=== PATIENT | male | born 1950 | race African-American/Black ===

== ENCOUNTER → 2016-10-01 | Outpatient (CLI) | payer MEDICARE, OTHER ==
[~2016-10-01] VITALS: Ht 188 cm; Wt 96.6 kg
[~2016-10-01] MED LIST: ACET-654; ALFU10TA2; AMLO10TA2; FLUT22IN; GLIP5TAB8; LIPI80TA; LISI40TAB; LR 1,000 ML IV SCH; NIAC500T42 PO; NIZO2SHA; PROPOFOL 200 MG/20 ML VIAL As Ordered ONE; SING10TA32; SITA50TAB; VIAG100T; VITA100041 PO
--- NOTE | 2016-10-01 09:17 | ROOR ---
Patient Name: Jose G Nj Procedure Date: 10/01/2016 8:13 AM Date of : 1950 Age: 66 Room: [facility] Gender: Male Note Status: Finalized Procedure: Colonoscopy Indications: Screening in patient at increased risk: Colorectal cancer in brother before age 60, Last colonoscopy: 2007 Providers: Theodore Rockwell MD Referring MD: Bailee DUNHAM MD Requesting Provider: Medicines: Monitored Anesthesia Care Complications: No immediate complications. Procedure: Pre-Anesthesia Assessment: - Prior to the procedure, a History and Physical was performed, and patient medications and allergies were reviewed. The patient is competent. The risks and benefits of the procedure and the sedation options and risks were discussed with the patient. All questions were answered and informed consent was obtained. Patient identification and proposed procedure were verified by the physician, the nurse and the anesthesiologist in the procedure room. Mental Status Examination: alert and oriented. Airway Examination: normal oropharyngeal airway and neck mobility. CV Examination: regular rate and rhythm. Prophylactic Antibiotics: The patient does not require prophylactic antibiotics. Prior Anticoagulants: The patient has taken no previous anticoagulant or antiplatelet agents. ASA Grade Assessment: II - A patient with mild systemic disease. After reviewing the risks and benefits, the patient was deemed in satisfactory condition to undergo the procedure. The anesthesia plan was to use monitored anesthesia care (MAC). Immediately prior to administration of medications, the patient was re-assessed for adequacy to receive sedatives. The heart rate, respiratory rate, oxygen saturations, blood pressure, adequacy of pulmonary ventilation, and response to care were monitored throughout the procedure. The physical status of the patient was re-assessed after the procedure. The was introduced through the anus and advanced to the cecum, identified by appendiceal orifice and ileocecal valve. The colonoscopy was performed without difficulty. The patient tolerated the procedure well. The quality of the bowel preparation was excellent. Findings: The perianal and digital rectal examinations were normal. The colon (entire examined portion) appeared normal. Impression: - The entire examined colon is normal. - No specimens collected. Recommendation: - Discharge patient to home. - Resume previous diet. - Continue present medications. - Repeat colonoscopy in 5-10 years for screening purposes. Theodore Rockwell MD 10/01/2016 9:17:01 AM Number of Addenda: 0 Note Initiated On: 10/01/2016 8:13 AM Estimated Blood Loss: Estimated blood loss: none.
[2016-10-01 09:41] VITALS: BP 124/94
== END | disposition home or self-care (01) ==
LOC: M OPP 07:39
PROVIDERS: ATTEND Surgery
DX: Z12.11 Encounter for screening for malignant neoplasm of colon (principal); Z80.0 Family history of malignant neoplasm of digestive organs; I12.9 Hypertensive chronic kidney disease with stage 1 through stage 4 chronic kidney disease, or unspecified chronic kidney disease; E78.5 Hyperlipidemia, unspecified; E11.9 Type 2 diabetes mellitus without complications; M54.9 Dorsalgia, unspecified; R21 Rash and other nonspecific skin eruption; G47.8 Other sleep disorders; M19.90 Unspecified osteoarthritis, unspecified site; J45.909 Unspecified asthma, uncomplicated; N18.4 Chronic kidney disease, stage 4 (severe); Z85.46 Personal history of malignant neoplasm of prostate; Z92.3 Personal history of irradiation; Z87.442 Personal history of urinary calculi; J32.9 Chronic sinusitis, unspecified; Q61.3 Polycystic kidney, unspecified; Z83.71 Family history of colonic polyps; Z88.5 Allergy status to narcotic agent; Z79.84 Long term (current) use of oral hypoglycemic drugs; Z79.899 Other long term (current) drug therapy

== ENCOUNTER → 2016-10-17 | Outpatient (REF) | payer MEDICARE, OTHER ==
[~2016-10-17] MED LIST changes: -ACET-654; +ACET1TAB17; +ACET1TAB17 PO; -ALFU10TA2; +ALFU10TA2 PO; -AMLO10TA2; +AMLO10TA2 PO; +ASPI1TAB PO; +ATOR1TAB19 PO; +ATOR40TA75 PO; +D32000CA PO; +FLON1SPR; -FLUT22IN; +FLUT22IN INH; +GLIP5TAB8 PO; +JANU25TA PO; +KETO0.02 OU; -LISI40TAB; +LISI40TAB PO; -LR 1,000 ML IV SCH; +NIAC500T5 PO; +OXYC1TAB23 PO; +PROAAER10 INH; -PROPOFOL 200 MG/20 ML VIAL As Ordered ONE; +PROTPAK PO; -SING10TA32; +SING10TA32 PO; +SUCR1TA PO; +VITA-182 PO; -VITA100041 PO; +VITA2000 PO; +VITMTA PO
[2016-10-18 12:05] LABS: MEAN CORPUSCULAR HEMOGLOBIN 29.6 pg (27.0-33.0); MEAN CORPUSCULAR HGB CONC 33.1 g/dl (32.0-36.5); MEAN CORPUSCULAR VOLUME 89.4 fl (80.0-96.0); RED CELL DISTRIBUTION WIDTH 13.1 % (11.5-14.5); WHITE BLOOD COUNT 4.6 K/mm3 (4.0-10.0)
[2016-10-18 12:15] LABS: CALCIUM LEVEL 9.7 MG/DL (8.8-10.2); CREATININE FOR GFR 4.73 MG/DL (0.70-1.30); GLOMERULAR FILTRATION RATE 16.1 (>49)
[2016-10-18 12:18] LABS: POTASSIUM SERUM 5.3 MEQ/L (3.5-5.1)
== END ==
LOC: M SFHCLERA 15:49
PROVIDERS: ATTEND Family Medicine
DX: K29.70 Gastritis, unspecified, without bleeding (principal)

== ENCOUNTER 2016-10-19 00:40 | Inpatient (IN) | payer MEDICARE, OTHER ==
[~2016-10-19] VITALS: Ht 188 cm; Wt 97.7 kg
[~2016-10-19 00:40] MED LIST changes: -ACET1TAB17 PO; -ASPI1TAB PO; -ATOR1TAB19 PO; -ATOR40TA75 PO; -D32000CA PO; -FLON1SPR; -GLIP5TAB8 PO; -JANU25TA PO; -KETO0.02 OU; -NIAC500T5 PO; -OXYC1TAB23 PO; -PROAAER10 INH; -PROTPAK PO; -SUCR1TA PO; -VITA2000 PO; -VITMTA PO
[2016-10-19] MEDS ORDERED: ATOR40TA75 PO (01:10)
[2016-10-19] MEDS ORDERED: JANU25TA PO (01:10)
[2016-10-19] MEDS ORDERED: D32000CA PO (01:10)
[2016-10-19 01:59] LABS: BASO % 0.4 % (0.0-1.0); EOS # 0.1 K/mm3 (0.0-0.50); EOS % 0.6 % (0.0-3.0); LARGE UNSTAINED CELL # 0.3 K/mm3 (0.0-0.4); LARGE UNSTAINED CELL % 2.6 % (0.0-4.0); LYMPH # 1.5 K/mm3 (1.5-4.5); LYMPH % 13.9 % (24.0-44.0); MEAN CORPUSCULAR HEMOGLOBIN 28.8 pg (27.0-33.0); MEAN CORPUSCULAR HGB CONC 31.8 g/dl (32.0-36.5); MEAN CORPUSCULAR VOLUME 90.5 fl (80.0-96.0); MONO # 0.7 K/mm3 (0.0-0.8); MONO % 6.5 % (0.0-5.0); NEUTROPHILS # 8.1 K/mm3 (1.8-7.7); PLATELET COUNT, AUTOMATED 105 k/mm3 (150-450); WHITE BLOOD COUNT 10.6 K/mm3 (4.0-10.0)
[2016-10-19] MEDS ORDERED: NS 1,000 ML IV ONE (02:00)
[2016-10-19] MEDS ORDERED: METOCLOPRAMIDE INJ 10MG/2ML VIAL (J2765) IV ONE (02:15)
[2016-10-19 02:23] LABS: ALBUMIN 4.2 GM/DL (3.2-5.2); ALBUMIN/GLOBULIN RATIO 1.14 (1.00-1.93); BILIRUBIN,DIRECT 0.2 MG/DL (0.0-0.2); BILIRUBIN,TOTAL 0.6 MG/DL (0.2-1.0); CALCIUM LEVEL 9.4 MG/DL (8.8-10.2); CREATININE FOR GFR 5.45 MG/DL (0.70-1.30); GLOMERULAR FILTRATION RATE 13.7 (>49); POTASSIUM SERUM 4.9 MEQ/L (3.5-5.1); TOTAL PROTEIN 7.9 GM/DL (6.4-8.2)
[2016-10-19] MEDS ORDERED: MORPHINE 4 MG/ML 1ML SYRINGE IV ONE ×2 (03:45→05:15)
--- NOTE | 2016-10-19 04:20 | REPUSA ---
CLINICAL HISTORY: Abdominal pain. TECHNIQUE: Multiple axial, sagittal and coronal CT images were obtained through the abdomen and pelvi s without administration of oral or IV contrast material. COMMENTS: The liver is of uniform attenuation without mass or defect. There is no intra or extrahepatic biliary ductal dilatation. The spleen is normal. The gallbladder is within normal limits. The pancreas is of normal contour and attenuation characteristics. There is no evidence of adrenal mass. Enlarged kidneys. Bilateral renal cysts are noted. 3 mm left renal nonobstructing stone is seen. There is no hydroureter or hydronephrosis. There is no evidence for appendicitis. There is no bowel wall thickening. No evidence for small or la rge bowel obstruction. There is no evidence of abdominal ascites or lymphadenopathy. There is no evidence of intrinsic or extrinsic bladder mass. Diffuse thickening of the bladder. There is no pelvic ascites or lymphadenopathy. Peripancreatic fat stranding. Findings are suggestive of acute pancreatitis. Images of the lung bases show no evidence of pleural or parenchymal mass. There are small bilateral p leural effusions. Bilateral basilar atelectatic airspace disease of the lower lobes. The bony structures are free of lytic or blastic lesions. Multilevel degenerative changes are seen in volving the thoracolumbar spine. Scattered calcifications are seen involving the aorta and major branches compatible with atherosclero sis. Radiotherapy seeds in the prostate are noted. IMPRESSION: Small bilateral pleural effusions. Polycystic kidney disease. Nonobstructing left renal stone. Radiotherapy seeds of the prostate are noted. Diffuse thickening of the wall of the bladder. Mild peripancreatic fat stranding. Findings are suggestive of mild acute pancreatitis. Findings were not present on prior exam on 10/22/2015. Thank you for your kind referral of this patient.
--- NOTE | 2016-10-19 05:12 | HPEPDOC ---
General Date of Admission Primary Care Physician: CORINNE DUNHAM MD Chief Complaint The patient is a 66-year-old male admitted with a reason for visit of Abdominal Pain. Source: Patient, Family Exam Limitations: No limitations Timing/Duration: Week(s) (1) Severity: Moderate Associated Symptoms: Vomiting History of Present Illness Mr Nj is a 66 y/o male with pmhx of CKD IV, HTN, DM2 who presents to the ED with CC of sharp abdominal pain that began one week ago, pt states pain would be intermittent and admitted to experiencing an increase in severity of the pain shortly after dinner last night, it was then he decided to come to the hospital. He states that around midnight he also began to have loose stool, he has had 2 episodes of non-bloody, but very watery stool movements associated with 4-5 episodes of non-bloody, non-bilious watery vomiting. He denies CP, palpations, SOB, fever or cough, denies pain w urination or blood in urine. States that until last night, the abdominal pain really hadn't been affected by food. He states he has never had this before and denies alcohol consumption or hx of gallstones. Home Medications Scheduled Alfuzosin Hydrochloride (Alfuzosin HCl ER) 10 Mg Tab, 10 MG PO DAILY, (Reported) Amlodipine Besylate (Amlodipine Besylate) 10 Mg Tab, 5 MG PO DAILY, (Reported) Atorvastatin Calcium (Atorvastatin Calcium) 40 Mg Tab, 40 MG PO QHS, (Reported) Cholecalciferol (Vitamin D3) 2,000 Unit Cap, 2,000 UNIT PO DAILY, (Reported) Lisinopril (Lisinopril) 40 Mg Tab, 20 MG PO DAILY, (Reported) Montelukast Sodium (Singulair) 10 Mg Tab, 10 MG PO DAILY, (Reported) Sitagliptin Phosphate (Januvia) 25 Mg Tab, 25 MG PO DAILY, (Reported) Scheduled PRN Fluticasone Propionate (Flovent Hfa 220 MCG) 120 Puff/12 Gm Aero, 2 PUFFS INH DAILY PRN for SOB/WHEEZING, (Reported) Allergies Coded Allergies: Codeine (Verified Adverse Reaction, Intermediate, nausea, 09/24/16) Past Medical History Medical History DM2 HTN CKD IV Prostate CA Family History Significant Family History: No pertinent family hx Social History * Smoker: Denies Alcohol: Denies Drugs: denies Review of Symptoms Constitutional: Reports: Malaise, Denies: Chills, Fever, Night Sweats, Weakness Eyes: Denies: Pain, Vision change, Conjunctivae inflammation Skin: Denies: Rash, Lesions, Jaundice Pulmonary: Denies: Dyspnea, Cough, Pleuritic Chest Pain Cardiovascular: Denies: Chest Pain, Palpitations Gastrointestinal: Reports: Nausea, Vomiting, Abdominal Pain, Diarrhea, Denies: Constipation, Melena, Hematochezia Genitourinary: Denies: Dysuria Hematologic: Denies: Bruising Musculoskeletal: Denies: Neck Pain Neurological: Denies: Weakness Psych: Reports: Mood Normal Physical Examination General Exam: Positive: Alert, Cooperative, Mild Distress Eye Exam: Positive: Conjunctiva & lids normal, EOMI, Negative: Sclera icteric ENT Exam: Positive: Atraumatic Neck Exam: Positive: Supple Chest Exam: Positive: Clear to auscultation, Normal air movement, Negative: Rales, Rhonchi, Wheezing, Diminished Heart Exam: Positive: Rate Normal, Normal S1, Normal S2, Negative: Gallops, Murmurs, Rubs Abdomen Exam: Positive: Normal bowel sounds, Soft, Tenderness (epigastric to upper umbilical area sharp pain) Extremity Exam: Negative: Clubbing, Cyanosis, Edema Psych Exam: Positive: Mental status NL Vital Signs Vital Signs Date Time Temp Pulse Resp B/P (MAP) Pulse Ox O2 Delivery O2 Flow Rate FiO2 10/19/16 04:06 130/72 (91) 10/19/16 04:01 74 97 10/19/16 04:00 18 10/19/16 03:50 Room Air 10/19/16 03:16 99.2 Laboratory Data Labs 24H Laboratory Tests 2 10/19/16 01:49: White Blood Count 10.6H, Red Blood Count 3.86L, Hemoglobin 11.1L, Hematocrit 34.9L, Mean Corpuscular Volume 90.5, Mean Corpuscular Hemoglobin 28.8, Mean Corpuscular Hemoglobin Concent 31.8L, Red Cell Distribution Width 13.0, Platelet Count 105L, Neutrophils (%) (Auto) 76.0H, Lymphocytes (%) (Auto) 13.9L , Monocytes (%) (Auto) 6.5H, Eosinophils (%) (Auto) 0.6, Basophils (%) (Auto) 0.4, Neutrophils # (Auto) 8.1H, Lymphocytes # (Auto) 1.5, Monocytes # (Auto) 0.7 , Eosinophils # (Auto) 0.1, Basophils # (Auto) 0.0, Large Unclassified Cells % 2.6, Large Unclassified Cells # 0.3, Anion Gap 10, Glomerular Filtration Rate 13.7L, Calcium Level 9.4, Aspartate Amino Transf (AST/SGOT) 37, Alanine Aminotransferase (ALT/SGPT) 36, Alkaline Phosphatase 35L, Total Bilirubin 0.6, Direct Bilirubin 0.2, Total Protein 7.9, Albumin 4.2, Albumin/Globulin Ratio 1.14, Amylase Level 2930H, Lipase 536176H CBC/BMP Laboratory Tests 10/19/16 01:49 Red Blood Count 3.86 L, Mean Corpuscular Volume 90.5, Mean Corpuscular Hemoglobin 28.8, Mean Corpuscular Hemoglobin Concent 31.8 L, Red Cell Distribution Width 13.0, Neutrophils (%) (Auto) 76.0 H, Lymphocytes (%) (Auto) 13.9 L, Monocytes (%) (Auto) 6.5 H, Eosinophils (%) (Auto) 0.6, Basophils (%) ( Auto) 0.4, Neutrophils # (Auto) 8.1 H, Lymphocytes # (Auto) 1.5, Monocytes # ( Auto) 0.7, Eosinophils # (Auto) 0.1, Basophils # (Auto) 0.0 Problems (1) Pancreatitis, acute Status: Acute Problem Text: Lipase elevated to an impressive 115,960 CT ab/pelvis showed: Small bilateral pleural effusions. Polycystic kidney disease. Nonobstructing left renal stone. Radiotherapy seeds of the prostate are noted. Diffuse thickening of the wall of the bladder. Mild peripancreatic fat stranding. Findings are suggestive of mild acute pancreatitis BISAP score 2 Pt made NPO, pain control with morphine, begin fluids Will order U/S gallbladder Lipid panel pending (2) DM2 (diabetes mellitus, type 2) Status: Chronic Response to Treatment: Stable Problem Text: Sliding scale (3) Chronic renal disease Status: Chronic Response to Treatment: Stable Problem Text: Baseline creatine 4.6, in ED creatine 5.4 Begin fluids (4) HTN (hypertension) Status: Chronic Response to Treatment: Stable Problem Text: continue home meds (5) DVT prophylaxis Status: Acute Response to Treatment: Stable Problem Text: scd teds Plan / VTE VTE Prophylaxis Ordered?: Yes GME ATTESTATION GME ATTESTATION My preceptor for this patient encounter was physically present in the building during the encounter and was fully available. As needed, all aspects of the patient interview, examination, medical decision making process, and medical care plan development were reviewed and approved by the preceptor. Preceptor is aware and concurs with the plan as stated in the body of this note and will attest to such by his/her cosignature. ATTENDING NOTE Pt seen and examined by me. Findings and plan reviewed with resident. Resident note reviewed and agree with documented findings and plan. 1. Acute pancreatitis-BISAP [address] No evid obstruction on CT but US better modality to assess for cbd dilatation- will check sono Will also check for hypertriglyceridemia NPO IVF Pain control 2. DM2 NPO Will start FS with coverage Will order long acting based on wt and 24hr coverage insulin needs 3. HTN Continue anti-hypertensives ASTER HATCH DO Oct 19, 2016 05:12 Kamran Briceno MD Oct 21, 2016 20:36
[2016-10-19] MEDS ORDERED: MORPHINE 2 MG/ML 1ML SYRINGE IV PRN ×2 (05:15)
[2016-10-19] MEDS ORDERED: ONDANSETRON 4 MG TAB (S0181) PO PRN (05:15)
[2016-10-19] MEDS ORDERED: VITA2000 PO (05:17)
[2016-10-19] MEDS: NS 1,000 ML IV SCH ×2 (05:34→13:12)
[2016-10-19] MEDS: HumaLOG INSULIN (NovoLOG) PER UNIT SC SCH ×4 (06:00→23:52)
[2016-10-19 06:15] VITALS: BP 135/72
[2016-10-19] MEDS ORDERED: ONDANSETRON 4MG/2ML VIAL (J2405) IV PRN (06:15)
[2016-10-19] MEDS ORDERED: GLUCOSE 4 GM CHEW TABLET PO PRN (06:15)
[2016-10-19] MEDS ORDERED: DEXTROSE 50% 50 ML SYRINGE IV PRN (06:15)
[2016-10-19] MEDS ORDERED: FLUTICASONE HFA 220 MCG 12 GM INHALER (FLOVENT) INH PRN (06:15)
[2016-10-19] MEDS ORDERED: GLUCAGON FOR INJ 1 MG VIAL (J1610) SC PRN (06:15)
[2016-10-19] MEDS ORDERED: ALBUTEROL SULFATE 2.5 MG/0.5 ML INH NEB SOLN NEB PRN (06:30)
[2016-10-19] MEDS ORDERED: HumaLOG INSULIN (NovoLOG) PER UNIT SC SCH ×2 (07:30→21:00)
--- NOTE | 2016-10-19 09:35 | REP ---
Clinical: Acute pancreatitis. Technique: Dewey scale ultrasound using curved array transducer. Findings: The liver and pancreas are normal in contour, size, and echogenicity without focal hepatic or pancreatic lesions identified. The gallbladder is normal without gallstones, wall thickening or pericholecystic fluid. No biliary ductal dilatation is appreciated, and the common bile duct measures 3.1 mm diameter. The right kidney demonstrates innumerable cysts consistent with a history of polycystic kidney disease and measures 15.1 x 6.2 x 6.7 cm. No ascites. Visualized portions of the abdominal aorta normal. Impression: Known polycystic kidney disease. Otherwise normal right upper quadrant and gallbladder ultrasound. Signed by Demario Bernal MD 10/19/2016 09:25 A
[2016-10-19] MEDS: MONTELUKAST 10 MG TAB PO SCH (09:45)
[2016-10-19] MEDS: amLODIPine 10 MG TAB PO SCH (09:45)
[2016-10-19] MEDS: LISINOPRIL 40 MG TAB PO SCH (09:45)
[2016-10-19] MEDS: MORPHINE 2 MG/ML 1ML SYRINGE IV PRN (09:45)
[2016-10-19] MEDS: FLUTICASONE HFA 220 MCG 12 GM INHALER (FLOVENT) INH SCH ×2 (13:35→19:13)
[2016-10-19 14:00] VITALS: BP 144/84
[2016-10-19] MEDS: D5W/0.9% SODIUM CHLORIDE 1,000 ML IV SCH (17:36)
[2016-10-19] MEDS ORDERED: ATORVASTATIN 20 MG TAB PO SCH (21:00)
[2016-10-19 22:00] VITALS: BP 162/86
[2016-10-20] MEDS: D5W/0.9% SODIUM CHLORIDE 1,000 ML IV SCH (03:11)
[2016-10-20 06:00] VITALS: BP 116/57
[2016-10-20] MEDS: HumaLOG INSULIN (NovoLOG) PER UNIT SC SCH ×3 (06:00→18:00)
[2016-10-20 06:41] LABS: BASO % 0.4 % (0.0-1.0); EOS % 0.8 % (0.0-3.0); LARGE UNSTAINED CELL # 0.2 K/mm3 (0.0-0.4); LARGE UNSTAINED CELL % 3.5 % (0.0-4.0); MEAN CORPUSCULAR HEMOGLOBIN 28.9 pg (27.0-33.0); MEAN CORPUSCULAR HGB CONC 32.5 g/dl (32.0-36.5); MEAN CORPUSCULAR VOLUME 88.9 fl (80.0-96.0); MONO # 0.5 K/mm3 (0.0-0.8); MONO % 9.6 % (0.0-5.0); NEUTROPHILS # 3.5 K/mm3 (1.8-7.7); NEUTROPHILS % 68.8 % (36.0-66.0); WHITE BLOOD COUNT 5.1 K/mm3 (4.0-10.0)
[2016-10-20 06:58] LABS: CALCIUM LEVEL 8.7 MG/DL (8.8-10.2); CREATININE FOR GFR 4.31 MG/DL (0.70-1.30); GLOMERULAR FILTRATION RATE 17.9 (>49); POTASSIUM SERUM 4.9 MEQ/L (3.5-5.1)
[2016-10-20 06:59] LABS: PLATELET COUNT, AUTOMATED 84 k/mm3 (150-450)
--- NOTE | 2016-10-20 07:14 | IPNPDOC ---
Subjective Date Seen The patient was seen on 10/20/16. Subjective Chief Complaint/HPI The patient is a 66-year-old male admitted with a reason for visit of Acute Pancreatitis. Events since last encounter no new events overnight , abdominal pain better, no nausea or vomiting , no diarrhea, no fever or chills, no chest pain or sob , pateint did not require any morphine for the last 24 hours. Objective Physical Examination General Exam: Positive: Alert, Cooperative, Mild Distress Eye Exam: Positive: Conjunctiva & lids normal, EOMI, Negative: Sclera icteric ENT Exam: Positive: Atraumatic Neck Exam: Positive: Supple Chest Exam: Positive: Clear to auscultation, Normal air movement, Negative: Rales, Rhonchi, Wheezing, Diminished Heart Exam: Positive: Rate Normal, Normal S1, Normal S2, Negative: Gallops, Murmurs, Rubs Abdomen Exam: Positive: Normal bowel sounds, Soft, Tenderness (epigastric to upper umbilical area sharp pain) Extremity Exam: Negative: Clubbing, Cyanosis, Edema Skin Exam: Positive: Nl turgor and temperature, Negative: Rash, Breakdown Psych Exam: Positive: Mental status NL Assessment /Plan Problems (1) Pancreatitis, acute Status: Acute Problem Text: Etiology undetermined. No history of alcohol use , no GB disease. no abnormality in liver function tests. Could be medication related vs viral or transient sphincter of oddi spasm. Lipase elevated to an impressive 115,960 CT ab/pelvis showed: Small bilateral pleural effusions. Polycystic kidney disease. Nonobstructing left renal stone. Radiotherapy seeds of the prostate are noted. Diffuse thickening of the wall of the bladder. Mild peripancreatic fat stranding. Findings are suggestive of mild acute pancreatitis BISAP score 2 GB ultrasound negative. (2) DM2 (diabetes mellitus, type 2) Status: Chronic Response to Treatment: Stable Problem Text: Sliding scale (3) Chronic renal disease Status: Chronic Response to Treatment: Stable Problem Text: Stage 4 Due to polycystic kidney disease. Baseline creatine 4.6, in ED creatine 5.4 (4) HTN (hypertension) Status: Chronic Response to Treatment: Stable Problem Text: continue home meds (5) DVT prophylaxis Status: Acute Response to Treatment: Stable Problem Text: scd teds (6) Asthma Status: Chronic (7) History of prostate cancer Status: Chronic (8) Polycystic kidney disease Status: Chronic (9) Seasonal allergies Status: Chronic (10) Renal calculus or stone Status: Chronic (11) Hyperlipidemia Status: Chronic Problem Text: will hold statin due to acute pancreatitis Plan/VTE VTE Prophylaxis Ordered?: Yes VS, I&O, 24H, Fishbone Vital Signs/I&O Vital Signs Date Time Temp Pulse Resp B/P (MAP) Pulse Ox O2 Delivery O2 Flow Rate FiO2 10/20/16 06:00 98.1 52 20 116/57 (76) 96 Room Air I&O- Last 24 Hours up to 6 AM 10/20/16 06:00 Intake Total 260 ml Output Total 2525 ml Balance -2265 ml Laboratory Data 24H LABS Laboratory Tests 2 10/19/16 06:55: Bedside Glucose (Misc Panel) 140H 10/19/16 12:27: Bedside Glucose (Misc Panel) 114 10/19/16 16:50: Bedside Glucose (Misc Panel) 87 10/19/16 23:31: Bedside Glucose (Misc Panel) 113 10/20/16 06:21: ZUHAIR GIRON MD Oct 20, 2016 07:14
[2016-10-20] MEDS: FLUTICASONE HFA 220 MCG 12 GM INHALER (FLOVENT) INH SCH ×2 (07:32→20:38)
[2016-10-20] MEDS: MONTELUKAST 10 MG TAB PO SCH (08:43)
[2016-10-20] MEDS: amLODIPine 10 MG TAB PO SCH (08:44)
[2016-10-20] MEDS: LISINOPRIL 40 MG TAB PO SCH (08:44)
[2016-10-20 14:00] VITALS: BP 126/72
[2016-10-20 22:00] VITALS: BP 140/86
[2016-10-21] MEDS: MORPHINE 2 MG/ML 1ML SYRINGE IV PRN ×3 (02:25→05:53)
[2016-10-21 06:00] VITALS: BP 131/77
[2016-10-21 06:31] LABS: BASO % 0.4 % (0.0-1.0); EOS % 0.9 % (0.0-3.0); LARGE UNSTAINED CELL # 0.2 K/mm3 (0.0-0.4); LARGE UNSTAINED CELL % 3.1 % (0.0-4.0); LYMPH # 1.1 K/mm3 (1.5-4.5); LYMPH % 15.9 % (24.0-44.0); MEAN CORPUSCULAR HEMOGLOBIN 29.3 pg (27.0-33.0); MEAN CORPUSCULAR VOLUME 88.8 fl (80.0-96.0); MONO # 0.5 K/mm3 (0.0-0.8); MONO % 8.5 % (0.0-5.0); NEUTROPHILS # 4.1 K/mm3 (1.8-7.7); NEUTROPHILS % 71.2 % (36.0-66.0); WHITE BLOOD COUNT 5.8 K/mm3 (4.0-10.0)
[2016-10-21 06:33] LABS: PLATELET COUNT, AUTOMATED 90 k/mm3 (150-450)
[2016-10-21 06:38] LABS: CALCIUM LEVEL 8.9 MG/DL (8.8-10.2); CREATININE FOR GFR 4.01 MG/DL (0.70-1.30); GLOMERULAR FILTRATION RATE 19.5 (>49); POTASSIUM SERUM 4.7 MEQ/L (3.5-5.1)
[2016-10-21] MEDS: FLUTICASONE HFA 220 MCG 12 GM INHALER (FLOVENT) INH SCH ×2 (07:09→20:10)
[2016-10-21] MEDS: LISINOPRIL 40 MG TAB PO SCH (09:00)
[2016-10-21] MEDS: D5W/0.9% SODIUM CHLORIDE 1,000 ML IV SCH (09:06)
[2016-10-21] MEDS: amLODIPine 10 MG TAB PO SCH (09:07)
[2016-10-21] MEDS: MONTELUKAST 10 MG TAB PO SCH (09:07)
--- NOTE | 2016-10-21 09:55 | IPNPDOC ---
Subjective Date Seen The patient was seen on 10/21/16. Subjective Chief Complaint/HPI The patient is a 66-year-old male admitted with a reason for visit of Acute Pancreatitis. Events since last encounter patient had increased abdominal pain last night requiring 8 mg of morphine overnight , no fever or chills, no nausea or vomiting or diarrhea, Objective Physical Examination General Exam: Positive: Alert, Cooperative, Mild Distress Eye Exam: Positive: Conjunctiva & lids normal, EOMI, Negative: Sclera icteric ENT Exam: Positive: Atraumatic Neck Exam: Positive: Supple Chest Exam: Positive: Clear to auscultation, Normal air movement, Negative: Rales, Rhonchi, Wheezing, Diminished Heart Exam: Positive: Rate Normal, Normal S1, Normal S2, Negative: Gallops, Murmurs, Rubs Abdomen Exam: Positive: Normal bowel sounds, Soft, Tenderness (epigastric to upper umbilical area sharp pain) Extremity Exam: Negative: Clubbing, Cyanosis, Edema Skin Exam: Positive: Nl turgor and temperature, Negative: Rash, Breakdown Psych Exam: Positive: Mental status NL Assessment /Plan Problems (1) Pancreatitis, acute Status: Acute Problem Text: Etiology undetermined. No history of alcohol use , no GB disease. no abnormality in liver function tests. Could be medication related vs viral or transient sphincter of oddi spasm. diet changed to clear liquids. will restart IVF. Lipase elevated to an impressive 115,960 CT ab/pelvis showed: Small bilateral pleural effusions. Polycystic kidney disease. Nonobstructing left renal stone. Radiotherapy seeds of the prostate are noted. Diffuse thickening of the wall of the bladder. Mild peripancreatic fat stranding. Findings are suggestive of mild acute pancreatitis BISAP score 2 GB ultrasound negative. (2) DM2 (diabetes mellitus, type 2) Status: Chronic Response to Treatment: Stable Problem Text: Sliding scale (3) Chronic renal disease Status: Chronic Response to Treatment: Stable Problem Text: Stage 4 Due to polycystic kidney disease. Baseline creatine 4.6, in ED creatine 5.4 (4) HTN (hypertension) Status: Chronic Response to Treatment: Stable Problem Text: continue home meds (5) DVT prophylaxis Status: Acute Response to Treatment: Stable Problem Text: scd teds (6) Asthma Status: Chronic (7) History of prostate cancer Status: Chronic (8) Polycystic kidney disease Status: Chronic (9) Seasonal allergies Status: Chronic (10) Renal calculus or stone Status: Chronic (11) Hyperlipidemia Status: Chronic Problem Text: will hold statin due to acute pancreatitis Plan/VTE VTE Prophylaxis Ordered?: Yes VS, I&O, 24H, Fishbone Vital Signs/I&O Vital Signs Date Time Temp Pulse Resp B/P (MAP) Pulse Ox O2 Delivery O2 Flow Rate FiO2 10/21/16 09:07 50 150/79 10/21/16 06:05 16 10/21/16 06:00 98.5 97 Room Air I&O- Last 24 Hours up to 6 AM 10/21/16 06:00 Intake Total 960 ml Output Total 800 ml Balance 160 ml Laboratory Data 24H LABS Laboratory Tests 2 10/20/16 12:27: Bedside Glucose (Misc Panel) 126H 10/20/16 17:45: Bedside Glucose (Misc Panel) 90 10/20/16 21:12: Bedside Glucose (Misc Panel) 127H 10/21/16 05:58: White Blood Count 5.8, Red Blood Count 3.49L, Hemoglobin 10.2L, Hematocrit 31.0L , Mean Corpuscular Volume 88.8, Mean Corpuscular Hemoglobin 29.3, Mean Corpuscular Hemoglobin Concent 33.0, Red Cell Distribution Width 13.0, Platelet Count 90L, Neutrophils (%) (Auto) 71.2H, Lymphocytes (%) (Auto) 15.9L, Monocytes (%) (Auto) 8.5H, Eosinophils (%) (Auto) 0.9, Basophils (%) (Auto) 0.4 , Neutrophils # (Auto) 4.1, Lymphocytes # (Auto) 1.1L, Monocytes # (Auto) 0.5, Eosinophils # (Auto) 0.0, Basophils # (Auto) 0.0, Large Unclassified Cells % 3.1 , Large Unclassified Cells # 0.2, Anion Gap 6L, Glomerular Filtration Rate 19.5L , Blood Urea Nitrogen 42H, Creatinine 4.01H, Sodium Level 143, Potassium Level 4.7, Chloride Level 116H, Carbon Dioxide Level 21, Calcium Level 8.9, Amylase Level 693H, Lipase 56494G CBC/BMP Laboratory Tests 10/21/16 05:58 Red Blood Count 3.49 L, Mean Corpuscular Volume 88.8, Mean Corpuscular Hemoglobin 29.3, Mean Corpuscular Hemoglobin Concent 33.0, Red Cell Distribution Width 13.0, Neutrophils (%) (Auto) 71.2 H, Lymphocytes (%) (Auto) 15.9 L, Monocytes (%) (Auto) 8.5 H, Eosinophils (%) (Auto) 0.9, Basophils (%) ( Auto) 0.4, Neutrophils # (Auto) 4.1, Lymphocytes # (Auto) 1.1 L, Monocytes # ( Auto) 0.5, Eosinophils # (Auto) 0.0, Basophils # (Auto) 0.0, Calcium Level 8.9 ZUHAIR GIRON MD Oct 21, 2016 09:55
[2016-10-21 14:00] VITALS: BP 126/75
[2016-10-21 22:00] VITALS: BP 148/75
[2016-10-22] MEDS: D5W/0.9% SODIUM CHLORIDE 1,000 ML IV SCH (00:45)
[2016-10-22 06:00] VITALS: BP 139/88
[2016-10-22 07:14] LABS: BASO % 0.8 % (0.0-1.0); EOS % 0.4 % (0.0-3.0); LARGE UNSTAINED CELL # 0.2 K/mm3 (0.0-0.4); LARGE UNSTAINED CELL % 3.1 % (0.0-4.0); LYMPH # 0.9 K/mm3 (1.5-4.5); LYMPH % 14.6 % (24.0-44.0); MEAN CORPUSCULAR HEMOGLOBIN 30.1 pg (27.0-33.0); MEAN CORPUSCULAR HGB CONC 33.8 g/dl (32.0-36.5); MONO # 0.5 K/mm3 (0.0-0.8); MONO % 9.1 % (0.0-5.0); NEUTROPHILS # 3.8 K/mm3 (1.8-7.7); RED CELL DISTRIBUTION WIDTH 12.9 % (11.5-14.5); WHITE BLOOD COUNT 5.3 K/mm3 (4.0-10.0)
[2016-10-22 07:29] LABS: PLATELET COUNT, AUTOMATED 95 k/mm3 (150-450)
[2016-10-22 07:32] LABS: CALCIUM LEVEL 9.2 MG/DL (8.8-10.2); CREATININE FOR GFR 3.85 MG/DL (0.70-1.30); GLOMERULAR FILTRATION RATE 20.4 (>49); POTASSIUM SERUM 4.6 MEQ/L (3.5-5.1)
[2016-10-22] MEDS: FLUTICASONE HFA 220 MCG 12 GM INHALER (FLOVENT) INH SCH ×2 (07:49→19:56)
[2016-10-22] MEDS: MONTELUKAST 10 MG TAB PO SCH (08:21)
[2016-10-22] MEDS: amLODIPine 10 MG TAB PO SCH (08:21)
[2016-10-22] MEDS: LISINOPRIL 40 MG TAB PO SCH (08:21)
--- NOTE | 2016-10-22 12:11 | IPNPDOC ---
Subjective Date Seen The patient was seen on 10/22/16. Subjective Chief Complaint/HPI The patient is a 66-year-old male admitted with a reason for visit of Acute Pancreatitis. Events since last encounter no pain last night though abdomen still sore, no fever or chills, no chest pain or sob , no nausea or vomiting or diarrhea. Objective Physical Examination General Exam: Positive: Alert, Cooperative, Mild Distress Eye Exam: Positive: Conjunctiva & lids normal, EOMI, Negative: Sclera icteric ENT Exam: Positive: Atraumatic Neck Exam: Positive: Supple Chest Exam: Positive: Clear to auscultation, Normal air movement, Negative: Rales, Rhonchi, Wheezing, Diminished Heart Exam: Positive: Rate Normal, Normal S1, Normal S2, Negative: Gallops, Murmurs, Rubs Abdomen Exam: Positive: Normal bowel sounds, Soft, Tenderness (epigastric to upper umbilical area sharp pain) Extremity Exam: Negative: Clubbing, Cyanosis, Edema Skin Exam: Positive: Nl turgor and temperature, Negative: Rash, Breakdown Psych Exam: Positive: Mental status NL Assessment /Plan Problems (1) Pancreatitis, acute Status: Acute Problem Text: Etiology undetermined. No history of alcohol use , no GB disease. no abnormality in liver function tests. Could be medication related vs viral or transient sphincter of oddi spasm. diet advanced to full liquids will get MRCP of abdomen. Lipase elevated to an impressive 115,960 CT ab/pelvis showed: Small bilateral pleural effusions. Polycystic kidney disease. Nonobstructing left renal stone. Radiotherapy seeds of the prostate are noted. Diffuse thickening of the wall of the bladder. Mild peripancreatic fat stranding. Findings are suggestive of mild acute pancreatitis BISAP score 2 GB ultrasound negative. (2) DM2 (diabetes mellitus, type 2) Status: Chronic Response to Treatment: Stable Problem Text: Sliding scale (3) Chronic renal disease Status: Chronic Response to Treatment: Stable Problem Text: Stage 4 Due to polycystic kidney disease. Baseline creatine 4.6, in ED creatine 5.4 (4) HTN (hypertension) Status: Chronic Response to Treatment: Stable Problem Text: continue home meds (5) DVT prophylaxis Status: Acute Response to Treatment: Stable Problem Text: scd teds (6) Asthma Status: Chronic (7) History of prostate cancer Status: Chronic (8) Polycystic kidney disease Status: Chronic (9) Seasonal allergies Status: Chronic (10) Renal calculus or stone Status: Chronic (11) Hyperlipidemia Status: Chronic Problem Text: will hold statin due to acute pancreatitis Plan/VTE VTE Prophylaxis Ordered?: Yes VS, I&O, 24H, Fishbone Vital Signs/I&O Vital Signs Date Time Temp Pulse Resp B/P (MAP) Pulse Ox O2 Delivery O2 Flow Rate FiO2 10/22/16 08:21 64 139/88 10/22/16 06:00 97.1 15 97 Room Air I&O- Last 24 Hours up to 6 AM 10/22/16 06:00 Intake Total 1480 ml Output Total 1200 ml Balance 280 ml Laboratory Data 24H LABS Laboratory Tests 2 10/21/16 16:42: Bedside Glucose (Misc Panel) 112 10/21/16 20:47: Bedside Glucose (Misc Panel) 125H 10/22/16 06:49: White Blood Count 5.3, Red Blood Count 3.56L, Hemoglobin 10.7L, Hematocrit 31.7L , Mean Corpuscular Volume 89.0, Mean Corpuscular Hemoglobin 30.1, Mean Corpuscular Hemoglobin Concent 33.8, Red Cell Distribution Width 12.9, Platelet Count 95L, Neutrophils (%) (Auto) 72.0H, Lymphocytes (%) (Auto) 14.6L, Monocytes (%) (Auto) 9.1H, Eosinophils (%) (Auto) 0.4, Basophils (%) (Auto) 0.8 , Neutrophils # (Auto) 3.8, Lymphocytes # (Auto) 0.9L, Monocytes # (Auto) 0.5, Eosinophils # (Auto) 0.0, Basophils # (Auto) 0.0, Large Unclassified Cells % 3.1 , Large Unclassified Cells # 0.2, Anion Gap 6L, Glomerular Filtration Rate 20.4L , Blood Urea Nitrogen 38H, Creatinine 3.85H, Sodium Level 142, Potassium Level 4.6, Chloride Level 115H, Carbon Dioxide Level 21, Calcium Level 9.2, Amylase Level 287H, Lipase 2724H CBC/BMP Laboratory Tests 10/22/16 06:49 Red Blood Count 3.56 L, Mean Corpuscular Volume 89.0, Mean Corpuscular Hemoglobin 30.1, Mean Corpuscular Hemoglobin Concent 33.8, Red Cell Distribution Width 12.9, Neutrophils (%) (Auto) 72.0 H, Lymphocytes (%) (Auto) 14.6 L, Monocytes (%) (Auto) 9.1 H, Eosinophils (%) (Auto) 0.4, Basophils (%) ( Auto) 0.8, Neutrophils # (Auto) 3.8, Lymphocytes # (Auto) 0.9 L, Monocytes # ( Auto) 0.5, Eosinophils # (Auto) 0.0, Basophils # (Auto) 0.0, Calcium Level 9.2 ZUHAIR GIRON MD Oct 22, 2016 12:11
--- NOTE | 2016-10-22 12:22 | REP ---
MRCP EXAMINATION WITHOUT CONTRAST: HISTORY: Acute pancreatitis. TECHNIQUE: Axial and sagittal T2 HASTE and turbo spin echo and TRUE FISP imaging are acquired. Maximal intensity projection MRCP images are generated and viewed rotational. Comparison CT study October 19, 2016. MRCP FINDINGS: Multiple T2 hyperintense cysts are seen enlarging both kidneys consistent with known polycystic kidney disease. No hepatic or splenic cysts are seen. No pancreatic cyst or mass is observed. The main pancreatic duct is mildly dilated measuring up to 3.8 mm in diameter. Common bile duct is normal in caliber. No intrahepatic ductal dilation is observed. No other abnormality is seen. IMPRESSION: Mildly dilated main pancreatic duct. Normal biliary tract ducts. Known polycystic kidney disease. Signed by Jaime Moore MD 10/22/2016 03:44 P
[2016-10-22 14:00] VITALS: BP 143/84
[2016-10-22 22:00] VITALS: BP 152/83
[2016-10-23 06:00] VITALS: BP 124/70
[2016-10-23 06:49] LABS: BASO % 0.2 % (0.0-1.0); EOS # 0.1 K/mm3 (0.0-0.50); EOS % 1.5 % (0.0-3.0); LARGE UNSTAINED CELL # 0.2 K/mm3 (0.0-0.4); LARGE UNSTAINED CELL % 3.8 % (0.0-4.0); LYMPH # 1.1 K/mm3 (1.5-4.5); MEAN CORPUSCULAR HEMOGLOBIN 28.6 pg (27.0-33.0); MEAN CORPUSCULAR HGB CONC 32.3 g/dl (32.0-36.5); MEAN CORPUSCULAR VOLUME 88.4 fl (80.0-96.0); MONO # 0.4 K/mm3 (0.0-0.8); MONO % 8.2 % (0.0-5.0); NEUTROPHILS # 3.2 K/mm3 (1.8-7.7); NEUTROPHILS % 67.2 % (36.0-66.0); PLATELET COUNT, AUTOMATED 100 k/mm3 (150-450); RED CELL DISTRIBUTION WIDTH 12.8 % (11.5-14.5); WHITE BLOOD COUNT 4.7 K/mm3 (4.0-10.0)
[2016-10-23 07:08] LABS: CALCIUM LEVEL 9.2 MG/DL (8.8-10.2); CREATININE FOR GFR 3.78 MG/DL (0.70-1.30); GLOMERULAR FILTRATION RATE 20.9 (>49); POTASSIUM SERUM 4.9 MEQ/L (3.5-5.1)
[2016-10-23] MEDS: FLUTICASONE HFA 220 MCG 12 GM INHALER (FLOVENT) INH SCH (07:12)
[2016-10-23] MEDS ORDERED: OXYC1TAB23 PO (08:17)
[2016-10-23] MEDS: MONTELUKAST 10 MG TAB PO SCH (09:10)
[2016-10-23 09:11] VITALS: BP 124/70
[2016-10-23] MEDS: amLODIPine 10 MG TAB PO SCH (09:11)
[2016-10-23] MEDS: LISINOPRIL 40 MG TAB PO SCH (09:11)
--- NOTE | 2016-10-26 02:09 | DSES ---
DATE OF ADMISSION: 10/19/2016 DATE OF DISCHARGE: 10/23/2016 PRIMARY CARE PROVIDER: Bailee Fox MD. DISCHARGE DIAGNOSES: 1. Acute pancreatitis, etiology undetermined. 2. Diabetes. 3. Chronic kidney disease (CKD) stage IV. 4. Hypertension. 5. Asthma. 6. History of prostatic cancer with stents in place. 7. Polycystic kidney disease. 8. Renal calculus. 9. Hyperlipidemia. 10. Seasonal allergies. 11. Chronic thrombocytopenia. DISCHARGE MEDICATIONS: - oxycodone/acetaminophen 5/325 one tablet every 6 hours as needed for pain - prazosin 10 mg by mouth daily - amlodipine 5 mg by mouth daily - cholecalciferol 2000 units by mouth daily - fluticasone propionate two puffs inhalation daily - lisinopril 40 mg by mouth daily - montelukast 10 mg by mouth daily HOSPITAL COURSE: This is a 66-year-old male, presented to the hospital with abdominal pain with vomiting, actually started about a week ago, was intermittent in nature, then on the day of admission it became very severe and without any relief and so came to the emergency room. He also had three episodes of loose bowel movements and 4-5 episodes of watery vomiting. In the emergency department (ED), patient was found to have extremely high lipase levels with a value of 115,960 and elevated amylase with 2930. Patient had CT scan of the abdomen done which showed mild peripancreatic fat stranding suggestive of acute pancreatitis. Patient was admitted. Managed with bowel rest, intravenous (IV) fluids, pain control with morphine. Patient responded well to treatment with gradual decrease in his amylase and lipase. Patient's renal functions remained stable during the hospitalization. Patient also had an MRA of the abdomen done to look for any etiology that can explain his pancreatitis; however, except for a mildly dilated pancreatic duct, all the other findings of the magnetic resonance cholangiopancreatography (MRCP) were negative. There were normal biliary tract ducts. Patient also had gallbladder ultrasound done, which was normal. During hospitalization, patient's oral intake was less than normal, so his sugars were in the normal or low range, so his Januvia was discontinued. Patient's atorvastatin was also discontinued. On the day of discharge, patient did not have any complaints, was able to tolerate soft diet without any worsening of symptoms. His vital signs were stable and he was functionally at baseline. PHYSICAL EXAMINATION: VITAL SIGNS: Temperature 98.7, pulse 58, respiratory rate 18, blood pressure 124/70, pulse oximetry 95% in room air. GENERAL: Patient awake, alert, oriented times three, lying down in bed in no acute distress. HEENT: Normocephalic, atraumatic. Moist mucous membranes. Anicteric eyes. CHEST: Clear to auscultation. CARDIOVASCULAR: S1, S2 regular. No rub, murmur or gallop. ABDOMEN: Soft, nontender, bowel sounds present. EXTREMITIES: No edema. LABORATORY DATA: WBC 4.7, hemoglobin 10.8, platelets 100. Sodium 141, potassium 4.9, chloride 114, bicarbonate 22, BUN 36, creatinine 3.78, glucose 124, amylase 221, lipase 2414, calcium 9.2. Liver function tests were normal. DISPOSITION: Patient is discharged home in a stable condition. DISCHARGE INSTRUCTIONS: Patient to followup with primary care provider in 1 week. Diet as tolerated. Advised low fat diet. Activity as tolerated.
== END 2016-10-23 13:00 | disposition home or self-care (01) | DRG 439 ==
LOC: M ED 00:40 → M ED INP 05:29 → M MS5PR 06:15
PROVIDERS: ATTEND Internal Medicine Nephrology
DX: K85.90 Acute pancreatitis without necrosis or infection, unspecified (principal); N18.4 Chronic kidney disease, stage 4 (severe); Q61.3 Polycystic kidney, unspecified; K29.70 Gastritis, unspecified, without bleeding; E11.9 Type 2 diabetes mellitus without complications; I12.9 Hypertensive chronic kidney disease with stage 1 through stage 4 chronic kidney disease, or unspecified chronic kidney disease; J45.909 Unspecified asthma, uncomplicated; E78.5 Hyperlipidemia, unspecified; Z85.46 Personal history of malignant neoplasm of prostate; Z79.899 Other long term (current) drug therapy; Z88.5 Allergy status to narcotic agent

== ENCOUNTER → 2016-10-31 | Outpatient (REF) | payer MEDICARE, OTHER ==
[~2016-10-31] MED LIST changes: +ACET1TAB17 PO; +ASPI1TAB PO; +ATOR1TAB19 PO; +ATOR40TA75 PO; +D32000CA PO; +FLON1SPR; +GLIP5TAB8 PO; +JANU25TA PO; +KETO0.02 OU; +NIAC500T5 PO; +OXYC1TAB23 PO; +PROAAER10 INH; +PROTPAK PO; +SUCR1TA PO; +VITA2000 PO; +VITMTA PO
[2016-10-31 13:54] LABS: AMYLASE 179 U/L (25-115)
== END ==
LOC: M SFHCLERA 09:37
PROVIDERS: ATTEND Family Medicine
DX: K85.00 Idiopathic acute pancreatitis without necrosis or infection (principal); E11.8 Type 2 diabetes mellitus with unspecified complications
CPT/HCPCS: 82150; 83036; 83690; G0463

== ENCOUNTER 2017-02-15 08:35 | Inpatient (IN) | payer MEDICARE, OTHER ==
[~2017-02-15] VITALS: Ht 188 cm; Wt 92.5 kg
[~2017-02-15 08:35] MED LIST changes: -ACET1TAB17 PO; -ASPI1TAB PO; -ATOR1TAB19 PO; -FLON1SPR; -GLIP5TAB8 PO; -KETO0.02 OU; -NIAC500T5 PO; -PROAAER10 INH; -PROTPAK PO; -SUCR1TA PO; -VITMTA PO
[2017-02-15] MEDS ORDERED: GLIP5TAB8 PO ×2 (08:48→11:12)
[2017-02-15] MEDS ORDERED: ASPI1TAB PO (08:48)
[2017-02-15] MEDS ORDERED: NS 1,000 ML IV ONE (09:15)
[2017-02-15] MEDS ORDERED: ONDANSETRON 4MG/2ML VIAL (J2405) IV ONE (09:15)
[2017-02-15] MEDS: MORPHINE 4 MG/ML 1ML SYRINGE IV PRN ×2 (09:37→12:15)
[2017-02-15 09:42] LABS: BASO # 0.1 10^3/uL (0.0-0.2); BASO % 0.7 % (0.0-1.0); EOS # 0.1 10^3/uL (0.0-0.50); EOS % 1.5 % (0.0-3.0); IMMATURE GRANULOCYTE % 0.2 % (0-0); LYMPH # 1.3 10^3/uL (1.5-4.5); LYMPH % 15.8 % (24.0-44.0); MEAN CORPUSCULAR HEMOGLOBIN 27.5 pg (27.0-33.0); MEAN CORPUSCULAR HGB CONC 31.5 g/dl (32.0-36.5); MEAN CORPUSCULAR VOLUME 87.4 fl (80.0-96.0); MONO # 0.6 10^3/uL (0.0-0.8); MONO % 7.2 % (0.0-5.0); NEUTROPHILS % 74.6 % (36.0-66.0); PLATELET COUNT, AUTOMATED 263 10^3/uL (150-450); RED CELL DISTRIBUTION WIDTH 13.2 % (11.5-14.5); WHITE BLOOD COUNT 8.1 10^3/uL (4.0-10.0)
[2017-02-15 10:09] LABS: INR 1.15
[2017-02-15 10:14] LABS: ALBUMIN 3.7 GM/DL (3.2-5.2); ALBUMIN/GLOBULIN RATIO 0.95 (1.00-1.93); BILIRUBIN,DIRECT 0.1 MG/DL (0.0-0.2); BILIRUBIN,TOTAL 0.5 MG/DL (0.2-1.0); CALCIUM LEVEL 9.3 MG/DL (8.8-10.2); CREATININE FOR GFR 5.79 MG/DL (0.70-1.30); GLOMERULAR FILTRATION RATE 12.7 (>49); TOTAL PROTEIN 7.6 GM/DL (6.4-8.2)
[2017-02-15 10:21] LABS: POTASSIUM SERUM 5.6 MEQ/L (3.5-5.1)
--- NOTE | 2017-02-15 10:22 | REP ---
CT ABDOMEN AND PELVIS WITHOUT CONTRAST: 02/15/2017. Comparison: CT 10/19/2016, gallbladder ultrasound 10/19/2016, MRCP 10/22/2016. Clinical history: Abdominal pain, history of pancreatitis, polycystic kidney disease, prostate carcinoma. Findings: CT abdomen: Noncontrast CT performed. Coronal and sagittal reconstructions. The lung bases remain clear. Heart is not enlarged. No pericardial thickening or effusion and no hiatal hernia noted. There is no hepatosplenomegaly, focal hepatic or splenic mass or biliary dilatation. Gallbladder without calcified stone. Adrenal glands are normal. Pancreas shows AP diameter pancreatic head 3.6 cm, unchanged from 10/19/2016. On today's study, there is no peripancreatic fat stranding or fluid collection to suggest pancreatitis. I see no calcifications overlying the expected course of the common duct in the pancreatic head. No pancreatic mass or cyst nor pseudocyst. Adrenal glands are normal. Innumerable cysts enlarge and deform contours of the bilateral kidneys from known autosomal dominant polycystic kidney disease. Posteriorly in the interpolar region on the right is one small hyperdense cyst about 9 mm. This is unchanged. The aorta is without aneurysm and has a few calcifications. No periaortic or retroperitoneal pathologic sized lymphadenopathy. Small bowel loops are grossly intact. There is no stranding or infiltration of the mesentery to suggest edema or gastroenteritis. Abdominal portion of the colon shows stool and gas scattered but no colitis or diverticulitis. Lung window review of all CT slices show no perforation or free air. There was no ascites in the abdomen. Bone windows show degenerative changes at L5-S1, less at L4-5. No compression deformity or destructive lesion and no spondylolysis. Some facet arthropathy lower lumbar spine. CT pelvis: SI joints, sacrum, iliac bones, ischia, acetabuli and the hips are without fracture or destructive lesion. No bony sclerotic focus. I see no hydronephrosis, hydroureter or ureteral stone. No bladder stone, mass or wall thickening. Prostate seeds are noted with slight indentation of the bladder base by the prostate. Seminal vesicles symmetric. There is no distal left colonic abnormality. The sigmoid shows some muscular hypertrophy and diverticulosis without diverticulitis. Rectum intact. No ventral or inguinal hernia nor inguinal adenopathy. Appendix is seen and normal. Impression: 1. Autosomal dominant polycystic kidney disease with innumerable cysts but no hydronephrosis, renal stone, ureteral stone or bladder calculus. 2. No hepatosplenomegaly or focal hepatic lesion. Gallbladder without calcified stone or mass. No biliary dilatation. 3. Slight fullness of the pancreatic head as on previous CT, AP diameter 3.6 cm. No mass on MRI 10/22/2016. Appearance stable. There is no evidence for pancreatitis, pseudocyst, adenopathy, abscess or other mass. 4. No colitis, diverticulitis, gastroenteritis or other acute findings. No ascites or free air. Signed by Rosendo Eldridge MD 02/15/2017 07:20 P
[2017-02-15] MEDS ORDERED: PROAAER10 INH (11:12)
[2017-02-15] MEDS ORDERED: ACET1TAB17 PO (11:12)
[2017-02-15] MEDS ORDERED: ATOR1TAB19 PO (11:12)
[2017-02-15] MEDS ORDERED: ALFU10TA2 PO (11:12)
[2017-02-15] MEDS ORDERED: FLON1SPR (11:12)
[2017-02-15] MEDS ORDERED: KETO0.02 OU (11:12)
[2017-02-15] MEDS ORDERED: NIAC500T5 PO (11:12)
[2017-02-15] MEDS ORDERED: VITMTA PO (11:12)
--- NOTE | 2017-02-15 11:23 | REP ---
CHEST X-RAY, PA AND LATERAL: 02/15/2017. Comparison: 12/02/2008. Clinical history: Abdominal pain. Findings: Two views were performed. Lungs are adequately inflated without pleural effusion, lateral pleural thickening, apical scarring, pneumothorax. No cardiomegaly or edema. The aorta is tortuous. Airway intact. Pulmonary artery symmetric. No mediastinal or hilar mass. Bony thorax shows no focal lesion or compression deformity. No free air under the diaphragm. Impression: 1. No acute cardiopulmonary change. Stable exam from 12/02/2008. Signed by Rosendo Eldridge MD 02/15/2017 07:22 P
[2017-02-15] MEDS ORDERED: PERCOCET 5MG/325MG TAB PO PRN (13:00)
[2017-02-15] MEDS ORDERED: ALBUTEROL 90 MCG/ACT 8GM HFA INHALER INH PRN (13:00)
[2017-02-15] MEDS ORDERED: GLUCAGON FOR INJ 1 MG VIAL (J1610) SC PRN (13:00)
[2017-02-15] MEDS ORDERED: ONDANSETRON 4MG/2ML VIAL (J2405) IV PRN (13:00)
[2017-02-15] MEDS ORDERED: ACETAMINOPHEN TAB 650MG DOSE (2X325MG) PO PRN (13:00)
[2017-02-15] MEDS ORDERED: DEXTROSE 50% 50 ML SYRINGE IV PRN (13:00)
[2017-02-15] MEDS ORDERED: GLUCOSE 4 GM CHEW TABLET PO PRN (13:00)
[2017-02-15] MEDS: FLUTICASONE HFA 220 MCG 12 GM INHALER (FLOVENT) INH SCH ×2 (13:17→19:50)
[2017-02-15] MEDS: NS 1,000 ML IV SCH ×2 (14:48→22:22)
[2017-02-15 15:00] VITALS: BP 141/80
[2017-02-15] MEDS: HEPARIN SOD (PORCINE) 5000 UNITS/ML VIAL SC SCH ×2 (15:50→21:20)
[2017-02-15] MEDS: VITAMIN D 1,000 INTERNATIONAL UNITS TABLET PO SCH (15:50)
[2017-02-15] MEDS: amLODIPine 5 MG TAB PO SCH (15:50)
[2017-02-15] MEDS: MORPHINE 2 MG/ML 1ML SYRINGE IV PRN ×2 (16:25→22:29)
[2017-02-15] MEDS ORDERED: HumuLIN R (REGULAR) INSULIN (NovoLIN R) **100U/ML** PER UNIT IV STA (17:07)
[2017-02-15] MEDS ORDERED: DEXTROSE 50% 50 ML SYRINGE IV STA (17:07)
--- NOTE | 2017-02-15 17:16 | HPEPDOC ---
General Date of Admission Feb 15, 2017 at 12:50 Chief Complaint The patient is a 67-year-old male admitted with a reason for visit of Abd Pain. Source: Patient, Family Exam Limitations: No limitations History of Present Illness 67-year-old male with past medical history of diabetes, chronic kidney disease stage IV, polycystic kidney disease, hypertension, asthma, chronic thrombocytopenia, and dyslipidemia presents to the ER with a chief complaint of increased weakness, decreased appetite, and supraumbilical abdominal pain over the last 3 weeks. Of note, the patient states that he had left knee replacement surgery on 01/30/17 in [place]. Subsequently, the patient's notes that he has had a decreased appetite with increased malaise and generalized weakness. This culminated over the last 48 hours when the patient states that he started to feel supraumbilical abdominal pain, which she rates 7 out of 10 in intensity, sharp in quality, and intermittent in nature. He denies any associated fevers, chills, chest pain, palpitations, recent travel, sick contacts, ingestion of foreign foods, or any nausea/vomiting. Of note, the patient did have a similar presentation during admission here at [facility] back in October 2016, at which time he was diagnosed with pancreatitis. He presented to the ER for further evaluation. In the ER, a CT scan of the abdomen revealed no colitis, diverticulitis, gastroenteritis, or other acute findings. The patient was noted to have a slight fullness of the pancreatic head which was noted on previous CT from October 2016 with a stable appearance. Home Medications Scheduled (Flonase Allergy Relief) 50 Mcg/Act Spr, 1 SPRAY NA BID, (Reported) (Ketotifen Fumarate) 0.025 % Willi, 1 DROP OU BID, (Reported) Alfuzosin Hydrochloride (Alfuzosin HCl ER) 10 Mg Tab, 10 MG PO DAILY, (Reported) Amlodipine Besylate (Amlodipine Besylate) 10 Mg Tab, 5 MG PO DAILY, (Reported) Aspirin (Aspirin 81) 81 Mg Tab, 81 MG PO QHS, (Reported) Atorvastatin Calcium (Atorvastatin Calcium) 10 Mg Tab, 10 MG PO QHS, (Reported) Cholecalciferol (Vitamin D3) 2,000 Unit Cap, 2,000 UNIT PO DAILY, (Reported) Fluticasone Propionate (Flovent Hfa 220 MCG) 120 Puff/12 Gm Aero, 1 PUFF INH BID , (Reported) Glipizide (Glipizide) 5 Mg Tab, 5 MG PO QAM, (Reported) Glipizide (Glipizide) 5 Mg Tab, 2.5 MG PO QPM, (Reported) Lisinopril (Lisinopril) 40 Mg Tab, 20 MG PO DAILY, (Reported) Montelukast Sodium (Singulair) 10 Mg Tab, 10 MG PO DAILY, (Reported) Multivitamins *[facility] STOCKED* (Thera M Plus *[facility] STOCKED*) 1 Tab Tab, 1 TAB PO QHS , (Reported) Niacin (Niacin) 500 Mg Tab, 500 MG PO DAILY, (Reported) Scheduled PRN Acetaminophen (Acetaminophen) 325 Mg Tab, 650 MG PO Q6H PRN for PAIN, (Reported) Albuterol Sulfate (Proair Hfa) 108 Mcg/Act Aer, 2 PUFF INH QID PRN for SHORTNESS OF BREATH, (Reported) Allergies Coded Allergies: Codeine (Verified Adverse Reaction, Intermediate, nausea, 09/24/16) Past Medical History Medical History As noted above. Surgical History Left knee surgery Family History Significant Family History: No pertinent family hx Social History * Smoker: Denies Alcohol: Denies Drugs: denies Retired Review of Symptoms Other systems 10 point review of systems negative unless otherwise specified in HPI. Physical Examination General Exam: Positive: Alert, Cooperative, No Acute Distress ENT Exam: Positive: Atraumatic, Negative: Mucous membr. moist/pink (dry mucous membranes) Neck Exam: Negative: JVD Chest Exam: Positive: Clear to auscultation, Normal air movement Heart Exam: Positive: Rate Normal, Regular Rhythm, Normal S1, Normal S2 Telemetry: Positive: Sinus Abdomen Exam: Positive: Soft, Tenderness (mild tenderness to deep palpation in the supraumbilical area. No rebound tenderness, guarding, or rigidity noted.) Extremity Exam: Positive: Other (Surgical scar noted on the left knee), Negative: Tenderness, Swelling Psych Exam: Positive: Oriented x 3 Vital Signs Vital Signs Date Time Temp Pulse Resp B/P (MAP) Pulse Ox O2 Delivery O2 Flow Rate FiO2 02/15/17 16:25 18 Room Air 02/15/17 15:50 70 139/67 02/15/17 15:00 97.1 98 Laboratory Data Labs 24H Laboratory Tests 2 02/15/17 09:21: Urine Appearance CLEAR, Urine Color YELLOW, Urine pH 5.0, Urine Specific [place] 1.010, Urine Protein NEGATIVE, Urine Glucose (UA) NEGATIVE, Urine Ketones NEGATIVE, Urine Urobilinogen 0.2, Urine Bilirubin NEGATIVE, Urine Leukocyte Esterase NEGATIVE, Urine Blood NEGATIVE, Urine Nitrite NEGATIVE, Urine WBC (Auto) 0, Urine RBC (Auto) 1, Urine Hyaline Casts (Auto) 0, Urine Bacteria (Auto) NEGATIVE, Urine Squamous Epithelial Cells 0, Urine Mucus (Auto) SMALL, Urine Sperm (Auto) 02/15/17 09:28: Immature Granulocyte % (Auto) 0.2H, White Blood Count 8.1, Red Blood Count 3.34L , Hemoglobin 9.2L, Hematocrit 29.2L, Mean Corpuscular Volume 87.4, Mean Corpuscular Hemoglobin 27.5, Mean Corpuscular Hemoglobin Concent 31.5L, Red Cell Distribution Width 13.2, Platelet Count 263, Neutrophils (%) (Auto) 74.6H, Lymphocytes (%) (Auto) 15.8L, Monocytes (%) (Auto) 7.2H, Eosinophils (%) (Auto) 1.5, Basophils (%) (Auto) 0.7, Neutrophils # (Auto) 6.0, Lymphocytes # (Auto) 1.3L, Monocytes # (Auto) 0.6, Eosinophils # (Auto) 0.1, Basophils # (Auto) 0.1, Immature Granulocyte # (Auto) 0.0, Nucleated Red Blood Cells % (auto) 0.0, Prothrombin Time 14.9H, Prothromb Time International Ratio 1.15, Activated Partial Thromboplast Time 24.1L, Anion Gap 9, Glomerular Filtration Rate 12.7L, Lactic Acid Level 1.0, Calcium Level 9.3, Aspartate Amino Transf (AST/SGOT) 13, Alanine Aminotransferase (ALT/SGPT) 15, Alkaline Phosphatase 44L, Total Bilirubin 0.5, Direct Bilirubin 0.1, Total Protein 7.6, Albumin 3.7, Albumin/ Globulin Ratio 0.95L, Amylase Level 136H, Lipase 497H CBC/BMP Laboratory Tests 02/15/17 09:28 Red Blood Count 3.34 L, Mean Corpuscular Volume 87.4, Mean Corpuscular Hemoglobin 27.5, Mean Corpuscular Hemoglobin Concent 31.5 L, Red Cell Distribution Width 13.2, Neutrophils (%) (Auto) 74.6 H, Lymphocytes (%) (Auto) 15.8 L, Monocytes (%) (Auto) 7.2 H, Eosinophils (%) (Auto) 1.5, Basophils (%) ( Auto) 0.7, Neutrophils # (Auto) 6.0, Lymphocytes # (Auto) 1.3 L, Monocytes # ( Auto) 0.6, Eosinophils # (Auto) 0.1, Basophils # (Auto) 0.1 Microbiology Microbiology 02/15/17 Blood Culture, Received Pending 02/15/17 Blood Culture, Received Pending 02/15/17 Urine Culture, Received Pending Plan / VTE VTE Prophylaxis Ordered?: Yes Plan Plan Abdominal Pain possibly 2/[address] Scan of the abdomen revealed no colitis, diverticulitis, gastroenteritis, or other acute findings. The patient was noted to have a slight fullness of the pancreatic head which was noted on previous CT from October 2016 with a stable appearance. MRI of Abd from 10/2016 also reviewed Lipase only minimally elevated at 497 IVF Hydration, Protonix, Carafate ordered Clear Liquis diet ordered for now We will cont to monitor the patient's clinical condition Chronic Kidney Disease Stage IV, history of polycystic kidney disease Patient's Serum Cr is elevated (5.79) compared to his Baseline Serum Cr (~4.9) Likely 2/2 Dehydration, Volume depletion as the patient states that he has had a decreased by mouth intake since his most recent surgery. However, the patient states that he has been making a good amount of urine output daily We will provide the patient IV fluid hydration Hold nephrotoxic therapy The patient follows with the [facility] in [place], [place] and notes that he has been placed on the list for a Renal transplant We will recheck a serum BMP in the a.m. Hyperkalemia EKG with no acute findings IVF Hydration ordered Insulin, Nebs ordered We will recheck a serum K level s/p Recent Left Knee Replacement We will order PT for functional optimization Diabetes Mellitus Insulin Sliding Scale Hypertension, stable Continue Norvasc Dyslipidemia Continue statin Asthma, stable Continue albuterol when necessary Chronic thrombocytopenia Stable platelet count DVT prophylaxis Heparin subcutaneous HAYLIE TRIPLETT MD Feb 15, 2017 17:16
[2017-02-15] MEDS ORDERED: ALBUTEROL SULFATE 2.5 MG/0.5 ML INH NEB SOLN NEB ONE (17:30)
[2017-02-15] MEDS: HumaLOG INSULIN (NovoLOG) PER UNIT SC SCH ×2 (17:30→21:00)
[2017-02-15] MEDS ORDERED: HumaLOG INSULIN (NovoLOG) PER UNIT SC STA (17:44)
[2017-02-15] MEDS: PANTOPRAZOLE 40MG INJ (PROTONIX) (C9113) IV SCH (18:24)
[2017-02-15] MEDS: SUCRALFATE 1 GM TAB PO SCH ×2 (18:24→20:24)
--- NOTE | 2017-02-15 19:17 | ECGEPIP ---
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
[2017-02-15] MEDS: MULTIVITAMINS/MINERALS THERAP 1 TAB PO SCH (20:24)
[2017-02-15] MEDS: ASPIRIN 81 MG ENTERIC TAB PO SCH (20:24)
[2017-02-15] MEDS: ATORVASTATIN 10 MG TAB PO SCH (20:24)
[2017-02-15 22:00] VITALS: BP 128/71
[2017-02-16] MEDS: MORPHINE 2 MG/ML 1ML SYRINGE IV PRN ×4 (01:48→18:26)
[2017-02-16] MEDS: PANTOPRAZOLE 40MG INJ (PROTONIX) (C9113) IV SCH ×2 (05:48→18:02)
[2017-02-16] MEDS: HEPARIN SOD (PORCINE) 5000 UNITS/ML VIAL SC SCH ×3 (05:49→21:38)
[2017-02-16 06:00] VITALS: BP 131/63
[2017-02-16 06:22] LABS: MEAN CORPUSCULAR HEMOGLOBIN 27.5 pg (27.0-33.0); MEAN CORPUSCULAR HGB CONC 30.9 g/dl (32.0-36.5); PLATELET COUNT, AUTOMATED 219 10^3/uL (150-450); RED CELL DISTRIBUTION WIDTH 13.2 % (11.5-14.5)
[2017-02-16 06:45] LABS: ALBUMIN 3.1 GM/DL (3.2-5.2); ALBUMIN/GLOBULIN RATIO 0.79 (1.00-1.93); BILIRUBIN,TOTAL 0.3 MG/DL (0.2-1.0); CALCIUM LEVEL 9.2 MG/DL (8.8-10.2); CREATININE FOR GFR 5.02 MG/DL (0.70-1.30); MAGNESIUM LEVEL 1.9 MG/DL (1.8-2.4)
[2017-02-16 06:49] LABS: POTASSIUM SERUM 5.3 MEQ/L (3.5-5.1)
[2017-02-16] MEDS: HumaLOG INSULIN (NovoLOG) PER UNIT SC SCH ×5 (07:30→20:38)
[2017-02-16] MEDS: NS 1,000 ML IV SCH ×2 (08:02→18:26)
[2017-02-16] MEDS: SUCRALFATE 1 GM TAB PO SCH ×4 (08:16→20:37)
[2017-02-16] MEDS: VITAMIN D 1,000 INTERNATIONAL UNITS TABLET PO SCH (08:16)
[2017-02-16] MEDS: amLODIPine 5 MG TAB PO SCH (08:19)
[2017-02-16] MEDS: FLUTICASONE HFA 220 MCG 12 GM INHALER (FLOVENT) INH SCH ×2 (11:32→20:26)
--- NOTE | 2017-02-16 11:51 | IPNPDOC ---
Subjective Date Seen The patient was seen on 02/16/17. Subjective Chief Complaint/HPI Patient seen and examined at the bedside. States that he is feeling much better this morning, and notes that he was able to walk down the gracia with his walker this morning without any acute complaints. In addition, the patient states that he is able to tolerate a by mouth diet better this morning and is without the nausea that he had before. Objective Physical Examination General Exam: Positive: Alert, Cooperative, No Acute Distress ENT Exam: Positive: Atraumatic, Mucous membr. moist/pink Neck Exam: Negative: JVD Chest Exam: Positive: Clear to auscultation, Normal air movement Heart Exam: Positive: Rate Normal, Regular Rhythm, Normal S1, Normal S2 Telemetry: Positive: Sinus Abdomen Exam: Positive: Soft, Negative: Tenderness Extremity Exam: Positive: Other (Surgical scar noted on the left knee), Negative: Tenderness, Swelling Psych Exam: Positive: Oriented x 3 Assessment /Plan Plan/VTE VTE Prophylaxis Ordered?: Yes Plan Abdominal Pain possibly 2/[address] Scan of the abdomen revealed no colitis, diverticulitis, gastroenteritis, or other acute findings. The patient was noted to have a slight fullness of the pancreatic head which was noted on previous CT from October 2016 with a stable appearance. MRI of Abd from 10/2016 also reviewed Lipase only minimally elevated at 497 in ER--downtrending IVF Hydration, Protonix, Carafate ordered Patient tolerating a diet better this AM--will cont to advance as tolerated We will cont to monitor the patient's clinical condition Chronic Kidney Disease Stage IV, history of polycystic kidney disease Patient's Serum Cr down-trending (5.02), Baseline Serum Cr (~4.9) Likely 2/2 Dehydration, Volume depletion as the patient states that he has had a decreased by mouth intake since his most recent surgery. Hold nephrotoxic therapy The patient follows with the [facility] in [place], [place] and notes that he has been placed on the list for a Renal transplant Cont IVF hydration, PO Intake encouraged We will cont to monitor BMP Hyperkalemia EKG with no acute findings Serum K downtrending Cont current treatment with Nebs, Insulin s/p Recent Left Knee Replacement PT on board for functional optimization Diabetes Mellitus Insulin Sliding Scale Hypertension, stable Continue Norvasc Dyslipidemia Continue statin Asthma, stable Continue albuterol when necessary Chronic thrombocytopenia Stable platelet count DVT prophylaxis Heparin subcutaneous Dispo--Anticipate D/C in 24-48hrs pending continued clinical improvement. VS, I&O, 24H, Fishbone Vital Signs/I&O Vital Signs Date Time Temp Pulse Resp B/P (MAP) Pulse Ox O2 Delivery O2 Flow Rate FiO2 02/16/17 11:25 20 02/16/17 10:22 Nasal Cannula 02/16/17 08:19 62 115/60 02/16/17 06:00 97.2 99 I&O- Last 24 Hours up to 6 AM 02/17/17 06:00 Intake Total 900 ml Output Total 650 ml Balance 250 ml Laboratory Data 24H LABS Laboratory Tests 2 02/15/17 20:35: Bedside Glucose (Misc Panel) 172H 02/16/17 05:56: Nucleated Red Blood Cells % (auto) 0.0, Anion Gap 8, Glomerular Filtration Rate 15.0L, Blood Urea Nitrogen 72H, Creatinine 5.02H, Sodium Level 143, Potassium Level 5.3H, Chloride Level 115H, Carbon Dioxide Level 20L, Calcium Level 9.2, Aspartate Amino Transf (AST/SGOT) 9, Alanine Aminotransferase (ALT/SGPT) 12, Alkaline Phosphatase 37L, Total Bilirubin 0.3, Total Protein 7.0, Albumin 3.1L, Magnesium Level 1.9, Albumin/Globulin Ratio 0.79L, Lipase 416H CBC/BMP Laboratory Tests 02/15/17 18:54 02/16/17 05:56 Red Blood Count 3.09 L, Mean Corpuscular Volume 89.0, Mean Corpuscular Hemoglobin 27.5, Mean Corpuscular Hemoglobin Concent 30.9 L, Red Cell Distribution Width 13.2, Calcium Level 9.2, Aspartate Amino Transf (AST/SGOT) 9 , Alanine Aminotransferase (ALT/SGPT) 12, Alkaline Phosphatase 37 L, Total Bilirubin 0.3, Total Protein 7.0, Albumin 3.1 L Microbiology Microbiology 02/15/17 Blood Culture - Preliminary, Resulted No growth after 24 hours . All specim... 02/15/17 Blood Culture - Preliminary, Resulted No growth after 24 hours . All specim... 02/15/17 Urine Culture - Final, Complete HAYLIE TRIPLETT MD Feb 16, 2017 11:50
[2017-02-16 14:00] VITALS: BP 129/67
[2017-02-16] MEDS: MULTIVITAMINS/MINERALS THERAP 1 TAB PO SCH (20:37)
[2017-02-16] MEDS: ASPIRIN 81 MG ENTERIC TAB PO SCH (20:37)
[2017-02-16] MEDS: ATORVASTATIN 10 MG TAB PO SCH (20:38)
[2017-02-16 22:00] VITALS: BP 163/85
[2017-02-16] MEDS ORDERED: SOD POLYSTYRENE SULFONATE SUSP 15 GM/60 ML UD PO ONE (23:45)
[2017-02-17] MEDS: MORPHINE 2 MG/ML 1ML SYRINGE IV PRN (00:14)
[2017-02-17] MEDS ORDERED: CALCIUM GLUCONATE 1,000 MG in D5W MINI-BAG PLUS 100 ML IV ONE (01:30)
[2017-02-17] MEDS: PANTOPRAZOLE 40MG INJ (PROTONIX) (C9113) IV SCH (05:35)
[2017-02-17] MEDS: HEPARIN SOD (PORCINE) 5000 UNITS/ML VIAL SC SCH ×2 (05:36→13:57)
[2017-02-17 06:00] VITALS: BP 152/74
[2017-02-17 06:13] LABS: MEAN CORPUSCULAR HEMOGLOBIN 28.1 pg (27.0-33.0); MEAN CORPUSCULAR VOLUME 87.9 fl (80.0-96.0); PLATELET COUNT, AUTOMATED 222 10^3/uL (150-450); WHITE BLOOD COUNT 5.4 10^3/uL (4.0-10.0)
[2017-02-17 06:38] LABS: ALBUMIN/GLOBULIN RATIO 0.75 (1.00-1.93); BILIRUBIN,TOTAL 0.3 MG/DL (0.2-1.0); CALCIUM LEVEL 9.4 MG/DL (8.8-10.2); CREATININE FOR GFR 4.68 MG/DL (0.70-1.30); GLOMERULAR FILTRATION RATE 16.3 (>49); MAGNESIUM LEVEL 1.7 MG/DL (1.8-2.4)
[2017-02-17 06:44] LABS: POTASSIUM SERUM 5.5 MEQ/L (3.5-5.1)
[2017-02-17] MEDS ORDERED: SOD POLYSTYRENE SULFONATE SUSP 15 GM/60 ML UD PO ONE ×2 (07:15→09:15)
[2017-02-17] MEDS: HumaLOG INSULIN (NovoLOG) PER UNIT SC SCH ×3 (07:30→17:30)
[2017-02-17] MEDS: FLUTICASONE HFA 220 MCG 12 GM INHALER (FLOVENT) INH SCH (08:06)
[2017-02-17] MEDS: SUCRALFATE 1 GM TAB PO SCH ×2 (08:26→11:41)
[2017-02-17] MEDS: MAG SULF 1GM/100ML (MAG RUN) 1 GM in APPROPRIATE DILUENT 1 EA IV SCH ×2 (08:26→11:41)
[2017-02-17] MEDS: VITAMIN D 1,000 INTERNATIONAL UNITS TABLET PO SCH (08:26)
[2017-02-17 08:30] VITALS: BP 133/69
[2017-02-17] MEDS: amLODIPine 5 MG TAB PO SCH (08:30)
[2017-02-17] MEDS ORDERED: MAGNESIUM CITRATE 300 ML BTL PO PRN (13:00)
[2017-02-17 14:00] VITALS: BP 143/83
[2017-02-17] MEDS ORDERED: ALBUTEROL SULFATE 2.5 MG/0.5 ML INH NEB SOLN NEB ONE (14:00)
[2017-02-17] MEDS ORDERED: HumaLOG INSULIN (NovoLOG) PER UNIT SC ONE (14:00)
[2017-02-17] MEDS ORDERED: DEXTROSE 50% 50 ML SYRINGE IV ONE (14:00)
[2017-02-17] MEDS ORDERED: SUCR1TA PO (16:15)
[2017-02-17] MEDS ORDERED: PROTPAK PO (16:15)
--- NOTE | 2017-02-17 16:25 | DS.PDOC ---
Discharge Summary General Date of Admission Feb 15, 2017 at 12:50 Date of Discharge 02/17/17 Primary Care Physician: CORINNE DUNHAM MD Discharge Summary PROCEDURES PERFORMED DURING STAY: None. ADMITTING/DISCHARGE DIAGNOSES: Abdominal Pain possibly 2/2 Peptic Ulcer Disease Hyperkalemia Chronic Kidney Disease Stage IV, history of polycystic kidney disease COMPLICATIONS/CHIEF COMPLAINT: Abd Pain. HISTORY OF PRESENT ILLNESS: . 67-year-old male with past medical history of diabetes, chronic kidney disease stage IV, polycystic kidney disease, hypertension, asthma, chronic thrombocytopenia, and dyslipidemia presented to the ER with a chief complaint of increased weakness, decreased appetite, and supraumbilical abdominal pain over the last 3 weeks. Of note, the patient states that he had left knee replacement surgery on 01/30/17 in [place]. Subsequently, the patient's notes that he has had a decreased appetite with increased malaise and generalized weakness. This culminated over the last 48 hours when the patient states that he started to feel supraumbilical abdominal pain, which he rates 7 out of 10 in intensity, sharp in quality, and intermittent in nature. He denies any associated fevers, chills, chest pain, palpitations, recent travel, sick contacts, ingestion of foreign foods, or any nausea/vomiting. Of note, the patient did have a similar presentation during admission here at [facility] back in October 2016, at which time he was diagnosed with pancreatitis. He presented to the ER for further evaluation. In the ER, a CT scan of the abdomen revealed no colitis, diverticulitis, gastroenteritis, or other acute findings. The patient was noted to have a slight fullness of the pancreatic head which was noted on previous CT from October 2016 with a stable appearance. During hospitalization, the patient was treated with IV fluid hydration, antiemetic therapy, PPI, and analgesic therapy. The patient's abdominal pain significantly improved with the aforementioned supportive therapy. The patient will be discharged home on Protonix daily, and Carafate before meals and at bedtime. In addition, the patient's renal function returned back to its baseline. In addition, the patient's serum potassium was noted to be elevated, and this was treated with by mouth Kayexalate, calcium gluconate, insulin/ dextrose, and nebulizer treatments. The patient did not have any EKG or telemetry manifestations. I have discussed a potassium restricted diet with the patient, and gave him a pamphlet on foods that he should be aware of. At this time, the patient is feeling much better and he is eager to return home. The patient has been seen and cleared by physical therapy to return home.. I have asked the patient to follow-up with his primary care physician within one week for follow-up blood work. In addition, the patient should also follow-up with his traffic controller cable within 1-2 weeks for further monitoring of his underlying chronic kidney disease. Lastly, the patient has been instructed to return to the ER for any acute emergencies. DISCHARGE MEDICATIONS: Please see below. ALLERGIES: Please see below. PHYSICAL EXAMINATION ON DISCHARGE: VITAL SIGNS: Please see below. General Exam: Positive: Alert, Cooperative, No Acute Distress ENT Exam: Positive: Atraumatic, Negative: Mucous membr. moist/pink (dry mucous membranes) Neck Exam: Negative: JVD Chest Exam: Positive: Clear to auscultation, Normal air movement Heart Exam: Positive: Rate Normal, Regular Rhythm, Normal S1, Normal S2 Telemetry: Positive: Sinus Abdomen Exam: Positive: Soft, Negative for Tenderness Extremity Exam: Positive: Other (Surgical scar noted on the left knee), Negative: Tenderness, Swelling Psych Exam: Positive: Oriented x 3 LABORATORY DATA: Please see below. IMAGING: CT ABDOMEN AND PELVIS WITHOUT CONTRAST: 02/15/2017. Comparison: CT 10/19/2016, gallbladder ultrasound 10/19/2016, MRCP 10/22/2016. Clinical history: Abdominal pain, history of pancreatitis, polycystic kidney disease, prostate carcinoma. Findings: CT abdomen: Noncontrast CT performed. Coronal and sagittal reconstructions. The lung bases remain clear. Heart is not enlarged. No pericardial thickening or effusion and no hiatal hernia noted. There is no hepatosplenomegaly, focal hepatic or splenic mass or biliary dilatation. Gallbladder without calcified stone. Adrenal glands are normal. Pancreas shows AP diameter pancreatic head 3.6 cm, unchanged from 10/19/2016. On today's study , there is no peripancreatic fat stranding or fluid collection to suggest pancreatitis. I see no calcifications overlying the expected course of the common duct in the pancreatic head. No pancreatic mass or cyst nor pseudocyst. Adrenal glands are normal. Innumerable cysts enlarge and deform contours of the bilateral kidneys from known autosomal dominant polycystic kidney disease. Posteriorly in the interpolar region on the right is one small hyperdense cyst about 9 mm. This is unchanged. The aorta is without aneurysm and has a few calcifications. No periaortic or retroperitoneal pathologic sized lymphadenopathy. Small bowel loops are grossly intact. There is no stranding or infiltration of the mesentery to suggest edema or gastroenteritis. Abdominal portion of the colon shows stool and gas scattered but no colitis or diverticulitis. Lung window review of all CT slices show no perforation or free air. There was no ascites in the abdomen. Bone windows show degenerative changes at L5-S1, less at L4-5. No compression deformity or destructive lesion and no spondylolysis. Some facet arthropathy lower lumbar spine. CT pelvis: SI joints, sacrum, iliac bones, ischia, acetabuli and the hips are without fracture or destructive lesion. No bony sclerotic focus. I see no hydronephrosis, hydroureter or ureteral stone. No bladder stone, mass or wall thickening. Prostate seeds are noted with slight indentation of the bladder base by the prostate. Seminal vesicles symmetric. There is no distal left colonic abnormality. The sigmoid shows some muscular hypertrophy and diverticulosis without diverticulitis. Rectum intact. No ventral or inguinal hernia nor inguinal adenopathy. Appendix is seen and normal. Impression: 1. Autosomal dominant polycystic kidney disease with innumerable cysts but no hydronephrosis, renal stone, ureteral stone or bladder calculus. 2. No hepatosplenomegaly or focal hepatic lesion. Gallbladder without calcified stone or mass. No biliary dilatation. 3. Slight fullness of the pancreatic head as on previous CT, AP diameter 3.6 cm. No mass on MRI 10/22/2016. Appearance stable. There is no evidence for pancreatitis, pseudocyst, adenopathy, abscess or other mass. 4. No colitis, diverticulitis, gastroenteritis or other acute findings. No ascites or free air. CHEST X-RAY, PA AND LATERAL: 02/15/2017. Comparison: 12/02/2008. Clinical history: Abdominal pain. Findings: Two views were performed. Lungs are adequately inflated without pleural effusion, lateral pleural thickening, apical scarring, pneumothorax. No cardiomegaly or edema. The aorta is tortuous. Airway intact. Pulmonary artery symmetric. No mediastinal or hilar mass. Bony thorax shows no focal lesion or compression deformity. No free air under the diaphragm. Impression: 1. No acute cardiopulmonary change. Stable exam from 12/02/2008. PROGNOSIS: Fair ACTIVITY: As tolerated. DIET: . 2 g low sodium renal diet, potassium restricted diet DISCHARGE PLAN: DISPOSITION: . Home DISCHARGE INSTRUCTIONS: I have asked the patient to follow-up with his primary care physician within one week for follow-up blood work. In addition, the patient should also follow- up with his traffic controller cable within 1-2 weeks for further monitoring of his underlying chronic kidney disease. Lastly, the patient has been instructed to return to the ER for any acute emergencies. DISCHARGE CONDITION: Stable. TIME SPENT ON DISCHARGE: Greater than 30 minutes. Vital Signs/I&Os Vital Signs Date Time Temp Pulse Resp B/P (MAP) Pulse Ox O2 Delivery O2 Flow Rate FiO2 02/17/17 14:00 97.4 65 18 143/83 (103) 99 Room Air I&O- Last 24 Hours up to 6 AM 02/18/17 06:00 Output Total 200 ml Balance -200 ml Laboratory Data Labs 24H Laboratory Tests 2 02/16/17 17:29: Bedside Glucose (Misc Panel) 104 02/16/17 21:35: Bedside Glucose (Misc Panel) 162H 02/17/17 05:54: Nucleated Red Blood Cells % (auto) 0.0, Anion Gap 7L, Glomerular Filtration Rate 16.3L, Blood Urea Nitrogen 58H, Creatinine 4.68H, Sodium Level 141, Potassium Level 5.5H, Chloride Level 116H, Carbon Dioxide Level 18L, Calcium Level 9.4, Aspartate Amino Transf (AST/SGOT) 12, Alanine Aminotransferase (ALT/ SGPT) 12, Alkaline Phosphatase 39L, Total Bilirubin 0.3, Total Protein 7.0, Albumin 3.0L, Magnesium Level 1.7L, Albumin/Globulin Ratio 0.75L 02/17/17 13:02: Bedside Glucose (Misc Panel) 134H CBC/BMP Laboratory Tests 02/16/17 23:51 02/17/17 05:54 Red Blood Count 3.06 L, Mean Corpuscular Volume 87.9, Mean Corpuscular Hemoglobin 28.1, Mean Corpuscular Hemoglobin Concent 32.0, Red Cell Distribution Width 13.0, Calcium Level 9.4, Aspartate Amino Transf (AST/SGOT) 12 , Alanine Aminotransferase (ALT/SGPT) 12, Alkaline Phosphatase 39 L, Total Bilirubin 0.3, Total Protein 7.0, Albumin 3.0 L 02/17/17 15:50 FSBS Laboratory Tests Test 02/16/17 17:29 02/16/17 21:35 02/17/17 13:02 Range/Units Bedside Glucose ([facility]) 104 162 134 80-115 MG/DL Microbiology Microbiology 02/15/17 Blood Culture - Preliminary, Resulted No Growth after 48 hours. All Specime... 02/15/17 Blood Culture - Preliminary, Resulted No Growth after 48 hours. All Specime... 02/15/17 Urine Culture - Final, Complete Discharge Medications Scheduled (Flonase Allergy Relief) 50 Mcg/Act Spr, 1 SPRAY NA BID, (Reported) (Ketotifen Fumarate) 0.025 % Willi, 1 DROP OU BID, (Reported) (Protonix) 40 Mg Jeffry, 40 MG PO DAILY Alfuzosin Hydrochloride (Alfuzosin HCl ER) 10 Mg Tab, 10 MG PO DAILY, (Reported) Amlodipine Besylate (Amlodipine Besylate) 10 Mg Tab, 5 MG PO DAILY, (Reported) Aspirin (Aspirin 81) 81 Mg Tab, 81 MG PO QHS, (Reported) Atorvastatin Calcium (Atorvastatin Calcium) 10 Mg Tab, 10 MG PO QHS, (Reported) Cholecalciferol (Vitamin D3) 2,000 Unit Cap, 2,000 UNIT PO DAILY, (Reported) Fluticasone Propionate (Flovent Hfa 220 MCG) 120 Puff/12 Gm Aero, 1 PUFF INH BID , (Reported) Glipizide (Glipizide) 5 Mg Tab, 5 MG PO QAM, (Reported) Glipizide (Glipizide) 5 Mg Tab, 2.5 MG PO QPM, (Reported) Lisinopril (Lisinopril) 40 Mg Tab, 20 MG PO DAILY, (Reported) Montelukast Sodium (Singulair) 10 Mg Tab, 10 MG PO DAILY, (Reported) Multivitamins *[facility] STOCKED* (Thera M Plus *[facility] STOCKED*) 1 Tab Tab, 1 TAB PO QHS , (Reported) Niacin (Niacin) 500 Mg Tab, 500 MG PO DAILY, (Reported) Sucralfate (Carafate) 1 Gm Tab, 1 GM PO ACHS Scheduled PRN Acetaminophen (Acetaminophen) 325 Mg Tab, 650 MG PO Q6H PRN for PAIN, (Reported) Albuterol Sulfate (Proair Hfa) 108 Mcg/Act Aer, 2 PUFF INH QID PRN for SHORTNESS OF BREATH, (Reported) Allergies Coded Allergies: Codeine (Verified Adverse Reaction, Intermediate, nausea, 09/24/16) HAYLIE TRIPLETT MD Feb 17, 2017 16:25
--- NOTE | 2017-02-17 21:18 | ECGEPIP ---
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
== END 2017-02-17 18:18 | disposition home or self-care (01) | DRG 384 ==
LOC: M ED 08:35 → M ED INP 12:50 → M MSPAV 14:59
PROVIDERS: ADMIT Internal Medicine; ATTEND Internal Medicine
DX: K27.7 Chronic peptic ulcer, site unspecified, without hemorrhage or perforation (principal); N18.4 Chronic kidney disease, stage 4 (severe); I12.9 Hypertensive chronic kidney disease with stage 1 through stage 4 chronic kidney disease, or unspecified chronic kidney disease; E78.5 Hyperlipidemia, unspecified; E87.5 Hyperkalemia; E11.9 Type 2 diabetes mellitus without complications; Z79.82 Long term (current) use of aspirin; Z79.84 Long term (current) use of oral hypoglycemic drugs; Z79.899 Other long term (current) drug therapy; Z88.5 Allergy status to narcotic agent; Z96.652 Presence of left artificial knee joint

== ENCOUNTER → 2017-02-20 | Outpatient (REF) | payer MEDICARE, OTHER ==
[~2017-02-20] MED LIST changes: +ACET1TAB17 PO; +ASPI1TAB PO; +ATOR1TAB19 PO; +FLON1SPR; +GABA-279 PO; +GLIP5TAB8 PO; +KETO0.02 OU; +LISI-538 PO; +NIAC500T5 PO; +PANT40TA2 PO; +PROAAER10 INH; +PROTPAK PO; +SUCR1TA PO; +VITMTA PO
[2017-02-20 17:17] LABS: ALBUMIN 3.6 GM/DL (3.2-5.2); ALBUMIN/GLOBULIN RATIO 0.86 (1.00-1.93); BILIRUBIN,TOTAL 0.3 MG/DL (0.2-1.0); CALCIUM LEVEL 9.3 MG/DL (8.8-10.2); CREATININE FOR GFR 5.1 MG/DL (0.70-1.30); GLOMERULAR FILTRATION RATE 14.7 (>49); POTASSIUM SERUM 4.6 MEQ/L (3.5-5.1); TOTAL PROTEIN 7.8 GM/DL (6.4-8.2)
[2017-02-20 17:19] LABS: MEAN CORPUSCULAR HEMOGLOBIN 28.1 pg (27.0-33.0); MEAN CORPUSCULAR HGB CONC 31.5 g/dl (32.0-36.5); PLATELET COUNT, AUTOMATED 180 10^3/uL (150-450); RED CELL DISTRIBUTION WIDTH 13.4 % (11.5-14.5); WHITE BLOOD COUNT 6.7 10^3/uL (4.0-10.0)
== END ==
LOC: M SFHCLERA 13:29
PROVIDERS: ATTEND Family Medicine
DX: N18.4 Chronic kidney disease, stage 4 (severe) (principal)
CPT/HCPCS: 80053; 82150; 83690; 85027; G0463

== ENCOUNTER → 2017-02-24 | Outpatient (REF) | payer MEDICARE, OTHER ==
[~2017-02-24] MED LIST changes: +AMLO25TA PO; +SODI200S PO
[2017-02-24 19:18] LABS: ALBUMIN 3.9 GM/DL (3.2-5.2); ALBUMIN/GLOBULIN RATIO 1.08 (1.00-1.93); BILIRUBIN,TOTAL 0.3 MG/DL (0.2-1.0); CALCIUM LEVEL 9.3 MG/DL (8.8-10.2); CREATININE FOR GFR 4.83 MG/DL (0.70-1.30); GLOMERULAR FILTRATION RATE 15.7 (>49); POTASSIUM SERUM 4.4 MEQ/L (3.5-5.1); TOTAL PROTEIN 7.5 GM/DL (6.4-8.2)
[2017-02-24 19:23] LABS: BASO # 0.1 10^3/uL (0.0-0.2); BASO % 0.8 % (0.0-1.0); EOS # 0.1 10^3/uL (0.0-0.50); IMMATURE GRANULOCYTE % 0.2 % (0-0); LYMPH # 1.9 10^3/uL (1.5-4.5); LYMPH % 32.3 % (24.0-44.0); MEAN CORPUSCULAR HEMOGLOBIN 27.6 pg (27.0-33.0); MEAN CORPUSCULAR HGB CONC 30.8 g/dl (32.0-36.5); MEAN CORPUSCULAR VOLUME 89.6 fl (80.0-96.0); MONO # 0.7 10^3/uL (0.0-0.8); MONO % 11.6 % (0.0-5.0); NEUTROPHILS # 3.2 10^3/uL (1.8-7.7); NEUTROPHILS % 53.1 % (36.0-66.0); PLATELET COUNT, AUTOMATED 144 10^3/uL (150-450); RED CELL DISTRIBUTION WIDTH 13.5 % (11.5-14.5)
== END ==
LOC: M SFHCLERA 16:08
PROVIDERS: ATTEND Family Medicine
DX: K85.90 Acute pancreatitis without necrosis or infection, unspecified (principal)
CPT/HCPCS: 80053; 82150; 83690; 85025; G0463

== ENCOUNTER → 2017-02-24 | Outpatient (REF) | payer MEDICARE, OTHER ==
[~2017-02-24] MED LIST changes: -AMLO25TA PO; -GABA-279 PO; -LISI-538 PO; -PANT40TA2 PO; -SODI200S PO
== END ==
LOC: M SFHCLERA 14:37
PROVIDERS: ATTEND Family Medicine
DX: K85.90 Acute pancreatitis without necrosis or infection, unspecified (principal); Z53.8 Procedure and treatment not carried out for other reasons

== ENCOUNTER → 2017-03-13 | Outpatient (CLI) | payer MEDICARE, OTHER ==
[~2017-03-13] MED LIST changes: +AMLO25TA PO; +GABA-279 PO; +LISI-538 PO; +PANT40TA2 PO; +SODI200S PO
[2017-03-13 12:38] LABS: BASO % 0.8 % (0.0-1.0); EOS # 0.2 10^3/uL (0.0-0.50); EOS % 3.8 % (0.0-3.0); IMMATURE GRANULOCYTE % 0.4 % (0-0); LYMPH # 1.2 10^3/uL (1.5-4.5); LYMPH % 23.6 % (24.0-44.0); MEAN CORPUSCULAR HEMOGLOBIN 27.5 pg (27.0-33.0); MEAN CORPUSCULAR HGB CONC 31.4 g/dl (32.0-36.5); MEAN CORPUSCULAR VOLUME 87.8 fl (80.0-96.0); MONO # 0.5 10^3/uL (0.0-0.8); MONO % 9.6 % (0.0-5.0); NEUTROPHILS # 3.1 10^3/uL (1.8-7.7); NEUTROPHILS % 61.8 % (36.0-66.0); PLATELET COUNT, AUTOMATED 142 10^3/uL (150-450); RED CELL DISTRIBUTION WIDTH 13.7 % (11.5-14.5)
[2017-03-13 12:58] LABS: INR 1.19
[2017-03-13 13:37] LABS: ALBUMIN 3.6 GM/DL (3.2-5.2); ALBUMIN/GLOBULIN RATIO 0.92 (1.00-1.93); BILIRUBIN,TOTAL 0.3 MG/DL (0.2-1.0); CALCIUM LEVEL 9.2 MG/DL (8.8-10.2); CREATININE FOR GFR 5.75 MG/DL (0.70-1.30); GLOMERULAR FILTRATION RATE 12.8 (>49); PERCENT SATURATION 14.9 % (19.7-50.0); TOTAL PROTEIN 7.5 GM/DL (6.4-8.2)
[2017-03-13 13:40] LABS: POTASSIUM SERUM 5.2 MEQ/L (3.5-5.1)
== END ==
LOC: M LAB 11:43
PROVIDERS: ATTEND Internal Medicine Gastroenterology
DX: R10.13 Epigastric pain (principal)

== ENCOUNTER 2017-03-14 17:56 | Inpatient (IN) | payer MEDICARE, OTHER ==
[~2017-03-14] VITALS: Ht 182.9 cm; Wt 90.9 kg
[~2017-03-14 17:56] MED LIST changes: -AMLO25TA PO; -GABA-279 PO; -LISI-538 PO; -PANT40TA2 PO; -SODI200S PO
[2017-03-14] MEDS ORDERED: GABA-279 PO (18:43)
[2017-03-14 19:56] LABS: BASO % 0.8 % (0.0-1.0); EOS # 0.3 10^3/uL (0.0-0.50); EOS % 5.2 % (0.0-3.0); IMMATURE GRANULOCYTE % 0.2 % (0-0); LYMPH # 1.3 10^3/uL (1.5-4.5); MEAN CORPUSCULAR HEMOGLOBIN 28.6 pg (27.0-33.0); MEAN CORPUSCULAR VOLUME 89.3 fl (80.0-96.0); MONO # 0.5 10^3/uL (0.0-0.8); MONO % 10.4 % (0.0-5.0); NEUTROPHILS % 58.4 % (36.0-66.0); PLATELET COUNT, AUTOMATED 136 10^3/uL (150-450); RED CELL DISTRIBUTION WIDTH 13.9 % (11.5-14.5); WHITE BLOOD COUNT 5.2 10^3/uL (4.0-10.0)
--- NOTE | 2017-03-14 19:58 | REP ---
Chest one-view HISTORY: Acute renal failure Comparison: 02/15/2017 The lungs are clear. The heart is normal in size. The pulmonary vasculature is normal in appearance. Impression: No acute disease. Signed by Enrike Gaona MD 03/14/2017 07:50 P
[2017-03-14] MEDS ORDERED: SOD POLYSTYRENE SULFONATE SUSP 15 GM/60 ML UD PO ONE (20:00)
[2017-03-14 20:31] LABS: ALBUMIN 3.7 GM/DL (3.2-5.2); ALBUMIN/GLOBULIN RATIO 0.93 (1.00-1.93); BILIRUBIN,TOTAL 0.2 MG/DL (0.2-1.0); CALCIUM LEVEL 8.6 MG/DL (8.8-10.2); CREATININE FOR GFR 5.79 MG/DL (0.70-1.30); GLOMERULAR FILTRATION RATE 12.7 (>49); POTASSIUM SERUM 5.1 MEQ/L (3.5-5.1); TOTAL PROTEIN 7.7 GM/DL (6.4-8.2)
--- NOTE | 2017-03-14 20:50 | REPUSA ---
Clinical history: Renal failure. Findings: The urinary bladder appears unremarkable, measuring 8.4 x 6.9 x 7.4 cm. No urinary bladder masses are seen. The right kidney measures 13.3 x 7.3 x 8.4 cm. The left kidney measures 15.0 7.1 x 9 .1 cm. The kidneys demonstrate increased echotexture and echogenicity. Multiple large simple cysts ar e seen in the kidneys bilaterally measuring up to 4.7 cm. There is no evidence of hydronephrosis or n ephrolithiasis. No renal masses are seen. No free fluid is appreciated. Impression: 1. Multiple large simple bilateral renal cysts. 2. Increase echogenicity of the renal cortex bilaterally suggest mild chronic medical renal disease. 3. No evidence of hydronephrosis or nephrolithiasis.
[2017-03-14] MEDS ORDERED: ATORVASTATIN 10 MG TAB PO SCH (21:00)
[2017-03-14] MEDS ORDERED: ASPIRIN 81 MG ENTERIC TAB PO SCH (21:00)
[2017-03-14] MEDS ORDERED: SUCR1TA PO (21:50)
[2017-03-14] MEDS ORDERED: PANT40TA2 PO (21:50)
[2017-03-14] MEDS ORDERED: LISI-538 PO (21:50)
[2017-03-14] MEDS ORDERED: ACETAMINOPHEN TAB 650MG DOSE (2X325MG) PO PRN (23:15)
--- NOTE | 2017-03-15 00:17 | HPEPDOC ---
[facility] Medical History & Physical Date of Admission Mar 14, 2017 History and Physical PRIMARY CARE PROVIDER: Bailee Fox ATTENDING: Dr. Gauri Whittaker CHIEF COMPLAINT: Abnormal labs HISTORY OF PRESENT ILLNESS: This is a 67-year-old male with a past history of polycystic kidney disease, chronic kidney disease stage IV baseline creatinine 4.9, diabetes, hypertension , chronic thrombocytopenia, hyperlipidemia, peptic ulcer disease who presents with abnormal labs. Patient had his labs checked by his primary care physician and was called to come to the emergency department that's his potassium and creatinine levels were elevated. Dr. Foster had spoken to the core driller helper told be seeing him in the a.m. Patient denies chest pain/possible/palpitations. No nausea/vomiting/abdominal pain. Denies any complaints. States he follows up with nephrology in [place] in [place] however would like to find a core driller helper in [place]. PAST MEDICAL HISTORY: As per HPI PAST SURGICAL HISTORY: Knee surgery SOCIAL HISTORY: Denies tobacco, alcohol, illicit drug use. Retired FAMILY HISTORY: Noncontributory ALLERGIES: Please see below. REVIEW OF SYSTEMS: HEENT: Denies sore throat/headache CARDIOVASCULAR: Denies chest pain/palpitations RESPIRATORY: Denies shortness of breath/cough GASTROINTESTINAL: denies nausea/vomiting GENITOURINARY: Denies dysuria/urinary urgency. MUSCULOSKELETAL: Denies myalgias/arthralgias NEUROLOGICAL: Denies any focal weakness HOME MEDICATIONS: Please see below. PHYSICAL EXAMINATION: Vitals: (see below) General: No acute distress, laying comfortably in bed. HEENT: Moist mucous membranes. Neck: No JVD or lymphadenopathy Cardiac: RRR, No murmurs Pulm: Clear to auscultation b/l. No wheezing, rhonchi Abd: NT/ND + BS Ext: No edema or cyanosis LABORATORY DATA: See below. IMAGING: Chest x-ray 03/14/17 The lungs are clear. The heart is normal in size. The pulmonary vasculature is normal in appearance. Impression: No acute disease. Renal ultrasound 03/14/17 Impression: 1. Multiple large simple bilateral renal cysts. 2. Increase echogenicity of the renal cortex bilaterally suggest mild chronic medical renal disease. 3. No evidence of hydronephrosis or nephrolithiasis. MICROBIOLOGY: Please see below. ASSESSMENT/PLAN: 1. Worsening chronic kidney disease with elevated potassium- patient denies any complaints at this time. His baseline creatinine is elevated. He understands that his renal function may progress towards the necessity of hemodialysis. At this time he is making urine. He denies dysuria. Hold ACEi. 2. Polycystic kidney disease 3. Diabetes mellitus -sliding scale insulin 4. History of chronic him cytopenia 5. History of peptic ulcer disease - stable. States he is scheduled for EGD with Dr. Traylor on Friday 6. Hypertension- controlled continue home meds DVT prophylaxis- heparin subcutaneous Patient followed by Dr. Gauri Whittaker starting 03/15/17 at 7 AM. Vital Signs Vital Signs Date Time Temp Pulse Resp B/P (MAP) Pulse Ox O2 Delivery O2 Flow Rate FiO2 03/14/17 23:11 70 98 03/14/17 22:59 129/67 (87) 03/14/17 17:57 96.0 16 Room Air Laboratory Data Labs 24H Laboratory Tests 2 03/14/17 19:35: Immature Granulocyte % (Auto) 0.2H, White Blood Count 5.2, Red Blood Count 3.08L , Hemoglobin 8.8L, Hematocrit 27.5L, Mean Corpuscular Volume 89.3, Mean Corpuscular Hemoglobin 28.6, Mean Corpuscular Hemoglobin Concent 32.0, Red Cell Distribution Width 13.9, Platelet Count 136L, Neutrophils (%) (Auto) 58.4, Lymphocytes (%) (Auto) 25.0, Monocytes (%) (Auto) 10.4H, Eosinophils (%) (Auto) 5.2H, Basophils (%) (Auto) 0.8, Neutrophils # (Auto) 3.0, Lymphocytes # (Auto) 1.3L, Monocytes # (Auto) 0.5, Eosinophils # (Auto) 0.3, Basophils # (Auto) 0.0, Immature Granulocyte # (Auto) 0.0, Nucleated Red Blood Cells % (auto) 0.0, Anion Gap 9, Glomerular Filtration Rate 12.7L, Blood Urea Nitrogen 54H, Creatinine 5.79H, Sodium Level 139, Potassium Level 5.1, Chloride Level 109H, Carbon Dioxide Level 21, Calcium Level 8.6L, Phosphorus Level 4.0, Aspartate Amino Transf (AST/SGOT) 9, Alanine Aminotransferase (ALT/SGPT) 13, Alkaline Phosphatase 42L, Total Bilirubin 0.2, Total Protein 7.7, Albumin 3.7, Magnesium Level 2.0, Albumin/Globulin Ratio 0.93L, Lipase 328 CBC/BMP Laboratory Tests 03/14/17 19:35 Red Blood Count 3.08 L, Mean Corpuscular Volume 89.3, Mean Corpuscular Hemoglobin 28.6, Mean Corpuscular Hemoglobin Concent 32.0, Red Cell Distribution Width 13.9, Neutrophils (%) (Auto) 58.4, Lymphocytes (%) (Auto) 25.0, Monocytes (%) (Auto) 10.4 H, Eosinophils (%) (Auto) 5.2 H, Basophils (%) ( Auto) 0.8, Neutrophils # (Auto) 3.0, Lymphocytes # (Auto) 1.3 L, Monocytes # ( Auto) 0.5, Eosinophils # (Auto) 0.3, Basophils # (Auto) 0.0, Calcium Level 8.6 L , Phosphorus Level 4.0, Aspartate Amino Transf (AST/SGOT) 9, Alanine Aminotransferase (ALT/SGPT) 13, Alkaline Phosphatase 42 L, Total Bilirubin 0.2, Total Protein 7.7, Albumin 3.7 Home Medications Scheduled (Flonase Allergy Relief) 50 Mcg/Act Spr, 1 SPRAY NA BID Amlodipine Besylate (Amlodipine Besylate) 10 Mg Tab, 10 MG PO DAILY Aspirin (Aspirin 81) 81 Mg Tab, 81 MG PO QHS Atorvastatin Calcium (Atorvastatin Calcium) 10 Mg Tab, 10 MG PO QHS Cholecalciferol (Vitamin D3) 2,000 Unit Cap, 2,000 UNIT PO DAILY Fluticasone Propionate (Flovent Hfa 220 MCG) 120 Puff/12 Gm Aero, 1 PUFF INH BID Gabapentin (Gabapentin) 100 Mg Cap, 200 MG PO TID Glipizide (Glipizide) 5 Mg Tab, 5 MG PO QAM Glipizide (Glipizide) 5 Mg Tab, 2.5 MG PO QPM Lisinopril (Lisinopril) 20 Mg Tab, 20 MG PO DAILY Montelukast Sodium (Singulair) 10 Mg Tab, 10 MG PO DAILY Multivitamins *[facility] STOCKED* (Thera M Plus *[facility] STOCKED*) 1 Tab Tab, 1 TAB PO DAILY Niacin (Niacin) 500 Mg Tab, 500 MG PO DAILY Pantoprazole Sodium (Pantoprazole Sodium) 40 Mg Tab, 40 MG PO DAILY Sucralfate (Carafate) 1 Gm Tab, 1 GM PO ACHS Scheduled PRN (Ketotifen Fumarate) 0.025 % Willi, 1 DROP OU BID PRN for ALLERGIES Acetaminophen (Acetaminophen) 325 Mg Tab, 650 MG PO Q6H PRN for PAIN Albuterol Sulfate (Proair Hfa) 108 Mcg/Act Aer, 2 PUFF INH QID PRN for SHORTNESS OF BREATH Allergies Coded Allergies: Codeine (Verified Adverse Reaction, Intermediate, nausea, 09/24/16) KATHARINE MONROE MD Mar 15, 2017 00:17
[2017-03-15] MEDS ORDERED: ALBUTEROL 90 MCG/ACT 8GM HFA INHALER INH PRN (00:30)
[2017-03-15 01:30] VITALS: BP 122/70
[2017-03-15] MEDS: GABAPENTIN 100 MG CAP PO SCH ×2 (01:36→09:05)
[2017-03-15 01:42] VITALS: BP 122/70
[2017-03-15] MEDS: HEPARIN SOD (PORCINE) 5000 UNITS/ML VIAL SQ SCH ×2 (05:03→12:56)
[2017-03-15 06:00] VITALS: BP 119/68
[2017-03-15 06:11] LABS: MEAN CORPUSCULAR HEMOGLOBIN 27.6 pg (27.0-33.0); MEAN CORPUSCULAR HGB CONC 31.6 g/dl (32.0-36.5); MEAN CORPUSCULAR VOLUME 87.3 fl (80.0-96.0); PLATELET COUNT, AUTOMATED 136 10^3/uL (150-450); WHITE BLOOD COUNT 5.2 10^3/uL (4.0-10.0)
[2017-03-15 06:25] LABS: CALCIUM LEVEL 9.3 MG/DL (8.8-10.2); CREATININE FOR GFR 5.64 MG/DL (0.70-1.30); GLOMERULAR FILTRATION RATE 13.1 (>49)
[2017-03-15 06:31] LABS: POTASSIUM SERUM 5.3 MEQ/L (3.5-5.1)
--- NOTE | 2017-03-15 07:40 | ECGEPIP ---
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
[2017-03-15] MEDS ORDERED: VITAMIN D 1,000 INTERNATIONAL UNITS TABLET PO SCH (09:00)
[2017-03-15] MEDS ORDERED: FLUTICASONE HFA 220 MCG 12 GM INHALER (FLOVENT) INH SCH (09:00)
[2017-03-15] MEDS ORDERED: MONTELUKAST 10 MG TAB PO SCH (09:00)
[2017-03-15] MEDS ORDERED: amLODIPine 10 MG TAB PO SCH (09:00)
[2017-03-15] MEDS ORDERED: MULTIVITAMINS/MINERALS THERAP 1 TAB PO SCH (09:00)
[2017-03-15] MEDS ORDERED: PANTOPRAZOLE 40MG TAB (PROTONIX) PO SCH (09:00)
[2017-03-15] MEDS: SUCRALFATE 1 GM TAB PO SCH ×2 (09:05→12:56)
[2017-03-15 10:00] VITALS: BP 127/72
[2017-03-15] MEDS ORDERED: SOD POLYSTYRENE SULFONATE SUSP 15 GM/60 ML UD PO ONE (10:00)
[2017-03-15] MEDS ORDERED: SODI200S PO (13:59)
[2017-03-15 14:00] VITALS: BP 131/76
--- NOTE | 2017-03-15 15:36 | DSES ---
DATE OF ADMISSION: 03/14/2017 DATE OF DISCHARGE: PRIMARY CARE PROVIDER: Bailee Fox PROCEDURES: None. CONSULTANTS: Frothing Machine Operator. DISCHARGE DIAGNOSES: 1. Acute on chronic kidney disease, now in end-stage renal disease. 2. Polycystic kidney disease. 3. Diabetes. 4. History of peptic ulcer disease. 5. Hypertension. 6. Hyperkalemia. HOSPITALIZATION COURSE: The patient is a 67-year-old male who was instructed to come to [facility] on 03/14/2017 by primary care provider for abnormal lab values. The patient had laboratory tests performed by the primary care provider and the patient was found to have acute on chronic renal failure and hyperkalemia; therefore, the primary care provider instructed the patient to come to [facility] for further evaluation. The patient was admitted to medical-surgical floor. The patient has been receiving medication for his hyperkalemia. The patient is being evaluated by the highway maintenance technician in the morning and options for hemodialysis were explained to the patient and an outpatient appointment will be given to the patient, and the patient was discharged home on 03/15/2017. Vital signs on the day of discharge showed temperature of 97.9, pulse of 72, respirations 17, blood pressure is 131/76, pulse oximetry is 98% in room air. Laboratory tests on the day of discharge showed WBC 5.2, hemoglobin 8.5, hematocrit 26.9, platelet count is 136. Sodium is 152, potassium 5.3, chloride is 111, carbon dioxide 24, BUN 47, creatinine is 5.64, GFR is 13.1, fasting glucose is 93, calcium is 9.3, serum magnesium 2. IMAGING STUDIES: Ultrasound on 03/14/2017 showed multiple large simple bilateral renal cysts, increased echogenicity of the renal cortex bilaterally suggests mild chronic medical renal disease. No evidence of hydronephrosis or nephrolithiasis. Chest x-ray on 03/14/2017 showed no acute disease. DISCHARGE INSTRUCTIONS: Discontinue lines. Discharge home. Activity as tolerated. Low salt. Consistent carbohydrate diet as tolerated. The patient should followup with his primary care provider, Dr. Bailee Fox, in 1-2 weeks. The patient should followup with the highway maintenance technician in the outpatient setting in 1 week. Discharge Medications: - Kayexalate 15 grams by mouth one dose on 03/16/2017 and another dose should be taken 2-3 days prior to the highway maintenance technician's visit. -Tylenol 650 mg by mouth every 6 hours as needed. - Albuterol two puff inhalation four times a day as needed. - Amlodipine 10 mg by mouth daily. - Aspirin 81 mg by mouth nightly. - Atorvastatin 10 mg by mouth nightly. - Vitamin D3 2000 units by mouth daily. - Flovent one puff inhalation twice a day. - Gabapentin 200 mg by mouth three times a day. - Glipizide 5 mg by mouth every morning. - Glipizide 2.5 mg by mouth every evening. - Singulair 10 mg by mouth daily. - Multivitamin one tablet by mouth daily. - Niacin 500 mg by mouth daily. - Pantoprazole 40 mg by mouth daily. - Sucralfate 1 gram by mouth before food and nightly. DISCHARGE CONDITION: Stable. DISCHARGE TIME: Greater than 30 minutes.
--- NOTE | 2017-03-15 21:00 | CR ---
DATE OF CONSULTATION: 03/15/2017 REQUESTING PHYSICIAN: Dr. Jordin Foster. REASON FOR CONSULTATION: End-stage renal disease with hyperkalemia not yet on dialysis. HISTORY OF PRESENT ILLNESS: Mr. Jose G Nj is a 67-year-old male with a past medical history of reported polycystic kidney disease with advanced chronic kidney disease (CKD), well controlled diabetes and hypertension, dyslipidemia, peptic ulcer disease and history of prostate cancer. He follows up with fire manager, (please clarify) Kassandra [facility] [place]. Review of labs over the past six months show his glomerular filtration rate (GFR) has ranged from 12 mL/min, to 2- mL/min since October of this year. He was sent by his primary care physician to the emergency room after lab work showed some mild hyperkalemia. The patient feels well at present. He denies any chest pain, palpitations, edema, or dysgeusia. He denies any uremic signs or symptoms. He lives locally in [place] and is interested in discussing dialysis options. I had a long discussion with him at the bedside in regards to options going forward. For his hyperkalemia, he received two doses of Kayexalate. He notes he is already on a potassium-restricted diet. PAST MEDICAL HISTORY: Chronic kidney disease (CKD), stage V, not yet on dialysis, type 2 diabetes, hypertension, prostate cancer diagnosed about two years ago, chronic thrombocytopenia, anemia, peptic ulcer disease, and as per history of present illness (HPI). PAST SURGICAL HISTORY: Left knee surgery. SOCIAL HISTORY: The patient is retired from the . He denies any tobacco, alcohol or drugs. FAMILY HISTORY: He denies any other family member having polycystic kidneys. ALLERGIES: CODEINE. REVIEW OF SYSTEMS: GENERAL: The patient denies fevers, chills, weight gain or weight loss. HEENT: He denies visual changes, blurring, dysphagia, headache or earache. CARDIOVASCULAR: He denies chest pain, palpitations, or edema. RESPIRATORY: Denies shortness of breath, cough. GASTROINTESTINAL (GI): Denies nausea, vomiting. Has a history of peptic ulcer disease and is apparently scheduled for an esophagogastroduodenoscopy (EGD) next week. GENITOURINARY: He denies dysuria. He has a history of prostate cancer. MUSCULOSKELETAL: He reports left knee surgery. Denies any myalgias. NEUROLOGIC: Denies any focal weakness or episodes of confusion. PSYCHIATRIC: Denies anxiety or depression. SKIN: Denies any rashes. HEMATOLOGY: Reports anemia and thrombocytopenia. Remainder of review of systems is negative. HOME MEDICATIONS: - amlodipine 2.5 mg by mouth daily - aspirin 81 mg by mouth daily - atorvastatin 10 mg by mouth daily - vitamin D3 2000 units by mouth daily - Flovent one puff inhaled twice a day - gabapentin 200 mg by mouth three times a day - glipizide 5 mg in the morning and 2.5 mg in the evening - Singulair 10 mg by mouth daily - niacin 500 mg by mouth daily - Protonix 40 mg by mouth daily - lisinopril 20 mg by mouth daily PHYSICAL EXAMINATION: VITAL SIGNS: Temperature 97.9, pulse 66, respiratory rate 15, blood pressure 127/72, saturating 99% on room air. INTAKE AND OUTPUT: Not fully recorded. Weight in the bed scale today 90.9 kg, unchanged from prior. GENERAL: The patient is seen in bed, well-built male appears stated age, in no acute distress. HEAD/NECK: Extraocular muscles are intact. The ears, nose and throat are unremarkable. The oral mucosa is moist. The neck has no jugular venous distention or thyromegaly. CARDIAC: Regular rate and rhythm. S1, S2. 2+ radial pulse. No murmur appreciable. LUNGS: Clear to auscultation bilaterally. He is comfortable on room air. There is no friction rub. ABDOMEN: Soft, nontender with positive bowel sounds. EXTREMITIES: Have no edema. MUSCULOSKELETAL: Full range of motion in all four extremities. There is a healed vertical scar on the left knee. NEUROLOGIC: There is no focal deficit. He is oriented times four. PSYCHIATRIC: Appropriate mood and affect. LABORATORY DATA: White count 5.2, hemoglobin 8.5, platelets 136. Sodium 142, potassium 5.3 without hemolysis, bicarbonate 24, BUN 47, creatinine 5.6, GFR 13 mL/min, calcium 9.3, phosphorus 4.0, magnesium 2.0. IMAGING: Renal ultrasound 03/14: The bladder appears unremarkable. The right kidney is 13 cm, and the left kidney is 15 cm. Both have increased echogenicity and multiple large simple cysts bilaterally without hydronephrosis or stone. No mass. INPATIENT MEDICATIONS: - albuterol inhaler as needed - amlodipine 10 mg by mouth daily - aspirin 81 mg by mouth at bedtime - atorvastatin 10 mg by mouth at bedtime - Advair one puff inhaled twice a day - gabapentin 200 mg by mouth three times a day - heparin subcutaneous 5000 units every eight - Singulair 10 mg by mouth daily - Protonix 40 mg by mouth daily - Kayexalate 30 grams by mouth times two doses - vitamin D 2000 units by mouth daily - Carafate 1 gram by mouth with meals ASSESSMENT AND PLAN: The patient is a 67-year-old male with past medical history of diabetes, hypertension, dyslipidemia, anemia, thrombocytopenia, and advanced chronic kidney disease (CKD), now with end-stage renal disease with glomerular filtration rate (GFR) of about 15 mL/min or less, who was sent in for hyperkalemia. 1. End-stage renal disease: I had a discussion with the patient at the bedside regarding renal replacement therapy options going forward, including hemodialysis, peritoneal dialysis, and transplant options. At this time, due to advanced CKD and hyperkalemia, we will discontinue his lisinopril. He is already following a potassium-restricted diet. He received two doses of Kayexalate as an inpatient. We will start him on Veltassa in the office for further control of his potassium without side effect of diarrhea. He has no uremic signs or symptoms at present, and there is no indication for urgent hemodialysis. He is stable for discharge from a renal point of view with close followup in the office. He will need timely [facility]. 2. Anemia: The patient reports a history of peptic ulcer disease and is apparently scheduled for an esophagogastroduodenoscopy (EGD) in the coming week. I also suggest in view of his renal failure, checking iron panel. If his iron stores are adequate, he would likely benefit from erythropoietin stimulating agents. This can be done as an outpatient. 3. Hypertension: Discontinue lisinopril. Given his advanced kidney disease and hyperkalemia, I would continue him on Norvasc at the present time. 4. Diabetes: The patient continues on glipizide. 5. Discharge planning: The patient is cleared for discharge from a renal point of view with followup in the office within the next one week with repeat blood work, which I will arrange. He is counseled to continue with dietary potassium restriction and to hold his lisinopril going forward. Plan of care is discussed with Dr. Gauri Whittaker.
[2017-03-17] MEDS ORDERED: AMLO25TA PO (17:08)
[2017-03-17] MEDS ORDERED: LISI-538 PO (17:08)
== END 2017-03-15 15:10 | disposition home or self-care (01) | DRG 682 ==
LOC: M ED 17:56 → M ED INP 23:07 → M MSPAV 03-15 01:10
PROVIDERS: ADMIT Internal Medicine; ATTEND Internal Medicine
DX: I12.0 Hypertensive chronic kidney disease with stage 5 chronic kidney disease or end stage renal disease (principal); N18.6 End stage renal disease; N17.9 Acute kidney failure, unspecified; Q61.3 Polycystic kidney, unspecified; E87.5 Hyperkalemia; D63.1 Anemia in chronic kidney disease; E11.9 Type 2 diabetes mellitus without complications; E78.5 Hyperlipidemia, unspecified; D69.6 Thrombocytopenia, unspecified; Z79.82 Long term (current) use of aspirin; Z79.84 Long term (current) use of oral hypoglycemic drugs; Z79.899 Other long term (current) drug therapy

== ENCOUNTER → 2017-03-14 | Outpatient (CLI) | payer MEDICARE, OTHER ==
[2017-03-14 16:07] LABS: ALBUMIN 3.7 GM/DL (3.2-5.2); CALCIUM LEVEL 8.8 MG/DL (8.8-10.2); CREATININE FOR GFR 5.88 MG/DL (0.70-1.30); GLOMERULAR FILTRATION RATE 12.5 (>49); PHOSPHORUS LEVEL 4.9 MG/DL (2.5-4.9)
[2017-03-14 16:09] LABS: POTASSIUM SERUM 5.2 MEQ/L (3.5-5.1)
== END ==
LOC: M LAB 14:52
PROVIDERS: ATTEND Family Medicine
DX: N18.6 End stage renal disease (principal)

== ENCOUNTER 2017-03-18 06:45 | Day surgery (SDC) | payer MEDICARE, OTHER ==
[~2017-03-18] VITALS: Ht 188 cm; Wt 93.9 kg
[~2017-03-18 06:45] MED LIST changes: +AMLO25TA PO; +GABA-279 PO; +LISI-538 PO; +PANT40TA2 PO; +SODI200S PO
[2017-03-18] MEDS ORDERED: NS 1,000 ML IV ONE (07:15)
[2017-03-18] MEDS ORDERED: PROPOFOL 200 MG/20 ML VIAL As Ordered ONE (07:46)
[2017-03-18] MEDS ORDERED: LIDOCAINE 2% INJ 100 MG/5 ML SDV (FOR ANES.) As Ordered ONE (07:46)
[2017-03-18] MEDS ORDERED: fentaNYL 100 MCG/2 ML INJECTION (J3010) As Ordered ONE (07:46)
--- NOTE | 2017-03-18 07:53 | ROOR ---
Patient Name: Jose G Nj Procedure Date: 03/18/2017 7:37 AM Date of : 1950 Age: 67 Room: [facility] Gender: Male Note Status: Finalized Procedure: Upper GI endoscopy Indications: Gastrointestinal bleeding of unknown origin, Gastrointestinal bleeding source not found during previous colonoscopy, Abdominal pain in the left upper quadrant Providers: Barrington Traylor MD Referring MD: Bailee DUNHAM MD Requesting Provider: Medicines: Monitored Anesthesia Care Complications: No immediate complications. Procedure: Pre-Anesthesia Assessment: - Prior to the procedure, a History and Physical was performed, and patient medications and allergies were reviewed. The patient is competent. The risks and benefits of the procedure and the sedation options and risks were discussed with the patient. All questions were answered and informed consent was obtained. Patient identification and proposed procedure were verified by the physician, the nurse and the hat lining blocker in the procedure room. Mental Status Examination: alert and oriented. Airway Examination: normal oropharyngeal airway and neck mobility. Respiratory Examination: clear to auscultation. CV Examination: normal. Prophylactic Antibiotics: The patient does not require prophylactic antibiotics. Prior Anticoagulants: The patient has taken no previous anticoagulant or antiplatelet agents. ASA Grade Assessment: III - A patient with severe systemic disease. After reviewing the risks and benefits, the patient was deemed in satisfactory condition to undergo the procedure. The anesthesia plan was to use monitored anesthesia care (MAC). Immediately prior to administration of medications, the patient was re-assessed for adequacy to receive sedatives. The heart rate, respiratory rate, oxygen saturations, blood pressure, adequacy of pulmonary ventilation, and response to care were monitored throughout the procedure. The physical status of the patient was re-assessed after the procedure. The Endoscope was introduced through the mouth, and advanced to the second part of duodenum. The upper GI endoscopy was accomplished without difficulty. The patient tolerated the procedure well. Findings: The examined esophagus was normal. A large amount of food (residue) was found in the gastric fundus, in the gastric body and in the gastric antrum. No gross lesions were noted in the entire examined stomach. An examination of the duodenum was not performed. Impression: - Normal esophagus. - A large amount of food (residue) in the stomach. - No gross lesions in the stomach. - No specimens collected. Recommendation: - Patient has a contact number available for emergencies. The signs and symptoms of potential delayed complications were discussed with the patient. Return to normal activities tomorrow. Written discharge instructions were provided to the patient. - Resume previous diet. - Continue present medications. - Repeat upper endoscopy in 2 months because the preparation was poor. - Return to GI clinic in 2 weeks. Please call GI clinic at [phone] for appointment date and time. - Return to primary care physician. Barrington Traylor MD Barrington Traylor MD 03/18/2017 7:52:57 AM This report has been signed electronically. Number of Addenda: 0 Note Initiated On: 03/18/2017 7:37 AM Estimated Blood Loss: Estimated blood loss: none.
[2017-03-18 08:43] VITALS: BP 140/89
== END 2017-03-18 08:49 | disposition home or self-care (01) ==
LOC: M OPP 06:45
PROVIDERS: ATTEND Internal Medicine Gastroenterology
DX: R10.12 Left upper quadrant pain (principal); K92.2 Gastrointestinal hemorrhage, unspecified; R63.4 Abnormal weight loss; E11.9 Type 2 diabetes mellitus without complications; I12.9 Hypertensive chronic kidney disease with stage 1 through stage 4 chronic kidney disease, or unspecified chronic kidney disease; E78.00 Pure hypercholesterolemia, unspecified; K21.9 Gastro-esophageal reflux disease without esophagitis; D64.9 Anemia, unspecified; M19.90 Unspecified osteoarthritis, unspecified site; N18.4 Chronic kidney disease, stage 4 (severe); K44.9 Diaphragmatic hernia without obstruction or gangrene; I51.9 Heart disease, unspecified; J32.9 Chronic sinusitis, unspecified; J45.909 Unspecified asthma, uncomplicated; Z85.46 Personal history of malignant neoplasm of prostate; Z79.82 Long term (current) use of aspirin; Z79.84 Long term (current) use of oral hypoglycemic drugs; Z88.5 Allergy status to narcotic agent; Z88.8 Allergy status to other drugs, medicaments and biological substances
CPT/HCPCS: 43235; J3010

== ENCOUNTER 2017-04-29 06:59 | Day surgery (SDC) | payer MEDICARE, OTHER ==
[2017-04-29] MEDS ORDERED: PROPOFOL 200 MG/20 ML VIAL As Ordered (07:10)
[2017-04-29] MEDS ORDERED: LIDOCAINE 2% INJ 100 MG/5 ML SDV (FOR ANES.) As Ordered (07:12)
[2017-04-29] MEDS: NS 1,000 ML IV (07:15)
== END 2017-04-29 08:35 | disposition home or self-care (01) ==
LOC: M OPP 06:59
DX: R10.13 Epigastric pain (principal); R63.4 Abnormal weight loss; R10.12 Left upper quadrant pain; K22.8 Other specified diseases of esophagus; K31.89 Other diseases of stomach and duodenum; K29.70 Gastritis, unspecified, without bleeding; K44.9 Diaphragmatic hernia without obstruction or gangrene; I12.9 Hypertensive chronic kidney disease with stage 1 through stage 4 chronic kidney disease, or unspecified chronic kidney disease; E78.5 Hyperlipidemia, unspecified; E11.9 Type 2 diabetes mellitus without complications; K21.9 Gastro-esophageal reflux disease without esophagitis; D50.9 Iron deficiency anemia, unspecified; R06.02 Shortness of breath; M19.90 Unspecified osteoarthritis, unspecified site; M54.9 Dorsalgia, unspecified; J44.9 Chronic obstructive pulmonary disease, unspecified; G47.8 Other sleep disorders; I25.2 Old myocardial infarction; N18.9 Chronic kidney disease, unspecified; Z87.442 Personal history of urinary calculi; Z85.46 Personal history of malignant neoplasm of prostate; Z92.3 Personal history of irradiation; N40.1 Benign prostatic hyperplasia with lower urinary tract symptoms; J32.9 Chronic sinusitis, unspecified; Z96.652 Presence of left artificial knee joint; Z88.5 Allergy status to narcotic agent; Z79.82 Long term (current) use of aspirin; Z79.899 Other long term (current) drug therapy
CPT/HCPCS: 43239

== ENCOUNTER → 2017-07-23 | Outpatient (REF) | payer MEDICARE, OTHER ==
[2017-07-26 08:07] LABS: CYSTATIN C 2.59 mg/L (0.53-0.95)
== END ==
LOC: M LAB REF 17:31
DX: E87.5 Hyperkalemia (principal)
CPT/HCPCS: 81229

== ENCOUNTER → 2017-10-27 | Outpatient (CLI) | payer OTHER | LOC: M RAD 08:54 | DX: R29.818 Other symptoms and signs involving the nervous system (principal); S13.4XXA Sprain of ligaments of cervical spine, initial encounter; M75.102 Unspecified rotator cuff tear or rupture of left shoulder, not specified as traumatic; M94.212 Chondromalacia, left shoulder; M25.412 Effusion, left shoulder; X58.XXXA Exposure to other specified factors, initial encounter; Y92.9 Unspecified place or not applicable | CPT/HCPCS: 72141 ==

== ENCOUNTER 2018-05-06 13:22 | Emergency (ER) | payer MEDICARE, OTHER ==
[~2018-05-06] VITALS: Ht 188 cm; Wt 97.7 kg
[~2018-05-06 13:22] MED LIST changes: -ACET1TAB17; -ACET1TAB17 PO; +ACET1TAB55; +ACET1TAB55 PO; -AMLO10TA2 PO; +AMLO10TA5 PO; +GABA-1171 PO; -GABA-279 PO; +LISI40TA PO; -LISI40TAB PO; -PANT40TA2 PO; +PANT40TA3 PO
[2018-05-06] MEDS ORDERED: [UNRECOGNIZED DRUG - CODE] (13:51)
[2018-05-06] MEDS ORDERED: AURY1TAB (13:51)
[2018-05-06] MEDS ORDERED: LABE20TAB (13:51)
[2018-05-06] MEDS ORDERED: PRED5TA (13:51)
[2018-05-06] MEDS ORDERED: CHLO125TA (13:51)
[2018-05-06] MEDS ORDERED: AMLO10TA5 (13:51)
[2018-05-06] MEDS ORDERED: MYCO250C (13:51)
[2018-05-06] MEDS ORDERED: ONDANSETRON 4MG/2ML VIAL (J2405) IV ONE ×2 (14:45→16:00)
[2018-05-06] MEDS ORDERED: ONDANSETRON 4 MG ORAL DISINTEGRATING TAB (Q0162 PER 1MG) PO ONE (15:30)
[2018-05-06 15:32] LABS: ALBUMIN 4.1 GM/DL (3.2-5.2); BILIRUBIN,DIRECT 0.2 MG/DL (0.0-0.2); BILIRUBIN,TOTAL 0.9 MG/DL (0.2-1.0); CALCIUM LEVEL 9.7 MG/DL (8.8-10.2); CREATININE FOR GFR 2.33 MG/DL (0.70-1.30); GLOMERULAR FILTRATION RATE 36.2 (>49); POTASSIUM SERUM 4.7 MEQ/L (3.5-5.1)
[2018-05-06 15:56] LABS: BASO % 0.2 % (0.0-1.0); EOS % 0.2 % (0.0-3.0); HEMATOCRIT 46.2 % (42.0-52.0); HEMOGLOBIN 14.5 g/dl (13.5-17.5); LYMPH % 1.8 % (24.0-44.0); MEAN CORPUSCULAR HEMOGLOBIN 27.4 pg (27.0-33.0); MEAN CORPUSCULAR HGB CONC 31.4 g/dl (32.0-36.5); MEAN CORPUSCULAR VOLUME 87.3 fl (80.0-96.0); MONO # 0.7 10^3/uL (0.0-0.8); MONO % 6.8 % (0.0-5.0); NEUTROPHILS # 8.8 10^3/uL (1.8-7.7); NEUTROPHILS % 90.6 % (36.0-66.0); PLATELET COUNT, AUTOMATED 106 10^3/uL (150-450); RED BLOOD COUNT 5.29 10^6/uL (4.30-6.10); WHITE BLOOD COUNT 9.7 10^3/uL (4.0-10.0)
[2018-05-06 15:57] LABS: LYMPH # 0.2 10^3/uL (1.5-4.5)
[2018-05-06] MEDS ORDERED: NS 500 ML IV ONE ×2 (16:00→17:15)
[2018-05-06 19:08] VITALS: BP 166/93
== END 2018-05-06 20:41 | disposition home or self-care (01) ==
LOC: EDBD 13:22 → M ED 13:22
DX: R19.7 Diarrhea, unspecified (principal); R11.10 Vomiting, unspecified; E11.9 Type 2 diabetes mellitus without complications; I10 Essential (primary) hypertension
CPT/HCPCS: 80048; 80076; 81001; 83690; 85025; 96361; 96374; 96376; 99284; J2405

== ENCOUNTER → 2018-06-02 | Outpatient (REF) | payer MEDICARE, OTHER ==
[~2018-06-02] MED LIST changes: +AMLO10TA5; +AURY1TAB; +CHLO125TA; +LABE20TAB; +MYCO250C; +PRED5TA; +[UNRECOGNIZED DRUG - CODE]
[2018-06-02 15:05] LABS: ALT/SGPT 16 U/L (12-78)
== END ==
LOC: M LAB REF 13:06
PROVIDERS: ATTEND Internal Medicine Nephrology
DX: Z94.0 Kidney transplant status (principal); D84.9 Immunodeficiency, unspecified; N18.3 Chronic kidney disease, stage 3 (moderate)

== ENCOUNTER → 2018-06-18 | Outpatient (CLI) | payer OTHER ==
--- NOTE | 2018-06-24 00:28 | SLEEPCENT ---
DATE OF PROCEDURE: 06/18/2018 ORDERED BY: Dr. Willett at the [facility] Nocturnal polysomnography was performed was performed for evaluation of sleep physiology. 6 hours and 39 minutes of data were reviewed. There were 244 minutes of sleep identified. Sleep latency was prolonged at 45 minutes. Rapid eye movement (REM) latency was normal at 71 minutes. Sleep architecture was fair, but there was fragmentation in periods of wake resulting in reduced sleep efficiency of 63.5%. There were two REM cycles but REM time was significantly reduced to about one-third predictated. The patient's electrocardiogram showed a sinus rhythm with an average heart rate of 58 beats per minute. Rate range 54-76. EEG showed reasonably normal waveforms for awake and sleep. There were 54 respiratory events identified of 10 seconds in duration or greater for an apnea-hypopnea index of 13.3. The events were primarily obstructive. The events were not exclusive to sleep stage. They were more frequent in the supine posture. Arousals from respiratory events occurred 22.8 times per hour when arousals from snoring were included. There was some limb activity. Limb movement arousal index was low at 3.4 and no significant oxygen desaturations were seen. IMPRESSION: Obstructive sleep apnea syndrome (G47.33). Apnea-hypopnea index 13.3. RECOMMENDATIONS: The patient should be encouraged to return to the sleep disorder center for pressure therapy. In the interim, alcohol and sedative avoidance should be practiced and caution exercised during the operation of motor vehicles.
== END ==
LOC: M SLEEP 20:03
PROVIDERS: ATTEND Internal Medicine
DX: G47.33 Obstructive sleep apnea (adult) (pediatric) (principal)

== ENCOUNTER → 2018-08-25 | Outpatient (CLI) | payer MEDICARE, OTHER ==
[~2018-08-25] MED LIST changes: -ASPI1TAB PO; +ASPI81TA26 PO
[2018-08-25 07:54] LABS: HEMATOCRIT 38.5 % (42.0-52.0); HEMOGLOBIN 11.4 g/dl (13.5-17.5); MEAN CORPUSCULAR HEMOGLOBIN 26.3 pg (27.0-33.0); MEAN CORPUSCULAR HGB CONC 29.6 g/dl (32.0-36.5); MEAN CORPUSCULAR VOLUME 88.7 fl (80.0-96.0); PLATELET COUNT, AUTOMATED 109 10^3/uL (150-450); RED BLOOD COUNT 4.34 10^6/uL (4.30-6.10); WHITE BLOOD COUNT 4.1 10^3/uL (4.0-10.0)
[2018-08-25 07:55] LABS: APPEARANCE, URINE CLEAR (CLEAR); BACTERIA, URINE AUTO NEGATIVE (NEGATIVE); BILIRUBIN, URINE AUTO NEGATIVE (NEGATIVE); BLOOD, URINE BLOOD NEGATIVE (NEGATIVE); COLOR, URINE YELLOW (YELLOW); GLUCOSE, URINE (UA) AUTO NEGATIVE (NEGATIVE); KETONE, URINE AUTO NEGATIVE (NEGATIVE); LEUKOCYTE ESTERASE, URINE AUTO NEGATIVE (NEGATIVE); NITRITE, URINE AUTO NEGATIVE (NEGATIVE); PROTEIN, URINE AUTO NEGATIVE (NEGATIVE); RBC, URINE AUTO 3 /HPF (0-3); SPECIFIC GRAVITY URINE AUTO 1.015 (1.002-1.035); SQUAMOUS EPITHELIAL CELL UR AU 0 /HPF (0-6); UROBILINOGEN, URINE AUTO 0.2 mg/dL (0.0-2.0); WBC, URINE AUTO 0 /HPF (0-3)
[2018-08-25 08:12] LABS: ALBUMIN 3.9 GM/DL (3.2-5.2); CALCIUM LEVEL 9.2 MG/DL (8.8-10.2); CREATININE FOR GFR 2.28 MG/DL (0.70-1.30); GLOMERULAR FILTRATION RATE 37.2 (>49); MAGNESIUM LEVEL 1.9 MG/DL (1.8-2.4); PHOSPHORUS LEVEL 3.9 MG/DL (2.5-4.9); TOTAL PROTEIN,RANDOM URINE 22.9 MG/DL (0.0-12.0)
[2018-08-25 08:26] LABS: BASOPHILS 1 % (0-4); EOSINOPHILS 3 % (0-5); LYMPHOCYTES 13 % (16-52); MONOCYTES 15 % (0-8); NEUTROPHILS 67 % (35-75)
[2018-08-25 08:27] LABS: PLATELET ESTIMATE DECREASED (NORMAL)
== END ==
LOC: M LAB 07:01
PROVIDERS: ATTEND Internal Medicine Nephrology
DX: Z94.0 Kidney transplant status (principal); N18.5 Chronic kidney disease, stage 5; D84.9 Immunodeficiency, unspecified; Z79.899 Other long term (current) drug therapy

== ENCOUNTER → 2018-09-01 | Outpatient (CLI) | payer MEDICARE, OTHER ==
[2018-09-01 07:18] LABS: BASO % 0.5 % (0.0-1.0); EOS # 0.1 10^3/uL (0.0-0.50); EOS % 1.3 % (0.0-3.0); HEMATOCRIT 37.1 % (42.0-52.0); HEMOGLOBIN 11.4 g/dl (13.5-17.5); LYMPH # 0.4 10^3/uL (1.5-4.5); LYMPH % 9.8 % (24.0-44.0); MEAN CORPUSCULAR HEMOGLOBIN 27.1 pg (27.0-33.0); MEAN CORPUSCULAR HGB CONC 30.7 g/dl (32.0-36.5); MEAN CORPUSCULAR VOLUME 88.1 fl (80.0-96.0); MONO # 0.7 10^3/uL (0.0-0.8); NEUTROPHILS # 2.6 10^3/uL (1.8-7.7); NEUTROPHILS % 68.1 % (36.0-66.0); PLATELET COUNT, AUTOMATED 150 10^3/uL (150-450); RED BLOOD COUNT 4.21 10^6/uL (4.30-6.10); WHITE BLOOD COUNT 3.8 10^3/uL (4.0-10.0)
[2018-09-01 07:27] LABS: APPEARANCE, URINE CLEAR (CLEAR); BACTERIA, URINE AUTO NEGATIVE (NEGATIVE); BILIRUBIN, URINE AUTO NEGATIVE (NEGATIVE); BLOOD, URINE BLOOD NEGATIVE (NEGATIVE); COLOR, URINE YELLOW (YELLOW); GLUCOSE, URINE (UA) AUTO NEGATIVE (NEGATIVE); KETONE, URINE AUTO NEGATIVE (NEGATIVE); LEUKOCYTE ESTERASE, URINE AUTO NEGATIVE (NEGATIVE); NITRITE, URINE AUTO NEGATIVE (NEGATIVE); PROTEIN, URINE AUTO NEGATIVE (NEGATIVE); RBC, URINE AUTO 3 /HPF (0-3); SPECIFIC GRAVITY URINE AUTO 1.014 (1.002-1.035); SQUAMOUS EPITHELIAL CELL UR AU 0 /HPF (0-6); UROBILINOGEN, URINE AUTO 0.2 mg/dL (0.0-2.0); WBC, URINE AUTO 0 /HPF (0-3)
[2018-09-01 07:55] LABS: ALBUMIN 3.8 GM/DL (3.2-5.2); BILIRUBIN,DIRECT 0.1 MG/DL (0.0-0.2); BILIRUBIN,TOTAL 0.4 MG/DL (0.2-1.0); CALCIUM LEVEL 9.7 MG/DL (8.8-10.2); CREATININE FOR GFR 2.11 MG/DL (0.70-1.30); GLOMERULAR FILTRATION RATE 40.6 (>49); MAGNESIUM LEVEL 1.8 MG/DL (1.8-2.4); PHOSPHORUS LEVEL 4.3 MG/DL (2.5-4.9); POTASSIUM SERUM 3.9 MEQ/L (3.5-5.1)
== END ==
LOC: M LAB 06:38
PROVIDERS: ATTEND Internal Medicine Nephrology
DX: N18.5 Chronic kidney disease, stage 5 (principal); D84.9 Immunodeficiency, unspecified; Z94.0 Kidney transplant status; Z79.899 Other long term (current) drug therapy

== ENCOUNTER → 2018-09-08 | Outpatient (CLI) | payer MEDICARE, OTHER ==
[2018-09-08 07:50] LABS: HEMATOCRIT 38.4 % (42.0-52.0); HEMOGLOBIN 11.7 g/dl (13.5-17.5); LYMPH # 0.4 10^3/uL (1.5-4.5); LYMPH % 10.1 % (24.0-44.0); MEAN CORPUSCULAR HEMOGLOBIN 26.4 pg (27.0-33.0); MEAN CORPUSCULAR HGB CONC 30.5 g/dl (32.0-36.5); MEAN CORPUSCULAR VOLUME 86.5 fl (80.0-96.0); MONO # 0.7 10^3/uL (0.0-0.8); MONO % 17.9 % (0.0-5.0); NEUTROPHILS # 2.8 10^3/uL (1.8-7.7); NEUTROPHILS % 69.8 % (36.0-66.0); PLATELET COUNT, AUTOMATED 149 10^3/uL (150-450); RED BLOOD COUNT 4.44 10^6/uL (4.30-6.10); WHITE BLOOD COUNT 4.1 10^3/uL (4.0-10.0)
[2018-09-08 07:52] LABS: APPEARANCE, URINE CLEAR (CLEAR); BACTERIA, URINE AUTO NEGATIVE (NEGATIVE); BILIRUBIN, URINE AUTO NEGATIVE (NEGATIVE); BLOOD, URINE BLOOD NEGATIVE (NEGATIVE); COLOR, URINE STRAW (YELLOW); GLUCOSE, URINE (UA) AUTO NEGATIVE (NEGATIVE); KETONE, URINE AUTO NEGATIVE (NEGATIVE); LEUKOCYTE ESTERASE, URINE AUTO NEGATIVE (NEGATIVE); NITRITE, URINE AUTO NEGATIVE (NEGATIVE); PROTEIN, URINE AUTO NEGATIVE (NEGATIVE); RBC, URINE AUTO 2 /HPF (0-3); SPECIFIC GRAVITY URINE AUTO 1.011 (1.002-1.035); SQUAMOUS EPITHELIAL CELL UR AU 0 /HPF (0-6); UROBILINOGEN, URINE AUTO 0.2 mg/dL (0.0-2.0); WBC, URINE AUTO 0 /HPF (0-3)
[2018-09-08 08:05] LABS: ALBUMIN 3.8 GM/DL (3.2-5.2); CALCIUM LEVEL 9.2 MG/DL (8.8-10.2); CREATININE FOR GFR 2.13 MG/DL (0.70-1.30); GLOMERULAR FILTRATION RATE 40.2 (>49); MAGNESIUM LEVEL 1.7 MG/DL (1.8-2.4); PHOSPHORUS LEVEL 4.1 MG/DL (2.5-4.9); POTASSIUM SERUM 4.1 MEQ/L (3.5-5.1)
[2018-09-08 08:06] LABS: CREATININE,RANDOM URINE 70.2 MG/DL; TOTAL PROTEIN,RANDOM URINE 15.8 MG/DL (0.0-12.0)
== END ==
LOC: M LAB 07:04
PROVIDERS: ATTEND Internal Medicine Nephrology
DX: Z94.0 Kidney transplant status (principal); N18.5 Chronic kidney disease, stage 5; D84.9 Immunodeficiency, unspecified; Z79.899 Other long term (current) drug therapy

== ENCOUNTER → 2018-09-11 | Outpatient (CLI) | payer MEDICARE, OTHER ==
[2018-09-11 07:45] LABS: APPEARANCE, URINE CLEAR (CLEAR); BACTERIA, URINE AUTO NEGATIVE (NEGATIVE); BILIRUBIN, URINE AUTO NEGATIVE (NEGATIVE); BLOOD, URINE BLOOD NEGATIVE (NEGATIVE); COLOR, URINE STRAW (YELLOW); GLUCOSE, URINE (UA) AUTO NEGATIVE (NEGATIVE); KETONE, URINE AUTO NEGATIVE (NEGATIVE); LEUKOCYTE ESTERASE, URINE AUTO NEGATIVE (NEGATIVE); NITRITE, URINE AUTO NEGATIVE (NEGATIVE); PROTEIN, URINE AUTO NEGATIVE (NEGATIVE); RBC, URINE AUTO 0 /HPF (0-3); SPECIFIC GRAVITY URINE AUTO 1.011 (1.002-1.035); SQUAMOUS EPITHELIAL CELL UR AU 0 /HPF (0-6); UROBILINOGEN, URINE AUTO 0.2 mg/dL (0.0-2.0); WBC, URINE AUTO 0 /HPF (0-3)
[2018-09-11 07:49] LABS: BASO % 0.7 % (0.0-1.0); EOS % 0.7 % (0.0-3.0); HEMATOCRIT 36.9 % (42.0-52.0); HEMOGLOBIN 11.4 g/dl (13.5-17.5); LYMPH # 0.5 10^3/uL (1.5-4.5); LYMPH % 11.9 % (24.0-44.0); MEAN CORPUSCULAR HEMOGLOBIN 27.1 pg (27.0-33.0); MEAN CORPUSCULAR HGB CONC 30.9 g/dl (32.0-36.5); MEAN CORPUSCULAR VOLUME 87.6 fl (80.0-96.0); MONO # 0.6 10^3/uL (0.0-0.8); MONO % 14.1 % (0.0-5.0); NEUTROPHILS # 3.2 10^3/uL (1.8-7.7); NEUTROPHILS % 72.2 % (36.0-66.0); PLATELET COUNT, AUTOMATED 149 10^3/uL (150-450); RED BLOOD COUNT 4.21 10^6/uL (4.30-6.10); WHITE BLOOD COUNT 4.5 10^3/uL (4.0-10.0)
[2018-09-11 07:59] LABS: CREATININE,RANDOM URINE 65.6 MG/DL; TOTAL PROTEIN,RANDOM URINE 12.9 MG/DL (0.0-12.0)
[2018-09-11 08:02] LABS: ALBUMIN 3.8 GM/DL (3.2-5.2); CALCIUM LEVEL 9.5 MG/DL (8.8-10.2); CREATININE FOR GFR 2.07 MG/DL (0.70-1.30); GLOMERULAR FILTRATION RATE 41.5 (>49); MAGNESIUM LEVEL 1.8 MG/DL (1.8-2.4); POTASSIUM SERUM 4.1 MEQ/L (3.5-5.1)
== END ==
LOC: M LAB 07:02
PROVIDERS: ATTEND Internal Medicine Nephrology
DX: N18.5 Chronic kidney disease, stage 5 (principal); D84.9 Immunodeficiency, unspecified; Z94.0 Kidney transplant status; Z79.899 Other long term (current) drug therapy

== ENCOUNTER → 2018-09-25 | Outpatient (CLI) | payer MEDICARE, OTHER ==
[2018-09-25 07:48] LABS: APPEARANCE, URINE CLEAR (CLEAR); BACTERIA, URINE AUTO NEGATIVE (NEGATIVE); BILIRUBIN, URINE AUTO NEGATIVE (NEGATIVE); BLOOD, URINE BLOOD NEGATIVE (NEGATIVE); COLOR, URINE YELLOW (YELLOW); GLUCOSE, URINE (UA) AUTO NEGATIVE (NEGATIVE); KETONE, URINE AUTO NEGATIVE (NEGATIVE); LEUKOCYTE ESTERASE, URINE AUTO NEGATIVE (NEGATIVE); NITRITE, URINE AUTO NEGATIVE (NEGATIVE); PROTEIN, URINE AUTO NEGATIVE (NEGATIVE); RBC, URINE AUTO 1 /HPF (0-3); SPECIFIC GRAVITY URINE AUTO 1.012 (1.002-1.035); SQUAMOUS EPITHELIAL CELL UR AU 0 /HPF (0-6); UROBILINOGEN, URINE AUTO 0.2 mg/dL (0.0-2.0); WBC, URINE AUTO 1 /HPF (0-3)
[2018-09-25 07:52] LABS: BASO % 0.5 % (0.0-1.0); EOS % 0.7 % (0.0-3.0); HEMATOCRIT 39.2 % (42.0-52.0); HEMOGLOBIN 11.9 g/dl (13.5-17.5); LYMPH # 0.6 10^3/uL (1.5-4.5); LYMPH % 10.4 % (24.0-44.0); MEAN CORPUSCULAR HEMOGLOBIN 26.7 pg (27.0-33.0); MEAN CORPUSCULAR HGB CONC 30.4 g/dl (32.0-36.5); MEAN CORPUSCULAR VOLUME 87.9 fl (80.0-96.0); MONO # 0.6 10^3/uL (0.0-0.8); MONO % 10.2 % (0.0-5.0); NEUTROPHILS # 4.4 10^3/uL (1.8-7.7); NEUTROPHILS % 77.5 % (36.0-66.0); PLATELET COUNT, AUTOMATED 114 10^3/uL (150-450); RED BLOOD COUNT 4.46 10^6/uL (4.30-6.10); WHITE BLOOD COUNT 5.7 10^3/uL (4.0-10.0)
[2018-09-25 08:07] LABS: CREATININE,RANDOM URINE 76.7 MG/DL; TOTAL PROTEIN,RANDOM URINE 17.6 MG/DL (0.0-12.0)
[2018-09-25 08:09] LABS: ALBUMIN 3.5 GM/DL (3.2-5.2); CALCIUM LEVEL 8.8 MG/DL (8.8-10.2); CREATININE FOR GFR 2.22 MG/DL (0.70-1.30); GLOMERULAR FILTRATION RATE 38.3 (>49); PHOSPHORUS LEVEL 3.7 MG/DL (2.5-4.9); POTASSIUM SERUM 4.4 MEQ/L (3.5-5.1)
== END ==
LOC: M LAB 06:55
PROVIDERS: ATTEND Internal Medicine Nephrology
DX: N18.5 Chronic kidney disease, stage 5 (principal); D84.9 Immunodeficiency, unspecified; Z94.0 Kidney transplant status; Z79.899 Other long term (current) drug therapy

== ENCOUNTER → 2018-10-02 | Outpatient (CLI) | payer MEDICARE, OTHER ==
[2018-10-02 08:03] LABS: APPEARANCE, URINE CLEAR (CLEAR); BACTERIA, URINE AUTO NEGATIVE (NEGATIVE); BASO % 0.8 % (0.0-1.0); BILIRUBIN, URINE AUTO NEGATIVE (NEGATIVE); BLOOD, URINE BLOOD 2+ (NEGATIVE); COLOR, URINE YELLOW (YELLOW); EOS % 0.8 % (0.0-3.0); GLUCOSE, URINE (UA) AUTO NEGATIVE (NEGATIVE); HEMOGLOBIN 11.8 g/dl (13.5-17.5); KETONE, URINE AUTO NEGATIVE (NEGATIVE); LEUKOCYTE ESTERASE, URINE AUTO NEGATIVE (NEGATIVE); LYMPH # 0.4 10^3/uL (1.5-4.5); LYMPH % 8.6 % (24.0-44.0); MEAN CORPUSCULAR HEMOGLOBIN 26.3 pg (27.0-33.0); MEAN CORPUSCULAR HGB CONC 31.1 g/dl (32.0-36.5); MEAN CORPUSCULAR VOLUME 84.6 fl (80.0-96.0); MONO # 0.5 10^3/uL (0.0-0.8); MONO % 11.3 % (0.0-5.0); NEUTROPHILS # 3.6 10^3/uL (1.8-7.7); NEUTROPHILS % 74.3 % (36.0-66.0); NITRITE, URINE AUTO NEGATIVE (NEGATIVE); PLATELET COUNT, AUTOMATED 124 10^3/uL (150-450); PROTEIN, URINE AUTO NEGATIVE (NEGATIVE); RBC, URINE AUTO 1 /HPF (0-3); RED BLOOD COUNT 4.49 10^6/uL (4.30-6.10); SPECIFIC GRAVITY URINE AUTO 1.012 (1.002-1.035); SQUAMOUS EPITHELIAL CELL UR AU 0 /HPF (0-6); UROBILINOGEN, URINE AUTO 0.2 mg/dL (0.0-2.0); WBC, URINE AUTO 1 /HPF (0-3); WHITE BLOOD COUNT 4.8 10^3/uL (4.0-10.0)
[2018-10-02 08:30] LABS: ALBUMIN 3.7 GM/DL (3.2-5.2); CALCIUM LEVEL 9.6 MG/DL (8.8-10.2); CREATININE FOR GFR 2.32 MG/DL (0.70-1.30); GLOMERULAR FILTRATION RATE 36.4 (>49); PHOSPHORUS LEVEL 4.6 MG/DL (2.5-4.9); POTASSIUM SERUM 4.4 MEQ/L (3.5-5.1)
[2018-10-02 08:42] LABS: TOTAL PROTEIN,RANDOM URINE 9.7 MG/DL (0.0-12.0)
== END ==
LOC: M LAB 07:28
PROVIDERS: ATTEND Internal Medicine Nephrology
DX: Z94.0 Kidney transplant status (principal); N18.5 Chronic kidney disease, stage 5; D84.9 Immunodeficiency, unspecified; Z79.899 Other long term (current) drug therapy

== ENCOUNTER → 2018-10-09 | Outpatient (CLI) | payer MEDICARE, OTHER ==
[2018-10-09 08:40] LABS: BASO % 0.5 % (0.0-1.0); EOS % 0.5 % (0.0-3.0); HEMATOCRIT 38.9 % (42.0-52.0); LYMPH # 0.5 10^3/uL (1.5-4.5); LYMPH % 8.7 % (24.0-44.0); MEAN CORPUSCULAR HEMOGLOBIN 26.8 pg (27.0-33.0); MEAN CORPUSCULAR HGB CONC 30.8 g/dl (32.0-36.5); MONO # 0.5 10^3/uL (0.0-0.8); MONO % 7.4 % (0.0-5.0); NEUTROPHILS % 81.1 % (36.0-66.0); PLATELET COUNT, AUTOMATED 112 10^3/uL (150-450); RED BLOOD COUNT 4.47 10^6/uL (4.30-6.10); WHITE BLOOD COUNT 6.2 10^3/uL (4.0-10.0)
[2018-10-09 08:46] LABS: APPEARANCE, URINE CLEAR (CLEAR); BACTERIA, URINE AUTO NEGATIVE (NEGATIVE); BILIRUBIN, URINE AUTO NEGATIVE (NEGATIVE); BLOOD, URINE BLOOD NEGATIVE (NEGATIVE); COLOR, URINE YELLOW (YELLOW); GLUCOSE, URINE (UA) AUTO NEGATIVE (NEGATIVE); KETONE, URINE AUTO NEGATIVE (NEGATIVE); LEUKOCYTE ESTERASE, URINE AUTO NEGATIVE (NEGATIVE); NITRITE, URINE AUTO NEGATIVE (NEGATIVE); PROTEIN, URINE AUTO NEGATIVE (NEGATIVE); RBC, URINE AUTO 1 /HPF (0-3); SPECIFIC GRAVITY URINE AUTO 1.013 (1.002-1.035); SQUAMOUS EPITHELIAL CELL UR AU 0 /HPF (0-6); UROBILINOGEN, URINE AUTO 0.2 mg/dL (0.0-2.0); WBC, URINE AUTO 1 /HPF (0-3)
[2018-10-09 09:08] LABS: ALBUMIN 3.9 GM/DL (3.2-5.2); CALCIUM LEVEL 9.6 MG/DL (8.8-10.2); CREATININE FOR GFR 2.31 MG/DL (0.70-1.30); GLOMERULAR FILTRATION RATE 36.6 (>49); PHOSPHORUS LEVEL 4.1 MG/DL (2.5-4.9); POTASSIUM SERUM 3.8 MEQ/L (3.5-5.1)
[2018-10-09 09:23] LABS: CREATININE,RANDOM URINE 94.6 MG/DL; TOTAL PROTEIN,RANDOM URINE 15.5 MG/DL (0.0-12.0)
== END ==
LOC: M LAB 07:34
PROVIDERS: ATTEND Internal Medicine Nephrology
DX: Z94.0 Kidney transplant status (principal); N18.5 Chronic kidney disease, stage 5; D84.9 Immunodeficiency, unspecified; Z79.899 Other long term (current) drug therapy

== ENCOUNTER → 2018-10-16 | Outpatient (CLI) | payer MEDICARE, OTHER ==
[2018-10-16 08:11] LABS: APPEARANCE, URINE CLEAR (CLEAR); BACTERIA, URINE AUTO NEGATIVE (NEGATIVE); BILIRUBIN, URINE AUTO NEGATIVE (NEGATIVE); BLOOD, URINE BLOOD 1+ (NEGATIVE); COLOR, URINE YELLOW (YELLOW); GLUCOSE, URINE (UA) AUTO NEGATIVE (NEGATIVE); KETONE, URINE AUTO NEGATIVE (NEGATIVE); LEUKOCYTE ESTERASE, URINE AUTO NEGATIVE (NEGATIVE); NITRITE, URINE AUTO NEGATIVE (NEGATIVE); PROTEIN, URINE AUTO NEGATIVE (NEGATIVE); RBC, URINE AUTO 18 /HPF (0-3); SPECIFIC GRAVITY URINE AUTO 1.012 (1.002-1.035); SQUAMOUS EPITHELIAL CELL UR AU 0 /HPF (0-6); UROBILINOGEN, URINE AUTO 0.2 mg/dL (0.0-2.0); WBC, URINE AUTO 0 /HPF (0-3)
[2018-10-16 08:13] LABS: BASO % 0.6 % (0.0-1.0); EOS % 0.6 % (0.0-3.0); HEMATOCRIT 37.9 % (42.0-52.0); HEMOGLOBIN 11.6 g/dl (13.5-17.5); LYMPH # 0.5 10^3/uL (1.5-4.5); LYMPH % 10.1 % (24.0-44.0); MEAN CORPUSCULAR HEMOGLOBIN 26.9 pg (27.0-33.0); MEAN CORPUSCULAR HGB CONC 30.6 g/dl (32.0-36.5); MEAN CORPUSCULAR VOLUME 87.7 fl (80.0-96.0); MONO # 0.6 10^3/uL (0.0-0.8); MONO % 11.1 % (0.0-5.0); NEUTROPHILS # 3.9 10^3/uL (1.8-7.7); NEUTROPHILS % 76.2 % (36.0-66.0); PLATELET COUNT, AUTOMATED 112 10^3/uL (150-450); RED BLOOD COUNT 4.32 10^6/uL (4.30-6.10); WHITE BLOOD COUNT 5.1 10^3/uL (4.0-10.0)
[2018-10-16 08:35] LABS: CREATININE,RANDOM URINE 98.5 MG/DL; TOTAL PROTEIN,RANDOM URINE 20.9 MG/DL (0.0-12.0)
[2018-10-16 08:36] LABS: ALBUMIN 3.8 GM/DL (3.2-5.2); CALCIUM LEVEL 9.4 MG/DL (8.8-10.2); CREATININE FOR GFR 2.37 MG/DL (0.70-1.30); GLOMERULAR FILTRATION RATE 35.5 (>49); PHOSPHORUS LEVEL 4.2 MG/DL (2.5-4.9)
== END ==
LOC: M LAB 07:20
PROVIDERS: ATTEND Internal Medicine Nephrology
DX: Z94.0 Kidney transplant status (principal); N18.5 Chronic kidney disease, stage 5; D84.9 Immunodeficiency, unspecified; Z79.899 Other long term (current) drug therapy

== ENCOUNTER → 2018-10-23 | Outpatient (CLI) | payer MEDICARE, OTHER ==
[2018-10-23 08:13] LABS: APPEARANCE, URINE CLEAR (CLEAR); BACTERIA, URINE AUTO NEGATIVE (NEGATIVE); BILIRUBIN, URINE AUTO NEGATIVE (NEGATIVE); BLOOD, URINE BLOOD NEGATIVE (NEGATIVE); COLOR, URINE YELLOW (YELLOW); GLUCOSE, URINE (UA) AUTO NEGATIVE (NEGATIVE); KETONE, URINE AUTO NEGATIVE (NEGATIVE); LEUKOCYTE ESTERASE, URINE AUTO NEGATIVE (NEGATIVE); NITRITE, URINE AUTO NEGATIVE (NEGATIVE); PROTEIN, URINE AUTO 1+ mg/dL (NEGATIVE); RBC, URINE AUTO 0 /HPF (0-3); SPECIFIC GRAVITY URINE AUTO 1.008 (1.002-1.035); SQUAMOUS EPITHELIAL CELL UR AU 0 /HPF (0-6); UROBILINOGEN, URINE AUTO 0.2 mg/dL (0.0-2.0); WBC, URINE AUTO 1 /HPF (0-3)
[2018-10-23 08:18] LABS: BASO % 0.8 % (0.0-1.0); EOS # 0.1 10^3/uL (0.0-0.50); HEMATOCRIT 37.6 % (42.0-52.0); HEMOGLOBIN 11.7 g/dl (13.5-17.5); LYMPH # 0.5 10^3/uL (1.5-4.5); MEAN CORPUSCULAR HEMOGLOBIN 26.1 pg (27.0-33.0); MEAN CORPUSCULAR HGB CONC 31.1 g/dl (32.0-36.5); MEAN CORPUSCULAR VOLUME 83.7 fl (80.0-96.0); MONO # 0.6 10^3/uL (0.0-0.8); MONO % 11.9 % (0.0-5.0); NEUTROPHILS # 3.9 10^3/uL (1.8-7.7); NEUTROPHILS % 75.5 % (36.0-66.0); PLATELET COUNT, AUTOMATED 143 10^3/uL (150-450); RED BLOOD COUNT 4.49 10^6/uL (4.30-6.10); WHITE BLOOD COUNT 5.1 10^3/uL (4.0-10.0)
[2018-10-23 08:42] LABS: CREATININE,RANDOM URINE 83.4 MG/DL; TOTAL PROTEIN,RANDOM URINE 25.9 MG/DL (0.0-12.0)
[2018-10-23 08:43] LABS: CALCIUM LEVEL 9.6 MG/DL (8.8-10.2); CREATININE FOR GFR 2.5 MG/DL (0.70-1.30); GLOMERULAR FILTRATION RATE 33.4 (>49); MAGNESIUM LEVEL 2.1 MG/DL (1.8-2.4); PHOSPHORUS LEVEL 4.2 MG/DL (2.5-4.9); POTASSIUM SERUM 3.8 MEQ/L (3.5-5.1)
== END ==
LOC: M LAB 07:27
PROVIDERS: ATTEND Internal Medicine Nephrology
DX: Z94.0 Kidney transplant status (principal)

== ENCOUNTER → 2018-11-06 | Outpatient (CLI) | payer MEDICARE, OTHER ==
[2018-11-06 08:25] LABS: BASO % 0.5 % (0.0-1.0); EOS % 0.7 % (0.0-3.0); HEMATOCRIT 37.8 % (42.0-52.0); HEMOGLOBIN 11.8 g/dl (13.5-17.5); LYMPH # 0.4 10^3/uL (1.5-4.5); LYMPH % 10.6 % (24.0-44.0); MEAN CORPUSCULAR HEMOGLOBIN 27.1 pg (27.0-33.0); MEAN CORPUSCULAR HGB CONC 31.2 g/dl (32.0-36.5); MEAN CORPUSCULAR VOLUME 86.7 fl (80.0-96.0); MONO # 0.7 10^3/uL (0.0-0.8); MONO % 16.5 % (0.0-5.0); NEUTROPHILS # 2.9 10^3/uL (1.8-7.7); NEUTROPHILS % 70.5 % (36.0-66.0); PLATELET COUNT, AUTOMATED 117 10^3/uL (150-450); RED BLOOD COUNT 4.36 10^6/uL (4.30-6.10); WHITE BLOOD COUNT 4.1 10^3/uL (4.0-10.0)
[2018-11-06 08:34] LABS: APPEARANCE, URINE CLEAR (CLEAR); BACTERIA, URINE AUTO NEGATIVE (NEGATIVE); BILIRUBIN, URINE AUTO NEGATIVE (NEGATIVE); BLOOD, URINE BLOOD NEGATIVE (NEGATIVE); COLOR, URINE STRAW (YELLOW); GLUCOSE, URINE (UA) AUTO NEGATIVE (NEGATIVE); KETONE, URINE AUTO NEGATIVE (NEGATIVE); LEUKOCYTE ESTERASE, URINE AUTO NEGATIVE (NEGATIVE); MUCUS, URINE SMALL (NEGATIVE); NITRITE, URINE AUTO NEGATIVE (NEGATIVE); PROTEIN, URINE AUTO NEGATIVE (NEGATIVE); RBC, URINE AUTO 0 /HPF (0-3); SPECIFIC GRAVITY URINE AUTO 1.006 (1.002-1.035); SQUAMOUS EPITHELIAL CELL UR AU 0 /HPF (0-6); UROBILINOGEN, URINE AUTO 0.2 mg/dL (0.0-2.0); WBC, URINE AUTO 0 /HPF (0-3)
[2018-11-06 08:42] LABS: ALBUMIN 3.9 GM/DL (3.2-5.2); CALCIUM LEVEL 9.5 MG/DL (8.8-10.2); CREATININE FOR GFR 2.33 MG/DL (0.70-1.30); GLOMERULAR FILTRATION RATE 36.2 (>49); MAGNESIUM LEVEL 1.9 MG/DL (1.8-2.4); PHOSPHORUS LEVEL 4.1 MG/DL (2.5-4.9); POTASSIUM SERUM 4.8 MEQ/L (3.5-5.1)
[2018-11-06 08:55] LABS: CREATININE,RANDOM URINE 57.2 MG/DL; TOTAL PROTEIN,RANDOM URINE 13.8 MG/DL (0.0-12.0)
== END ==
LOC: M LAB 07:40
PROVIDERS: ATTEND Internal Medicine Nephrology
DX: Z94.0 Kidney transplant status (principal); N18.5 Chronic kidney disease, stage 5; D84.9 Immunodeficiency, unspecified; Z79.899 Other long term (current) drug therapy

== ENCOUNTER → 2018-11-20 | Outpatient (CLI) | payer MEDICARE, OTHER ==
[~2018-11-20] MED LIST changes: -ALFU10TA2 PO; +ALFU10TA3 PO
[2018-11-20 08:51] LABS: BASO % 0.6 % (0.0-1.0); EOS # 0.1 10^3/uL (0.0-0.50); EOS % 1.1 % (0.0-3.0); HEMATOCRIT 35.8 % (42.0-52.0); HEMOGLOBIN 11.2 g/dl (13.5-17.5); LYMPH # 0.6 10^3/uL (1.5-4.5); LYMPH % 10.6 % (24.0-44.0); MEAN CORPUSCULAR HEMOGLOBIN 27.2 pg (27.0-33.0); MEAN CORPUSCULAR HGB CONC 31.3 g/dl (32.0-36.5); MEAN CORPUSCULAR VOLUME 86.9 fl (80.0-96.0); MONO # 0.6 10^3/uL (0.0-0.8); MONO % 12.1 % (0.0-5.0); NEUTROPHILS % 75.2 % (36.0-66.0); PLATELET COUNT, AUTOMATED 138 10^3/uL (150-450); RED BLOOD COUNT 4.12 10^6/uL (4.30-6.10); WHITE BLOOD COUNT 5.3 10^3/uL (4.0-10.0)
[2018-11-20 08:53] LABS: APPEARANCE, URINE CLEAR (CLEAR); BACTERIA, URINE AUTO NEGATIVE (NEGATIVE); BILIRUBIN, URINE AUTO NEGATIVE (NEGATIVE); BLOOD, URINE BLOOD NEGATIVE (NEGATIVE); COLOR, URINE STRAW (YELLOW); GLUCOSE, URINE (UA) AUTO NEGATIVE (NEGATIVE); KETONE, URINE AUTO NEGATIVE (NEGATIVE); LEUKOCYTE ESTERASE, URINE AUTO NEGATIVE (NEGATIVE); NITRITE, URINE AUTO NEGATIVE (NEGATIVE); PROTEIN, URINE AUTO NEGATIVE (NEGATIVE); RBC, URINE AUTO 1 /HPF (0-3); SPECIFIC GRAVITY URINE AUTO 1.011 (1.002-1.035); SQUAMOUS EPITHELIAL CELL UR AU 0 /HPF (0-6); UROBILINOGEN, URINE AUTO 0.2 mg/dL (0.0-2.0); WBC, URINE AUTO 1 /HPF (0-3)
[2018-11-20 09:22] LABS: TOTAL PROTEIN,RANDOM URINE 14.2 MG/DL (0.0-12.0)
[2018-11-20 09:23] LABS: ALBUMIN 3.8 GM/DL (3.2-5.2); CALCIUM LEVEL 9.1 MG/DL (8.8-10.2); CREATININE FOR GFR 2.05 MG/DL (0.70-1.30); MAGNESIUM LEVEL 2.2 MG/DL (1.8-2.4); PHOSPHORUS LEVEL 3.9 MG/DL (2.5-4.9); POTASSIUM SERUM 4.1 MEQ/L (3.5-5.1)
== END ==
LOC: M LAB 07:40
PROVIDERS: ATTEND Internal Medicine Nephrology
DX: Z94.0 Kidney transplant status (principal); N18.5 Chronic kidney disease, stage 5; D84.9 Immunodeficiency, unspecified; Z79.899 Other long term (current) drug therapy

== ENCOUNTER → 2018-12-04 | Outpatient (CLI) | payer MEDICARE, OTHER ==
[2018-12-04 07:54] LABS: BASO % 0.8 % (0.0-1.0); EOS % 0.6 % (0.0-3.0); HEMATOCRIT 37.6 % (42.0-52.0); HEMOGLOBIN 11.9 g/dl (13.5-17.5); LYMPH # 0.5 10^3/uL (1.5-4.5); LYMPH % 10.2 % (24.0-44.0); MEAN CORPUSCULAR HEMOGLOBIN 27.6 pg (27.0-33.0); MEAN CORPUSCULAR HGB CONC 31.6 g/dl (32.0-36.5); MEAN CORPUSCULAR VOLUME 87.2 fl (80.0-96.0); MONO # 0.7 10^3/uL (0.0-0.8); MONO % 13.7 % (0.0-5.0); NEUTROPHILS # 3.7 10^3/uL (1.8-7.7); NEUTROPHILS % 74.3 % (36.0-66.0); PLATELET COUNT, AUTOMATED 109 10^3/uL (150-450); RED BLOOD COUNT 4.31 10^6/uL (4.30-6.10)
[2018-12-04 08:07] LABS: APPEARANCE, URINE CLEAR (CLEAR); BACTERIA, URINE AUTO NEGATIVE (NEGATIVE); BILIRUBIN, URINE AUTO NEGATIVE (NEGATIVE); BLOOD, URINE BLOOD NEGATIVE (NEGATIVE); COLOR, URINE YELLOW (YELLOW); GLUCOSE, URINE (UA) AUTO NEGATIVE (NEGATIVE); KETONE, URINE AUTO NEGATIVE (NEGATIVE); LEUKOCYTE ESTERASE, URINE AUTO NEGATIVE (NEGATIVE); MUCUS, URINE SMALL (NEGATIVE); NITRITE, URINE AUTO NEGATIVE (NEGATIVE); PROTEIN, URINE AUTO NEGATIVE (NEGATIVE); RBC, URINE AUTO 0 /HPF (0-3); SQUAMOUS EPITHELIAL CELL UR AU 0 /HPF (0-6); UROBILINOGEN, URINE AUTO 0.2 mg/dL (0.0-2.0); WBC, URINE AUTO 0 /HPF (0-3)
[2018-12-04 08:13] LABS: CREATININE,RANDOM URINE 61.4 MG/DL; TOTAL PROTEIN,RANDOM URINE 14.2 MG/DL (0.0-12.0)
[2018-12-04 08:15] LABS: ALBUMIN 3.8 GM/DL (3.2-5.2); CALCIUM LEVEL 8.8 MG/DL (8.8-10.2); CREATININE FOR GFR 2.03 MG/DL (0.70-1.30); GLOMERULAR FILTRATION RATE 42.5 (>49); MAGNESIUM LEVEL 2.2 MG/DL (1.8-2.4); POTASSIUM SERUM 4.1 MEQ/L (3.5-5.1)
== END ==
LOC: M LAB 07:22
PROVIDERS: ATTEND Internal Medicine Nephrology
DX: Z94.0 Kidney transplant status (principal); N18.5 Chronic kidney disease, stage 5; D84.9 Immunodeficiency, unspecified; Z79.899 Other long term (current) drug therapy

== ENCOUNTER → 2018-12-18 | Outpatient (CLI) | payer MEDICARE, OTHER ==
[~2018-12-18] MED LIST changes: +ALFU10TA2 PO; -ALFU10TA3 PO
[2018-12-18 08:02] LABS: APPEARANCE, URINE CLEAR (CLEAR); BACTERIA, URINE AUTO NEGATIVE (NEGATIVE); BILIRUBIN, URINE AUTO NEGATIVE (NEGATIVE); BLOOD, URINE BLOOD NEGATIVE (NEGATIVE); COLOR, URINE YELLOW (YELLOW); GLUCOSE, URINE (UA) AUTO NEGATIVE (NEGATIVE); KETONE, URINE AUTO NEGATIVE (NEGATIVE); LEUKOCYTE ESTERASE, URINE AUTO NEGATIVE (NEGATIVE); NITRITE, URINE AUTO NEGATIVE (NEGATIVE); PROTEIN, URINE AUTO NEGATIVE (NEGATIVE); RBC, URINE AUTO 0 /HPF (0-3); SPECIFIC GRAVITY URINE AUTO 1.012 (1.002-1.035); SQUAMOUS EPITHELIAL CELL UR AU 0 /HPF (0-6); UROBILINOGEN, URINE AUTO 0.2 mg/dL (0.0-2.0); WBC, URINE AUTO 1 /HPF (0-3)
[2018-12-18 08:06] LABS: BASO % 0.4 % (0.0-1.0); EOS % 0.8 % (0.0-3.0); HEMATOCRIT 36.8 % (42.0-52.0); HEMOGLOBIN 11.6 g/dl (13.5-17.5); LYMPH # 0.4 10^3/uL (1.5-5.0); LYMPH % 8.3 % (24.0-44.0); MEAN CORPUSCULAR HEMOGLOBIN 27.4 pg (27.0-33.0); MEAN CORPUSCULAR HGB CONC 31.5 g/dl (32.0-36.5); MEAN CORPUSCULAR VOLUME 86.8 fl (80.0-96.0); MONO # 0.7 10^3/uL (0.0-0.8); MONO % 13.1 % (0.0-5.0); NEUTROPHILS # 3.9 10^3/uL (1.5-8.5); NEUTROPHILS % 77.2 % (36.0-66.0); PLATELET COUNT, AUTOMATED 143 10^3/uL (150-450); RED BLOOD COUNT 4.24 10^6/uL (4.30-6.10); WHITE BLOOD COUNT 5.1 10^3/uL (4.0-10.0)
[2018-12-18 08:34] LABS: ALBUMIN 3.9 GM/DL (3.2-5.2); CALCIUM LEVEL 9.3 MG/DL (8.8-10.2); CREATININE FOR GFR 2.06 MG/DL (0.70-1.30); CREATININE,RANDOM URINE 85.1 MG/DL; GLOMERULAR FILTRATION RATE 41.8 (>49); POTASSIUM SERUM 3.9 MEQ/L (3.5-5.1); TOTAL PROTEIN,RANDOM URINE 24.7 MG/DL (0.0-12.0)
== END ==
LOC: M LAB 06:55
PROVIDERS: ATTEND Internal Medicine Nephrology
DX: Z51.81 Encounter for therapeutic drug level monitoring (principal); Z79.899 Other long term (current) drug therapy; Z94.0 Kidney transplant status; D84.9 Immunodeficiency, unspecified; N18.5 Chronic kidney disease, stage 5

== ENCOUNTER → 2019-01-01 | Outpatient (CLI) | payer MEDICARE, OTHER ==
[2019-01-01 06:59] LABS: BASO % 0.9 % (0.0-1.0); EOS % 0.9 % (0.0-3.0); HEMOGLOBIN 11.7 g/dl (13.5-17.5); LYMPH # 0.5 10^3/uL (1.5-5.0); LYMPH % 10.7 % (24.0-44.0); MEAN CORPUSCULAR HEMOGLOBIN 28.1 pg (27.0-33.0); MEAN CORPUSCULAR HGB CONC 31.6 g/dl (32.0-36.5); MEAN CORPUSCULAR VOLUME 88.9 fl (80.0-96.0); MONO # 0.7 10^3/uL (0.0-0.8); MONO % 14.3 % (0.0-5.0); NEUTROPHILS # 3.3 10^3/uL (1.5-8.5); PLATELET COUNT, AUTOMATED 114 10^3/uL (150-450); RED BLOOD COUNT 4.16 10^6/uL (4.30-6.10); WHITE BLOOD COUNT 4.6 10^3/uL (4.0-10.0)
[2019-01-01 07:06] LABS: APPEARANCE, URINE CLEAR (CLEAR); BACTERIA, URINE AUTO NEGATIVE (NEGATIVE); BILIRUBIN, URINE AUTO NEGATIVE (NEGATIVE); BLOOD, URINE BLOOD NEGATIVE (NEGATIVE); COLOR, URINE STRAW (YELLOW); GLUCOSE, URINE (UA) AUTO NEGATIVE (NEGATIVE); KETONE, URINE AUTO NEGATIVE (NEGATIVE); LEUKOCYTE ESTERASE, URINE AUTO NEGATIVE (NEGATIVE); MUCUS, URINE SMALL (NEGATIVE); NITRITE, URINE AUTO NEGATIVE (NEGATIVE); PROTEIN, URINE AUTO NEGATIVE (NEGATIVE); RBC, URINE AUTO 0 /HPF (0-3); SQUAMOUS EPITHELIAL CELL UR AU 0 /HPF (0-6); UROBILINOGEN, URINE AUTO 0.2 mg/dL (0.0-2.0); WBC, URINE AUTO 1 /HPF (0-3)
[2019-01-01 07:21] LABS: ALBUMIN 3.9 GM/DL (3.2-5.2); CALCIUM LEVEL 9.3 MG/DL (8.8-10.2); CREATININE FOR GFR 2.25 MG/DL (0.70-1.30); GLOMERULAR FILTRATION RATE 37.7 (>49); MAGNESIUM LEVEL 2.1 MG/DL (1.8-2.4); PHOSPHORUS LEVEL 4.1 MG/DL (2.5-4.9); POTASSIUM SERUM 3.6 MEQ/L (3.5-5.1)
[2019-01-01 07:34] LABS: CREATININE,RANDOM URINE 65.6 MG/DL; TOTAL PROTEIN,RANDOM URINE 14.7 MG/DL (0.0-12.0)
== END ==
LOC: M LAB 06:22
PROVIDERS: ATTEND Internal Medicine Nephrology
DX: Z94.0 Kidney transplant status (principal); Z79.899 Other long term (current) drug therapy

== ENCOUNTER → 2019-01-27 | Outpatient (CLI) | payer MEDICARE, OTHER ==
[2019-01-27 07:29] LABS: BASO % 0.7 % (0.0-1.0); EOS # 0.1 10^3/uL (0.0-0.5); EOS % 1.1 % (0.0-3.0); HEMATOCRIT 38.5 % (42.0-52.0); HEMOGLOBIN 11.9 g/dl (13.5-17.5); LYMPH # 0.5 10^3/uL (1.5-5.0); LYMPH % 11.4 % (24.0-44.0); MEAN CORPUSCULAR HGB CONC 30.9 g/dl (32.0-36.5); MEAN CORPUSCULAR VOLUME 90.6 fl (80.0-96.0); MONO # 0.6 10^3/uL (0.0-0.8); MONO % 13.9 % (0.0-5.0); NEUTROPHILS # 3.2 10^3/uL (1.5-8.5); NEUTROPHILS % 72.7 % (36.0-66.0); PLATELET COUNT, AUTOMATED 110 10^3/uL (150-450); RED BLOOD COUNT 4.25 10^6/uL (4.30-6.10); WHITE BLOOD COUNT 4.5 10^3/uL (4.0-10.0)
[2019-01-27 07:57] LABS: ALBUMIN 3.9 GM/DL (3.2-5.2); CALCIUM LEVEL 9.4 MG/DL (8.8-10.2); CREATININE FOR GFR 2.22 MG/DL (0.70-1.30); GLOMERULAR FILTRATION RATE 38.2 (>49); MAGNESIUM LEVEL 2.2 MG/DL (1.8-2.4); PHOSPHORUS LEVEL 4.1 MG/DL (2.5-4.9)
== END ==
LOC: M LAB 06:56
PROVIDERS: ATTEND Internal Medicine Nephrology
DX: Z94.0 Kidney transplant status (principal); D84.9 Immunodeficiency, unspecified; Z79.899 Other long term (current) drug therapy

== ENCOUNTER → 2019-01-28 | Outpatient (REF) | payer MEDICARE, OTHER ==
[2019-01-28 11:10] LABS: APPEARANCE, URINE CLEAR (CLEAR); BACTERIA, URINE AUTO NEGATIVE (NEGATIVE); BILIRUBIN, URINE AUTO NEGATIVE (NEGATIVE); BLOOD, URINE BLOOD NEGATIVE (NEGATIVE); COLOR, URINE YELLOW (YELLOW); GLUCOSE, URINE (UA) AUTO NEGATIVE (NEGATIVE); KETONE, URINE AUTO NEGATIVE (NEGATIVE); LEUKOCYTE ESTERASE, URINE AUTO NEGATIVE (NEGATIVE); NITRITE, URINE AUTO NEGATIVE (NEGATIVE); PROTEIN, URINE AUTO 1+ mg/dL (NEGATIVE); RBC, URINE AUTO 1 /HPF (0-3); SPECIFIC GRAVITY URINE AUTO 1.011 (1.002-1.035); SQUAMOUS EPITHELIAL CELL UR AU 0 /HPF (0-6); UROBILINOGEN, URINE AUTO 0.2 mg/dL (0.0-2.0); WBC, URINE AUTO 1 /HPF (0-3)
[2019-01-28 11:38] LABS: CREATININE,RANDOM URINE 72.8 MG/DL; TOTAL PROTEIN,RANDOM URINE 35.9 MG/DL (0.0-12.0)
== END ==
LOC: M LAB REF 10:06
PROVIDERS: ATTEND Internal Medicine Nephrology
DX: Z94.0 Kidney transplant status (principal); D84.9 Immunodeficiency, unspecified; Z79.899 Other long term (current) drug therapy

== ENCOUNTER → 2019-03-30 | Outpatient (CLI) | payer MEDICARE, OTHER ==
[~2019-03-30] MED LIST changes: -ALFU10TA2 PO; +ALFU10TA3 PO
[2019-03-30 06:45] LABS: BASO % 0.7 % (0.0-1.0); EOS # 0.1 10^3/uL (0.0-0.5); EOS % 0.8 % (0.0-3.0); HEMATOCRIT 41.2 % (42.0-52.0); HEMOGLOBIN 12.5 g/dl (13.5-17.5); LYMPH # 0.7 10^3/uL (1.5-5.0); LYMPH % 10.8 % (24.0-44.0); MEAN CORPUSCULAR HEMOGLOBIN 26.8 pg (27.0-33.0); MEAN CORPUSCULAR HGB CONC 30.3 g/dl (32.0-36.5); MEAN CORPUSCULAR VOLUME 88.4 fl (80.0-96.0); MONO # 0.7 10^3/uL (0.0-0.8); MONO % 11.5 % (0.0-5.0); NEUTROPHILS # 4.6 10^3/uL (1.5-8.5); NEUTROPHILS % 76.2 % (36.0-66.0); PLATELET COUNT, AUTOMATED 110 10^3/uL (150-450); RED BLOOD COUNT 4.66 10^6/uL (4.30-6.10); WHITE BLOOD COUNT 6.1 10^3/uL (4.0-10.0)
[2019-03-30 06:45] LABS: APPEARANCE, URINE CLEAR (CLEAR); BACTERIA, URINE AUTO NEGATIVE (NEGATIVE); BILIRUBIN, URINE AUTO NEGATIVE (NEGATIVE); BLOOD, URINE BLOOD NEGATIVE (NEGATIVE); COLOR, URINE YELLOW (YELLOW); GLUCOSE, URINE (UA) AUTO NEGATIVE (NEGATIVE); KETONE, URINE AUTO NEGATIVE (NEGATIVE); LEUKOCYTE ESTERASE, URINE AUTO NEGATIVE (NEGATIVE); NITRITE, URINE AUTO NEGATIVE (NEGATIVE); PROTEIN, URINE AUTO NEGATIVE (NEGATIVE); RBC, URINE AUTO 0 /HPF (0-3); SPECIFIC GRAVITY URINE AUTO 1.012 (1.002-1.035); SQUAMOUS EPITHELIAL CELL UR AU 0 /HPF (0-6); UROBILINOGEN, URINE AUTO 0.2 mg/dL (0.0-2.0); WBC, URINE AUTO 1 /HPF (0-3)
[2019-03-30 07:09] LABS: ALBUMIN 4.1 GM/DL (3.2-5.2); CALCIUM LEVEL 9.1 MG/DL (8.8-10.2); CREATININE FOR GFR 2.12 MG/DL (0.70-1.30); GLOMERULAR FILTRATION RATE 40.3 (>49); MAGNESIUM LEVEL 2.2 MG/DL (1.8-2.4); PHOSPHORUS LEVEL 4.3 MG/DL (2.5-4.9); POTASSIUM SERUM 4.2 MEQ/L (3.5-5.1)
[2019-03-30 07:10] LABS: CREATININE,RANDOM URINE 98.6 MG/DL; TOTAL PROTEIN,RANDOM URINE 11.9 MG/DL (0.0-12.0)
== END ==
LOC: M LAB 06:21
PROVIDERS: ATTEND Internal Medicine Nephrology
DX: Z51.81 Encounter for therapeutic drug level monitoring (principal); Z79.899 Other long term (current) drug therapy; Z94.0 Kidney transplant status; N18.5 Chronic kidney disease, stage 5; D84.9 Immunodeficiency, unspecified

== ENCOUNTER 2019-04-01 12:52 | Emergency (ER) | payer MEDICARE, OTHER ==
[~2019-04-01] VITALS: Ht 180.3 cm; Wt 106.8 kg
[2019-04-01] MEDS ORDERED: LIDOCAINE 5% (LIDODERM) PATCH TD ONE (14:15)
[2019-04-01 14:41] LABS: BASO % 0.5 % (0.0-1.0); EOS % 0.4 % (0.0-3.0); HEMATOCRIT 41.1 % (42.0-52.0); HEMOGLOBIN 12.5 g/dl (13.5-17.5); LYMPH # 0.3 10^3/uL (1.5-5.0); LYMPH % 5.7 % (24.0-44.0); MEAN CORPUSCULAR HEMOGLOBIN 27.1 pg (27.0-33.0); MEAN CORPUSCULAR HGB CONC 30.4 g/dl (32.0-36.5); MEAN CORPUSCULAR VOLUME 89.2 fl (80.0-96.0); MONO # 0.5 10^3/uL (0.0-0.8); MONO % 8.8 % (0.0-5.0); NEUTROPHILS # 4.8 10^3/uL (1.5-8.5); NEUTROPHILS % 84.4 % (36.0-66.0); PLATELET COUNT, AUTOMATED 114 10^3/uL (150-450); RED BLOOD COUNT 4.61 10^6/uL (4.30-6.10); WHITE BLOOD COUNT 5.7 10^3/uL (4.0-10.0)
[2019-04-01] MEDS ORDERED: MORPHINE 10 MG/ML 1ML VIAL (J2270) IM ONE (14:45)
--- NOTE | 2019-04-01 15:04 | REP ---
LEFT FOOT, FOUR VIEWS: Four views of the left foot performed. There is a small inferior calcaneal spur. There is no acute fracture, dislocation, or intrinsic bone disease. IMPRESSION: No acute fracture or dislocation. Mild inferior calcaneal spurring. No significant degenerative changes metatarsal phalangeal joints. Electronically Signed by Antwan Dewey MD 04/01/2019 05:14 P
[2019-04-01 15:06] LABS: ERYTHROCYTE SEDIMENTATION RATE 7 mm/hr (0-20)
[2019-04-01 15:08] LABS: BLOOD UREA NITROGEN 34 MG/DL (7-18); C REACTIVE PROTEIN QUANTITATIV < 0.30 MG/DL (0.00-0.30); CALCIUM LEVEL 9.4 MG/DL (8.8-10.2); CARBON DIOXIDE LEVEL 28 MEQ/L (21-32); CHLORIDE LEVEL 104 MEQ/L (98-107); CREATININE FOR GFR 2.24 MG/DL (0.70-1.30); GLOMERULAR FILTRATION RATE 37.8 (>49); GLUCOSE, FASTING 202 MG/DL (70-100); POTASSIUM SERUM 4.5 MEQ/L (3.5-5.1); SODIUM LEVEL 137 MEQ/L (136-145)
[2019-04-01 15:40] VITALS: BP 146/75
[2019-04-02] MEDS ORDERED: **NOTE PATIENT COMMENT** MISC XX SCH (02:00)
== END 2019-04-01 15:43 | disposition home or self-care (01) ==
LOC: M ED 12:52
DX: E11.49 Type 2 diabetes mellitus with other diabetic neurological complication (principal); J44.9 Chronic obstructive pulmonary disease, unspecified; N18.9 Chronic kidney disease, unspecified; I73.9 Peripheral vascular disease, unspecified; Z85.46 Personal history of malignant neoplasm of prostate; Z79.82 Long term (current) use of aspirin; Z79.84 Long term (current) use of oral hypoglycemic drugs; Z79.899 Other long term (current) drug therapy; Z88.5 Allergy status to narcotic agent
CPT/HCPCS: 73630; 80048; 85025; 85652; 86140; 96372; 99283; J2270

== ENCOUNTER → 2019-04-02 | Outpatient (REF) | payer MEDICARE, OTHER ==
[2019-04-02 16:38] LABS: TOTAL PROTEIN 7.8 GM/DL (6.4-8.2)
[2019-04-02 16:59] LABS: FOLATE > 24.0 NG/ML; VITAMIN B12 LEVEL 1624 PG/ML
[2019-04-06 00:09] LABS: Lyme Disease IgG/IgM Antibodie <0.91 ISR (0.00-0.90); Lyme Disease IgM Ab Quantitati <0.80 index (0.00-0.79)
[2019-04-06 11:47] LABS: ALBUMIN % 62.1 % (55.8-66.1); ALPHA-1-GLOBULIN % 4.2 % (2.9-4.9); ALPHA-2-GLOBULINS % 9.3 % (7.1-11.8); BETA-1-GLOBULINS % 5.4 % (4.7-7.2); BETA-2-GLOBULINS % 4.3 % (3.2-6.5); GAMMA GLOBULIN % 14.7 % (11.1-18.8)
[2019-04-06 11:48] LABS: ALBUMIN 4.84 GM/DL (3.29-5.55); ALPHA-1-GLOBULINS 0.33 GM/DL (0.17-0.41); ALPHA-2-GLOBULINS 0.73 GM/DL (0.42-0.99); BETA-1-GLOBULINS 0.42 GM/DL (0.28-0.60); BETA-2-GLOBULINS 0.34 GM/DL (0.19-0.55); GAMMA GLOBULINS 1.15 GM/DL (0.65-1.58)
[2019-04-09 10:07] LABS: Methylmalonic Acid 227 nmol/L (0-378)
== END ==
LOC: M SFHCLERA 10:12
PROVIDERS: ATTEND Family Medicine
DX: G62.9 Polyneuropathy, unspecified (principal); Z79.899 Other long term (current) drug therapy
CPT/HCPCS: 82607; 82746; 83921; 84165; 84439; 84443; 86617; G0463

== ENCOUNTER → 2019-04-09 | Outpatient (CLI) | payer MEDICARE, OTHER ==
--- NOTE | 2019-04-09 10:11 | REP ---
MRI LEFT FOOT: TECHNIQUE: Multiple sequences obtained in the axial, coronal, and sagittal planes. Mild to moderate marrow edema with subchondral cystic change is seen in the navicular bone mainly laterally and dorsally, most consistent with changes secondary to arthritic change at the joint with the adjacent cuneiform bones. No other abnormal bone marrow signal is seen. There is no occult fracture. Ill-defined high signal is seen on T2-weighted images anterior to the Achilles tendon, compatible with a moderate degree of peritendinitis. Mild fluid is seen around the flexor hallucis longus tendon in the hindfoot and midfoot, compatible with mild tenosynovitis. Otherwise, the tendons and ligaments of the hindfoot are intact. Plantar tendon is intact. There does not appear to be a significant plantar fasciitis. There are no other findings of tenosynovitis of the flexor and extensor tendons of the foot. Osseous structures of the foot are well aligned. No ganglion cyst is seen. There are no other significant abnormalities. No joint effusion is seen. IMPRESSION: There appear to be mild arthritic changes at the joint between the navicular and adjacent cuneiforms with mild to moderate subchondral marrow edema and cystic change in the navicular. No other osseous abnormality is seen. Findings compatible with a moderate degree of Achilles peritendinitis. Mild tenosynovitis of the flexor hallucis longus tendon in the midfoot and hindfoot. No other significant finding. Electronically Signed by Antwan Dewey MD 04/09/2019 05:10 P
== END ==
LOC: M PLARAD 07:36
PROVIDERS: ATTEND Family Medicine
DX: M79.672 Pain in left foot (principal)

== ENCOUNTER → 2019-09-09 | Outpatient (REF) | payer MEDICARE, OTHER | LOC: M LAB REF 16:40 | PROVIDERS: ATTEND Internal Medicine Nephrology | DX: Z48.22 Encounter for aftercare following kidney transplant (principal) ==

== ENCOUNTER 2019-10-05 13:05 | Outpatient (RCR) | payer MEDICARE, OTHER | END 2019-10-12 | LOC: M PT 13:05 | PROVIDERS: ATTEND Physician Assistant | DX: I89.0 Lymphedema, not elsewhere classified (principal) ==

== ENCOUNTER 2019-11-11 12:00 | Outpatient (RCR) | payer MEDICARE, OTHER ==
[~2019-11-11 12:00] MED LIST changes: -AMLO10TA5; -AMLO10TA5 PO; +AMLO1TAB25; +AMLO1TAB25 PO; +PANT40TA29 PO; -PANT40TA3 PO
== END 2019-11-12 ==
LOC: M PT 12:00
PROVIDERS: ATTEND Physician Assistant
DX: I89.0 Lymphedema, not elsewhere classified (principal)

== ENCOUNTER 2019-11-25 12:45 | Outpatient (RCR) | payer MEDICARE, OTHER | END 2019-12-13 | LOC: M PT 12:45 | PROVIDERS: ATTEND Physician Assistant | DX: I89.0 Lymphedema, not elsewhere classified (principal) ==

== ENCOUNTER → 2020-02-14 | Outpatient (REF) | payer MEDICARE, OTHER ==
[2020-02-14 13:53] LABS: BASO % 0.3 % (0.0-1.0); EOS # 0.1 10^3/uL (0.0-0.5); EOS % 0.8 % (0.0-3.0); HEMATOCRIT 27.8 % (42.0-52.0); HEMOGLOBIN 8.6 g/dl (13.5-17.5); LYMPH # 0.5 10^3/uL (1.5-5.0); LYMPH % 5.9 % (24.0-44.0); MEAN CORPUSCULAR HEMOGLOBIN 27.9 pg (27.0-33.0); MEAN CORPUSCULAR HGB CONC 30.9 g/dl (32.0-36.5); MEAN CORPUSCULAR VOLUME 90.3 fl (80.0-96.0); MONO # 0.7 10^3/uL (0.0-0.8); MONO % 8.5 % (0.0-5.0); NEUTROPHILS # 7.3 10^3/uL (1.5-8.5); NEUTROPHILS % 83.2 % (36.0-66.0); PLATELET COUNT, AUTOMATED 241 10^3/uL (150-450); RED BLOOD COUNT 3.08 10^6/uL (4.30-6.10); WHITE BLOOD COUNT 8.8 10^3/uL (4.0-10.0)
[2020-02-14 18:38] LABS: CALCIUM LEVEL 8.8 MG/DL (8.8-10.2); CREATININE FOR GFR 1.99 MG/DL (0.70-1.30); GLOMERULAR FILTRATION RATE 43.2 (>49); POTASSIUM SERUM 4.8 MEQ/L (3.5-5.1)
== END ==
LOC: M LAB REF 13:08
PROVIDERS: ATTEND Nurse Practitioner
DX: T84.53XS Infection and inflammatory reaction due to internal right knee prosthesis, sequela (principal); Z79.2 Long term (current) use of antibiotics

== ENCOUNTER → 2020-02-14 | Outpatient (REF) | payer MEDICARE, OTHER ==
[2020-02-14 13:32] LABS: APPEARANCE, URINE CLEAR (CLEAR); BACTERIA, URINE AUTO NEGATIVE (NEGATIVE); BILIRUBIN, URINE AUTO NEGATIVE (NEGATIVE); BLOOD, URINE BLOOD NEGATIVE (NEGATIVE); COLOR, URINE YELLOW (YELLOW); GLUCOSE, URINE (UA) AUTO 3+ mg/dL (NEGATIVE); KETONE, URINE AUTO NEGATIVE (NEGATIVE); LEUKOCYTE ESTERASE, URINE AUTO NEGATIVE (NEGATIVE); NITRITE, URINE AUTO NEGATIVE (NEGATIVE); PROTEIN, URINE AUTO NEGATIVE (NEGATIVE); RBC, URINE AUTO 0 /HPF (0-3); SPECIFIC GRAVITY URINE AUTO 1.013 (1.002-1.035); SQUAMOUS EPITHELIAL CELL UR AU 0 /HPF (0-6); UROBILINOGEN, URINE AUTO 0.2 mg/dL (0.0-2.0); WBC, URINE AUTO 0 /HPF (0-3)
[2020-02-14 13:59] LABS: BASO # 0.1 10^3/uL (0.0-0.2); BASO % 0.6 % (0.0-1.0); EOS # 0.1 10^3/uL (0.0-0.5); EOS % 0.7 % (0.0-3.0); HEMATOCRIT 28.5 % (42.0-52.0); HEMOGLOBIN 8.6 g/dl (13.5-17.5); LYMPH # 0.4 10^3/uL (1.5-5.0); LYMPH % 4.4 % (24.0-44.0); MEAN CORPUSCULAR HEMOGLOBIN 27.3 pg (27.0-33.0); MEAN CORPUSCULAR HGB CONC 30.2 g/dl (32.0-36.5); MEAN CORPUSCULAR VOLUME 90.5 fl (80.0-96.0); MONO # 0.8 10^3/uL (0.0-0.8); NEUTROPHILS # 7.4 10^3/uL (1.5-8.5); NEUTROPHILS % 84.4 % (36.0-66.0); PLATELET COUNT, AUTOMATED 245 10^3/uL (150-450); RED BLOOD COUNT 3.15 10^6/uL (4.30-6.10); WHITE BLOOD COUNT 8.8 10^3/uL (4.0-10.0)
[2020-02-14 18:17] LABS: TOTAL PROTEIN,RANDOM URINE 29.4 MG/DL (0.0-12.0)
[2020-02-14 18:39] LABS: ALBUMIN 2.9 GM/DL (3.2-5.2); CALCIUM LEVEL 8.9 MG/DL (8.8-10.2); MAGNESIUM LEVEL 1.9 MG/DL (1.8-2.4); PHOSPHORUS LEVEL 3.4 MG/DL (2.5-4.9); POTASSIUM SERUM 4.8 MEQ/L (3.5-5.1)
== END ==
LOC: M LAB REF 13:04
PROVIDERS: ATTEND Internal Medicine Nephrology
DX: N18.5 Chronic kidney disease, stage 5 (principal); Z94.0 Kidney transplant status; D84.9 Immunodeficiency, unspecified; T84.53XS Infection and inflammatory reaction due to internal right knee prosthesis, sequela; Z79.2 Long term (current) use of antibiotics; Z79.899 Other long term (current) drug therapy

== ENCOUNTER → 2020-02-28 | Outpatient (REF) | payer MEDICARE, OTHER ==
[2020-02-28 14:52] LABS: APPEARANCE, URINE CLEAR (CLEAR); BACTERIA, URINE AUTO NEGATIVE (NEGATIVE); BILIRUBIN, URINE AUTO NEGATIVE (NEGATIVE); BLOOD, URINE BLOOD 1+ (NEGATIVE); COLOR, URINE YELLOW (YELLOW); GLUCOSE, URINE (UA) AUTO 1+ mg/dL (NEGATIVE); KETONE, URINE AUTO NEGATIVE (NEGATIVE); LEUKOCYTE ESTERASE, URINE AUTO NEGATIVE (NEGATIVE); NITRITE, URINE AUTO NEGATIVE (NEGATIVE); PROTEIN, URINE AUTO 1+ mg/dL (NEGATIVE); RBC, URINE AUTO 2 /HPF (0-3); SPECIFIC GRAVITY URINE AUTO 1.015 (1.002-1.035); SQUAMOUS EPITHELIAL CELL UR AU 0 /HPF (0-6); UROBILINOGEN, URINE AUTO 0.2 mg/dL (0.0-2.0); WBC, URINE AUTO 2 /HPF (0-3)
[2020-02-28 15:01] LABS: BASO % 0.4 % (0.0-1.0); EOS % 0.5 % (0.0-3.0); HEMATOCRIT 32.5 % (42.0-52.0); HEMOGLOBIN 9.6 g/dl (13.5-17.5); LYMPH # 0.5 10^3/uL (1.5-5.0); LYMPH % 6.3 % (24.0-44.0); MEAN CORPUSCULAR HEMOGLOBIN 26.7 pg (27.0-33.0); MEAN CORPUSCULAR HGB CONC 29.5 g/dl (32.0-36.5); MEAN CORPUSCULAR VOLUME 90.3 fl (80.0-96.0); MONO # 0.7 10^3/uL (0.0-0.8); MONO % 8.6 % (0.0-5.0); NEUTROPHILS # 6.3 10^3/uL (1.5-8.5); NEUTROPHILS % 83.5 % (36.0-66.0); PLATELET COUNT, AUTOMATED 215 10^3/uL (150-450); WHITE BLOOD COUNT 7.6 10^3/uL (4.0-10.0)
[2020-02-28 15:18] LABS: TOTAL PROTEIN,RANDOM URINE 67.7 MG/DL (0.0-12.0)
[2020-03-01 15:09] LABS: CREATININE FOR GFR 1.7 MG/DL (0.70-1.30); GLOMERULAR FILTRATION RATE 51.8 (>49); POTASSIUM SERUM 4.3 MEQ/L (3.5-5.1)
[2020-03-01 15:24] LABS: MAGNESIUM LEVEL 1.6 MG/DL (1.8-2.4); PHOSPHORUS LEVEL 3.4 MG/DL (2.5-4.9)
== END ==
LOC: M LAB REF 14:09
PROVIDERS: ATTEND Internal Medicine Nephrology
DX: N18.6 End stage renal disease (principal); Z94.0 Kidney transplant status; D84.9 Immunodeficiency, unspecified; Z79.899 Other long term (current) drug therapy; T84.53XS Infection and inflammatory reaction due to internal right knee prosthesis, sequela; Z79.2 Long term (current) use of antibiotics

== ENCOUNTER → 2020-02-28 | Outpatient (REF) | payer MEDICARE, OTHER ==
[2020-02-28 14:58] LABS: BASO # 0.1 10^3/uL (0.0-0.2); BASO % 0.8 % (0.0-1.0); EOS % 0.3 % (0.0-3.0); HEMATOCRIT 32.3 % (42.0-52.0); HEMOGLOBIN 9.6 g/dl (13.5-17.5); LYMPH # 0.5 10^3/uL (1.5-5.0); LYMPH % 6.6 % (24.0-44.0); MEAN CORPUSCULAR HEMOGLOBIN 26.9 pg (27.0-33.0); MEAN CORPUSCULAR HGB CONC 29.7 g/dl (32.0-36.5); MEAN CORPUSCULAR VOLUME 90.5 fl (80.0-96.0); MONO # 0.6 10^3/uL (0.0-0.8); MONO % 7.8 % (0.0-5.0); NEUTROPHILS % 83.8 % (36.0-66.0); PLATELET COUNT, AUTOMATED 208 10^3/uL (150-450); RED BLOOD COUNT 3.57 10^6/uL (4.30-6.10); WHITE BLOOD COUNT 7.2 10^3/uL (4.0-10.0)
[2020-02-28 15:24] LABS: CREATININE FOR GFR 1.7 MG/DL (0.70-1.30); GLOMERULAR FILTRATION RATE 51.8 (>49); POTASSIUM SERUM 4.3 MEQ/L (3.5-5.1)
== END ==
LOC: M LAB REF 14:12
PROVIDERS: ATTEND Nurse Practitioner
DX: T84.53XS Infection and inflammatory reaction due to internal right knee prosthesis, sequela (principal); Z79.2 Long term (current) use of antibiotics

== ENCOUNTER → 2020-03-06 | Outpatient (REF) | payer MEDICARE, OTHER ==
[2020-03-06 19:45] LABS: BASO # 0.1 10^3/uL (0.0-0.2); BASO % 0.7 % (0.0-1.0); EOS % 0.4 % (0.0-3.0); HEMOGLOBIN 9.7 g/dl (13.5-17.5); LYMPH # 0.5 10^3/uL (1.5-5.0); LYMPH % 7.6 % (24.0-44.0); MEAN CORPUSCULAR HEMOGLOBIN 26.2 pg (27.0-33.0); MEAN CORPUSCULAR HGB CONC 29.4 g/dl (32.0-36.5); MEAN CORPUSCULAR VOLUME 89.2 fl (80.0-96.0); MONO # 0.8 10^3/uL (0.0-0.8); MONO % 11.5 % (0.0-5.0); NEUTROPHILS # 5.3 10^3/uL (1.5-8.5); NEUTROPHILS % 79.2 % (36.0-66.0); PLATELET COUNT, AUTOMATED 197 10^3/uL (150-450); WHITE BLOOD COUNT 6.7 10^3/uL (4.0-10.0)
[2020-03-06 19:48] LABS: APPEARANCE, URINE CLEAR (CLEAR); BACTERIA, URINE AUTO NEGATIVE (NEGATIVE); BILIRUBIN, URINE AUTO NEGATIVE (NEGATIVE); BLOOD, URINE BLOOD 1+ (NEGATIVE); COLOR, URINE YELLOW (YELLOW); GLUCOSE, URINE (UA) AUTO 1+ mg/dL (NEGATIVE); KETONE, URINE AUTO NEGATIVE (NEGATIVE); LEUKOCYTE ESTERASE, URINE AUTO NEGATIVE (NEGATIVE); NITRITE, URINE AUTO NEGATIVE (NEGATIVE); PROTEIN, URINE AUTO 1+ mg/dL (NEGATIVE); RBC, URINE AUTO 1 /HPF (0-3); SPECIFIC GRAVITY URINE AUTO 1.014 (1.002-1.035); SQUAMOUS EPITHELIAL CELL UR AU 0 /HPF (0-6); UROBILINOGEN, URINE AUTO 0.2 mg/dL (0.0-2.0); WBC, URINE AUTO 1 /HPF (0-3)
[2020-03-06 20:08] LABS: ALBUMIN 3.1 GM/DL (3.2-5.2); CREATININE FOR GFR 1.58 MG/DL (0.70-1.30); GLOMERULAR FILTRATION RATE 56.4 (>49); MAGNESIUM LEVEL 1.7 MG/DL (1.8-2.4); PHOSPHORUS LEVEL 3.4 MG/DL (2.5-4.9); POTASSIUM SERUM 4.5 MEQ/L (3.5-5.1)
[2020-03-06 20:15] LABS: CREATININE,RANDOM URINE 98.3 MG/DL
== END ==
LOC: M LAB REF 19:19
PROVIDERS: ATTEND Internal Medicine Nephrology
DX: Z94.0 Kidney transplant status (principal); D84.9 Immunodeficiency, unspecified; N18.5 Chronic kidney disease, stage 5; Z79.899 Other long term (current) drug therapy

== ENCOUNTER → 2020-03-06 | Outpatient (REF) | payer MEDICARE, OTHER ==
[2020-03-07 09:51] LABS: CREATININE FOR GFR 1.58 MG/DL (0.70-1.30); GLOMERULAR FILTRATION RATE 56.4 (>49); POTASSIUM SERUM 4.5 MEQ/L (3.5-5.1)
== END ==
LOC: M LAB REF 09:42
PROVIDERS: ATTEND Nurse Practitioner
DX: T84.53XS Infection and inflammatory reaction due to internal right knee prosthesis, sequela (principal); Z79.2 Long term (current) use of antibiotics

== ENCOUNTER → 2020-03-13 | Outpatient (REF) | payer MEDICARE, OTHER ==
[2020-03-13 18:22] LABS: BASO # 0.1 10^3/uL (0.0-0.2); BASO % 0.7 % (0.0-1.0); EOS # 0.1 10^3/uL (0.0-0.5); HEMATOCRIT 35.7 % (42.0-52.0); HEMOGLOBIN 10.6 g/dl (13.5-17.5); LYMPH # 0.7 10^3/uL (1.5-5.0); LYMPH % 9.6 % (24.0-44.0); MEAN CORPUSCULAR HEMOGLOBIN 26.2 pg (27.0-33.0); MEAN CORPUSCULAR HGB CONC 29.7 g/dl (32.0-36.5); MEAN CORPUSCULAR VOLUME 88.4 fl (80.0-96.0); MONO # 0.8 10^3/uL (0.0-0.8); MONO % 11.2 % (0.0-5.0); NEUTROPHILS # 5.3 10^3/uL (1.5-8.5); NEUTROPHILS % 77.1 % (36.0-66.0); PLATELET COUNT, AUTOMATED 191 10^3/uL (150-450); RED BLOOD COUNT 4.04 10^6/uL (4.30-6.10); WHITE BLOOD COUNT 6.9 10^3/uL (4.0-10.0)
[2020-03-13 18:47] LABS: CALCIUM LEVEL 9.2 MG/DL (8.8-10.2); CREATININE FOR GFR 1.63 MG/DL (0.70-1.30); GLOMERULAR FILTRATION RATE 54.4 (>49); POTASSIUM SERUM 4.2 MEQ/L (3.5-5.1)
== END ==
LOC: M LAB REF 16:45
PROVIDERS: ATTEND Nurse Practitioner
DX: T84.53XS Infection and inflammatory reaction due to internal right knee prosthesis, sequela (principal); Z79.2 Long term (current) use of antibiotics

== ENCOUNTER → 2020-03-13 | Outpatient (REF) | payer MEDICARE, OTHER ==
[2020-03-13 18:14] LABS: APPEARANCE, URINE HAZY (CLEAR); BACTERIA, URINE AUTO NEGATIVE (NEGATIVE); BILIRUBIN, URINE AUTO NEGATIVE (NEGATIVE); BLOOD, URINE BLOOD 2+ (NEGATIVE); COLOR, URINE YELLOW (YELLOW); GLUCOSE, URINE (UA) AUTO 1+ mg/dL (NEGATIVE); KETONE, URINE AUTO NEGATIVE (NEGATIVE); LEUKOCYTE ESTERASE, URINE AUTO TRACE (NEGATIVE); NITRITE, URINE AUTO NEGATIVE (NEGATIVE); PROTEIN, URINE AUTO 2+ mg/dL (NEGATIVE); RBC, URINE AUTO 9 /HPF (0-3); SPECIFIC GRAVITY URINE AUTO 1.016 (1.002-1.035); SQUAMOUS EPITHELIAL CELL UR AU 0 /HPF (0-6); UROBILINOGEN, URINE AUTO 0.2 mg/dL (0.0-2.0); WBC, URINE AUTO 3 /HPF (0-3)
[2020-03-13 18:21] LABS: BASO # 0.1 10^3/uL (0.0-0.2); BASO % 0.7 % (0.0-1.0); EOS # 0.1 10^3/uL (0.0-0.5); EOS % 0.7 % (0.0-3.0); HEMATOCRIT 37.6 % (42.0-52.0); HEMOGLOBIN 11.2 g/dl (13.5-17.5); LYMPH # 0.6 10^3/uL (1.5-5.0); LYMPH % 8.4 % (24.0-44.0); MEAN CORPUSCULAR HEMOGLOBIN 26.4 pg (27.0-33.0); MEAN CORPUSCULAR HGB CONC 29.8 g/dl (32.0-36.5); MEAN CORPUSCULAR VOLUME 88.5 fl (80.0-96.0); MONO # 0.7 10^3/uL (0.0-0.8); MONO % 10.5 % (0.0-5.0); NEUTROPHILS # 5.3 10^3/uL (1.5-8.5); NEUTROPHILS % 79.3 % (36.0-66.0); PLATELET COUNT, AUTOMATED 191 10^3/uL (150-450); RED BLOOD COUNT 4.25 10^6/uL (4.30-6.10); WHITE BLOOD COUNT 6.7 10^3/uL (4.0-10.0)
[2020-03-13 18:40] LABS: HEMOGLOBIN A1c 7.2 %
[2020-03-13 18:56] LABS: ALBUMIN 3.3 GM/DL (3.2-5.2); BILIRUBIN,TOTAL 0.5 MG/DL (0.2-1.0); CALCIUM LEVEL 9.1 MG/DL (8.8-10.2); CHOLESTEROL RISK RATIO 3.945 (<5); CREATININE FOR GFR 1.63 MG/DL (0.70-1.30); GLOMERULAR FILTRATION RATE 54.4 (>49); POTASSIUM SERUM 4.2 MEQ/L (3.5-5.1); TOTAL PROTEIN 6.8 GM/DL (6.4-8.2)
[2020-03-13 19:23] LABS: MAU/CREAT RATIO 439.6 MCG/MG (0.0-30.0)
== END ==
LOC: M LAB REF 16:50
PROVIDERS: ATTEND Internal Medicine
DX: R69 Illness, unspecified (principal); Z94.0 Kidney transplant status; N18.5 Chronic kidney disease, stage 5; E11.8 Type 2 diabetes mellitus with unspecified complications; T84.53XS Infection and inflammatory reaction due to internal right knee prosthesis, sequela; D84.9 Immunodeficiency, unspecified; Z79.2 Long term (current) use of antibiotics; Z79.899 Other long term (current) drug therapy

== ENCOUNTER → 2020-03-13 | Outpatient (REF) | payer MEDICARE, OTHER ==
[2020-03-13 18:15] LABS: APPEARANCE, URINE HAZY (CLEAR); BACTERIA, URINE AUTO NEGATIVE (NEGATIVE); BILIRUBIN, URINE AUTO NEGATIVE (NEGATIVE); BLOOD, URINE BLOOD 2+ (NEGATIVE); COLOR, URINE YELLOW (YELLOW); GLUCOSE, URINE (UA) AUTO 1+ mg/dL (NEGATIVE); KETONE, URINE AUTO NEGATIVE (NEGATIVE); LEUKOCYTE ESTERASE, URINE AUTO 2+ (NEGATIVE); MUCUS, URINE SMALL (NEGATIVE); NITRITE, URINE AUTO NEGATIVE (NEGATIVE); PROTEIN, URINE AUTO 2+ mg/dL (NEGATIVE); RBC, URINE AUTO 6 /HPF (0-3); SPECIFIC GRAVITY URINE AUTO 1.016 (1.002-1.035); SQUAMOUS EPITHELIAL CELL UR AU 0 /HPF (0-6); UROBILINOGEN, URINE AUTO 0.2 mg/dL (0.0-2.0); WBC, URINE AUTO 7 /HPF (0-3)
[2020-03-13 18:21] LABS: BASO # 0.1 10^3/uL (0.0-0.2); BASO % 0.8 % (0.0-1.0); EOS # 0.1 10^3/uL (0.0-0.5); EOS % 0.8 % (0.0-3.0); HEMATOCRIT 36.9 % (42.0-52.0); HEMOGLOBIN 10.8 g/dl (13.5-17.5); LYMPH # 0.6 10^3/uL (1.5-5.0); LYMPH % 9.4 % (24.0-44.0); MEAN CORPUSCULAR HEMOGLOBIN 25.7 pg (27.0-33.0); MEAN CORPUSCULAR HGB CONC 29.3 g/dl (32.0-36.5); MEAN CORPUSCULAR VOLUME 87.6 fl (80.0-96.0); MONO # 0.7 10^3/uL (0.0-0.8); NEUTROPHILS # 5.1 10^3/uL (1.5-8.5); NEUTROPHILS % 78.5 % (36.0-66.0); PLATELET COUNT, AUTOMATED 192 10^3/uL (150-450); RED BLOOD COUNT 4.21 10^6/uL (4.30-6.10); WHITE BLOOD COUNT 6.5 10^3/uL (4.0-10.0)
[2020-03-13 18:52] LABS: TOTAL PROTEIN,RANDOM URINE 114.2 MG/DL (0.0-12.0)
[2020-03-13 18:53] LABS: ALBUMIN 3.4 GM/DL (3.2-5.2); CALCIUM LEVEL 9.3 MG/DL (8.8-10.2); CREATININE FOR GFR 1.64 MG/DL (0.70-1.30); MAGNESIUM LEVEL 1.7 MG/DL (1.8-2.4); PHOSPHORUS LEVEL 3.9 MG/DL (2.5-4.9); POTASSIUM SERUM 4.2 MEQ/L (3.5-5.1)
== END ==
LOC: M LAB REF 16:52
PROVIDERS: ATTEND Internal Medicine Nephrology
DX: N18.5 Chronic kidney disease, stage 5 (principal); D84.9 Immunodeficiency, unspecified; Z79.899 Other long term (current) drug therapy; Z94.0 Kidney transplant status

== ENCOUNTER 2020-04-03 16:47 | Inpatient (IN) | payer MEDICARE, OTHER ==
[~2020-04-03] VITALS: Ht 182.9 cm; Wt 95.5 kg
[~2020-04-03 16:47] MED LIST changes: -AMLO1TAB25; -AURY1TAB; +AURY1TAB PO; -CHLO125TA; +CHLO125TA PO; -FLON1SPR; +FLON1SPR NARES; -LABE20TAB; +LABE20TAB PO; -MYCO250C; +MYCO250C PO; -PRED5TA; +PRED5TA PO
--- NOTE | 2020-04-03 17:54 | REP ---
INDICATION: DYSPNEA/COUGH COMPARISON: 02/15/2017 TECHNIQUE: Portable AP view of the chest FINDINGS: The mediastinum and cardiac silhouette are stable and within normal limits for portable technique. There is an ill-defined area of opacity in the right mid lung zone as well as suspected perihilar and left basilar atelectasis. No effusion. No pneumothorax. Skeletal structures are intact. IMPRESSION: Somewhat ill-defined opacities as described above. Atelectasis versus pneumonia. Consider chest CT for further investigation. <Electronically signed by Demario Bernal > 04/03/20 [id number]
[2020-04-03 18:00] LABS: BASO % 0.2 % (0.0-1.0); HEMATOCRIT 40.3 % (42.0-52.0); HEMOGLOBIN 12.4 g/dl (13.5-17.5); LYMPH # 0.5 10^3/uL (1.5-5.0); LYMPH % 8.9 % (24.0-44.0); MEAN CORPUSCULAR HEMOGLOBIN 25.4 pg (27.0-33.0); MEAN CORPUSCULAR HGB CONC 30.8 g/dl (32.0-36.5); MEAN CORPUSCULAR VOLUME 82.6 fl (80.0-96.0); MONO # 0.4 10^3/uL (0.0-0.8); MONO % 7.4 % (0.0-5.0); NEUTROPHILS # 4.4 10^3/uL (1.5-8.5); NEUTROPHILS % 83.3 % (36.0-66.0); PLATELET COUNT, AUTOMATED 112 10^3/uL (150-450); RED BLOOD COUNT 4.88 10^6/uL (4.30-6.10); WHITE BLOOD COUNT 5.3 10^3/uL (4.0-10.0)
[2020-04-03] MEDS ORDERED: FINA5TAB2 PO (18:01)
[2020-04-03] MEDS ORDERED: MAGN400T2 PO (18:01)
[2020-04-03] MEDS ORDERED: CYCL25CA6 PO ×2 (18:01→19:10)
[2020-04-03] MEDS ORDERED: FLOM0.4C39 PO (18:01)
[2020-04-03 18:13] LABS: INR 0.91; PROTHROMBIN TIME 12.4 SECONDS (12.5-14.3)
[2020-04-03 18:40] LABS: D-DIMER QUANT > 4000.0 ng/ml (<500)
[2020-04-03 18:47] LABS: ALBUMIN 3.3 GM/DL (3.2-5.2); ALT/SGPT 21 U/L (12-78); BILIRUBIN,DIRECT 0.2 MG/DL (0.0-0.2); BLOOD UREA NITROGEN 37 MG/DL (7-18); C REACTIVE PROTEIN QUANTITATIV 2.05 MG/DL (0.00-0.30); CALCIUM LEVEL 9.2 MG/DL (8.8-10.2); CARBON DIOXIDE LEVEL 23 MEQ/L (21-32); CHLORIDE LEVEL 99 MEQ/L (98-107); CK-MB VALUE MASS < 1.0 NG/ML (<3.6); CPK CREATINE PHOSPHOKINASE 145 U/L (39-308); CREATININE FOR GFR 2.35 MG/DL (0.70-1.30); FERRITIN 636 NG/ML (26-388); GLOMERULAR FILTRATION RATE 35.7 (>49); GLUCOSE, FASTING 293 MG/DL (70-100); LDH LACTATE DEHYDROGENASE 623 U/L (87-241); MB/CK RELATIVE INDEX 0.69 (< OR =4); NT-PRO BNP 205 PG/ML (<125); SODIUM LEVEL 130 MEQ/L (136-145); THYROXINE (T4) 8.6 UG/DL (4.5-12.0); TOTAL PROTEIN 7.4 GM/DL (6.4-8.2); TROPONIN I < 0.02 NG/ML (< 0.10)
[2020-04-03] MEDS ORDERED: GLIP5TAB8 PO (19:10)
[2020-04-03] MEDS ORDERED: CYCL1CAP5 PO (19:10)
[2020-04-03] MEDS ORDERED: cefTRIAXone SOD 2 GM in D5W MINI-BAG PLUS 50 ML IV ONE (19:15)
[2020-04-03] MEDS ORDERED: ALBUTEROL SULFATE 2.5 MG/0.5 ML INH NEB SOLN NEB SCH (19:45)
[2020-04-03] MEDS ORDERED: DEXTROSE 50% 50 ML SYRINGE IV ONE (19:45)
[2020-04-03] MEDS ORDERED: CALCIUM GLUCONATE 1,000 MG in D5W MINI-BAG PLUS 100 ML IV ONE (19:45)
[2020-04-03] MEDS ORDERED: METOPROLOL 5 MG/5 ML VIAL IV PRN (19:45)
[2020-04-03] MEDS ORDERED: ACETAMINOPHEN TAB 650MG DOSE (2X325MG) PO PRN (19:45)
[2020-04-03] MEDS ORDERED: SOD POLYSTYRENE SULFONATE SUSP 15 GM/60 ML UD PO SCH (19:45)
[2020-04-03] MEDS ORDERED: GLUCOSE 4GM CHEW TABLET PO PRN (19:45)
[2020-04-03] MEDS ORDERED: MOM 30ML SUSPENSION UDC PO PRN (19:45)
[2020-04-03] MEDS ORDERED: MAALOX 30 ML SUSP *UDC PO PRN (19:45)
[2020-04-03] MEDS ORDERED: GLUCAGON INJ 1MG VIAL SC PRN (19:45)
[2020-04-03] MEDS ORDERED: HumuLIN R (REGULAR) INSULIN (NovoLIN R) **100U/ML** PER UNIT IV ONE (19:45)
[2020-04-03] MEDS ORDERED: SODIUM BICARBONATE 8.4% INJ 50 ML SYRINGE IV ONE (20:00)
--- NOTE | 2020-04-03 20:06 | HPEPDOC ---
[facility] Medical History & Physical Date of Admission Apr 03, 2020 Date of Service: Apr 03, 2020 Other Provider Chele Willett MD Attending Physician: JACKY VIDAL MD History and Physical TIME OF SERVICE: 10:10 PM CHIEF COMPLAINT: Cough HISTORY OF PRESENT ILLNESS: This 70 year old gentleman who has a known diagnosis of COVID19 presented with complaints of cough, shortness of breath that is worse with speaking and exertion, along with weakness. He denied having chest pain, fever, chills, change in his sense of taste or smell, nausea, vomiting or diarrhea. He was found to have KATHERIN; because of his history of renal transplant Dr. Ahumada discussed the case with Dr. Schaffer who recommended holding his mycophenolate. The patient mentioned that he has reduced mobility in the left knee, which he feels is primarily because he hasn't been able to attend physical therapy after having left knee surgery in January. Unfortunately he developed a infection after the procedure was on IV medications for several weeks and is currently on doxycycline. REVIEW OF SYSTEMS: 12 point review of systems negative except as listed in HPI PAST MEDICAL/ SURGICAL HISTORY: Renal transplant / Autosomal dominant polycystic kidney disease that progressed to ESRD Asthma Chronic anemia with history of peptic ulcer disease Chronic thrombocytopenia Dyslipidemia History of prostate cancer KALANI Chronic Hypertension IDDM Left knee surgery SOCIAL HISTORY: He is originally from [place], has lived in [place], and retired from the . Lives with his in [facility] He doesn't smoke, drink or use recreational drugs FAMILY HISTORY: Mother was diabetic ALLERGIES: Please see below. HOME MEDICATIONS: Please see below. PHYSICAL EXAMINATION: VITAL SIGNS: Please see below. GEN: well-nourished / well developed/ NAD INTEGUMENT: Left knee has a vertical postsurgical scar. The skin surrounding the left knee is warm HEENT: lips acyanotic /mucus membranes moist and pink CVS: RRR/NMRG/ radial pulses intact LUNGS: able to speak full sentences without stopping to take a breath / lungs are clear to auscultation bilaterally on room air ABDOMEN: Contour (obese) MSK/EXTREMITIES: NCAT / the left knee is swollen when compared to the right NEURO: CN 2-12 are grossly intact / speech is not dysarthric PSYCH: alert and oriented to person place and time/ able to understand and follow all commands LABORATORY DATA: See below. IMAGING: Chest x-ray "IMPRESSION: Somewhat ill-defined opacities as described above. Atelectasis versus pneumonia. Consider chest CT for further investigation." MICROBIOLOGY: Please see below. EKG showed heart rate of 71 with QTC of 400 ASSESSMENT: Mr. Nj is a 70-year-old with a history of autosomal dominant polycystic kidney disease, renal transplant, asthma, anemia in the setting of peptic ulcer disease, NIDDM, chronic thrombocytopenia, dyslipidemia, prostate cancer, KALANI, hypertension & NIDDM who presented with complaints of cough, dyspnea, and malise and will be admitted for management of asthma exacerbation secondary to COVID 19 associated pneumonia, KATHERIN on CKD and HTN Urgency PLAN: 1. COVID-19 PNA The elevated d-dimer, ferritin, AST, LDH, CRP, and BMP are likely due to Covid Plan: admit to medical floor/airborne & contact precautions / continuous pulse ox with oxygen as needed/trend plts (if low indicates bad prognosis), CRP (if high indicates bad prognosis), troponins, INR, BMP, fibrinogen, INR, PT, PTT (if patient has DIC indicates bad prognosis), ferritin, LDH, procalcitonin (if low will help rule out bacterial PNA), troponins (if elevated will order Echo to rule out cardiomyopathy) / VBG to assess for hypoxia / will start ceftriaxone and azithromycin for pneumonia, pending sputum culture, strep pneumo, legionella and mycoplasma pneumonia results / is not a candidate for remdisivir because he doesn't have hypoxia/will give IV solumedrol because he has coexisting asthma / start treatment dose Lovenox because of a d-dimer greater than 4000 2. Asthma 2/2 COVID 19 PNA Plan continuous pulse ox / albuterol/ipratropium Q6H, albuterol Q1H PRN, IV solumedrol w PPIto prevent steroid induced ulcer / montelukast / he is on abx / Tessalon Pearls / will need to be discharged with inhaled corticosteroid i.e. Fluticasone as a part of maintenance regimen per VISH 2019 guidelines 3. Acute Renal Failure on CKD / Renal Transplant COVID related renal complication vs prerenal KATHERIN vs due to accelerated HTN or may be a His creatinine has increased to 2.35 from his baseline of around 1.64 Plan: monitor UOP / IVF / f/u renal panel, CK, Ulytes for FENa or FEUrea, PTH, Phosphorus, Vitamin D, / renal US / hold mycophenolate, chlorthalidone, and aspirin / Nephrology consult 5. Hyperkalemia Possibly 2/2 KATHERIN vs Hemolysis EKG didn't show peaked T waves He received sodium bicarbonate, insulin and dextrose Plan: Telemetry / repeat K 6. Hypertensive Urgency Resolving His blood pressure was as high as 213/105 Plan: will aim to lower BP by 25% w/in the first 2-4 hours with target BP of <160/100 / avoid excessive environmental stimuli / resume amlodipine and labetalol/will hold chlorthalidone / will add IV metoprolol PRN for BP > 160/100 / low salt diet 7. Left Knee Effusion The patient said he was on doxycycline but this is not in the list of reconciled meds Plan: f/u xray the day time team may consider ID and or Ortho consult if there is a large effuxion / will call Pharmacy to review recent abx 8.NIDDM Plan: diabetic diet / f/u accuchecks & A1C / hypoglycemia protocol / sliding sc barak insulin / hold oral anti-glycemics 9. Chronic Bicytopenia Plan: f/u iron studies, B12 and folate 10. KALANI Unable to find recommendations on CPAP from sleep study Plan: own CPAP DVT PROPHYLAXIS: lovenox treatment dose DISPOSITION: home after more than 2 midnight's stay Vital Signs Vital Signs Date Time Temp Pulse Resp B/P (MAP) Pulse Ox O2 Delivery O2 Flow Rate FiO2 04/03/20 20:04 77 94 04/03/20 20:00 101.9 18 163/89 (113) Room Air Laboratory Data Labs 24H Laboratory Tests 2 04/03/20 17:43: Prothrombin Time 12.4, Prothromb Time International Ratio 0.91, D-Dimer, Jesus titative > 4000.0H 04/03/20 17:44: Immature Granulocyte % (Auto) 0.2, Neutrophils (%) (Auto) 83.3H, Lymphocytes (%) (Auto) 8.9L, Monocytes (%) (Auto) 7.4H, Eosinophils (%) (Auto) 0.0, Basophils (%) (Auto) 0.2, Neutrophils # (Auto) 4.4, Lymphocytes # (Auto) 0.5L, Monocytes # (Auto) 0.4, Eosinophils # (Auto) 0.0, Basophils # (Auto) 0.0, Nucleated Red Blood Cells % (auto) 0.0, Anion Gap 8, Glomerular Filtration Rate 35.7L, Lactic Acid Level 1.6, Calcium Level 9.2, Ferritin 636H, Total Bilirubin 1.0, Direct Bilirubin 0.2, Aspartate Amino Transf (AST/SGOT) 55H, Alanine Aminotransferase (ALT/SGPT) 21, Alkaline Phosphatase 61, Lactate Dehydrogenase 623H, Total Creatine Kinase 145, Creatine Kinase MB < 1.0, Creatine Kinase MB Relative Index 0.69, Troponin I < 0.02, C-Reactive Protein, Quantitative 2.05H, PQ-Kie-Y-Type Natriuretic Peptide 205H, Total Protein 7.4, Albumin 3.3, Albumin/Globulin Ratio 0.8, Thyroid Stimulating Hormone (TSH) 1.340, Thyroxine (T4) 8.6 CBC/BMP Laboratory Tests 04/03/20 17:44 Microbiology Microbiology 04/03/20 Gram Stain, Received Pending 04/03/20 Sputum Culture, Received Pending Home Medications Scheduled Amlodipine Besylate (Amlodipine Besylate) 10 Mg Tab, 10 MG PO DAILY Aspirin (Aspirin EC) 81 Mg Tab, 81 MG PO DAILY Chlorthalidone (Chlorthalidone) 12.5 Mg Halftab, 12.5 MG PO DAILY Cyclosporine, Modified (Cyclosporine Modified) 25 Mg Capsule, 75 MG PO DAILY TAKE WITH 100MG CAPS Cyclosporine, Modified (Cyclosporine Modified) 100 Mg Capsule, 100 MG PO BID TAKE WITH 75MG QAM AND 50MG QHS. 175MG TOTAL QAM AND 150MG TOTAL QHS. Cyclosporine, Modified (Cyclosporine Modified) 25 Mg Capsule, 50 MG PO QHS WITH 100MG CAPS Doxycycline Hyclate (Doxycycline Hyclate) 100 Mg Tablet, 100 MG PO BID Ferric Citrate (Auryxia) 210 Mg Tab, 210 MG PO DAILY Finasteride (Finasteride) 5 Mg Tablet, 5 MG PO DAILY Insulin Human Lispro (Humalog) 100 Unit/1 Ml Vial, 1 UNITS SC ACHS Labetalol HCl (Labetalol HCl) 200 Mg Tab, 200 MG PO TID Magnesium Oxide (Magnesium Oxide) 400 Mg Tablet, 400 MG PO TID Montelukast Sodium (Singulair) 10 Mg Tab, 10 MG PO DAILY Multivitamins (Thera M Plus Tablet) 1 Tab Tab, 1 TAB PO DAILY Niacin (Niacin) 500 Mg Tab, 500 MG PO DAILY Prednisone (Prednisone) 5 Mg Tab, 5 MG PO DAILY Prednisone (Prednisone) 10 Mg Tablet, 10 MG PO TAPER Take 4 tabs daily x 3 days, then 3 tabs daily x 3 days, then 2 tabs daily x 3 days, then 1 tab daily x 3 days and stop Salmeterol/Fluticasone (Advair 100-50 Diskus) 1 Each Blst.w.dev, 1 PUFF INH BID Tamsulosin HCl (Flomax) 0.4 Mg Capsule, 0.4 MG PO DAILY Scheduled PRN Acetaminophen (Acetaminophen) 325 Mg Tablet, 325 MG PO Q4H PRN for PAIN / FEVER Albuterol Sulfate (Proair Hfa) 108 Mcg/Act Aer, 2 PUFF INH QID PRN for SHORTNESS OF BREATH Benzonatate (Benzonatate) 100 Mg Capsule, 100 MG PO TIDP PRN for COUGH Fluticasone Propionate (Flonase Allergy Relief) 50 Mcg/Act Spr, 1 SPRAY NARES BID PRN for CONGESTION Pantoprazole Sodium (Pantoprazole Sodium) 40 Mg Tab, 40 MG PO DAILY PRN for HEARTBURN Allergies Coded Allergies: codeine (Verified Allergy, Unknown, 04/01/19) A-FIB/CHADSVASC A-FIB History Current/History of A-Fib/PAF?: No Current PO Anticoag Therapy: No JACKY VIDAL MD Apr 03, 2020 20:06
[2020-04-03 20:57] LABS: OSMOLALITY SERUM 295 MOSM/KG (280-301)
[2020-04-03] MEDS: HumaLOG INSULIN (NovoLOG) PER UNIT SC SCH (21:00)
[2020-04-03 21:02] LABS: HEMOGLOBIN A1c 8.2 %
[2020-04-03 21:06] LABS: PHOSPHORUS LEVEL 4.1 MG/DL (2.5-4.9); TOTAL PROTEIN 6.6 GM/DL (6.4-8.2)
[2020-04-03] MEDS: ENOXAPARIN 100MG/1ML SYRINGE (J1650 PER 10MG) SC SCH (21:13)
[2020-04-03] MEDS: NS 1,000 ML IV SCH (21:14)
[2020-04-03 21:18] LABS: PTH INTACT 105.1 PG/ML (18.5-88.0)
[2020-04-03 21:30] VITALS: BP 143/88; O2SAT 97
[2020-04-03] MEDS ORDERED: AZITHROMYCIN INJ 500 MG, VIAL MATE ADAPTER 1 EACH in D5W 250 ML IV SCH (22:00)
[2020-04-03 22:09] LABS: COMPLEMENT C3 124 MG/DL (90-180); COMPLEMENT C4 34 MG/DL (10-40); FERRITIN 586 NG/ML (26-388); FOLATE > 24.0 NG/ML (>5.4); HEPATITIS B CORE ANTIBODY IGM NEGATIVE (NEGATIVE); HEPATITIS B SURFACE ANTIBODY POSITIVE (POSITIVE); HEPATITIS B SURFACE ANTIGEN NEGATIVE (NEGATIVE); HEPATITIS C VIRUS ABY INDEX 0.1 INDEX (<0.8); IRON (FE) 16 UG/DL (65-175); PERCENT SATURATION 7.3 % (19.7-50.0); TOTAL IRON BINDING CAPACITY 220 UG/DL (250-450); VITAMIN B12 LEVEL 1761 PG/ML (247-911)
[2020-04-03] MEDS: BENZONATATE 100 MG CAP PO PRN (22:21)
[2020-04-03] MEDS ORDERED: FLUTICASONE PROP 0.05% NASAL SPRAY 16 GM (FLONASE) NARES PRN (22:45)
[2020-04-03] MEDS ORDERED: NEORAL 100 MG CAP (J7502) PO SCH (22:45)
[2020-04-03] MEDS ORDERED: NEORAL 25 MG CAP (J7515) PO SCH (22:45)
[2020-04-03] MEDS ORDERED: PANTOPRAZOLE 40MG TAB (PROTONIX) PO PRN (22:45)
[2020-04-03 22:48] LABS: OSMOLALITY URINE 478 MOSM/KG (500-800)
[2020-04-03 22:51] LABS: APPEARANCE, URINE HAZY (CLEAR); BACTERIA, URINE AUTO NEGATIVE (NEGATIVE); BILIRUBIN, URINE AUTO NEGATIVE (NEGATIVE); BLOOD, URINE BLOOD 3+ (NEGATIVE); COLOR, URINE YELLOW (YELLOW); GLUCOSE, URINE (UA) AUTO 2+ mg/dL (NEGATIVE); KETONE, URINE AUTO NEGATIVE (NEGATIVE); LEUKOCYTE ESTERASE, URINE AUTO NEGATIVE (NEGATIVE); NITRITE, URINE AUTO NEGATIVE (NEGATIVE); PROTEIN, URINE AUTO 3+ mg/dL (NEGATIVE); RBC, URINE AUTO TNTC /HPF (0-3); SPECIFIC GRAVITY URINE AUTO 1.014 (1.002-1.035); SQUAMOUS EPITHELIAL CELL UR AU 0 /HPF (0-6); UROBILINOGEN, URINE AUTO 0.2 mg/dL (0.0-2.0); WBC, URINE AUTO 1 /HPF (0-3)
[2020-04-03 23:13] LABS: POTASSIUM RANDOM URINE 40.6 MEQ/L; SODIUM,RANDOM URINE 54 MEQ/L
[2020-04-03] MEDS: MAGNESIUM OXIDE 400 MG TAB (MAG-OX) PO SCH (23:57)
[2020-04-03] MEDS: LABETALOL 200 MG TAB PO SCH (23:57)
[2020-04-04] VITALS: BP 125/71; O2SAT 97
[2020-04-04] MEDS: NEORAL 25 MG CAP (J7515) PO SCH ×3 (00:36→21:06)
--- NOTE | 2020-04-04 00:39 | ECGEPIP ---
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
[2020-04-04] MEDS: COMBIVENT RESPIMAT 100-20MCG INHALER 4GM INH SCH ×4 (02:00→20:00)
[2020-04-04] MEDS ORDERED: ARNU1INH PO (02:27)
[2020-04-04] MEDS ORDERED: ALBUTEROL 90 MCG/ACT 8GM HFA INHALER INH PRN (02:30)
--- NOTE | 2020-04-04 02:51 | REPVR ---
PROCEDURE INFORMATION: Exam: US Retroperitoneal Limited, Kidneys Exam date and time: 04/04/2020 2:26 AM Age: 70 years old Clinical indication: Abnormal findings; Abnormal lab test; Other: Berhane; Prior surgery; Surgery date: 6+ months; Surgery type: Renal transplant TECHNIQUE: Imaging protocol: Real-time ultrasound of the retroperitoneum with image documentation. Examination was focused on the kidneys. COMPARISON: RENAL US 03/14/2017 7:55 PM FINDINGS: Right kidney: Interval decrease in the size of complex cystic lesion in the superior pole of the right kidney currently measuring approximately 4.7 x 5.3 cm in diameter versus 6 x 5.5 cm on the previous exam. Right renal cortical thinning and increased echogenicity. Left kidney: Marked cortical atrophy hamilton left kidney with several simple parapelvic left renal cysts. These measure up to 4.8 cm. Renal transplant in the pelvis demonstrates mild hydronephrosis. Resistive index is 0.68 Bladder: Urinary bladder is contracted around Cast balloon catheter. IMPRESSION: Renal transplant in the pelvis demonstrates mild hydronephrosis. Resistive index is 0.68 Electronically signed by: Tico Keller On 04/04/2020 02:51:09 AM
[2020-04-04 04:00] VITALS: BP 145/82; O2SAT 94
[2020-04-04] MEDS ORDERED: FLUBLOK(EGG FREE)(QUAD)INFLUENZA VACC 0.5ML SYRINGE 18YRS & OLDER IM SCH (04:00)
[2020-04-04 05:06] LABS: VENOUS HCO3 25.4 MEQ/L (23.0-27.0); VENOUS O2 SATURATION 99.3 % (60.0-80.0); VENOUS PARTIAL PRESSURE CO2 35.6 mmHg (38.0-50.0); VENOUS PARTIAL PRESSURE O2 159.7 mmHg (30.0-50.0); VENOUS PH 7.471 UNITS (7.330-7.430); VENOUS STANDARD HCO3 26.3 MEQ/L; VENOUS TOTAL CO2 26.5 MEQ/L (24.0-28.0)
[2020-04-04 05:14] LABS: BASO % 0.3 % (0.0-1.0); HEMATOCRIT 35.8 % (42.0-52.0); HEMOGLOBIN 11.2 g/dl (13.5-17.5); LYMPH # 0.5 10^3/uL (1.5-5.0); LYMPH % 15.6 % (24.0-44.0); MEAN CORPUSCULAR HEMOGLOBIN 25.2 pg (27.0-33.0); MEAN CORPUSCULAR HGB CONC 31.3 g/dl (32.0-36.5); MEAN CORPUSCULAR VOLUME 80.6 fl (80.0-96.0); MONO # 0.4 10^3/uL (0.0-0.8); MONO % 10.6 % (0.0-5.0); NEUTROPHILS # 2.5 10^3/uL (1.5-8.5); NEUTROPHILS % 73.2 % (36.0-66.0); PLATELET COUNT, AUTOMATED 110 10^3/uL (150-450); RED BLOOD COUNT 4.44 10^6/uL (4.30-6.10); WHITE BLOOD COUNT 3.4 10^3/uL (4.0-10.0)
[2020-04-04 05:24] LABS: INR 0.97; PROTHROMBIN TIME 13.1 SECONDS (12.5-14.3)
[2020-04-04 05:25] LABS: PARTIAL THROMBOPLASTIN TIME 47.2 SECONDS (24.2-38.5)
[2020-04-04 05:27] LABS: D-DIMER QUANT 3959.9 ng/ml (<500)
[2020-04-04] MEDS: methylPREDNISolone 40MG 1ML VIAL IV SCH ×3 (05:27→21:04)
[2020-04-04 05:45] LABS: C REACTIVE PROTEIN QUANTITATIV 2.69 MG/DL (0.00-0.30); TROPONIN I 0.02 NG/ML (< 0.10)
[2020-04-04] MEDS ORDERED: DOXY100T PO (06:21)
[2020-04-04 08:00] VITALS: BP 149/83; O2SAT 94
[2020-04-04] MEDS: SYMBICORT 80/4.5MCG INHALER 6GM INH SCH ×2 (08:05→20:44)
--- NOTE | 2020-04-04 08:10 | REP ---
INDICATION: left knee warmth redness and swelling 2 months post op - COMPARISON: None. TECHNIQUE: Portable AP, lateral, bilateral oblique views of the right knee FINDINGS: There is evidence for prior arthroplasty. Significant soft tissue swelling along with joint/suprapatellar effusion is identified as well as elements of ill-defined dystrophic calcifications primarily noted within the posterior aspect of the joint space. Findings are highly suspicious for underlying infectious process and osteomyelitis cannot definitively be excluded. IMPRESSION: Soft tissue swelling, joint effusion, irregular dystrophic articular calcifications highly suspicious for infectious process and osteomyelitis cannot be excluded as well. <Electronically signed by Demario Bernal > 04/04/20 0801
[2020-04-04] MEDS: HumaLOG INSULIN (NovoLOG) PER UNIT SC SCH ×4 (08:37→21:37)
[2020-04-04] MEDS: MONTELUKAST 10 MG TAB PO SCH (08:37)
[2020-04-04] MEDS: FINASTERIDE 5 MG TAB PO SCH (08:38)
[2020-04-04] MEDS: NIACIN 100MG TAB PO SCH (08:38)
[2020-04-04] MEDS: BENZONATATE 100 MG CAP PO PRN ×2 (08:38→21:37)
[2020-04-04] MEDS: MULTIVITAMINS/MINERALS THERAP 1 TAB PO SCH (08:40)
[2020-04-04] MEDS: LABETALOL 200 MG TAB PO SCH ×3 (08:40→21:08)
[2020-04-04] MEDS: amLODIPine 10 MG TAB PO SCH (08:40)
[2020-04-04] MEDS: DOXYCYCLINE HYCLATE 100MG TABLET PO SCH ×2 (08:40→21:07)
[2020-04-04] MEDS: MAGNESIUM OXIDE 400 MG TAB (MAG-OX) PO SCH ×3 (08:40→21:06)
[2020-04-04] MEDS: TAMSULOSIN 0.4 MG CAP PO SCH (08:40)
[2020-04-04] MEDS ORDERED: predniSONE 5 MG TAB PO SCH (09:00)
[2020-04-04] MEDS ORDERED: ENTER DRUG NAME HERE (PATIENT'S OWN MED) PO SCH (09:00)
[2020-04-04] MEDS ORDERED: NEORAL 25 MG CAP (J7515) PO SCH (09:00)
[2020-04-04] MEDS ORDERED: CHLORTHALIDONE 12.5MG PER 1/2 TABLET PO SCH (09:00)
[2020-04-04] MEDS ORDERED: ASPIRIN 81 MG ENTERIC TAB PO SCH (09:00)
--- NOTE | 2020-04-04 09:29 | IPNPDOC ---
Date Seen The patient was seen on 04/04/20. Progress Note SUBJECTIVE: patient was seen and examined at bedside. Doing well. Comfortable in bed. Febrile overnight, Tmax 101.9. COVID-19 POSITIVE. Denies any subjective fevers, chills, n/v/d, chest pain or palpitations. Does endorse a cough productive of clear sputum. UA showed RBCs, no gross blood or clots seen in the ochoa bag. Patient has a chronic indwelling ochoa. S/p renal transplant 2 years ago. Patient reports mild pain in the right. He states that he has had osteomyelitis treated with IV antibiotics. PICC line for 6 weeks and now is on doxycycline indefinitely. [facility] [place] [facility] He does not report any worsening symptoms in the right knee. He is however concerned about not being able to do physical therapy given his shortness of breath. OBJECTIVE PHYSICAL EXAMINATION: VITAL SIGNS: please see below General: NAD, comfortable HEENT: PERRLA, EOMI, sclerae clear Neck: supple, normal ROM, no JVD Respiratory: coarse breath sounds, poor inspiratory effort, no wheeze, no rales, no crackles CVS: RRR, normal S1, S2, no murmurs Abdo: soft, no masses, no hepatosplenomegaly, BS+, no rebound tenderness Extremities: no edema, pulses 2+ MSK: R knee incision scar, healing well, swelling of knee joint, mild ttp in over patella, joint line. L knee scar, old, healed. Neuro: no focal neuro deficits, moving all 4 extremities, CN2-12 intact. Strength 5/5 in all 4 extremities. No nystagmus. Psych: calm, cooperative, AAO x 3 LABORATORY DATA, IMAGING STUDIES, MICROBIOLOGY: Please see below. DVT prophylaxis ordered?: Y ASSESSMENT AND PLAN: 70-year-old with a history of autosomal dominant polycystic kidney disease, renal transplant, asthma, anemia in the setting of peptic ulcer disease, NIDDM, chronic thrombocytopenia, dyslipidemia, prostate cancer, KALANI, hypertension & NIDDM who presented with complaints of cough, dyspn ea, and malaise. Admitted for management of asthma exacerbation secondary to COVID 19 associated pneumonia, KATHERIN on CKD and HTN Urgency. PROBLEMS: #Covid-19 Infection w/ superimposed bacterial pna: airborne/contact precautions. Monitor inflammatory markers. D dimer trending down. Trop 0.02. c/w ce ftriaxone. Doxycycline. DC azithromycin. F/u sputum cultures. Legionella, strep ag pending. IV solumedrol. #Acute asthma exacerbation 2/2 covid-19 infection: #Acute renal failure: s/p Renal transplant. Nephrology consulted. Continue with prednisone once solumedrol stopped, cyclosporine. Hold mycophenolate. Pending repeat BMP. #Microscopic hematuria: D/w Dr. Morejon, urology. Rec urine cytology, urine culture. Replace ochoa if in for > 4 weeks. Follow up with primary urologist as outpatient. #Hyperkalemia: resolved. S/p bicarb, insulin, dextrose #Hypertensive urgency: resolved. amlodipine. Labetalol prn. #R knee effusion: chronic. Hx of osteomyelitis. Treated for 6 weeks with IV abx. Now on doxycycline. Followed by ID at [facility] (ID clinic tel: [phone]) #NIDDM: hypoglycemic precs. ISS. FSBS. #Chronic bicytopenia: follow up b12, folate wnl. #KALANI: home cpap DVT ppx: therapeutic lovenox. Dispo: admission to span > 2 midnights, plan for return home once medically s table. PT for R knee reduce mobility. VS, I&O, 24H, Fishbone Vital Signs/I&O Vital Signs Date Time Temp Pulse Resp B/P (MAP) Pulse Ox O2 Delivery O2 Flow Rate FiO2 04/04/20 08:40 68 149/83 04/04/20 04:00 94 Room Air 04/04/20 04:00 101.1 18 I&O- Last 24 Hours up to 6 AM 04/04/20 05:59 Intake Total 985 ml Output Total 200 ml Balance 785 ml Laboratory Data 24H LABS Laboratory Tests 2 04/03/20 17:43: Prothrombin Time 12.4, Prothromb Time International Ratio 0.91, D-Dimer, Quantitative > 4000.0H 04/03/20 17:44: Immature Granulocyte % (Auto) 0.2, Neutrophils (%) (Auto) 83.3H, Lymphocytes (%) (Auto) 8.9L, Monocytes (%) (Auto) 7.4H, Eosinophils (%) (Auto) 0.0, Basophils (%) (Auto) 0.2, Neutrophils # (Auto) 4.4, Lymphocytes # (Auto) 0.5L, Monocytes # (Auto) 0.4, Eosinophils # (Auto) 0.0, Basophils # (Auto) 0.0, Nucleated Red Blood Cells % (auto) 0.0, Anion Gap 8, Glomerular Filtration Rate 35.7L, Lactic Acid Level 1.6, Calcium Level 9.2, Ferritin 636H, Total Bilirubin 1.0, Direct Bilirubin 0.2, Aspartate Amino Transf (AST/SGOT) 55H, Alanine Aminotransferase (ALT/SGPT) 21, Alkaline Phosphatase 61, Lactate Dehydrogenase 623H, Total Creatine Kinase 145, Creatine Kinase MB < 1.0, Creatine Kinase MB Relative Index 0.69, Troponin I < 0.02, C-Reactive Protein, Quantitative 2.05H, TC-Pcj-G-Type Natriuretic Peptide 205H, Total Protein 7.4, Albumin 3.3, Albumin/Globulin Ratio 0.8, Thyroid Stimulating Hormone (TSH) 1.340, Thyroxine (T4) 8.6 04/03/20 20:28: Ferritin 586H, Estimated Mean Plasma Glucose 189H, Hemoglobin A1c 8.2, Osmolality 295, Phosphorus Level 4.1, Iron Level 16L, Total Iron Binding Capacity 220L, Transferrin % Saturation 7.3L, Total Protein (PEP) 6.6, Vitamin B12 Level 1761H, Folate > 24.0, Parathyroid Hormone (Intact) 105.1H, Complement C3 124, Complement C4 34, Hepatitis B Surface Antigen NEGATIVE, Hepatitis B Surface Antibody POSITIVE, Hepatitis B Core IgM Antibody NEGATIVE, Hepatitis C Antibody Index 0.1 04/03/20 21:11: Bedside Glucose (Misc Panel) 211H 04/03/20 22:30: Urine Color YELLOW, Urine Appearance HAZY, Urine pH 7.0, Urine Specific [place] 1.014, Urine Protein 3+H, Urine Glucose (Auto)(UA) 2+H, Urine Ketones (Auto) NEGATIVE, Urine Blood 3+H, Urine Nitrite NEGATIVE, Urine Bilirubin NEGATIVE, Urine Urobilinogen 0.2, Urine Leukocyte Esterase (Auto) NEGATIVE, Urine WBC (Auto) 1, Urine RBC (Auto) TNTCH, Urine Hyaline Casts (Auto) 0, Urine Bacteria (Auto) NEGATIVE, Urine Squamous Epithelial Cells 0, Urine Sperm (Auto) , Urine Random Osmolality 478L, Urine Random Creatinine 167.0, Urine Random Sodium 54, Urine Random Potassium 40.6, Urine Random Urea Nitrogen 747 04/04/20 04:56: Immature Granulocyte % (Auto) 0.3, Neutrophils (%) (Auto) 73.2H, Lymphocytes (%) (Auto) 15.6L, Monocytes (%) (Auto) 10.6H, Eosinophils (%) (Auto) 0.0, Basophils (%) (Auto) 0.3, Neutrophils # (Auto) 2.5, Lymphocytes # (Auto) 0.5L, Monocytes # (Auto) 0.4, Eosinophils # (Auto) 0.0, Basophils # (Auto) 0.0, Nucleated Red Blood Cells % (auto) 0.0, Prothrombin Time 13.1, Prothromb Time International Ratio 0.97, Activated Partial Thromboplast Time 47.2H, Fibrinogen 394, D-Dimer, Quantitative 3959.90H, Blood Gas Bicarbonate Standard 26.3, Venous Blood pH 7.471H, Venous Blood Partial Pressure CO2 35.6L, Venous Blood Partial Pressure O2 159.7H, Venous Blood Total Carbon Dioxide 26.5, Venous Blood HCO3 25.4, Venous Blood Oxygen Saturation 99.3H, Venous Blood Base Excess 2.0, Lactate Dehydrogenase 289H, Troponin I 0.02, C-Reactive Protein, Quantitative 2.69H, FV-Bbs-S-Type Natriuretic Peptide 179H, Triglycerides Level 166H 04/04/20 08:13: Bedside Glucose (Misc Panel) 238H CBC/BMP Laboratory Tests 04/03/20 17:44 04/03/20 20:28 04/04/20 00:15 04/04/20 04:56 Microbiology Microbiology 04/03/20 Blood Culture, Received Pending 04/03/20 Blood Culture, Received Pending 04/03/20 Gram Stain, Received Pending 04/03/20 Sputum Culture, Received Pending SHAUN CAMERON MD Apr 04, 2020 09:29
[2020-04-04 10:21] LABS: ALBUMIN 3.58 GM/DL (3.29-5.55); ALBUMIN % 54.3 % (55.8-66.1); ALPHA-1-GLOBULIN % 6.7 % (2.9-4.9); ALPHA-1-GLOBULINS 0.44 GM/DL (0.17-0.41); ALPHA-2-GLOBULINS 0.86 GM/DL (0.42-0.99); BETA-1-GLOBULINS 0.37 GM/DL (0.28-0.60); BETA-1-GLOBULINS % 5.6 % (4.7-7.2); BETA-2-GLOBULINS 0.34 GM/DL (0.19-0.55); BETA-2-GLOBULINS % 5.1 % (3.2-6.5); GAMMA GLOBULIN % 15.3 % (11.1-18.8); GAMMA GLOBULINS 1.01 GM/DL (0.65-1.58)
[2020-04-04 12:00] VITALS: BP 131/75; O2SAT 95
[2020-04-04] MEDS: NS 1,000 ML IV SCH (12:04)
[2020-04-04 12:42] LABS: ALBUMIN 2.9 GM/DL (3.2-5.2); BILIRUBIN,TOTAL 0.6 MG/DL (0.2-1.0); CALCIUM LEVEL 8.4 MG/DL (8.8-10.2); CREATININE FOR GFR 2.16 MG/DL (0.70-1.30); GLOMERULAR FILTRATION RATE 39.3 (>49); POTASSIUM SERUM 3.7 MEQ/L (3.5-5.1); TOTAL PROTEIN 6.1 GM/DL (6.4-8.2)
[2020-04-04] MEDS ORDERED: guaiFENesin SYRUP 200 MG/10 ML UDC PO PRN (13:15)
[2020-04-04 16:00] VITALS: BP 128/77; O2SAT 94
[2020-04-04 20:00] VITALS: BP 127/76; O2SAT 95
[2020-04-04] MEDS ORDERED: cefTRIAXone SOD 1 GM in D5W MINI-BAG PLUS 50 ML IV SCH (21:00)
[2020-04-04] MEDS: ENOXAPARIN 100MG/1ML SYRINGE (J1650 PER 10MG) SC SCH (21:04)
--- NOTE | 2020-04-04 23:42 | CR ---
CONSULTATION DATE: 04/04/2020 REQUESTING PHYSICIAN: Dr. Foster in the emergency room and Dr. Niesha Lott, the admitting physician. CHIEF COMPLAINT: Persistent cough. COVID-19 positive HISTORY OF PRESENT ILLNESS: Jose G Nj is a 70-year-old male with past medical history of renal transplant status, cause of renal failure is autosomal dominant polycystic kidney disease, history of prostate cancer in the past, asthma, obstructive sleep apnea, insulin dependent diabetic, chronic hypertension, history of left knee surgery. He presented to the emergency room yesterday with persistent cough, shortness of breath, difficulty with ambulation, weakness. He has a positive COVID 19 test. The patient was discussed with myself over the phone by Dr. Foster. He was also found to have acute renal failure with a creatinine of 2.35 on arrival. He had hyperkalemia with a potassium of 6. Decision was made to start the patient on broad-spectrum IV antibiotics to cover for community acquired pneumonia on top COVID associated pneumonia and to hydrate the patient. The patient was admitted to the ICU under the hospitalist service yesterday. The case was discussed by myself with the hospitalist physician Dr. Josue Aviles today morning and my recommendations were to stop the mycophenolate, continue the patient on cyclosporin, check the cyclosporin level, hold the prednisone while the patient is getting Solu-Medrol for pneumonia. After the initial IV fluid hydration overnight, his creatinine today morning has improved to 2.1, which is almost close to his baseline. His best baseline creatinine as per previous records is around 1.5. Continue the hydration, broad-spectrum antibiotics including ceftriaxone and doxycycline. For COVID he was also given dose of IV remdesivir. He was initially hypertensive and his blood pressures are better controlled with amlodipine. Hyperkalemia has resolved now. I would peripherally follow the patient along with the hospitalist team now. The patient was not physically examined by myself in the COVID 19 ICU. This dictation is for record purpose only. The patient will not be billed for this consult. [facility]
[2020-04-05] VITALS (8 sets, daily range): BP systolic 138–160; BP diastolic 83–91; O2SAT 93–99
[2020-04-05] MEDS: NS 1,000 ML IV SCH ×2 (01:29→09:05)
[2020-04-05] MEDS: COMBIVENT RESPIMAT 100-20MCG INHALER 4GM INH SCH ×2 (02:00→08:00)
[2020-04-05] MEDS: methylPREDNISolone 40MG 1ML VIAL IV SCH (05:06)
[2020-04-05 05:23] LABS: HEMATOCRIT 38.3 % (42.0-52.0); LYMPH # 0.3 10^3/uL (1.5-5.0); LYMPH % 6.1 % (24.0-44.0); MEAN CORPUSCULAR HEMOGLOBIN 25.3 pg (27.0-33.0); MEAN CORPUSCULAR HGB CONC 31.3 g/dl (32.0-36.5); MEAN CORPUSCULAR VOLUME 80.8 fl (80.0-96.0); MONO # 0.2 10^3/uL (0.0-0.8); NEUTROPHILS # 4.3 10^3/uL (1.5-8.5); NEUTROPHILS % 89.7 % (36.0-66.0); RED BLOOD COUNT 4.74 10^6/uL (4.30-6.10); WHITE BLOOD COUNT 4.7 10^3/uL (4.0-10.0)
[2020-04-05 05:35] LABS: INR 1.11; PROTHROMBIN TIME 14.5 SECONDS (12.5-14.3)
[2020-04-05 05:36] LABS: PARTIAL THROMBOPLASTIN TIME 43.9 SECONDS (24.2-38.5)
[2020-04-05 05:38] LABS: D-DIMER QUANT 3626.46 ng/ml (<500)
[2020-04-05 05:49] LABS: PLATELET COUNT, AUTOMATED 95 10^3/uL (150-450)
[2020-04-05 05:55] LABS: ALBUMIN 2.7 GM/DL (3.2-5.2); ALT/SGPT 15 U/L (12-78); BILIRUBIN,TOTAL 0.5 MG/DL (0.2-1.0); BLOOD UREA NITROGEN 39 MG/DL (7-18); CALCIUM LEVEL 8.1 MG/DL (8.8-10.2); CARBON DIOXIDE LEVEL 19 MEQ/L (21-32); CHLORIDE LEVEL 104 MEQ/L (98-107); CREATININE FOR GFR 2.14 MG/DL (0.70-1.30); GLOMERULAR FILTRATION RATE 39.7 (>49); GLUCOSE, FASTING 430 MG/DL (70-100); MAGNESIUM LEVEL 2.3 MG/DL (1.8-2.4); POTASSIUM SERUM 4.9 MEQ/L (3.5-5.1); SODIUM LEVEL 134 MEQ/L (136-145); TOTAL PROTEIN 6.1 GM/DL (6.4-8.2); TROPONIN I < 0.02 NG/ML (< 0.10)
[2020-04-05] MEDS ORDERED: HumaLOG INSULIN (NovoLOG) PER UNIT SC ONE (07:30)
[2020-04-05] MEDS ORDERED: HumaLOG INSULIN (NovoLOG) PER UNIT SC SCH ×2 (08:30→12:00)
[2020-04-05] MEDS: NIACIN 100MG TAB PO SCH (08:43)
[2020-04-05] MEDS: MAGNESIUM OXIDE 400 MG TAB (MAG-OX) PO SCH (08:43)
[2020-04-05] MEDS: FINASTERIDE 5 MG TAB PO SCH (08:43)
[2020-04-05] MEDS: MULTIVITAMINS/MINERALS THERAP 1 TAB PO SCH (08:45)
[2020-04-05] MEDS: TAMSULOSIN 0.4 MG CAP PO SCH (08:45)
[2020-04-05] MEDS: DOXYCYCLINE HYCLATE 100MG TABLET PO SCH (08:45)
[2020-04-05] MEDS: amLODIPine 10 MG TAB PO SCH (08:45)
[2020-04-05] MEDS: MONTELUKAST 10 MG TAB PO SCH (08:45)
[2020-04-05] MEDS: NEORAL 25 MG CAP (J7515) PO SCH (08:46)
[2020-04-05] MEDS: LABETALOL 200 MG TAB PO SCH (08:50)
[2020-04-05] MEDS ORDERED: BICITRA 30ML SOLN UDC PO SCH (09:00)
[2020-04-05] MEDS: SYMBICORT 80/4.5MCG INHALER 6GM INH SCH (09:44)
--- NOTE | 2020-04-05 10:06 | DS.PDOC ---
Discharge Summary General Date of Admission Apr 03, 2020 at 20:12 Date of Discharge 04/05/20 Discharge Summary PROCEDURES PERFORMED DURING STAY: [None]. ADMITTING DIAGNOSES: COVID-19 infection Acute asthma exacerbation Acute renal failure Microscopic hematuria Hyperkalemia Hypertensive urgency R knee effusion NIDDM Chronic bicytopenia KALANI DISCHARGE DIAGNOSES: COVID-19 infection Acute asthma exacerbation Acute renal failure Microscopic hematuria Hyperkalemia Hypertensive urgency R knee effusion NIDDM Chronic bicytopenia KALANI COMPLICATIONS/CHIEF COMPLAINT: Acute Renal Failure/Covid-19/Hypertensive U rgency/. HISTORY OF PRESENT ILLNESS: This 70 year old gentleman who has a known diagnosis of COVID19 presented with complaints of cough, shortness of breath that is worse with speaking and exertion, along with weakness. He denied having chest pain, fever, chills, change in his sense of taste or smell, nausea, vomiting or diarrhea. He was found to have KATHERIN; because of his history of renal transplant Dr. Ahumada discussed the case with Dr. Schaffer who recommended holding his mycophenolate. The patient mentioned that he has reduced mobility in the left knee, which he feels is primarily because he hasn't been able to attend physical therapy after having left knee surgery in January. Unfortunately he developed a infection after the procedure was on IV medications for several weeks and is currently on doxycycline. HOSPITAL COURSE: #Covid-19 Infection w/ superimposed bacterial pna: airborne/contact precautions. Monitor inflammatory markers. D dimer trending down. Trop 0.02. c/w ceftriaxo ne. Doxycycline. DC azithromycin. F/u sputum cultures. Legionella, strep ag pending. IV solumedrol. #Acute asthma exacerbation 2/2 covid-19 infection: #Acute renal failure: s/p Renal transplant. Nephrology consulted. Continue with prednisone once solumedrol stopped, cyclosporine. Hold mycophenolate. Cr mild improvement on BNP. #Microscopic hematuria: D/w Dr. Morejon, urology. Rec urine cytology, urine culture. Replace ochoa if in for > 4 weeks. Follow up with primary urologist as outpatient. #Hyperkalemia: resolved. S/p bicarb, insulin, dextrose #Hypertensive urgency: resolved. amlodipine. Labetalol prn. #R knee effusion: chronic. Hx of osteomyelitis. Treated for 6 weeks with IV abx. Now on doxycycline. Followed by ID at [facility] in [place] (ID clinic tel: [phone]). patient was treated for osteo/surgical site infection, culture pos for straph epi. Complated 6 weeks of IV abx. Plan for additinal 2 mo of doxy. Was advised to follow up with ID at [facility] or at [facility]. #NIDDM: hypoglycemic precs. ISS. FSBS. #Chronic bicytopenia: follow up b12, folate wnl. #KALANI: home cpap Patient was advised to remain in hospital for ongoing workup and monitoring of renal function. Patient remained insistent on going home. Prescriptions were sent. Follow up was encouraged. DISCHARGE MEDICATIONS: Please see below. ALLERGIES: Please see below. PHYSICAL EXAMINATION ON DISCHARGE: VITAL SIGNS: please see below General: NAD, comfortable HEENT: PERRLA, EOMI, sclerae clear Neck: supple, normal ROM, no JVD Respiratory: coarse breath sounds, poor inspiratory effort, no wheeze, no rales, no crackles CVS: RRR, normal S1, S2, no murmurs Abdo: soft, no masses, no hepatosplenomegaly, BS+, no rebound tenderness Extremities: no edema, pulses 2+ MSK: R knee incision scar, healing well, swelling of knee joint, mild ttp in over patella, joint line. L knee scar, old, healed. Neuro: no focal neuro deficits, moving all 4 extremities, CN2-12 intact. Strength 5/5 in all 4 extremities. No nystagmus. Psych: calm, cooperative, AAO x 3 LABORATORY DATA: Please see below. IMAGING: CXR (04/03/20): FINDINGS: The mediastinum and cardiac silhouette are stable and within normal limits for portable technique. There is an ill-defined area of opacity in the right mid lung zone as well as suspected perihilar and left basilar atelectasis. No effusion. No pneumothorax. Skeletal structures are intact. IMPRESSION: Somewhat ill-defined opacities as described above. Atelectasis versus pneumonia. Consider chest CT for further investigation. R knee XR (04/05/20): FINDINGS: There is evidence for prior arthroplasty. Significant soft tissue swelling along with joint/suprapatellar effusion is identified as well as elements of ill-defined dystrophic calcifications primarily noted within the posterior aspect of the joint space. Findings are highly suspicious for underlying infectious process and osteomyelitis cannot definitively be excluded. IMPRESSION: Soft tissue swelling, joint effusion, irregular dystrophic articular calcifications highly suspicious for infectious process and osteomyelitis cannot be excluded as well. Renal US (04/04/20): FINDINGS: Right kidney: Interval decrease in the size of complex cystic lesion in the superior pole of the right kidney currently measuring approximately 4.7 x 5.3 cm in diameter versus 6 x 5.5 cm on the previous exam. Right renal cortical thinning and increased echogenicity. Left kidney: Marked cortical atrophy comanche left kidney with several simple parapelvic left renal cysts. These measure up to 4.8 cm. Renal transplant in the pelvis demonstrates mild hydronephrosis. Resistive index is 0.68 Bladder: Urinary bladder is contracted around Ochoa balloon catheter. IMPRESSION: Renal transplant in the pelvis demonstrates mild hydronephrosis. Resistive index is 0.68 PROGNOSIS: fair ACTIVITY: As tolerated DIET: renal DISCHARGE PLAN: patient left AMA. Advised to follow up with PCP, nephrology once out of quarantine window, ID clinic. DISPOSITION: . DISCHARGE INSTRUCTIONS: . Please follow-up with your primary care doctor within 3-5 days . Please follow-up with nephrology 2 weeks . Please follow up with ID in 2 weeks. . Please taking medications as prescribed. . If you develop bleeding, chest pain, shortness of breath, seizures, nausea, fevers, or otherwise worsening of your symptoms, please call 911 or return to the nearest emergency room DISCHARGE CONDITION: Stable TIME SPENT ON DISCHARGE: time spent on DC 35 minutes. Patient LEFT AMA. Vital Signs/I&Os Vital Signs Date Time Temp Pulse Resp B/P (MAP) Pulse Ox O2 Delivery O2 Flow Rate FiO2 04/05/20 09:00 97.2 67 18 157/91 (113) 95 Room Air I&O- Last 24 Hours up to 6 AM 04/05/20 06:00 Intake Total 4130 ml Output Total 2525 ml Balance 1605 ml Laboratory Data Labs 24H Laboratory Tests 2 04/04/20 12:25: Bedside Glucose (Misc Panel) 329H 04/04/20 16:56: Bedside Glucose (Misc Panel) 337H 04/04/20 16:59: Troponin I < 0.02 04/04/20 21:31: Bedside Glucose (Misc Panel) 367H 04/05/20 04:49: Immature Granulocyte % (Auto) 0.2, Neutrophils (%) (Auto) 89.7H, Lymphocytes (%) (Auto) 6.1L, Monocytes (%) (Auto) 4.0, Eosinophils (%) (Auto) 0.0, Basophils (%) (Auto) 0.0, Neutrophils # (Auto) 4.3, Lymphocytes # (Auto) 0.3L, Monocytes # (Auto) 0.2, Eosinophils # (Auto) 0.0, Basophils # (Auto) 0.0, Nucleated Red Blood Cells % (auto) 0.0, Immature Platelet Fraction 3.6, Prothrombin Time 14.5H, Prothromb Time International Ratio 1.11, Activated Partial Thromboplast Time 43.9H, Fibrinogen 511H, D-Dimer, Quantitative 3626.46H, Anion Gap 11, Glomerular Filtration Rate 39.7L, Calcium Level 8.1L, Magnesium Level 2.3, Total Bilirubin 0.5, Aspartate Amino Transf (AST/SGOT) 23, Alanine Aminotransferase (ALT/SGPT) 15, Alkaline Phosphatase 53, Troponin I < 0.02, Total Protein 6.1L, Albumin 2.7L, Albumin/Globulin Ratio 0.8 CBC/BMP Laboratory Tests 04/05/20 04:49 FSBS Laboratory Tests Test 04/04/20 12:25 04/04/20 16:56 04/04/20 21:31 Range/Units Bedside Glucose (Misc Panel) 329 337 367 80-115 MG/DL Microbiology Microbiology 04/03/20 Blood Culture - Preliminary, Resulted No growth after 24 hours . All specim... 04/03/20 Blood Culture - Preliminary, Resulted No growth after 24 hours . All specim... 04/03/20 Gram Stain - Final, Complete 04/03/20 Sputum Culture - Final, Complete Discharge Medications Scheduled Amlodipine Besylate (Amlodipine Besylate) 10 Mg Tab, 10 MG PO DAILY, (Reported) Aspirin (Aspirin EC) 81 Mg Tab, 81 MG PO DAILY, (Reported) Blood Sugar Diagnostic (Advanced Glucose Test Strips) 1 Each Strip, 100 STRIP XX ASDIRECTED Chlorthalidone (Chlorthalidone) 12.5 Mg Halftab, 12.5 MG PO DAILY, (Reported) Cyclosporine, Modified (Cyclosporine Modified) 25 Mg Capsule, 75 MG PO DAILY, (Reported) TAKE WITH 100MG CAPS Cyclosporine, Modified (Cyclosporine Modified) 100 Mg Capsule, 100 MG PO BID, (Reported) TAKE WITH 75MG QAM AND 50MG QHS. 175MG TOTAL QAM AND 150MG TOTAL QHS. Cyclosporine, Modified (Cyclosporine Modified) 25 Mg Capsule, 50 MG PO QHS, (Reported) WITH 100MG CAPS Doxycycline Hyclate (Doxycycline Hyclate) 100 Mg Tablet, 100 MG PO BID, (Reported) Ferric Citrate (Auryxia) 210 Mg Tab, 210 MG PO DAILY, (Reported) Finasteride (Finasteride) 5 Mg Tablet, 5 MG PO DAILY, (Reported) Insulin Human Lispro (Humalog) 100 Unit/1 Ml Vial, 1 UNITS SC ACHS Labetalol HCl (Labetalol HCl) 200 Mg Tab, 200 MG PO TID, (Reported) Magnesium Oxide (Magnesium Oxide) 400 Mg Tablet, 400 MG PO TID, (Reported) Montelukast Sodium (Singulair) 10 Mg Tab, 10 MG PO DAILY, (Reported) Multivitamins (Thera M Plus Tablet) 1 Tab Tab, 1 TAB PO DAILY, (Reported) Niacin (Niacin) 500 Mg Tab, 500 MG PO DAILY, (Reported) Prednisone (Prednisone) 5 Mg Tab, 5 MG PO DAILY Prednisone (Prednisone) 10 Mg Tablet, 10 MG PO TAPER Take 4 tabs daily x 3 days, then 3 tabs daily x 3 days, then 2 tabs daily x 3 days, then 1 tab daily x 3 days and stop Salmeterol/Fluticasone (Advair 100-50 Diskus) 1 Each Blst.w.dev, 1 PUFF INH BID Tamsulosin HCl (Flomax) 0.4 Mg Capsule, 0.4 MG PO DAILY, (Reported) Scheduled PRN Acetaminophen (Acetaminophen) 325 Mg Tablet, 650 MG PO Q4H PRN for PAIN OR FEVER Albuterol Sulfate (Proair Hfa) 108 Mcg/Act Aer, 2 PUFF INH QID PRN for SHORTNESS OF BREATH, (Reported) Benzonatate (Benzonatate) 100 Mg Capsule, 100 MG PO TIDP PRN for COUGH Fluticasone Propionate (Flonase Allergy Relief) 50 Mcg/Act Spr, 1 SPRAY NARES BID PRN for CONGESTION, (Reported) Pantoprazole Sodium (Pantoprazole Sodium) 40 Mg Tab, 40 MG PO DAILY PRN for HEARTBURN, (Reported) Allergies Coded Allergies: codeine (Verified Allergy, Unknown, 04/01/19) SHAUN CAMERON MD Apr 05, 2020 10:06
[2020-04-05] MEDS ORDERED: FLUBLOK(EGG FREE)(QUAD)INFLUENZA VACC 0.5ML SYRINGE 18YRS & OLDER IM ONE (10:30)
[2020-04-05] MEDS ORDERED: LANC30MI XX (10:36)
[2020-04-05] MEDS ORDERED: SYMB80INH INH (10:36)
[2020-04-05] MEDS ORDERED: ALCOPAD25 TOP (10:36)
[2020-04-05] MEDS ORDERED: PRED10TA2 PO (10:36)
[2020-04-05] MEDS ORDERED: PEN1MIS21 SC (10:36)
[2020-04-05] MEDS ORDERED: PRED5TA PO (10:36)
[2020-04-05] MEDS ORDERED: GLUC1TES2 XX (10:36)
[2020-04-05] MEDS ORDERED: PEN1MIS22 SC (10:36)
[2020-04-05] MEDS ORDERED: ACET1TAB55 PO (10:36)
[2020-04-05] MEDS ORDERED: BENZ-18 PO (10:36)
[2020-04-05] MEDS ORDERED: INSU1MIS20 SC (10:36)
[2020-04-05] MEDS ORDERED: ADV100INH INH (11:33)
[2020-04-05] MEDS ORDERED: INSUHUMDS SC (11:35)
[2020-04-06 14:08] LABS: CHLAMYDIA PNEUMONIAE IgM <1:10 (Neg:<1:10); MYCOPLASMA PNEUMONIAE IgG 508 U/mL (0-99); MYCOPLASMA PNEUMONIAE IgM <770 U/mL (0-769)
[2020-04-06] MEDS ORDERED: APAP325T4 PO (16:15)
[2020-04-06 20:07] LABS: BODY FLUID CULTURE Not indicated. (.); LEGIONELLA ANTIGEN URINE Negative (Negative); ORGANISM ID Not indicated. (.); SPECIMEN SOURCE Urine (.); URINE STREP PNEUMONIAE ANTIGEN Negative (Negative)
== END 2020-04-05 13:44 | disposition left against medical advice (07) | DRG 177 ==
LOC: M ED 19:38 → M ED INP 20:12 → M ICU 20:57
PROVIDERS: ADMIT Internal Medicine; ATTEND Family Medicine
PROC: XW033E5 Introduction of Remdesivir Anti-infective into Peripheral Vein, Percutaneous Approach, New Technology Group 5 (ICD-10-PCS; principal; 2020-04-03)
DX: U07.1 COVID-19 (principal); J15.9 Unspecified bacterial pneumonia; N17.9 Acute kidney failure, unspecified; Z94.0 Kidney transplant status; J45.901 Unspecified asthma with (acute) exacerbation; Q61.3 Polycystic kidney, unspecified; D69.6 Thrombocytopenia, unspecified; D63.8 Anemia in other chronic diseases classified elsewhere; G47.33 Obstructive sleep apnea (adult) (pediatric); I10 Essential (primary) hypertension; E11.9 Type 2 diabetes mellitus without complications; K27.9 Peptic ulcer, site unspecified, unspecified as acute or chronic, without hemorrhage or perforation; E87.5 Hyperkalemia; I16.0 Hypertensive urgency; M25.462 Effusion, left knee; Z79.82 Long term (current) use of aspirin; Z79.899 Other long term (current) drug therapy; Z85.46 Personal history of malignant neoplasm of prostate; Z79.52 Long term (current) use of systemic steroids; Z88.5 Allergy status to narcotic agent; R31.29 Other microscopic hematuria

== ENCOUNTER 2020-04-06 14:34 | Inpatient (IN) | payer MEDICARE, OTHER ==
[~2020-04-06] VITALS: Ht 182.9 cm; Wt 86.5 kg
[~2020-04-06 14:34] MED LIST changes: +ADV100INH INH; +ALCOPAD25 TOP; +ARNU1INH PO; +BENZ-18 PO; +CYCL1CAP5 PO; +CYCL25CA6 PO; +DOXY100T PO; +ETOMIDATE INJ 20MG/10ML VIAL ONE; +FINA5TAB2 PO; +FLOM0.4C39 PO; +GLUC1TES2 XX; +INSU1MIS20 SC; +INSUHUMDS SC; +LANC30MI XX; +MAGN400T2 PO; +PEN1MIS21 SC; +PEN1MIS22 SC; +PRED10TA2 PO; +SUCCINYLCHOLINE 100 MG/5 ML SYRINGE (J0330) ONE; +SYMB80INH INH; +propofoL 200 MG/20 ML VIAL ONE
[2020-04-06] MEDS ORDERED: guaiFENesin DM LIQ 10ML UD PO ONE (16:00)
[2020-04-06] MEDS ORDERED: APAP325T4 PO (16:15)
--- NOTE | 2020-04-06 16:20 | REP ---
INDICATION: Coronavirus workup COMPARISON: 04/03/2020 TECHNIQUE: Portable AP view of the chest FINDINGS: The mediastinum and cardiac silhouette are stable and within normal limits for portable technique. Increasing perihilar, right upper lobe, and left lower lobe infiltrates compatible with multifocal pneumonia and COVID-19 pulmonary disease. IMPRESSION: Increasing multifocal infiltrates compatible with COVID-19 pulmonary disease. <Electronically signed by Demario Bernal > 04/06/20 [id number]
[2020-04-06 16:23] LABS: BASO % 0.1 % (0.0-1.0); HEMATOCRIT 39.1 % (42.0-52.0); HEMOGLOBIN 12.3 g/dl (13.5-17.5); LYMPH # 0.3 10^3/uL (1.5-5.0); LYMPH % 2.3 % (24.0-44.0); MEAN CORPUSCULAR HEMOGLOBIN 25.3 pg (27.0-33.0); MEAN CORPUSCULAR HGB CONC 31.5 g/dl (32.0-36.5); MEAN CORPUSCULAR VOLUME 80.5 fl (80.0-96.0); MONO # 0.6 10^3/uL (0.0-0.8); MONO % 3.8 % (0.0-5.0); NEUTROPHILS # 13.6 10^3/uL (1.5-8.5); NEUTROPHILS % 92.7 % (36.0-66.0); PLATELET COUNT, AUTOMATED 134 10^3/uL (150-450); RED BLOOD COUNT 4.86 10^6/uL (4.30-6.10); WHITE BLOOD COUNT 14.6 10^3/uL (4.0-10.0)
[2020-04-06 16:34] LABS: INR 0.97; PROTHROMBIN TIME 13.1 SECONDS (12.5-14.3)
[2020-04-06 16:38] LABS: D-DIMER QUANT 3049.43 ng/ml (<500)
[2020-04-06 16:58] LABS: ALBUMIN 3.2 GM/DL (3.2-5.2); ALT/SGPT 18 U/L (12-78); BILIRUBIN,TOTAL 0.6 MG/DL (0.2-1.0); BLOOD UREA NITROGEN 44 MG/DL (7-18); C REACTIVE PROTEIN QUANTITATIV 1.87 MG/DL (0.00-0.30); CARBON DIOXIDE LEVEL 20 MEQ/L (21-32); CHLORIDE LEVEL 107 MEQ/L (98-107); CK-MB VALUE MASS 1.5 NG/ML (<3.6); CPK CREATINE PHOSPHOKINASE 110 U/L (39-308); FERRITIN 888 NG/ML (26-388); GLOMERULAR FILTRATION RATE 36.6 (>49); GLUCOSE, FASTING 296 MG/DL (70-100); LDH LACTATE DEHYDROGENASE 487 U/L (87-241); MAGNESIUM LEVEL 2.4 MG/DL (1.8-2.4); MB/CK RELATIVE INDEX 1.36 (< OR =4); POTASSIUM SERUM 4.5 MEQ/L (3.5-5.1); SODIUM LEVEL 138 MEQ/L (136-145); TOTAL PROTEIN 6.7 GM/DL (6.4-8.2); TROPONIN I < 0.02 NG/ML (< 0.10)
[2020-04-06] MEDS ORDERED: NS 1,000 ML IV ONE ×2 (17:00→18:00)
--- NOTE | 2020-04-06 18:07 | HPEPDOC ---
[facility] Medical History & Physical Date of Admission Apr 06, 2020 Date of Service: Apr 06, 2020 History and Physical CHIEF COMPLAINT: Seizures of breath and cough HISTORY OF PRESENT ILLNESS: 70-year-old male with a history of ESRD status post renal transplant, asthma, chronic anemia, S2, prostate cancer, diabetes type 2, hypertension, recently diagnosed with Coban 19 and admitted to [facility] for a KCI. Patient left AGAINST MEDICAL ADVICE on 04/05. Patient returns to the ED after and this was called to his home for significant shortness of breath and cough. Patient states "I was coughing up along". On arrival to the ED, patient desaturated to the low 80s and minimal exertion. Upon being transferred from stretcher to bed. Vital signs reviewed. Patient is approximately 80s, saturating 95% on 3 L via nasal cannula. HR 100. EKG NSR. WBC 14.6. Hemoglobin 12.3. Platelets 134. NA 138. Potassium 4.5. Creatinine 2.3. Lactic acid 4.7. Troponin negative. Lactic acidosis. Patient was given a liter of fluid in the ED. Chest x-ray shows increasing multifocal infiltrates compatible with Covid 19 disease. 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 Lives with his in [facility] He doesn't smoke, drink or use recreational drugs FAMILY HISTORY: Mother - diabetic ALLERGIES: Please see below. REVIEW OF SYSTEMS: CONSTITUTIONAL: patient denies fevers, chills HEENT: patient denies blurred vision, loss of vision, headache,. CARDIOVASCULAR: patient denies chest pain, palpitations. RESPIRATORY: Patient reports significant cough and shortness of breath GASTROINTESTINAL: patient denies abdominal pain, n/v/d, blood in stool. GENITOURINARY: patient denies dysuria, discharge. SKIN: patient denies rashes. MUSCULOSKELETAL: patient denies joint pain, neck pain. NEUROLOGICAL: patient denies focal weakness, numbness, seizures. PSYCHIATRIC: patient denies SI/HI. ENDOCRINE: patient denies polyuria, heat intolerance, cold intolerance. HEMATOLOGIC/LYMPHATIC: patient denies easy bruising. HOME MEDICATIONS: Please see below. PHYSICAL EXAMINATION: VITAL SIGNS: please see below General: NAD, comfortable HEENT: PERRLA, EOMI, sclerae clear Neck: supple, normal ROM, no JVD Respiratory: lungs CTAB, no wheeze, no rales, no crackles CVS: RRR, normal S1, S2, no murmurs Abdo: soft, no masses, no hepatosplenomegaly, BS+, no rebound tenderness Extremities: no edema, pulses 2+ MSK: no joint deformities, normal ROM Neuro: no focal neuro deficits, moving all 4 extremities, CN2-12 intact. Strength 5/5 in all 4 extremities. No nystagmus. Psych: calm, cooperative, AAO x 3 LABORATORY DATA: See below. IMAGING: CXR 04/06/20: Increasing multifocal infiltrates compatible with COVID-19 pulmonary disease. Renal ultrasound 04/04/20: Right kidney: Interval decrease in the size of complex cystic lesion in the superior pole of the right kidney currently measuring approximately 4.7 x 5.3 cm in diameter versus 6 x 5.5 cm on the previous exam. Right renal cortical thinning and increased echogenicity. Left kidney: Marked cortical atrophy ramona left kidney with several simple parapelvic left renal cysts. These measure up to 4.8 cm. Renal transplant in the pelvis demonstrates mild hydronephrosis. Resistive index is 0.68 Bladder: Urinary bladder is contracted around Cast balloon catheter. IMPRESSION: Renal transplant in the pelvis demonstrates mild hydronephrosis. Resistive index is 0.68 MICROBIOLOGY: Please see below. ASSESSMENT: 70-year-old male with a history of ESRD status post renal transplant, asthma, chronic anemia, S2, prostate cancer, diabetes type 2, hypertension, recently diagnosed with COVID-19. Patient returns to the ED with worsening shortness of breath and cough. Reviewed microbiology data from prior admission. Urine antigens positive for Mycoplasma and Chlamydia pneumoniae. We'll continue doxycycline as indication for therapy and will add broad-spectrum metabolic including vancomycin and Zosyn. Patient will continue to receive high- dose IV steroids as well as IV hydration with normal saline given a KCI and liver elevated lactic acid. PLAN: #Covid-19 Infection: airborne/contact precautions. WBC 14.6, elevated from 04/05. T Monitor inflammatory markers. C/w IV solumedrol 80 mg TID. #SEPSIS 2/2 CAP: superimposed on COVID-19 infection. Broad spec abx: Vanc, Zosyn. Doxycycline IV for Mycoplasma ag, C. pneumonia ag (positive Ag screen). F/u blood and sputum cultures (cx from 04/04 contaminated). IV solumedrol. IVF. #ESRD: s/p Renal transplant. CR remains relatively stable (2.3). Discussed with Dr. Schaffer. Continue Solumedrol 80 mg IV every 8 hours. c/w cyclosporine. Hold mycophenolate. Patient has Cast. No need to repeat renal US. IVF NS. #Microscopic hematuria: D/w Dr. Morejon, urology on 04/05. Follow up urine cytology culture from 04/04/20. Cast last replaced 04/06 (patient does self exchange). Follow up with primary urologist as outpatient. #Hypertensive urgency: amlodipine. labetalol. IV labetalol prn. #R knee effusion: chronic. Hx of osteomyelitis. Treated for 6 weeks with IV abx. Now on doxycycline x 2 mo. Followed by ID at [facility] (ID clinic tel: [phone]) #NIDDM: hypoglycemic precs. ISS. FSBS. #Chronic bicytopenia: follow up b12, folate wnl. #KALANI: home cpap Vital Signs Vital Signs Date Time Temp Pulse Resp B/P (MAP) Pulse Ox O2 Delivery O2 Flow Rate FiO2 04/06/20 15:00 174/92 (119) 04/06/20 15:00 20 94 Nasal Cannula 4.0 04/06/20 14:49 102 04/06/20 14:37 100.1 Laboratory Data Labs 24H Laboratory Tests 2 04/06/20 15:37: Immature Granulocyte % (Auto) 1.1, Neutrophils (%) (Auto) 92.7H, Lymphocytes (%) (Auto) 2.3L, Monocytes (%) (Auto) 3.8, Eosinophils (%) (Auto) 0.0, Basophils (%) (Auto) 0.1, Neutrophils # (Auto) 13.6H, Lymphocytes # (Auto) 0.3L, Monocytes # (Auto) 0.6, Eosinophils # (Auto) 0.0, Basophils # (Auto) 0.0, Nucleated Red Blood Cells % (auto) 0.0, Prothrombin Time 13.1, Prothromb Time International Ratio 0.97, Activated Partial Thromboplast Time 24.0L, Fibrinogen 462H, D-Dimer, Quantitative 3049.43H, Anion Gap 11, Glomerular Filtration Rate 36.6L, Lactic Acid Level 4.7*H, Calcium Level 9.0, Magnesium Level 2.4, Ferritin 888H, Total Bilirubin 0.6, Aspartate Amino Transf (AST/SGOT) 29, Alanine Aminotransferase (ALT/SGPT) 18, Alkaline Phosphatase 61, Lactate Dehydrogenase 487H, Total Creatine Kinase 110, Creatine Kinase MB 1.5, Creatine Kinase MB Relative Index 1.36, Troponin I < 0.02, C-Reactive Protein, Quantitative 1.87H, Total Protein 6.7, Albumin 3.2, Albumin/Globulin Ratio 0.9, Procalcitonin 0.09 CBC/BMP Laboratory Tests 04/06/20 15:37 Microbiology Microbiology 04/06/20 Blood Culture, Received Pending 04/06/20 Blood Culture, Received Pending Home Medications Scheduled Amlodipine Besylate (Amlodipine Besylate) 10 Mg Tab, 10 MG PO DAILY Aspirin (Aspirin EC) 81 Mg Tab, 81 MG PO DAILY Chlorthalidone (Chlorthalidone) 12.5 Mg Halftab, 12.5 MG PO DAILY Cyclosporine, Modified (Cyclosporine Modified) 25 Mg Capsule, 75 MG PO DAILY TAKE WITH 100MG CAPS Cyclosporine, Modified (Cyclosporine Modified) 100 Mg Capsule, 100 MG PO BID TAKE WITH 75MG QAM AND 50MG QHS. 175MG TOTAL QAM AND 150MG TOTAL QHS. Cyclosporine, Modified (Cyclosporine Modified) 25 Mg Capsule, 50 MG PO QHS WITH 100MG CAPS Doxycycline Hyclate (Doxycycline Hyclate) 100 Mg Tablet, 100 MG PO BID Ferric Citrate (Auryxia) 210 Mg Tab, 210 MG PO DAILY Finasteride (Finasteride) 5 Mg Tablet, 5 MG PO DAILY Insulin Human Lispro (Humalog) 100 Unit/1 Ml Vial, 1 UNITS SC ACHS Labetalol HCl (Labetalol HCl) 200 Mg Tab, 200 MG PO TID Magnesium Oxide (Magnesium Oxide) 400 Mg Tablet, 400 MG PO TID Montelukast Sodium (Singulair) 10 Mg Tab, 10 MG PO DAILY Multivitamins (Thera M Plus Tablet) 1 Tab Tab, 1 TAB PO DAILY Niacin (Niacin) 500 Mg Tab, 500 MG PO DAILY Prednisone (Prednisone) 5 Mg Tab, 5 MG PO DAILY Prednisone (Prednisone) 10 Mg Tablet, 10 MG PO TAPER Take 4 tabs daily x 3 days, then 3 tabs daily x 3 days, then 2 tabs daily x 3 days, then 1 tab daily x 3 days and stop Salmeterol/Fluticasone (Advair 100-50 Diskus) 1 Each Blst.w.dev, 1 PUFF INH BID Tamsulosin HCl (Flomax) 0.4 Mg Capsule, 0.4 MG PO DAILY Scheduled PRN Acetaminophen (Acetaminophen) 325 Mg Tablet, 325 MG PO Q4H PRN for PAIN / FEVER Albuterol Sulfate (Proair Hfa) 108 Mcg/Act Aer, 2 PUFF INH QID PRN for SHORTNESS OF BREATH Benzonatate (Benzonatate) 100 Mg Capsule, 100 MG PO TIDP PRN for COUGH Fluticasone Propionate (Flonase Allergy Relief) 50 Mcg/Act Spr, 1 SPRAY NARES BID PRN for CONGESTION Pantoprazole Sodium (Pantoprazole Sodium) 40 Mg Tab, 40 MG PO DAILY PRN for HEA RTBURN Allergies Coded Allergies: codeine (Verified Allergy, Unknown, 04/01/19) A-FIB/CHADSVASC A-FIB History Current/History of A-Fib/PAF?: No Current PO Anticoag Therapy: No SHAUN CAMERON MD Apr 06, 2020 18:07
[2020-04-06] MEDS ORDERED: MAALOX 30 ML SUSP *UDC PO PRN (18:30)
[2020-04-06] MEDS ORDERED: PANTOPRAZOLE 40MG TAB (PROTONIX) PO PRN (18:30)
[2020-04-06] MEDS ORDERED: MOM 30ML SUSPENSION UDC PO PRN (18:30)
[2020-04-06] MEDS ORDERED: PIPERACILLIN/TAZOBACTAM SOD 3.375 GM in D5W MINI-BAG PLUS 50 ML IV SCH (19:00)
[2020-04-06] MEDS ORDERED: VANCOMYCIN HCL 1,000 MG in IV FLUID PLACE HOLDER 1 EA IV SCH (19:00)
[2020-04-06] MEDS ORDERED: LABETALOL 100MG/20ML VIAL IV PRN (19:00)
[2020-04-06] MEDS ORDERED: GLUCAGON INJ 1MG VIAL SC PRN (19:15)
[2020-04-06] MEDS ORDERED: GLUCOSE 4GM CHEW TABLET PO PRN (19:15)
[2020-04-06] MEDS ORDERED: DEXTROSE 50% 50 ML SYRINGE IV PRN (19:15)
[2020-04-06 20:25] VITALS: BP 172/87
[2020-04-06 20:42] VITALS: BP 157/92
[2020-04-06] MEDS ORDERED: NEORAL 100 MG CAP (J7502) PO SCH (21:00)
[2020-04-06] MEDS ORDERED: DOXYCYCLINE HYCLATE 100MG TABLET PO SCH (21:00)
[2020-04-06] MEDS ORDERED: NEORAL 25 MG CAP (J7515) PO SCH (21:00)
[2020-04-06] MEDS: DOCUSATE SODIUM 100MG CAPSULE PO SCH (21:56)
[2020-04-06] MEDS: BENZONATATE 100 MG CAP PO PRN (21:56)
[2020-04-06] MEDS: ACETAMINOPHEN TAB 650MG DOSE (2X325MG) PO PRN (21:56)
[2020-04-06] MEDS: LABETALOL 200 MG TAB PO SCH (21:57)
[2020-04-06] MEDS: MAGNESIUM OXIDE 400 MG TAB (MAG-OX) PO SCH (21:57)
[2020-04-06] MEDS: methylPREDNISolone 125MG 2ML VIAL IV SCH (21:58)
[2020-04-06] MEDS: PIPERACILLIN/TAZOBACTAM SOD 2.25 GM in D5W MINI-BAG PLUS 50 ML IV SCH (21:58)
[2020-04-06] MEDS: HumaLOG INSULIN (NovoLOG) PER UNIT SC SCH (22:02)
[2020-04-06] MEDS ORDERED: VANCOMYCIN HCL 1,000 MG, VIAL MATE ADAPTER 1 EACH in D5W 250 ML IV ONE (23:00)
[2020-04-06] MEDS: DOXYCYCLINE HYCLATE 100 MG in D5W MINI-BAG PLUS 100 ML IV SCH (23:41)
[2020-04-07] VITALS: BP 162/88
[2020-04-07] MEDS: ADVAIR HFA 45/21MCG INHALER INH SCH ×3 (01:05→20:39)
[2020-04-07] MEDS: COMBIVENT RESPIMAT 100-20MCG INHALER 4GM INH SCH ×5 (01:05→20:00)
[2020-04-07] MEDS: PIPERACILLIN/TAZOBACTAM SOD 2.25 GM in D5W MINI-BAG PLUS 50 ML IV SCH ×2 (01:15→08:39)
[2020-04-07] MEDS: VANCOMYCIN HCL 1,000 MG, VIAL MATE ADAPTER 1 EACH in D5W 250 ML IV SCH ×2 (01:16→22:41)
[2020-04-07 01:25] VITALS: O2SAT 92
[2020-04-07] MEDS: methylPREDNISolone 125MG 2ML VIAL IV SCH (03:00)
[2020-04-07 04:00] VITALS: BP 173/89
--- NOTE | 2020-04-07 07:41 | ECGEPIP ---
[facility] - ED Test Date: 2020-04-06 Pat Name: JOHN HUFF Department: Room: - Gender: Male [employer] Pourer: ruben : 1950 Requested By: TRINITY LEROY Order Number: [id number] Reading MD: Emily Hughes Measurements Intervals [place]aks Rate: 90 P: 29 HI: 161 QRS: -37 QRSD: 100 T: 54 QT: 338 QTc: 414 Interpretive Statements SINUS RHYTHM MARKED LEFT AXIS DEVIATION NONSPECIFIC T-WAVE ABNORMALITY INCREASED RATE 04/03/20 Electronically Signed on 04-07-2020 7:40:51 EST by Emily Hughes
[2020-04-07 08:36] LABS: HEMATOCRIT 38.7 % (42.0-52.0); HEMOGLOBIN 12.1 g/dl (13.5-17.5); LYMPH # 0.2 10^3/uL (1.5-5.0); LYMPH % 1.8 % (24.0-44.0); MEAN CORPUSCULAR HEMOGLOBIN 25.4 pg (27.0-33.0); MEAN CORPUSCULAR HGB CONC 31.3 g/dl (32.0-36.5); MEAN CORPUSCULAR VOLUME 81.1 fl (80.0-96.0); MONO # 0.2 10^3/uL (0.0-0.8); MONO % 1.4 % (0.0-5.0); NEUTROPHILS # 10.1 10^3/uL (1.5-8.5); NEUTROPHILS % 95.1 % (36.0-66.0); PLATELET COUNT, AUTOMATED 110 10^3/uL (150-450); RED BLOOD COUNT 4.77 10^6/uL (4.30-6.10); WHITE BLOOD COUNT 10.6 10^3/uL (4.0-10.0)
[2020-04-07] MEDS: HumaLOG INSULIN (NovoLOG) PER UNIT SC SCH ×4 (08:36→21:14)
[2020-04-07] MEDS: FINASTERIDE 5 MG TAB PO SCH (08:37)
[2020-04-07] MEDS: DOCUSATE SODIUM 100MG CAPSULE PO SCH ×2 (08:37→21:13)
[2020-04-07] MEDS: NEORAL 25 MG CAP (J7515) PO SCH ×2 (08:37→21:13)
[2020-04-07] MEDS: ASPIRIN 81 MG ENTERIC TAB PO SCH (08:37)
[2020-04-07] MEDS: TAMSULOSIN 0.4 MG CAP PO SCH (08:37)
[2020-04-07] MEDS: MAGNESIUM OXIDE 400 MG TAB (MAG-OX) PO SCH ×2 (08:38→16:00)
[2020-04-07] MEDS: MULTIVITAMINS/MINERALS THERAP 1 TAB PO SCH (08:38)
[2020-04-07] MEDS: LABETALOL 200 MG TAB PO SCH ×3 (08:38→21:14)
[2020-04-07] MEDS: amLODIPine 10 MG TAB PO SCH (08:38)
[2020-04-07] MEDS: MONTELUKAST 10 MG TAB PO SCH (08:38)
[2020-04-07] MEDS: DOXYCYCLINE HYCLATE 100 MG in D5W MINI-BAG PLUS 100 ML IV SCH ×2 (08:47→21:14)
[2020-04-07] MEDS: ACETAMINOPHEN TAB 650MG DOSE (2X325MG) PO PRN ×2 (08:55→23:12)
[2020-04-07] MEDS: BENZONATATE 100 MG CAP PO PRN ×2 (08:55→17:10)
[2020-04-07] MEDS ORDERED: NEORAL 25 MG CAP (J7515) PO SCH (09:00)
[2020-04-07] MEDS ORDERED: CHLORTHALIDONE 12.5MG PER 1/2 TABLET PO SCH (09:00)
[2020-04-07 09:06] LABS: INR 1.04; PROTHROMBIN TIME 13.8 SECONDS (12.5-14.3)
[2020-04-07 09:07] LABS: PARTIAL THROMBOPLASTIN TIME 27.5 SECONDS (24.2-38.5)
[2020-04-07 09:09] LABS: D-DIMER QUANT 2995.08 ng/ml (<500)
[2020-04-07 09:18] LABS: ALBUMIN 2.6 GM/DL (3.2-5.2); ALT/SGPT 15 U/L (12-78); BILIRUBIN,TOTAL 0.8 MG/DL (0.2-1.0); BLOOD UREA NITROGEN 36 MG/DL (7-18); C REACTIVE PROTEIN QUANTITATIV 9.95 MG/DL (0.00-0.30); CALCIUM LEVEL 8.5 MG/DL (8.8-10.2); CARBON DIOXIDE LEVEL 21 MEQ/L (21-32); CHLORIDE LEVEL 103 MEQ/L (98-107); CREATININE FOR GFR 1.91 MG/DL (0.70-1.30); GLOMERULAR FILTRATION RATE 45.3 (>49); GLUCOSE, FASTING 411 MG/DL (70-100); LDH LACTATE DEHYDROGENASE 500 U/L (87-241); MAGNESIUM LEVEL 2.5 MG/DL (1.8-2.4); NT-PRO BNP 991 PG/ML (<125); POTASSIUM SERUM 4.9 MEQ/L (3.5-5.1); SODIUM LEVEL 136 MEQ/L (136-145); TOTAL PROTEIN 6.2 GM/DL (6.4-8.2); TROPONIN I < 0.02 NG/ML (< 0.10)
[2020-04-07] MEDS ORDERED: NS 500 ML IV SCH (10:00)
--- NOTE | 2020-04-07 11:16 | IPNPDOC ---
Subjective Date Seen The patient was seen on 04/07/20. Subjective Chief Complaint/HPI HISTORY OF PRESENT ILLNESS: Pt is satting on 8L NC with 94% saturation. No acute events overnight reported by nursing. REVIEW OF SYSTEMS: CONSTITUTIONAL: patient denies fevers, chills HEENT: patient denies blurred vision, loss of vision, headache,. CARDIOVASCULAR: patient denies chest pain, palpitations. RESPIRATORY: Patient reports significant cough and shortness of breath GASTROINTESTINAL: patient denies abdominal pain, n/v/d, blood in stool. GENITOURINARY: patient denies dysuria, discharge. SKIN: patient denies rashes. MUSCULOSKELETAL: patient denies joint pain, neck pain. NEUROLOGICAL: patient denies focal weakness, numbness, seizures. PSYCHIATRIC: patient denies SI/HI. ENDOCRINE: patient denies polyuria, heat intolerance, cold intolerance. HEMATOLOGIC/LYMPHATIC: patient denies easy bruising HOME MEDICATIONS: Please see below. PHYSICAL EXAMINATION: VITAL SIGNS: please see below General: NAD, comfortable HEENT: PERRLA, EOMI, sclerae clear Neck: supple, normal ROM, no JVD Respiratory: lungs CTAB, no wheeze, no rales, no crackles CVS: RRR, normal S1, S2, no murmurs Abdo: soft, no masses, no hepatosplenomegaly, BS+, no rebound tenderness Extremities: no edema, pulses 2+ MSK: no joint deformities, normal ROM Neuro: no focal neuro deficits, moving all 4 extremities, CN2-12 intact. Strength 5/5 in all 4 extremities. No nystagmus. Psych: calm, cooperative, AAO x 3 LABORATORY DATA: See below IMAGING: Initial XR on admission: COVID PNA pattern. Will repeat XR tomorrow ASSESSMENT AND PLAN This is a 70-year-old male with a PMHx of ESRD s/p renal transplant on immunosuppressants (Cyclosporin and mycophenolate), asthma, chronic anemia, prostate cancer, diabetes type 2, hypertension, recently diagnosed with COVID-19 and admitted to [facility] on 04/03 for further mgmt. Patient left AGAINST MEDICAL ADVICE on 04/05. Patient returns to the ED this time for significant SOB and cough. On arrival to the ED, patient desaturated to the low 80s on RA with minimal exertion. He also had an elevated lactic acid initially which may be 2/2 to acute hypoxic respiratory failure from COVID pneumonia (confirmed on XR chest). His lactic acidosis has since resolved with O2 supplementation. He's also found to be in KATHERIN Cr of 1.9 (baseline approx 1.6). Patient is currently on vanco/zosyn and doxy (covering for mycoplasma and chlamydia PNA). We will d/c doxycycline as he does not have acute infections of mycoplasma and c. pneumonia. We will start him on vanco and cefepime (both renally dosed) and will order a MRSA PCR to de-escalate abx accordingly. He will be started on remdisivir and his tylenol will be discontinued to prevent kidney injury and transaminitis. Nephrology (Dr. Schaffer) will be consulted- greatly appreciate further recommendations. Currently pt is on 8L NC and satting 94%. #Acute hypoxic respiratory failure 2/2 to Covid-19 Infection - COVID positive with superimposed CAP confirmed on XR chest - Satting well at 94% on 8L NC- continuing weaning as tolerated by patient - Leukocytosis improving - Will d/c solumedrol and add decadron 6mg IV BID - Will start Remdisivir loading dose 200mg followed by 100mg- total of 10 day course (day 1) - will repeat a portable XR chest tomorrow am - Continue airborne/contact precautions # Type A lactic acidosis (resolved) - Likely 2/2 to acute hypoxic respiratory failure - Lactate resolved with O2 supplementation - Leukocytosis improving - IgG positive for mycoplasma and C. Pneumomia - Will d/c doxy and zosyn - Continue abx coverage with renally dosed vanco and will start cefepime (renally adjusted) - F/u blood and sputum cultures - IVF discontinued as patient is euvolmeic on exam #ESRD s/p Renal transplant - Worsening Cr 1.9 (Baseline Cr 1.6) - see renal u/s results - Will d/c Chlorthialodone - c/w cyclosporine - Consulted nephrology (Dr. Schaffer)- Continue to hold mycophenolate. - Further recommendations greatly appreciated #Hypertensive urgency - bp this am 173/89 - c/w amlodipine, labetalol - IV labetalol prn #Microscopic hematuria - F/U outpt with urology (Dr. Morejon) - Will f/u on urine cytology cx # Chronic R knee effusion - Hx of osteomyelitis. Treated for 6 weeks with IV abx. - Followed by ID at [facility] (ID clinic tel: [phone]) #NIDDM: hypoglycemic precs. ISS. FSBS. #Chronic bicytopenia: follow up b12, folate wnl. #KALANI: home CPAP DVT ppx: Lovenox 30mg GI ppx: protonix Fluids: none Diet: 2g Na Code status: Full Disposition: Nephrology following allow with this case. Appreciate recommendations. Continue to wean off of O2 as tolerated. Assessment /Plan Plan/VTE VTE Prophylaxis Ordered?: Yes VS, I&O, 24H, Fishbone Vital Signs/I&O Vital Signs Date Time Temp Pulse Resp B/P (MAP) Pulse Ox O2 Delivery O2 Flow Rate FiO2 04/07/20 08:38 65 04/07/20 08:38 173/89 04/07/20 04:00 97.8 20 94 High Flow Cannula 8.0 I&O- Last 24 Hours up to 6 AM 04/07/20 06:00 Intake Total 2300 ml Output Total 2250 ml Balance 50 ml Laboratory Data 24H LABS Laboratory Tests 2 04/06/20 15:37: Immature Granulocyte % (Auto) 1.1, Neutrophils (%) (Auto) 92.7H, Lymphocytes (%) (Auto) 2.3L, Monocytes (%) (Auto) 3.8, Eosinophils (%) (Auto) 0.0, Basophils (%) (Auto) 0.1, Neutrophils # (Auto) 13.6H, Lymphocytes # (Auto) 0.3L, Monocytes # (Auto) 0.6, Eosinophils # (Auto) 0.0, Basophils # (Auto) 0.0, Nucleated Red Blood Cells % (auto) 0.0, Prothrombin Time 13.1, Prothromb Time International Ra humberto 0.97, Activated Partial Thromboplast Time 24.0L, Fibrinogen 462H, D-Dimer, Quantitative 3049.43H, Anion Gap 11, Glomerular Filtration Rate 36.6L, Lactic Acid Level 4.7*H, Calcium Level 9.0, Magnesium Level 2.4, Ferritin 888H, Total Bilirubin 0.6, Aspartate Amino Transf (AST/SGOT) 29, Alanine Aminotransferase (ALT/SGPT) 18, Alkaline Phosphatase 61, Lactate Dehydrogenase 487H, Total Creatine Kinase 110, Creatine Kinase MB 1.5, Creatine Kinase MB Relative Index 1.36, Troponin I < 0.02, C-Reactive Protein, Quantitative 1.87H, Total Protein 6.7, Albumin 3.2, Albumin/Globulin Ratio 0.9, Procalcitonin 0.09 04/06/20 19:46: Lactic Acid Level 3.7*H 04/06/20 21:54: Bedside Glucose (Misc Panel) 326H 04/07/20 00:04: Lactic Acid Followup at 4 Hours 2.1*H 04/07/20 07:34: Immature Granulocyte % (Auto) 1.7, Neutrophils (%) (Auto) 95.1H, Lymphocytes (%) (Auto) 1.8L, Monocytes (%) (Auto) 1.4, Eosinophils (%) (Auto) 0.0, Basophils (%) (Auto) 0.0, Neutrophils # (Auto) 10.1H, Lymphocytes # (Auto) 0.2L, Monocytes # (Auto) 0.2, Eosinophils # (Auto) 0.0, Basophils # (Auto) 0.0, Nucleated Red Blood Cells % (auto) 0.0, Prothrombin Time 13.8, Prothromb Time International Ratio 1.04, Activated Partial Thromboplast Time 27.5, Fibrinogen 505H, D-Dimer, Quantitative 2995.08H, Anion Gap 12, Glomerular Filtration Rate 45.3L, Calcium Level 8.5L, Magnesium Level 2.5H, Total Bilirubin 0.8, Aspartate Amino Transf (AST/SGOT) 26, Alanine Aminotransferase (ALT/SGPT) 15, Alkaline Phosphatase 59, Lactate Dehydrogenase 500H, Troponin I < 0.02, C-Reactive Protein, Quantitative 9.95H, ZF-Xze-P-Type Natriuretic Peptide 991H, Total Protein 6.2L, Albumin 2.6L, Albumin/Globulin Ratio 0.7 04/07/20 08:17: Bedside Glucose (Misc Panel) 456H 04/07/20 09:56: SU-Zlx-L-Type Natriuretic Peptide 1118H, Lactic Acid Level 1.9 CBC/BMP Laboratory Tests 04/06/20 15:37 04/07/20 07:34 Microbiology Microbiology 04/06/20 Blood Culture, Received Pending 04/06/20 Blood Culture, Received Pending 04/06/20 Gram Stain, Received Pending 04/06/20 Sputum Culture, Received Pending GME ATTESTATION GME ATTESTATION My faculty preceptor for this patient encounter was physically present during the encounter and was fully available. All aspects of the patient interview, examination, medical decision making process, and medical care plan development were reviewed and approved by the faculty preceptor. The faculty preceptor is aware and concurs with the plan as stated in the body of this note and will attest to such by his/her cosignature. ATTENDING NOTE I, Tommie Newberry MD, have independently examined this patient and performed my own physical exam, as well as reviewed the documentation and edited where necessary. I have discussed in detail with the resident / student the findings and plan of treatment as documented by the resident / student and edited their note. I agree with their findings and treatment plan and have edited their documentation. Chantelle Webster DO Apr 07, 2020 11:16 TOMMIE NEWBERRY MD Apr 13, 2020 14:50
[2020-04-07 11:56] VITALS: BP 143/84
[2020-04-07] MEDS: dexameTHASONE 20MG/5ML VIAL (J1100 PER 1MG) IV SCH ×2 (11:59→23:58)
[2020-04-07] MEDS: ENOXAPARIN 30MG/0.3ML SYRINGE (J1650 PER 10MG) SC SCH (12:00)
[2020-04-07] MEDS: CEFEPIME HCL 1 GM in D5W MINI-BAG PLUS 50 ML IV SCH ×2 (12:23→23:58)
[2020-04-07] MEDS ORDERED: SODIUM CHLORIDE 0.9% INJ 10 ML SYR IV ONE (15:00)
[2020-04-07 16:00] VITALS: BP 138/87
[2020-04-07] MEDS: FLUTICASONE PROP 0.05% NASAL SPRAY 16 GM (FLONASE) NARES PRN (17:30)
[2020-04-07] MEDS ORDERED: FUROSEMIDE 20MG/2ML VIAL (J1940) IV ONE (18:00)
[2020-04-07 20:18] VITALS: BP 151/88
[2020-04-07] MEDS: guaiFENesin SYRUP 200 MG/10 ML UDC PO PRN (21:42)
[2020-04-08] VITALS: BP 137/88
[2020-04-08] MEDS: COMBIVENT RESPIMAT 100-20MCG INHALER 4GM INH SCH ×4 (01:12→20:00)
[2020-04-08 04:00] VITALS: BP 146/82
[2020-04-08 07:07] LABS: BASO % 0.1 % (0.0-1.0); HEMATOCRIT 39.5 % (42.0-52.0); HEMOGLOBIN 12.5 g/dl (13.5-17.5); LYMPH # 0.3 10^3/uL (1.5-5.0); LYMPH % 1.8 % (24.0-44.0); MEAN CORPUSCULAR HEMOGLOBIN 26.2 pg (27.0-33.0); MEAN CORPUSCULAR HGB CONC 31.6 g/dl (32.0-36.5); MEAN CORPUSCULAR VOLUME 82.6 fl (80.0-96.0); MONO # 0.4 10^3/uL (0.0-0.8); MONO % 2.5 % (0.0-5.0); NEUTROPHILS # 14.5 10^3/uL (1.5-8.5); NEUTROPHILS % 94.2 % (36.0-66.0); PLATELET COUNT, AUTOMATED 138 10^3/uL (150-450); RED BLOOD COUNT 4.78 10^6/uL (4.30-6.10); WHITE BLOOD COUNT 15.4 10^3/uL (4.0-10.0)
[2020-04-08 07:26] LABS: INR 1.18; PROTHROMBIN TIME 15.3 SECONDS (12.5-14.3)
[2020-04-08 07:28] LABS: PARTIAL THROMBOPLASTIN TIME 26.9 SECONDS (24.2-38.5)
[2020-04-08 07:32] LABS: D-DIMER QUANT 2650.63 ng/ml (<500)
[2020-04-08 07:50] LABS: ALBUMIN 2.5 GM/DL (3.2-5.2); ALT/SGPT 17 U/L (12-78); BILIRUBIN,TOTAL 0.7 MG/DL (0.2-1.0); BLOOD UREA NITROGEN 44 MG/DL (7-18); C REACTIVE PROTEIN QUANTITATIV 7.34 MG/DL (0.00-0.30); CALCIUM LEVEL 8.5 MG/DL (8.8-10.2); CARBON DIOXIDE LEVEL 21 MEQ/L (21-32); CHLORIDE LEVEL 104 MEQ/L (98-107); CREATININE FOR GFR 2.09 MG/DL (0.70-1.30); GLOMERULAR FILTRATION RATE 40.8 (>49); GLUCOSE, FASTING 395 MG/DL (70-100); LDH LACTATE DEHYDROGENASE 499 U/L (87-241); MAGNESIUM LEVEL 2.5 MG/DL (1.8-2.4); NT-PRO BNP 787 PG/ML (<125); POTASSIUM SERUM 4.4 MEQ/L (3.5-5.1); SODIUM LEVEL 135 MEQ/L (136-145); TOTAL PROTEIN 6.1 GM/DL (6.4-8.2); TROPONIN I < 0.02 NG/ML (< 0.10); VANCOMYCIN RANDOM 15.5 UG/ML
[2020-04-08] MEDS: ADVAIR HFA 45/21MCG INHALER INH SCH ×2 (08:02→20:09)
[2020-04-08] MEDS: ENOXAPARIN 30MG/0.3ML SYRINGE (J1650 PER 10MG) SC SCH (08:41)
[2020-04-08] MEDS: VANCOMYCIN HCL 1,000 MG, VIAL MATE ADAPTER 1 EACH in D5W 250 ML IV SCH (08:41)
[2020-04-08] MEDS: FINASTERIDE 5 MG TAB PO SCH (08:42)
[2020-04-08] MEDS: MONTELUKAST 10 MG TAB PO SCH (08:42)
[2020-04-08] MEDS: amLODIPine 10 MG TAB PO SCH (08:42)
[2020-04-08] MEDS: ASPIRIN 81 MG ENTERIC TAB PO SCH (08:42)
[2020-04-08] MEDS: DOCUSATE SODIUM 100MG CAPSULE PO SCH ×2 (08:42→20:27)
[2020-04-08] MEDS: MULTIVITAMINS/MINERALS THERAP 1 TAB PO SCH (08:42)
[2020-04-08] MEDS: TAMSULOSIN 0.4 MG CAP PO SCH (08:42)
[2020-04-08] MEDS: LABETALOL 200 MG TAB PO SCH ×3 (08:43→20:30)
[2020-04-08] MEDS: NEORAL 25 MG CAP (J7515) PO SCH ×2 (08:43→20:27)
[2020-04-08] MEDS: HumaLOG INSULIN (NovoLOG) PER UNIT SC SCH ×4 (08:45→21:00)
[2020-04-08] MEDS: DOXYCYCLINE HYCLATE 100 MG in D5W MINI-BAG PLUS 100 ML IV SCH ×2 (08:45→20:30)
--- NOTE | 2020-04-08 09:01 | IPNPDOC ---
Subjective Date Seen The patient was seen on 04/08/20. Subjective Chief Complaint/HPI SUBJECTIVE: Pt is in NAD laying in bed this am. Overnight, he states that he's had some headaches which tylenol was ordered by the overnight team (with parameters). This am, patient states that his headache is controlled. This morning, he states that he doesn't feel much better or does not feel worse from yesterday. He's on 30L vapotherm and 100% FIO2 and satting at 85-87% but when moving out of bed. Pt refused to be proned and i spoke with patient to explain the benefits of proning and evenly distributing oxygenation and also reduce the need to be intubated. Patient understands and states that he will try proning for as long as possible. Denies any fever, chills, n/v/d, abdominal pain. PHYSICAL EXAMINATION: VITAL SIGNS: please see below General: NAD, comfortable, 30L vapotherm, 100% FIO2 satting 94% HEENT: PERRLA, EOMI, sclerae clear Neck: supple, normal ROM, no JVD Respiratory: lungs CTAB, no wheeze, no rales, no crackles CVS: RRR, normal S1, S2, no murmurs Abdo: soft, no masses, no hepatosplenomegaly, BS+, no rebound tenderness Extremities: no edema, pulses 2+ MSK: no joint deformities, normal ROM Neuro: no focal neuro deficits, moving all 4 extremities, CN2-12 intact. Strength 5/5 in all 4 extremities. No nystagmus. Psych: calm, cooperative, AAO x 3 LABORATORY DATA: See below IMAGING: XR chest- slightly worsening infiltrates compared to 04/06 ASSESSMENT AND PLAN This is a 70-year-old male with a PMHx of ESRD s/p renal transplant on immunosuppressants (Cyclosporin and mycophenolate), asthma, chronic anemia, p rostate cancer, diabetes type 2, hypertension, recently diagnosed with COVID-19 and admitted to [facility] on 04/03 for further mgmt. Patient left AGAINST MEDICAL ADVICE on 04/05. Patient returns to the ED this time for significant SOB and cough. On arrival to the ED, patient desaturated to the low 80s on RA with minimal exertion. He also had an elevated lactic acid initially which may be 2/2 to acute hypoxic respiratory failure from COVID pneumonia (confirmed on XR chest). His lactic acidosis has since resolved with O2 supplementation. He's also found to be in KATHERIN Cr of 1.9 (baseline approx 1.6). Patient is currently on vanco/zosyn and doxy (covering for mycoplasma and chlamydia PNA). We will d/c doxycycline as he does not have acute infections of mycoplasma and c. pneumonia. We will start him on vanco and cefepime (both renally dosed) and will order a MRSA PCR to de-escalate abx accordingly. He will be started on remdisivir and his tylenol will be discontinued to prevent kidney injury and transaminitis. Nephrology (Dr. Schaffer) will be consulted- greatly appreciate further recommendations. Currently pt is on 8L NC and satting 94%. #Acute hypoxic respiratory failure 2/2 to Covid-19 Infection - COVID positive with superimposed CAP confirmed on XR chest - Pt now requiring vapotherm 30L with 100% FIO2; he desats to 87% when he exerts himself ; otherwise he is satting >93% - Will order for proning >18h a day (spoke with patient and he is cooperating) - Will d/c solumedrol and add decadron 6mg IV BID - Will start Remdisivir loading dose 200mg followed by 100mg- total of 10 day co urse (day 2) - XR chest 04/08- slightly worsened infiltrates - C/w guanfesin - Continue airborne/contact precautions - Encourage incentive spirometry/acapella #Leukocytosis - afebrile - slightly worsened infiltrates - Continue Vanco and cefipime (renally adjusted) # Type A lactic acidosis (resolved) - Likely 2/2 to acute hypoxic respiratory failure - Lactate resolved with O2 supplementation - IgG positive for mycoplasma and C. Pneumomia - Will d/c doxy and zosyn - Continue abx coverage with renally dosed vanco and will start cefepime (renally adjusted) - F/u blood and sputum cultures #ESRD s/p Renal transplant - Worsening Cr 2.1 (Baseline Cr 1.6) - see renal u/s results - Will d/c Chlorthialodone - c/w cyclosporine - Consulted nephrology (Dr. Schaffer)- Continue to hold mycophenolate. - Further recommendations greatly appreciated #Hypertensive urgency - bp this am 137/88 - c/w amlodipine, labetalol - IV labetalol prn #Microscopic hematuria - F/U outpt with urology (Dr. Morejon) - Will f/u on urine cytology cx # Chronic R knee effusion - Hx of osteomyelitis. Treated for 6 weeks with IV abx. - Followed by ID at [facility] (ID clinic tel: [phone]) #NIDDM: hypoglycemic precs. ISS. FSBS. #Chronic bicytopenia: follow up b12, folate wnl. #KALANI: home CPAP DVT ppx: Lovenox 30mg GI ppx: protonix Fluids: none Diet: 2g Na Code status: Full Disposition: Nephrology following allow with this case. Appreciate recommendations. Proning >18 h a day. Continue to wean off of O2 as tolerated. Assessment /Plan Plan/VTE VTE Prophylaxis Ordered?: Yes VS, I&O, 24H, Fishbone Vital Signs/I&O Vital Signs Date Time Temp Pulse Resp B/P (MAP) Pulse Ox O2 Delivery O2 Flow Rate FiO2 04/08/20 08:43 66 04/08/20 08:42 146/82 04/08/20 04:00 30.0 100 04/08/20 04:00 98.3 26 94 HVNI-Vapotherm I&O- Last 24 Hours up to 6 AM 04/08/20 06:00 Intake Total 960 ml Output Total 2200 ml Balance -1240 ml Laboratory Data 24H LABS Laboratory Tests 2 04/07/20 09:56: Lactic Acid Level 1.9, OE-Spr-H-Type Natriuretic Peptide 1118H 04/07/20 11:40: Bedside Glucose (Misc Panel) 393H 04/07/20 16:53: Bedside Glucose (Misc Panel) 259H 04/07/20 20:55: Bedside Glucose (Misc Panel) 263H 04/08/20 06:40: Immature Granulocyte % (Auto) 1.4, Neutrophils (%) (Auto) 94.2H, Lymphocytes (%) (Auto) 1.8L, Monocytes (%) (Auto) 2.5, Eosinophils (%) (Auto) 0.0, Basophils (%) (Auto) 0.1, Neutrophils # (Auto) 14.5H, Lymphocytes # (Auto) 0.3L, Monocytes # (Auto) 0.4, Eosinophils # (Auto) 0.0, Basophils # (Auto) 0.0, Nucleated Red Blood Cells % (auto) 0.0, Prothrombin Time 15.3H, Prothromb Time International Ratio 1.18, Activated Partial Thromboplast Time 26.9, Fibrinogen 432, D-Dimer, Quantitative 2650.63H, Anion Gap 10, Glomerular Filtration Rate 40.8L, Calcium Level 8.5L, Magnesium Level 2.5H, Total Bilirubin 0.7, Aspartate Amino Transf (AST/SGOT) 24, Alanine Aminotransferase (ALT/SGPT) 17, Alkaline Phosphatase 54, Lactate Dehydrogenase 499H, Troponin I < 0.02, C-Reactive Protein, Quantitative 7.34H, LN-Twa-L-Type Natriuretic Peptide 787H, Total Protein 6.1L, Albumin 2.5L, Albumin/Globulin Ratio 0.7, Random Vancomycin Level 15.5 CBC/BMP Laboratory Tests 04/08/20 06:40 Microbiology Microbiology 04/06/20 Blood Culture - Preliminary, Resulted No growth after 24 hours . All specim... 04/06/20 Blood Culture - Preliminary, Resulted No growth after 24 hours . All specim... 04/06/20 Gram Stain - Final, Complete 04/06/20 Sputum Culture - Final, Complete GME ATTESTATION GME ATTESTATION My faculty preceptor for this patient encounter was physically present during the encounter and was fully available. All aspects of the patient interview, examination, medical decision making process, and medical care plan development were reviewed and approved by the faculty preceptor. The faculty preceptor is aware and concurs with the plan as stated in the body of this note and will attest to such by his/her cosignature. ATTENDING NOTE I, Josue Aviles MD, have independently examined this patient and performed my own physical exam, as well as reviewed the documentation and edited where necessary. I have discussed in detail with the resident / student the findings and plan of treatment as documented by the resident / student and edited their note. I agree with their findings and treatment plan and have edited their documentation. I will continue to follow the patient during this hospital stay. I had a lengthy discussion with the patient and his . I answered their questions at length. We discussed goals of care, specifically whether the patient went to be resuscitated and intubated in the event of cardiopulmonary arrest. The patient and his both agreed that he would not wish to be intubated and he does not want compressions performed CPR, given his numerous comorbidities. The molst form was completed, signed and witnessed. Chantelle Webster DO Apr 08, 2020 09:01 JOSUE AVILES MD Apr 08, 2020 16:49
[2020-04-08] MEDS: BENZONATATE 100 MG CAP PO PRN ×2 (09:07→16:15)
[2020-04-08] MEDS: FLUTICASONE PROP 0.05% NASAL SPRAY 16 GM (FLONASE) NARES PRN (09:07)
[2020-04-08] MEDS: ACETAMINOPHEN TAB 650MG DOSE (2X325MG) PO PRN (09:17)
--- NOTE | 2020-04-08 09:57 | REP ---
INDICATION: covid pna COMPARISON: 04/06/2020 TECHNIQUE: Portable AP view of the chest FINDINGS: Allowing for differences in technique, bilateral multifocal infiltrates primarily involving the right lung zone appears slightly progressive. No obvious effusion. No pneumothorax. Mediastinum and cardiac silhouette stable. IMPRESSION: Findings suggest mildly progressive bilateral airspace disease. <Electronically signed by Demario Bernal > 04/08/20 [id number]
[2020-04-08] MEDS: CEFEPIME HCL 1 GM in D5W MINI-BAG PLUS 50 ML IV SCH (13:41)
[2020-04-08] MEDS: dexameTHASONE 20MG/5ML VIAL (J1100 PER 1MG) IV SCH (13:41)
[2020-04-08] MEDS: guaiFENesin SYRUP 200 MG/10 ML UDC PO PRN (16:15)
[2020-04-08] MEDS: SODIUM CHLORIDE 0.9% INJ 10 ML SYR IV SCH (16:18)
[2020-04-08 16:34] VITALS: BP 126/65
--- NOTE | 2020-04-08 18:19 | IPN ---
PROGRESS NOTE DATE: 04/08/2020 Mr. Albarran has been admitted with COVID pneumonia. He has know at history of kidney transplant and has been on chronic immunosuppressive therapy. Dr. Schaffer, who was covering nephrology service yesterday, was consulted by resident physician, and Dr. Schaffer advised to hydrate the patient with intravenous (IV) fluid and hold his mycophenolate. I was asked by Dr. Josue Aviles today to comment on his immunosuppressive therapy. Patient has known history of underlying chronic kidney disease in the setting of kidney transplant. His kidney function has slightly worsened with creatinine up to 2.09. Patient is currently being treated for COVID pneumonia in the hospital. I have reviewed his labs and his medications. He is currently on multiple antibiotics and antiviral medications. He has received cefepime, doxycycline, remdesivir, vancomycin, and dexamethasone. He was also given furosemide because of his shortness of breath. His vital signs are stable with temperature 98.3 degrees Fahrenheit, heart rate 65 per minute, respiratory rate 26 per minute, blood pressure 146/82 mm of mercury, and oxygen saturation 94%. Today labs show sodium 135, potassium 4.4, CO2 of 21, BUN 44, creatinine 2.09. Glucose 395 and calcium 8.5. A BNP level is down to 787. Chest x-ray done today showed mild progressive bilateral airspace disease related to pneumonia. PROBLEMS: 1. COVID pneumonia. Patient is being treated with multiple antibacterial and antiviral medications in addition to steroids and nebulizers. 2. History of congestive heart failure. At present, I do not see any convincing evidence for congestive heart failure. I have advised the hospitalist service to hold diuretic for now and recheck renal function tomorrow. 3. Kidney transplant status with acute on chronic kidney disease. Patient does have slight worsening of kidney function in the setting of acute illness and diuretic use. I have advised to give IV fluid and hold diuretic. I have also advised to stop mycophenolate for now and continue with his steroids. Currently patient is on a significant amount of steroids, so there is very minimal risk to his transplant kidney. He is also on cyclosporin 150 mg at bedtime.
[2020-04-08 19:38] VITALS: BP 126/65
[2020-04-09] VITALS: BP 143/83
[2020-04-09] MEDS: dexameTHASONE 20MG/5ML VIAL (J1100 PER 1MG) IV SCH ×2 (00:58→12:39)
[2020-04-09] MEDS: CEFEPIME HCL 1 GM in D5W MINI-BAG PLUS 50 ML IV SCH ×2 (00:59→13:43)
[2020-04-09] MEDS: BENZONATATE 100 MG CAP PO PRN ×2 (00:59→20:50)
[2020-04-09] MEDS: ACETAMINOPHEN TAB 650MG DOSE (2X325MG) PO PRN ×2 (01:00→20:50)
[2020-04-09] MEDS: COMBIVENT RESPIMAT 100-20MCG INHALER 4GM INH SCH ×4 (02:03→19:45)
[2020-04-09 04:00] VITALS: BP 139/76
[2020-04-09] MEDS: ADVAIR HFA 45/21MCG INHALER INH SCH ×2 (07:43→19:44)
[2020-04-09 08:50] VITALS: BP 142/78
[2020-04-09] MEDS: NS 1,000 ML IV SCH ×2 (08:52→20:45)
[2020-04-09] MEDS: ASPIRIN 81 MG ENTERIC TAB PO SCH (08:52)
[2020-04-09] MEDS: MONTELUKAST 10 MG TAB PO SCH (08:52)
[2020-04-09] MEDS: FINASTERIDE 5 MG TAB PO SCH (08:52)
[2020-04-09] MEDS: VANCOMYCIN HCL 1,000 MG, VIAL MATE ADAPTER 1 EACH in D5W 250 ML IV SCH (08:52)
[2020-04-09] MEDS: MULTIVITAMINS/MINERALS THERAP 1 TAB PO SCH (08:53)
[2020-04-09] MEDS: HumaLOG INSULIN (NovoLOG) PER UNIT SC SCH ×4 (08:53→20:50)
[2020-04-09] MEDS: DOCUSATE SODIUM 100MG CAPSULE PO SCH ×3 (08:54→20:48)
[2020-04-09] MEDS: TAMSULOSIN 0.4 MG CAP PO SCH (08:54)
[2020-04-09] MEDS: ENOXAPARIN 30MG/0.3ML SYRINGE (J1650 PER 10MG) SC SCH (08:55)
[2020-04-09] MEDS: NEORAL 25 MG CAP (J7515) PO SCH ×2 (08:55→20:49)
[2020-04-09] MEDS: amLODIPine 10 MG TAB PO SCH (08:56)
[2020-04-09] MEDS: LABETALOL 200 MG TAB PO SCH ×3 (08:56→20:48)
[2020-04-09 08:58] LABS: BASO % 0.1 % (0.0-1.0); HEMATOCRIT 40.1 % (42.0-52.0); HEMOGLOBIN 12.7 g/dl (13.5-17.5); LYMPH # 0.3 10^3/uL (1.5-5.0); LYMPH % 2.1 % (24.0-44.0); MEAN CORPUSCULAR HEMOGLOBIN 26.2 pg (27.0-33.0); MEAN CORPUSCULAR HGB CONC 31.7 g/dl (32.0-36.5); MEAN CORPUSCULAR VOLUME 82.7 fl (80.0-96.0); MONO # 0.4 10^3/uL (0.0-0.8); MONO % 3.1 % (0.0-5.0); NEUTROPHILS # 12.2 10^3/uL (1.5-8.5); NEUTROPHILS % 93.6 % (36.0-66.0); PLATELET COUNT, AUTOMATED 145 10^3/uL (150-450); RED BLOOD COUNT 4.85 10^6/uL (4.30-6.10); WHITE BLOOD COUNT 13.1 10^3/uL (4.0-10.0)
[2020-04-09 09:18] LABS: INR 1.16; PROTHROMBIN TIME 15.1 SECONDS (12.5-14.3)
[2020-04-09 09:19] LABS: PARTIAL THROMBOPLASTIN TIME 24.3 SECONDS (24.2-38.5)
[2020-04-09 09:21] LABS: D-DIMER QUANT 3997.12 ng/ml (<500)
[2020-04-09 09:37] LABS: ALBUMIN 2.4 GM/DL (3.2-5.2); ALT/SGPT 18 U/L (12-78); BILIRUBIN,TOTAL 0.9 MG/DL (0.2-1.0); BLOOD UREA NITROGEN 51 MG/DL (7-18); CALCIUM LEVEL 8.4 MG/DL (8.8-10.2); CARBON DIOXIDE LEVEL 20 MEQ/L (21-32); CHLORIDE LEVEL 103 MEQ/L (98-107); CREATININE FOR GFR 2.09 MG/DL (0.70-1.30); GLOMERULAR FILTRATION RATE 40.8 (>49); GLUCOSE, FASTING 412 MG/DL (70-100); LDH LACTATE DEHYDROGENASE 600 U/L (87-241); MAGNESIUM LEVEL 2.5 MG/DL (1.8-2.4); NT-PRO BNP 658 PG/ML (<125); POTASSIUM SERUM 4.9 MEQ/L (3.5-5.1); SODIUM LEVEL 136 MEQ/L (136-145); TROPONIN I < 0.02 NG/ML (< 0.10)
[2020-04-09] MEDS: DOXYCYCLINE HYCLATE 100 MG in D5W MINI-BAG PLUS 100 ML IV SCH ×2 (10:27→20:48)
[2020-04-09 12:00] VITALS: BP 131/70
--- NOTE | 2020-04-09 13:28 | IPNPDOC ---
Date Seen The patient was seen on 04/09/20. Progress Note SUBJECTIVE: Patient seen and examined at bedside this morning. He is alert and oriented. Vapotherm is a 35 L/m 100% of FiO2. On increase from yesterday 30 L/m 100% FiO2. Patient is going saturating 92%. Patient is now DNR/DNI per discussion with him and his . Denies chest pain, vomiting, diarrhea, syncope, fevers or chills. He was afebrile overnight. He is encouraged to prone and is willing to comply. OBJECTIVE PHYSICAL EXAMINATION: VITAL SIGNS: please see below General: NAD, comfortable, vapotherm. HEENT: PERRLA, EOMI, sclerae clear Neck: supple, normal ROM, no JVD Respiratory: Poor air entry bilaterally. mild crackles auscultated in the bilateral bases. CVS: RRR, normal S1, S2, no murmurs Abdo: soft, no masses, no hepatosplenomegaly, BS+, no rebound tenderness Extremities: no edema, pulses 2+ MSK: no joint deformities, normal ROM Neuro: no focal neuro deficits, moving all 4 extremities, CN2-12 intact. Strength 5/5 in all 4 extremities. No nystagmus. Psych: calm, cooperative, AAO x 3 LABORATORY DATA, IMAGING STUDIES, MICROBIOLOGY: Please see below. CXR (04/08/20) Allowing for differences in technique, bilateral multifocal infiltrates primaril y involving the right lung zone appears slightly progressive. No obvious effusion. No pneumothorax. Mediastinum and cardiac silhouette stable. IMPRESSION: Findings suggest mildly progressive bilateral airspace disease. DVT prophylaxis ordered?: full dose lovenox (renally dosed) ASSESSMENT AND PLAN: 70 yo M with a hx of ESRD s/p renal transplant on cyclosporing and mycophenolate, asthma, prostate ca, ashtma, DM2, hypertension, intially tested positive for covid-19 on 04/03 upon admission but left AMA. Re- admitted on 04/05 with acute hypoxic respiratory failure, and sepsis 2/2 covid- 19. Patient developed KATHERIN on CKD, was advised to hold cellcept and to provide gently hydration. PROBLEMS: #Covid-19 Infection: airborne/contact precautions. Remdesivir. Decadron 6 mg IV daily (reduced due to hyperglycemia). Vapotherm 35 LPM at FiO2 100%. Monitor inflammatory markers. Full dose anticoagulation. C/w cyclosporine. Holding mycophenolate per nephrology, note appreciated. #sepsis/LA 2/2 CAP vs covid suspected superimposed on covid. has Igg + mycoplasma, c pneumonia. Vanco DC as MRSA (-). Presently on cefepime. Repeat procal (initial neg), for decision to c/w abx. #ESRD: s/p Renal transplant. CR trended up. D/w nephrology, Dr. Markham.. c/w cyclosporine. Hold mycophenolate. C/w gentle hydration IV. #Microscopic hematuria: D/w Dr. Morejon, urology on 04/05. Follow up urine cytology culture from 04/04/20. Cast last replaced 04/06 (patient does self exchange). Follow up with primary urologist as outpatient. #Hypertensive urgency: amlodipine. labetalol. IV labetalol prn. #R knee effusion: chronic. Hx of osteomyelitis. Treated for 6 weeks with IV abx. Now on doxycycline x 2 mo. Followed by ID at [facility] (ID clinic tel: [phone]) #NIDDM: hypoglycemic precs. ISS. FSBS. #Chronic bicytopenia: follow up b12, folate wnl. #KALANI: home cpap Dispo: I spoke to patient's Sangita Nj ([phone]) on 04/09, and updated her as to progress. I answered all questions in detail. VS, I&O, 24H, Fishbone Vital Signs/I&O Vital Signs Date Time Temp Pulse Resp B/P (MAP) Pulse Ox O2 Delivery O2 Flow Rate FiO2 04/09/20 12:00 98.7 63 16 131/70 (90) 97 04/09/20 08:50 HVNI-Vapotherm 35.0 100 I&O- Last 24 Hours up to 6 AM 04/09/20 06:00 Intake Total 720 ml Output Total 1550 ml Balance -830 ml Laboratory Data 24H LABS Laboratory Tests 2 04/08/20 22:10: Bedside Glucose (Misc Panel) 266H 04/09/20 08:14: Immature Granulocyte % (Auto) 1.1, Neutrophils (%) (Auto) 93.6H, Lymphocytes (%) (Auto) 2.1L, Monocytes (%) (Auto) 3.1, Eosinophils (%) (Auto) 0.0, Basophils (%) (Auto) 0.1, Neutrophils # (Auto) 12.2H, Lymphocytes # (Auto) 0.3L, Monocytes # (Auto) 0.4, Eosinophils # (Auto) 0.0, Basophils # (Auto) 0.0, Nucleated Red Blood Cells % (auto) 0.0, Prothrombin Time 15.1H, Prothromb Time International Ratio 1.16, Activated Partial Thromboplast Time 24.3L, Fibrinogen 495H, D-Dimer, Quantitative 3997.12H, Anion Gap 13, Glomerular Filtration Rate 40.8L, Calcium Level 8.4L, Magnesium Level 2.5H, Total Bilirubin 0.9, Aspartate Amino Transf (AST/SGOT) 28, Alanine Aminotransferase (ALT/SGPT) 18, Alkaline Phosphatase 60, Lactate Dehydrogenase 600H, Troponin I < 0.02, C-Reactive Protein, Quantitative 4.70H, CU-Izx-O-Type Natriuretic Peptide 658H, Total Protein 6.0L, Albumin 2.4L, Albumin/Globulin Ratio 0.7 04/09/20 08:50: Bedside Glucose (Misc Panel) 394H 04/09/20 12:13: Bedside Glucose (Misc Panel) 364H CBC/BMP Laboratory Tests 04/09/20 08:14 Microbiology Microbiology 04/06/20 Blood Culture - Preliminary, Resulted No Growth after 48 hours. All Specime... 04/06/20 Blood Culture - Preliminary, Resulted No Growth after 48 hours. All Specime... 04/06/20 Gram Stain - Final, Complete 04/06/20 Sputum Culture - Final, Complete SHAUN CAMERON MD Apr 09, 2020 13:28
[2020-04-09] MEDS: SODIUM CHLORIDE 0.9% INJ 10 ML SYR IV SCH (14:22)
[2020-04-09 16:00] VITALS: BP 115/64
[2020-04-09 20:42] VITALS: BP 129/78
[2020-04-09] MEDS: ENOXAPARIN 100MG/1ML SYRINGE (J1650 PER 10MG) SC SCH (20:47)
[2020-04-10] VITALS (15 sets, daily range): BP systolic 121–170; BP diastolic 63–88
[2020-04-10] MEDS: CEFEPIME HCL 1 GM in D5W MINI-BAG PLUS 50 ML IV SCH ×2 (00:26→12:32)
[2020-04-10] MEDS: RAMELTEON 8 MG TAB (ROZEREM) PO PRN (01:02)
[2020-04-10] MEDS: COMBIVENT RESPIMAT 100-20MCG INHALER 4GM INH SCH ×4 (01:58→19:43)
[2020-04-10] MEDS: ADVAIR HFA 45/21MCG INHALER INH SCH ×2 (08:02→19:43)
[2020-04-10] MEDS: DOXYCYCLINE HYCLATE 100 MG in D5W MINI-BAG PLUS 100 ML IV SCH ×2 (08:51→20:20)
[2020-04-10] MEDS: ENOXAPARIN 100MG/1ML SYRINGE (J1650 PER 10MG) SC SCH ×2 (08:52→20:21)
[2020-04-10] MEDS: NEORAL 25 MG CAP (J7515) PO SCH ×2 (08:54→20:22)
[2020-04-10] MEDS: FINASTERIDE 5 MG TAB PO SCH (08:54)
[2020-04-10] MEDS: amLODIPine 10 MG TAB PO SCH (08:59)
[2020-04-10] MEDS: MONTELUKAST 10 MG TAB PO SCH (08:59)
[2020-04-10] MEDS: ASPIRIN 81 MG ENTERIC TAB PO SCH (08:59)
[2020-04-10] MEDS: LABETALOL 200 MG TAB PO SCH ×3 (08:59→20:22)
[2020-04-10] MEDS: TAMSULOSIN 0.4 MG CAP PO SCH (08:59)
[2020-04-10] MEDS: MULTIVITAMINS/MINERALS THERAP 1 TAB PO SCH (08:59)
[2020-04-10] MEDS ORDERED: DOXYCYCLINE HYCLATE 100 MG in D5W MINI-BAG PLUS 100 ML IV SCH (09:00)
[2020-04-10] MEDS: DOCUSATE SODIUM 100MG CAPSULE PO SCH ×2 (09:00→20:09)
[2020-04-10] MEDS: HumaLOG INSULIN (NovoLOG) PER UNIT SC SCH ×4 (09:00→20:10)
[2020-04-10 09:29] LABS: BASO % 0.2 % (0.0-1.0); HEMATOCRIT 36.8 % (42.0-52.0); HEMOGLOBIN 11.4 g/dl (13.5-17.5); LYMPH # 0.3 10^3/uL (1.5-5.0); LYMPH % 2.7 % (24.0-44.0); MEAN CORPUSCULAR HEMOGLOBIN 24.9 pg (27.0-33.0); MEAN CORPUSCULAR VOLUME 80.3 fl (80.0-96.0); MONO # 0.6 10^3/uL (0.0-0.8); MONO % 4.5 % (0.0-5.0); NEUTROPHILS # 11.4 10^3/uL (1.5-8.5); NEUTROPHILS % 90.6 % (36.0-66.0); PLATELET COUNT, AUTOMATED 162 10^3/uL (150-450); RED BLOOD COUNT 4.58 10^6/uL (4.30-6.10); WHITE BLOOD COUNT 12.6 10^3/uL (4.0-10.0)
[2020-04-10 09:51] LABS: INR 1.25
[2020-04-10 09:52] LABS: ALBUMIN 2.4 GM/DL (3.2-5.2); ALT/SGPT 18 U/L (12-78); BILIRUBIN,TOTAL 0.9 MG/DL (0.2-1.0); BLOOD UREA NITROGEN 47 MG/DL (7-18); C REACTIVE PROTEIN QUANTITATIV 2.74 MG/DL (0.00-0.30); CALCIUM LEVEL 8.4 MG/DL (8.8-10.2); CARBON DIOXIDE LEVEL 18 MEQ/L (21-32); CHLORIDE LEVEL 103 MEQ/L (98-107); CREATININE FOR GFR 1.94 MG/DL (0.70-1.30); GLOMERULAR FILTRATION RATE 44.5 (>49); GLUCOSE, FASTING 356 MG/DL (70-100); LDH LACTATE DEHYDROGENASE 692 U/L (87-241); MAGNESIUM LEVEL 2.4 MG/DL (1.8-2.4); NT-PRO BNP 830 PG/ML (<125); PARTIAL THROMBOPLASTIN TIME 31.5 SECONDS (24.2-38.5); POTASSIUM SERUM 4.6 MEQ/L (3.5-5.1); SODIUM LEVEL 135 MEQ/L (136-145); TOTAL PROTEIN 5.7 GM/DL (6.4-8.2); TROPONIN I < 0.02 NG/ML (< 0.10)
[2020-04-10 09:54] LABS: D-DIMER QUANT 3676.8 ng/ml (<500)
[2020-04-10 11:38] LABS: CPK CREATINE PHOSPHOKINASE 82 U/L (39-308); FERRITIN 978 NG/ML (26-388)
[2020-04-10] MEDS: dexameTHASONE 20MG/5ML VIAL (J1100 PER 1MG) IV SCH (12:32)
[2020-04-10] MEDS: BENZONATATE 100 MG CAP PO PRN (12:33)
[2020-04-10] MEDS: NS 1,000 ML IV SCH ×2 (12:34→22:30)
--- NOTE | 2020-04-10 12:37 | IPNPDOC ---
Date Seen The patient was seen on 04/10/20. Progress Note SUBJECTIVE: Patient seen and examined at bedside this morning. He is alert and oriented. Vapotherm settings: 35 LPM at 80% FiO2, improved from 45 LPM at 90% day prior. Saturating 98%.Did not sleep well. had 2 episodes of watery diarrhea. One episodes of bilious vomitus this morning while working with. No abdo pain. No additional vomitus. OBJECTIVE PHYSICAL EXAMINATION: VITAL SIGNS: please see below General: NAD, comfortable, vapotherm. HEENT: PERRLA, EOMI, sclerae clear Neck: supple, normal ROM, no JVD Respiratory: Poor air entry bilaterally. mild crackles auscultated in the bilateral bases. CVS: RRR, normal S1, S2, no murmurs Abdo: soft, no masses, no hepatosplenomegaly, BS+, no rebound tenderness Extremities: no edema, pulses 2+ MSK: no joint deformities, normal ROM Neuro: no focal neuro deficits, moving all 4 extremities, CN2-12 intact. Strength 5/5 in all 4 extremities. No nystagmus. Psych: calm, cooperative, AAO x 3 LABORATORY DATA, IMAGING STUDIES, MICROBIOLOGY: Please see below. CXR (04/08/20) Allowing for differences in technique, bilateral multifocal infiltrates primarily involving the right lung zone appears slightly progressive. No obvious effusion. No pneumothorax. Mediastinum and cardiac silhouette stable. IMPRESSION: Findings suggest mildly progressive bilateral airspace disease. DVT prophylaxis ordered?: full dose lovenox (renally dosed) ASSESSMENT AND PLAN: 70 yo M with a hx of ESRD s/p renal transplant on cyclosporing and mycophenolate, asthma, prostate ca, ashtma, DM2, hypertension, intially tested positive for covid-19 on 04/03 upon admission but left AMA. Re- admitted on 04/05 with acute hypoxic respiratory failure, and sepsis 2/2 covid- 19. Patient developed KATHERIN on CKD, was advised to hold cellcept and to provide gently hydration. PROBLEMS: #Acute hypoxic respiratory failure 2/2 Covid-19 Infection: airborne/contact precautions. Remdesivir. Decadron 6 mg IV daily (reduced due to hyperglycemia). Full dose anticoagulation. Maxed vapotherm, increased work of breathing. ABG 7.46 PO2 51. CO2 26.9. HCO 3 18.8. Transferred to ICU. Bipap. C/w cyclosporine. Trop neg. D dimer downtrending. C/w daily covid labs. #Diarrhea: 2 episodes on 04/10. Monitor. #sepsis/LA 2/2 CAP vs covid suspected superimposed on covid. has Igg + mycoplasma, c pneumonia. Vanco DC as MRSA (-). Presently on cefepime. Doxy for R knee osteo. Repeat procal (initial neg), for decision to c/w abx. #ESRD: s/p Renal transplant. Cr improving today 2.09 down to 1.94. BUN improved. D/w nephrology, Dr. Markham.. c/w cyclosporine. Hold mycophenolate. C/w gentle hydration IV. #Microscopic hematuria: D/w Dr. Morejon, urology on 04/05. Follow up urine cytology culture from 04/04/20. Cast last replaced 04/06 (patient does self exchange). Follow up with primary urologist as outpatient. #Hypertensive urgency: BP well controlled. amlodipine. labetalol. IV labetalol prn. #R knee effusion: chronic. Hx of osteomyelitis. Treated for 6 weeks with IV abx. Now on doxycycline x 2 mo. Followed by ID at [facility] (ID clinic tel: [phone]) #NIDDM: hypoglycemic precs. ISS. FSBS. #Chronic bicytopenia: follow up b12, folate wnl. #KALANI: home cpap, asked Mrs. Nj to bring home machine. Dispo: I spoke to patient's Sangita Nj ([phone]) on 04/10, and updated her as to progress. I answered all questions in detail. VS, I&O, 24H, Fishbone Vital Signs/I&O Vital Signs Date Time Temp Pulse Resp B/P (MAP) Pulse Ox O2 Delivery O2 Flow Rate FiO2 04/10/20 08:59 71 152/88 04/10/20 04:00 35.0 90 04/10/20 04:00 98.7 18 98 HVNI-Vapotherm I&O- Last 24 Hours up to 6 AM 04/10/20 06:00 Intake Total 3610 ml Output Total 2600 ml Balance 1010 ml Laboratory Data 24H LABS Laboratory Tests 2 04/09/20 17:12: Bedside Glucose (Misc Panel) 248H 04/09/20 20:33: Bedside Glucose (Misc Panel) 249H 04/10/20 07:42: Immature Granulocyte % (Auto) 2.0, Neutrophils (%) (Auto) 90.6H, Lymphocytes (%) (Auto) 2.7L, Monocytes (%) (Auto) 4.5, Eosinophils (%) (Auto) 0.0, Basophils (%) (Auto) 0.2, Neutrophils # (Auto) 11.4H, Lymphocytes # (Auto) 0.3L, Monocytes # (Auto) 0.6, Eosinophils # (Auto) 0.0, Basophils # (Auto) 0.0, Nucleated Red Blood Cells % (auto) 0.0, Prothrombin Time 16.0H, Prothromb Time International Ratio 1.25, Activated Partial Thromboplast Time 31.5, Fibrinogen 414, D-Dimer, Quantitative 3676.80H, Anion Gap 14, Glomerular Filtration Rate 44.5L, Calcium Level 8.4L, Magnesium Level 2.4, Ferritin 978H, Total Bilirubin 0.9, Aspartate Amino Transf (AST/SGOT) 30, Alanine Aminotransferase (ALT/SGPT) 18, Alkaline Phosphatase 62, Lactate Dehydrogenase 692H, Total Creatine Kinase 82, Troponin I < 0.02, C-Reactive Protein, Quantitative 2.74H, MI-Dlx-M-Type Natriuretic Peptide 830H, Total Protein 5.7L, Albumin 2.4L, Albumin/Globulin Ratio 0.7 04/10/20 08:49: Bedside Glucose (Misc Panel) 358H 04/10/20 12:19: Bedside Glucose (Misc Panel) 210H CBC/BMP Laboratory Tests 04/10/20 07:42 Microbiology Microbiology 04/06/20 Blood Culture - Preliminary, Resulted No Growth after 72 hours. All specime... 04/06/20 Blood Culture - Preliminary, Resulted No Growth after 72 hours. All specime... 04/06/20 Gram Stain - Final, Complete 04/06/20 Sputum Culture - Final, Complete SHAUN CAMERON MD Apr 10, 2020 12:37
[2020-04-10 13:24] LABS: ABG BASE EXCESS -3.6 (-2.0-2.0); ABG HCO3 18.8 MEQ/L (22.0-26.0); ABG O2 SATURATION 89.4 % (95.0-99.0); ABG PARTIAL PRESSURE CO2 26.9 mmHg (35.0-45.0); ABG PARTIAL PRESSURE O2 51.6 mmHg (75.0-100.0); ABG STANDARD HCO3 21.3 MEQ/L (22.0-26.0); ABG TOTAL CO2 19.7 MEQ/L (23.0-31.0); ABG pH (ARTERIAL) 7.463 UNITS (7.350-7.450)
[2020-04-10] MEDS: SODIUM CHLORIDE 0.9% INJ 10 ML SYR IV SCH (15:00)
--- NOTE | 2020-04-10 17:02 | CR ---
CONSULTATION DATE: 04/10/2020 ATTENDING PHYSICIAN: Josue Aviles MD REASON FOR CONSULTATION: Hypoxemia in a patient with COVID positive. HISTORY OF PRESENT ILLNESS: Mr. Nj is a 70-year-old gentleman with a complicated past medical history. He is known to have chronic immunosuppression secondary to being status post renal transplant. He was diagnosed with Coronavirus with a positive test on the and was admitted. Unfortunately, he signed out AMA. He was readmitted now on the with worsening shortness of breath, fever, and cough. Over the last several days, he has had increased shortness of breath. Fortunately, his inflammatory markers have improved. D-dimer maxing out yesterday at 3997 down to 3676 today. CRP, which was 7.34 on the down to 2.74 today. Fibrinogen high at 505 on the down to 414 today. Despite this, he had worsening of his hypoxemia and was transferred to the intensive care unit as he was on Vapotherm at 80% with sats running between 88% and 90%. Of interest is he has sleep apnea at home for which he does wear a CPAP, he was not using that here, and was immediately placed on it upon his arrival to the ICU upon my orders. ALLERGIES LISTED: CODEINE. CURRENT MEDICATIONS: - Milk of magnesia - Mylanta - Norvasc - Tessalon Perles - Proscar - Flonase nasal spray - Normodyne - Singulair - Protonix - Advair HFA 45/21 - Flomax - insulin - cyclosporin - Cefepime - remdesivir - Enoxaparin dose adjusted for weight - Decadron 6 mg IV once daily - doxycycline - Rozerem PAST MEDICAL HISTORY: 1. Immunosuppression. 2. Underlying asthma. 3. Status post renal transplantation. 4. Diabetes mellitus. 5. Hypertension. 6. Obstructive sleep apnea syndrome. 7. Chronic thrombocytopenia. 8. Prostate cancer. SOCIAL HISTORY: Retired from the . No recent smoking. No alcohol. FAMILY HISTORY: Significant for diabetes. He lives at home with a supportive spouse. REVIEW OF SYSTEMS: As per the HPI. Constitutional: Significant for fever. HEENT: Unremarkable for double vision. Pulmonary: As per HPI. Cardiac: Unremarkable for any recent angina. GI: Significant for chronic peptic ulcer disease. : Significant for his renal transplantation. Endocrine: Significant for his diabetes. Hematologic: Significant for his chronic bleeding issues and anemia. Dermatologic: Unremarkable for new rashes or cirrhosis. Musculoskeletal: Unremarkable for any new arthralgias or myalgias. Neurologic: Unremarkable. Psychiatric: Unremarkable. PHYSICAL EXAMINATION: GENERAL APPEARANCE: This is a pleasant gentleman lying in bed in the intensive care unit with a CPAP mask in place. VITAL SIGNS: Blood pressure 168 systolic, respiratory rate about 26 without accessory muscle. He is currently afebrile. Pulse oximetry 98% on CPAP of 10 and 80% FiO2. HEENT: Otherwise generally normocephalic, atraumatic. Pupils do react. NECK: Supple. Trachea is in the midline. CHEST: Shows diminished, but symmetric expansion. There are some inspiratory crackles, especially dependently. No convincing rhonchus. No wheezes or rubs. CARDIAC: Distant, but regular. Peripheral pulses are palpable. No evidence of edema. ABDOMEN: Soft with active bowel sounds. No convincing organomegaly or masses. EXTREMITIES: No cyanosis or clubbing. NEUROLOGIC: He is awake, alert, and appropriate. PSYCHIATRIC: Normal mood and affect. IMAGING: Most recent chest x-ray from the does show increased interstitial markings in a pattern consistent with Coronavirus compared to one from the . LABORATORY DATA: Other laboratories show a white blood cell count of 12.6, hemoglobin 11.4, platelet count of 162,000. Sodium 135, K 4.6, chloride 103, CO2 of 18, BUN 47, creatinine 1.94. Blood gas done at 1310 on Vapotherm unknown flow rate pH 7.463, pCO2 of 26.9, pO2 of 51.6. IMPRESSION: 1. Hypoxemia respiratory failure secondary to COVID-19. 2. Immunosuppression. 3. Obstructive sleep apnea syndrome. 4. Diabetes mellitus. 5. Hypertension. 6. Underlying asthma. RECOMMENDATIONS: At this point, I am in full agreement with his current medication regimen. We can consider the addition of tocilizumab if he worsens, but that is usually in and around day 9 or 10 in the setting of worsening inflammatory markers. These will be followed. He has shown improvement in his respiratory status with the addition of CPAP, which he does wear at home. He is unsure of the setting, but he thinks it might be 8 cm of water pressure through the [facility]. He is only on minimal inhaled steroids and we can address this once he is off the higher dose steroids for his Coronavirus infection. He will be followed closely while he is here in the intensive care unit. Further recommendations will be made in the progress record as new information becomes available.
[2020-04-10] MEDS: ACETAMINOPHEN TAB 650MG DOSE (2X325MG) PO PRN (20:22)
[2020-04-11] VITALS (20 sets, daily range): BP systolic 112–160; BP diastolic 67–88
[2020-04-11] MEDS: CEFEPIME HCL 1 GM in D5W MINI-BAG PLUS 50 ML IV SCH (00:17)
[2020-04-11] MEDS: COMBIVENT RESPIMAT 100-20MCG INHALER 4GM INH SCH ×4 (00:23→20:00)
[2020-04-11 05:30] LABS: BASO % 0.2 % (0.0-1.0); HEMATOCRIT 37.8 % (42.0-52.0); HEMOGLOBIN 11.7 g/dl (13.5-17.5); LYMPH # 0.3 10^3/uL (1.5-5.0); LYMPH % 2.4 % (24.0-44.0); MEAN CORPUSCULAR VOLUME 80.8 fl (80.0-96.0); MONO # 0.4 10^3/uL (0.0-0.8); MONO % 3.2 % (0.0-5.0); NEUTROPHILS # 11.5 10^3/uL (1.5-8.5); NEUTROPHILS % 92.9 % (36.0-66.0); PLATELET COUNT, AUTOMATED 137 10^3/uL (150-450); RED BLOOD COUNT 4.68 10^6/uL (4.30-6.10); WHITE BLOOD COUNT 12.4 10^3/uL (4.0-10.0)
[2020-04-11 05:40] LABS: INR 1.28; PROTHROMBIN TIME 16.3 SECONDS (12.5-14.3)
[2020-04-11 05:41] LABS: PARTIAL THROMBOPLASTIN TIME 38.5 SECONDS (24.2-38.5)
[2020-04-11 05:44] LABS: D-DIMER QUANT 2519.33 ng/ml (<500)
[2020-04-11 06:03] LABS: ALBUMIN 2.2 GM/DL (3.2-5.2); ALT/SGPT 16 U/L (12-78); BILIRUBIN,TOTAL 0.9 MG/DL (0.2-1.0); BLOOD UREA NITROGEN 41 MG/DL (7-18); C REACTIVE PROTEIN QUANTITATIV 8.76 MG/DL (0.00-0.30); CALCIUM LEVEL 7.8 MG/DL (8.8-10.2); CARBON DIOXIDE LEVEL 20 MEQ/L (21-32); CHLORIDE LEVEL 108 MEQ/L (98-107); CREATININE FOR GFR 1.66 MG/DL (0.70-1.30); GLOMERULAR FILTRATION RATE 53.3 (>49); GLUCOSE, FASTING 269 MG/DL (70-100); LDH LACTATE DEHYDROGENASE 670 U/L (87-241); MAGNESIUM LEVEL 2.2 MG/DL (1.8-2.4); NT-PRO BNP 648 PG/ML (<125); POTASSIUM SERUM 5.1 MEQ/L (3.5-5.1); SODIUM LEVEL 138 MEQ/L (136-145); TOTAL PROTEIN 5.6 GM/DL (6.4-8.2); TROPONIN I < 0.02 NG/ML (< 0.10)
[2020-04-11] MEDS: HumaLOG INSULIN (NovoLOG) PER UNIT SC SCH ×4 (07:30→18:00)
[2020-04-11] MEDS: NS 1,000 ML IV SCH (08:03)
[2020-04-11] MEDS: DOXYCYCLINE HYCLATE 100 MG in D5W MINI-BAG PLUS 100 ML IV SCH ×2 (08:03→21:38)
[2020-04-11] MEDS: ENOXAPARIN 100MG/1ML SYRINGE (J1650 PER 10MG) SC SCH ×2 (08:07→21:37)
[2020-04-11] MEDS: FINASTERIDE 5 MG TAB PO SCH (08:08)
[2020-04-11] MEDS: NEORAL 25 MG CAP (J7515) PO SCH ×2 (08:08→21:36)
[2020-04-11] MEDS: ASPIRIN 81 MG ENTERIC TAB PO SCH (08:09)
[2020-04-11] MEDS: MONTELUKAST 10 MG TAB PO SCH (08:09)
[2020-04-11] MEDS: amLODIPine 10 MG TAB PO SCH (08:09)
[2020-04-11] MEDS: MULTIVITAMINS/MINERALS THERAP 1 TAB PO SCH (08:09)
[2020-04-11] MEDS: DOCUSATE SODIUM 100MG CAPSULE PO SCH ×3 (08:09→21:00)
[2020-04-11] MEDS: TAMSULOSIN 0.4 MG CAP PO SCH (08:09)
[2020-04-11] MEDS: LABETALOL 200 MG TAB PO SCH ×3 (08:09→21:37)
[2020-04-11] MEDS: ADVAIR HFA 45/21MCG INHALER INH SCH ×2 (09:25→20:35)
--- NOTE | 2020-04-11 10:46 | IPNPDOC ---
Text Note Date of Service The patient was seen on 04/11/20. NOTE Subjective: Patient is a 70-year-old male with a PMHx of ESRD s/p renal transplant (on cyclosporine and mycophenolate), HTN, IDDM2, Asthma, Prostate CA, who initially tested positive for COVID-19 on 04/03 upon admission but left AMA. Re-admitted on 04/06 with acute hypoxic respiratory failure, and sepsis 2/2 COVID-19. Patient was admitted to the hospital service for further evaluation and treatment Patient was seen and examined at the bedside. He has a BiPAP in place. Denies any chest pain or palpitations. Denies nausea, vomiting, abdominal pain, diarrhea, or urinary discomfort. Objective: Vitals (See below) General: Lying in bed, appears comfortable, AAOx3 HEENT: NC, AT, CPAP device in place CVS: +S1S2 Lungs: Poor inspiratory effort bilaterally, very faint crackles appreciated at bases. No wheezing or rhonchi Abdomen: Soft, ND, NT Extremities: No evidence of edema, - Calf tenderness Imaging: CXR (04/08/20) Findings suggest mildly progressive bilateral airspace disease. Assessment and plan: Acute hypoxic respiratory failure - likely 2/2 Covid-19 Infection - Currently patient has CPAP on with an FIO2 of 65% - Inflammatory markers continue to remain elevated - c/w Remdesivir and Dexamethasone (Day#5) - c/w Incentive spirometry / acapella - Pulmonology on consultation; appreciate their input s/p Diarrhea s/p Sepsis - Hemodynamically stable; Febrile episode yesterday (04/10) - Procalcitonin negative x2 - Hx of R knee osteo - c/w Doxycycline - Will DC Cefepime ESRD s/p Renal transplant - Cr baseline of 1.5-1.8 - Cr has improved down to baseline - c/w Cyclosporine - Will DC IV fluid hydration - Nephrology on consultation; Advised to hold Mycophenolate Microscopic hematuria - Urine cytology 04/05: Scattered clusters of urothelial cells noted. - Will have outpatient follow up with Urology HTN - s/p Hypertensive urgency - c/w Amlodipine / Labetalol R knee effusion - Hx of Osteomyelitis - c/w Doxycycline (reported for 2 months); s/p IV antibiotics for 6 weeks - Followed by ID at [facility] (ID clinic tel: [phone]) IDDM2 - c/w ISS Normocytic anemia - Hg appears to be at baseline - Will continue to monitor Thrombocytopenia - Noted to be present since 2016 - No evidence of bleeding KALANI - c/w home CPAP DVT prophylaxis - c/w Lovenox Disposition: - Awaiting clinical improvement - Candi Quesada Clem: [phone] VS,Fishbone, I+O VS, Fishbone, I+O Laboratory Tests 04/11/20 04:44 Vital Signs Date Time Temp Pulse Resp B/P (MAP) Pulse Ox O2 Delivery O2 Flow Rate FiO2 04/11/20 09:20 100 04/11/20 08:09 62 155/87 04/11/20 06:00 96 NIPPV (BIPAP/CPAP) 04/11/20 04:00 26 04/11/20 04:00 96.9 04/10/20 15:00 80.0 I&O- Last 24 Hours up to 6 AM 04/11/20 06:00 Intake Total 2569 ml Output Total 2475 ml Balance 94 ml BRENDAN BRANCH MD Apr 11, 2020 10:46
--- NOTE | 2020-04-11 11:16 | CCN ---
PULMONARY CRITICAL CARE NOTE DATE: 04/11/2020 SUBJECTIVE: I attended to Jose G Nj here in the Intensive Care Unit. Patient has been examined, chart reviewed. I spoke at length with the nurse. T-max overnight 98.,4, blood pressure 140-150s, heart rate in the 60s, respiratory rate in the mid 20s without accessory muscle use. He is quite comfortable on CPAP at 10 cm of H2O pressure. He had been down to 65% FiO2. He had a coughing bout this morning and did desaturate significantly and required 100% FiO2 for some time. He is back down to 65%. Laboratories have all been reviewed. Although his D-dimer is down from 3676 to 2519, he has had an increase in his CRP from 2.7 yesterday to 8.76 today. Fibrinogen only minimally up from 414 to 462. Other laboratories are all essentially unchanged although his creatinine is a little better today at 1.66. PHYSICAL EXAM: On exam he is comfortable on CPAP. HEENT: Pupils react, sclerae clear. Neck: Trachea is midline. Lungs: Generally clear with some fine dependent crackles and expansion is symmetric. Cardiac: Regular. Peripheral pulses palpable. No edema. Abdomen: Soft, nontender with active bowel sounds, no organomegaly or masses. Extremities: Without cyanosis or clubbing. Neurologically: He is awake, alert and appropriate. Psychiatric: Normal mood and affect. IMPRESSIONS: 1. COVID-19 infection with hypoxemia related to that. 2. Known KALANI. 3. Underlying asthma. RECOMMENDATIONS: In view of the increase in his inflammatory markers and his need for continued supplemental oxygen especially with CPAP I believe we are in the window where tocilizumab may be of benefit. I discussed this with him and he is in agreement. He got a reasonable course of remdesivir and we are well beyond the viral replication phase and therefore no further dosing of that is necessary in my opinion. He is already on Decadron. He is on anticoagulation through the primary service. I spoke with pharmacy and the tocilizumab has been ordered. We will proceed as outlined above. My hope is that we will be able to continue with just non-invasive support. Further recommendations will be made in the progress record as new information becomes available.
[2020-04-11] MEDS: dexameTHASONE 20MG/5ML VIAL (J1100 PER 1MG) IV SCH (12:28)
[2020-04-11] MEDS ORDERED: TOCILIZUMAB IV ONE (13:00)
[2020-04-11] MEDS ORDERED: NS IV ONE (13:00)
[2020-04-11] MEDS ORDERED: HumaLOG INSULIN (NovoLOG) PER UNIT SC ONE ×2 (13:30→18:00)
[2020-04-11] MEDS: SODIUM CHLORIDE 0.9% INJ 10 ML SYR IV SCH (15:00)
[2020-04-12] VITALS: BP 121/72
[2020-04-12] MEDS: HumaLOG INSULIN (NovoLOG) PER UNIT SC SCH ×5 (00:12→23:56)
[2020-04-12] MEDS: COMBIVENT RESPIMAT 100-20MCG INHALER 4GM INH SCH ×4 (02:55→20:25)
[2020-04-12 04:00] VITALS: BP 128/85
[2020-04-12 05:01] LABS: BASO % 0.2 % (0.0-1.0); HEMATOCRIT 38.7 % (42.0-52.0); HEMOGLOBIN 12.4 g/dl (13.5-17.5); LYMPH # 0.3 10^3/uL (1.5-5.0); LYMPH % 2.2 % (24.0-44.0); MEAN CORPUSCULAR HEMOGLOBIN 25.9 pg (27.0-33.0); MEAN CORPUSCULAR VOLUME 80.8 fl (80.0-96.0); MONO # 0.2 10^3/uL (0.0-0.8); MONO % 1.8 % (0.0-5.0); NEUTROPHILS # 12.4 10^3/uL (1.5-8.5); NEUTROPHILS % 94.4 % (36.0-66.0); PLATELET COUNT, AUTOMATED 169 10^3/uL (150-450); RED BLOOD COUNT 4.79 10^6/uL (4.30-6.10); WHITE BLOOD COUNT 13.1 10^3/uL (4.0-10.0)
[2020-04-12 05:38] LABS: ALBUMIN 2.2 GM/DL (3.2-5.2); BILIRUBIN,TOTAL 0.9 MG/DL (0.2-1.0); C REACTIVE PROTEIN QUANTITATIV 12.4 MG/DL (0.00-0.30); CALCIUM LEVEL 8.3 MG/DL (8.8-10.2); CREATININE FOR GFR 1.77 MG/DL (0.70-1.30); GLOMERULAR FILTRATION RATE 49.5 (>49); MAGNESIUM LEVEL 2.4 MG/DL (1.8-2.4); POTASSIUM SERUM 4.3 MEQ/L (3.5-5.1)
[2020-04-12] MEDS ORDERED: NS 1,000 ML IV SCH (07:00)
[2020-04-12] MEDS: ADVAIR HFA 45/21MCG INHALER INH SCH ×2 (07:41→20:25)
[2020-04-12 08:00] VITALS: BP 143/88
[2020-04-12] MEDS: DOXYCYCLINE HYCLATE 100 MG in D5W MINI-BAG PLUS 100 ML IV SCH ×2 (08:53→21:15)
[2020-04-12] MEDS: CEFEPIME HCL 1 GM in D5W MINI-BAG PLUS 50 ML IV SCH ×2 (08:53→21:15)
[2020-04-12] MEDS: NEORAL 25 MG CAP (J7515) PO SCH ×2 (08:54→21:16)
[2020-04-12] MEDS: FINASTERIDE 5 MG TAB PO SCH (08:54)
[2020-04-12] MEDS: amLODIPine 10 MG TAB PO SCH (08:56)
[2020-04-12] MEDS: ASPIRIN 81 MG ENTERIC TAB PO SCH (08:56)
[2020-04-12] MEDS: MONTELUKAST 10 MG TAB PO SCH (08:56)
[2020-04-12] MEDS: LABETALOL 200 MG TAB PO SCH ×3 (08:57→21:16)
[2020-04-12] MEDS: MULTIVITAMINS/MINERALS THERAP 1 TAB PO SCH (08:57)
[2020-04-12] MEDS: TAMSULOSIN 0.4 MG CAP PO SCH (08:57)
[2020-04-12] MEDS: DOCUSATE SODIUM 100MG CAPSULE PO SCH ×2 (08:57→21:00)
[2020-04-12] MEDS: ENOXAPARIN 100MG/1ML SYRINGE (J1650 PER 10MG) SC SCH ×2 (08:58→21:16)
--- NOTE | 2020-04-12 10:22 | IPN ---
PROGRESS NOTE DATE: 04/12/2020 SUBJECTIVE: I again attended Jose G Nj here in the intensive care unit. The patient has been examined, chart reviewed, and I spoke at length with the nurse at the bedside. He did receive tocilizumab yesterday. He tolerated it well. This morning, he was able to be weaned down to 50% FiO2 on CPAP of 10. He does still have some intermittent cough and does desaturate significantly with that, but recovers much more quickly today than yesterday. OBJECTIVE: VITAL SIGNS: T-max overnight 97.3, blood pressure 120s to 140s, heart rate 60s to 70s with a sinus mechanism, respiratory rate generally in the 20s. Currently his pulse ox is back to 98% on 50% FiO2 and CPAP of 10. GENERAL APPEARANCE: He is awake, alert, appropriate, and quite comfortable. HEENT: Pupils react. Sclerae clear. CPAP mask is in place. CHEST: Quite clear anteriorly, except for occasional rhonchus that clears completely with cough. There are some dependent crackles. No wheeze or rubs. No convincing egophony. CARDIAC: Regular. Peripheral pulses palpable. No obvious edema. ABDOMEN: Soft and nontender with normoactive bowel sounds. No convincing organomegaly or mass. EXTREMITIES: No cyanosis or clubbing. NEUROLOGIC: He is awake, alert, and appropriate. PSYCHIATRIC: Normal mood and affect. Pulse ox is as above. LABORATORY DATA: Show a white blood cell count of 13.1, hemoglobin 12.4, platelet count 169,000, 94% segs and no bands. Sodium 138, K 4.3, chloride 109, CO2 of 20, BUN 42, creatinine 1.77, glucose 204. Ferritin elevated today at 1143 up from 978 two days ago. D-dimer pending this morning. CRP elevated to 12.4 up from 8.76 yesterday. MEDICATIONS: Have all been reviewed. He remains on doxycycline and Cefepime. He is continuing with his remdesivir. He remains on cyclosporin, as well as Decadron. IMPRESSION: 1. COVID-19 pneumonia with hypoxemia on maximal therapy. 2. Immunosuppressed state. 3. High risk medications. 4. Obstructive sleep apnea syndrome. 5. Status post renal transplant. RECOMMENDATIONS: At this point, I am in agreement with his current medications and regimen. He has an increase in some of his inflammatory markers, but actually recovers more quickly today than he did yesterday. His renal function is holding. He was seen by nephrology several days ago. I do believe it reasonable to check a cyclosporin level, especially in view of his multiple other medications. At this point, we will continue as outlined above. My hopes is that we will begin to see some improvement; but certainly in view of his multiple other comorbidities, certainly he is at high likelihood for further compromise. At this point, we will proceed as outlined above. Further recommendations will be made in the progress record as new information becomes available.
[2020-04-12] MEDS: dexameTHASONE 20MG/5ML VIAL (J1100 PER 1MG) IV SCH (11:57)
[2020-04-12 12:00] VITALS: BP 135/77
--- NOTE | 2020-04-12 12:33 | IPNPDOC ---
Text Note Date of Service The patient was seen on 04/12/20. NOTE Subjective: Patient is a 70-year-old male with a PMHx of ESRD s/p renal transplant (on cyclosporine and mycophenolate), HTN, IDDM2, Asthma, Prostate CA, who initially tested positive for COVID-19 on 04/03 upon admission but left AMA. Re-admitted on 04/06 with acute hypoxic respiratory failure, and sepsis 2/2 COVID-19. Patient was admitted to the hospital service for further evaluation and treatment Patient was seen and examined at the bedside. Currently he notes that he feels relatively better. His FIO2 requirement on CPAP has improved. Patient is complai terri of a dry nose and congestion. Reports some cough. Denies any chest pain, abdominal pain, or diarrhea. Objective: Vitals (See below) General: Sitting up in bed, appears to be comfortable CPAP device in place, awake, alert and oriented 3 HEENT: NC, AT CVS: +S1S2 Lungs: Air entry is fair bilaterally without any evidence of rhonchi, crackles or wheezing Abdomen: Soft, nondistended and nontender Extremities: Lower extremities do not reveal any edema, - Calf tenderness Imaging: CXR (04/08/20) Findings suggest mildly progressive bilateral airspace disease. Assessment and plan: Acute hypoxic respiratory failure - likely 2/2 COVID-19 Infection - Currently patient has CPAP on with an FIO2 of 50% - improved - Based on progress note from [facility]; tested positive on 03/29/2020 - Inflammatory markers continue to remain elevated - c/w Remdesivir and Dexamethasone (Day#6) - s/p Tocilizumab (04/11) - c/w Incentive spirometry / acapella - Pulmonology on consultation; appreciate their input s/p Diarrhea s/p Sepsis - Hemodynamically stable; Febrile episode yesterday (04/10) - Procalcitonin - up trending; resumed Cefepime - Hx of R knee osteo - c/w Doxycycline ESRD s/p Renal transplant - Cr baseline of 1.9-2.0 - Cr has improved better than baseline - c/w Cyclosporine - Will DC IV fluid hydration - Nephrology on consultation; Advised to hold Mycophenolate - Discussed case with Nephrology today; will hold IV fluids as kidney function is better than baseline Microscopic hematuria - Urine cytology 04/05: Scattered clusters of urothelial cells noted. - Will have outpatient follow up with Urology HTN - s/p Hypertensive urgency - c/w Amlodipine / Labetalol R knee effusion - Hx of Osteomyelitis - c/w Doxycycline (reported for 2 months); s/p IV antibiotics for 6 weeks - Followed by ID at [facility] (ID clinic tel: [phone]) IDDM2 - c/w ISS Normocytic anemia - Hg appears to be at baseline - Will continue to monitor Thrombocytopenia - Noted to be present since 2016 - No evidence of bleeding KALANI - c/w home CPAP DVT prophylaxis - c/w Lovenox Disposition: - Awaiting clinical improvement - Sangita Clem: [phone] VS,Ju, I+O VS, Ju, I+O Laboratory Tests 04/12/20 04:55 Vital Signs Date Time Temp Pulse Resp B/P (MAP) Pulse Ox O2 Delivery O2 Flow Rate FiO2 04/12/20 08:57 67 04/12/20 08:56 143/88 04/12/20 08:00 70 04/12/20 08:00 96.7 25 96 NIPPV (BIPAP/CPAP) 04/12/20 01:00 40.0 I&O- Last 24 Hours up to 6 AM 04/12/20 06:00 Intake Total 2377 ml Output Total 2550 ml Balance -173 ml BRENDAN BRANCH MD Apr 12, 2020 12:32
[2020-04-12 16:00] VITALS: BP 133/78
[2020-04-12 20:00] VITALS: BP 140/80
[2020-04-13] VITALS (8 sets, daily range): BP systolic 137–150; BP diastolic 75–90; O2SAT 92
[2020-04-13] MEDS: COMBIVENT RESPIMAT 100-20MCG INHALER 4GM INH SCH ×4 (02:00→20:06)
[2020-04-13 05:00] LABS: BASO % 0.2 % (0.0-1.0); EOS % 0.1 % (0.0-3.0); HEMATOCRIT 38.4 % (42.0-52.0); HEMOGLOBIN 11.7 g/dl (13.5-17.5); LYMPH # 0.2 10^3/uL (1.5-5.0); LYMPH % 1.8 % (24.0-44.0); MEAN CORPUSCULAR HEMOGLOBIN 24.7 pg (27.0-33.0); MEAN CORPUSCULAR HGB CONC 30.5 g/dl (32.0-36.5); MONO # 0.3 10^3/uL (0.0-0.8); MONO % 2.4 % (0.0-5.0); NEUTROPHILS # 11.5 10^3/uL (1.5-8.5); NEUTROPHILS % 93.5 % (36.0-66.0); PLATELET COUNT, AUTOMATED 193 10^3/uL (150-450); RED BLOOD COUNT 4.74 10^6/uL (4.30-6.10); WHITE BLOOD COUNT 12.3 10^3/uL (4.0-10.0)
[2020-04-13 05:30] LABS: ALBUMIN 2.3 GM/DL (3.2-5.2); BILIRUBIN,TOTAL 0.9 MG/DL (0.2-1.0); CALCIUM LEVEL 8.7 MG/DL (8.8-10.2); CREATININE FOR GFR 1.94 MG/DL (0.70-1.30); GLOMERULAR FILTRATION RATE 44.5 (>49); MAGNESIUM LEVEL 2.5 MG/DL (1.8-2.4); POTASSIUM SERUM 4.8 MEQ/L (3.5-5.1); TOTAL PROTEIN 5.9 GM/DL (6.4-8.2)
[2020-04-13 05:31] LABS: C REACTIVE PROTEIN QUANTITATIV 6.97 MG/DL (0.00-0.30)
[2020-04-13] MEDS: HumaLOG INSULIN (NovoLOG) PER UNIT SC SCH ×4 (06:47→23:13)
[2020-04-13] MEDS: ADVAIR HFA 45/21MCG INHALER INH SCH ×2 (07:16→20:06)
[2020-04-13] MEDS: DOCUSATE SODIUM 100MG CAPSULE PO SCH ×2 (09:00→21:00)
[2020-04-13] MEDS: CEFEPIME HCL 1 GM in D5W MINI-BAG PLUS 50 ML IV SCH ×2 (09:12→21:13)
[2020-04-13] MEDS: ENOXAPARIN 100MG/1ML SYRINGE (J1650 PER 10MG) SC SCH ×2 (09:17→21:16)
[2020-04-13] MEDS: NEORAL 25 MG CAP (J7515) PO SCH ×2 (09:17→21:13)
[2020-04-13] MEDS: TAMSULOSIN 0.4 MG CAP PO SCH (09:17)
[2020-04-13] MEDS: FINASTERIDE 5 MG TAB PO SCH (09:17)
[2020-04-13] MEDS: ASPIRIN 81 MG ENTERIC TAB PO SCH (09:18)
[2020-04-13] MEDS: MONTELUKAST 10 MG TAB PO SCH (09:18)
[2020-04-13] MEDS: MULTIVITAMINS/MINERALS THERAP 1 TAB PO SCH (09:18)
[2020-04-13] MEDS: amLODIPine 10 MG TAB PO SCH (09:18)
[2020-04-13] MEDS: LABETALOL 200 MG TAB PO SCH ×3 (09:19→21:20)
[2020-04-13] MEDS: DOXYCYCLINE HYCLATE 100 MG in D5W MINI-BAG PLUS 100 ML IV SCH ×2 (09:59→21:20)
--- NOTE | 2020-04-13 10:55 | IPN ---
PULMONARY CRITICAL CARE NOTE DATE: 04/13/2020 SUBJECTIVE: I attended Jose G Nj here in the Intensive Care. The patient has been examined, chart reviewed, and I spoke at length with the primary service as well as the nurse at the bedside. He has been able to remain down to 55% FIO2. He does desaturate quickly when off noninvasive support but recovers much more quickly than previous. T-max overnight 98 degrees, blood pressure 130s to 150s, heart rate in the 60s to 70s with a sinus mechanism, respiratory rate generally in the low 20s without accessory muscle use. Ins and outs from midnight to midnight 1300 ml in with 1605 ml out. White blood cell count 12.3, hemoglobin 11.7, platelet count 193,000, 93.5 segs, no bands. Sodium 138, K 4.8, chloride 109, CO2 20, BUN 47, creatinine 1.94, mildly up from yesterday. Ferritin essentially unchanged at 1168. CRP down to 6.97. D-Dimer down from yesterday, measured today at 2519 with a fibrinogen essentially unchanged at 462. PHYSICAL EXAMINATION: GENERAL: He is awake, alert and appropriate. He is quite comfortable with the CPAP mask in place. HEENT: Pupils react, sclerae clear. Neck: Trachea is midline. Lungs: Dependent crackles. There are some rhonchi that do clear with cough even with the CPAP mask in place. No egophony, wheeze or focal adventitious breath sounds. Cardiac: Distant but regular. Peripheral pulses are palpable. No edema. Abdomen: Soft, nontender with active bowel sounds, no organomegaly or masses. Extremities: Without cyanosis or clubbing. Neurologically: He is awake, alert and appropriate. Psychiatric: Normal mood and affect. IMPRESSIONS: 1. Hypoxemia, multifactorial, may be on the basis of COVID-19. 2. Obstructive apnea syndrome. At this point he has received Remdesivir. He is on Decadron. He did receive Tocilizumab. He has had antimicrobials. He continues on dose adjusted Lovenox for weight. Although his progress is slow, we have been able to wean his FIO2 and he does seem to recover more quickly. His inflammatory markers are mixed overall but I remain cautiously optimistic. This is reviewed at length with him. We will proceed as outlined above. I spoke at length with Dr. Gruber regarding his care. Further recommendations will be made in the progress record as new information becomes available.
[2020-04-13] MEDS: dexameTHASONE 20MG/5ML VIAL (J1100 PER 1MG) IV SCH (11:37)
--- NOTE | 2020-04-13 13:35 | IPNPDOC ---
Text Note Date of Service The patient was seen on 04/13/20. NOTE Subjective: Patient is a 70-year-old male with a PMHx of ESRD s/p renal transplant (on cyclosporine and mycophenolate), HTN, IDDM2, Asthma, Prostate CA, who initially tested positive for COVID-19 on 04/03 upon admission but left AMA. Re-admitted on 04/06 with acute hypoxic respiratory failure, and sepsis 2/2 COVID-19. Patient was admitted to the hospital service for further evaluation and treatment Patient was seen and examined at the bedside. Patient denies any chest pain or palpitation. Patient continued to experience shortness of breath and cough. He s till on CPAP device and his FiO2 requirement has improved. He denies any nausea, vomiting, abdominal pain, diarrhea, or urinary discomfort. Objective: Vitals (See below) General: Patient is sitting up in bed, does not appear to be in any distress, is awake, alert and oriented 3 HEENT: NC, AT, CPAP device is in place CVS: +S1S2 Lungs: Air entry appears to be fair bilaterally without any evidence of rhonchi, crackles or wheezing Abdomen: Abdomen remains soft without any distention or tenderness on palpation Extremities: No edema is noted of his lower extremities, - Calf tenderness Imaging: CXR (04/08/20) Findings suggest mildly progressive bilateral airspace disease. Assessment and plan: Acute hypoxic respiratory failure - likely 2/2 COVID-19 Infection - Currently patient has CPAP on with an FIO2 of 50% - improved - Based on progress note from [facility]; tested positive on 03/29/2020 - Inflammatory markers have had some improvement this morning - c/w Remdesivir and Dexamethasone (Day#7) - s/p Tocilizumab (04/11) - c/w Incentive spirometry / acapella - Pulmonology on consultation; appreciate their input s/p Diarrhea s/p Sepsis - Hemodynamically stable; Febrile episode yesterday (04/10) - Procalcitonin had trended up - Hx of R knee osteo - c/w Doxycycline and Cefepime ESRD s/p Renal transplant - Cr baseline of 1.9-2.0 - Cr is within his normal range - c/w Cyclosporine - s/p IV fluid hydration - Nephrology on consultation; Advised to hold Mycophenolate Microscopic hematuria - Urine cytology 04/05: Scattered clusters of urothelial cells noted. - Will have outpatient follow up with Urology HTN - s/p Hypertensive urgency - c/w Amlodipine / Labetalol R knee effusion - Hx of Osteomyelitis - c/w Doxycycline (reported for 2 months); s/p IV antibiotics for 6 weeks - Followed by ID at [facility] (ID clinic tel: [phone]) IDDM2 - c/w ISS Normocytic anemia - Hg appears to be at baseline - Will continue to monitor Thrombocytopenia - Noted to be present since 2016 - No evidence of bleeding KALANI - c/w home CPAP DVT prophylaxis - c/w Lovenox Disposition: - Awaiting clinical improvement - Sangita Clem: [phone] VS,Ju, I+O VS, Ju I+O Laboratory Tests 04/13/20 04:34 Vital Signs Date Time Temp Pulse Resp B/P (MAP) Pulse Ox O2 Delivery O2 Flow Rate FiO2 04/13/20 12:00 55 04/13/20 09:19 68 146/64 04/13/20 04:00 98.0 24 94 NIPPV (BIPAP/CPAP) 04/12/20 01:00 40.0 I&O- Last 24 Hours up to 6 AM 04/13/20 06:00 Intake Total 1660 ml Output Total 1980 ml Balance -320 ml BRENDAN BRANCH MD Apr 13, 2020 13:35
[2020-04-14 01:09] VITALS: BP 127/74
[2020-04-14] MEDS: COMBIVENT RESPIMAT 100-20MCG INHALER 4GM INH SCH ×2 (02:00→08:00)
[2020-04-14 03:01] VITALS: BP 130/78
[2020-04-14] MEDS: BENZONATATE 100 MG CAP PO PRN ×2 (03:24→13:56)
[2020-04-14] MEDS: HumaLOG INSULIN (NovoLOG) PER UNIT SC SCH ×4 (06:11→23:47)
[2020-04-14 06:19] LABS: BASO % 0.1 % (0.0-1.0); EOS % 0.1 % (0.0-3.0); HEMOGLOBIN 12.2 g/dl (13.5-17.5); LYMPH # 0.2 10^3/uL (1.5-5.0); LYMPH % 1.5 % (24.0-44.0); MEAN CORPUSCULAR HEMOGLOBIN 24.9 pg (27.0-33.0); MEAN CORPUSCULAR HGB CONC 31.3 g/dl (32.0-36.5); MEAN CORPUSCULAR VOLUME 79.8 fl (80.0-96.0); MONO # 0.3 10^3/uL (0.0-0.8); MONO % 2.2 % (0.0-5.0); NEUTROPHILS # 13.5 10^3/uL (1.5-8.5); NEUTROPHILS % 94.4 % (36.0-66.0); PLATELET COUNT, AUTOMATED 182 10^3/uL (150-450); RED BLOOD COUNT 4.89 10^6/uL (4.30-6.10); WHITE BLOOD COUNT 14.3 10^3/uL (4.0-10.0)
[2020-04-14 06:43] LABS: INR 1.26; PROTHROMBIN TIME 16.1 SECONDS (12.5-14.3)
[2020-04-14 06:44] LABS: PARTIAL THROMBOPLASTIN TIME 35.7 SECONDS (24.2-38.5)
[2020-04-14 07:01] LABS: ALBUMIN 2.4 GM/DL (3.2-5.2); BILIRUBIN,DIRECT 0.4 MG/DL (0.0-0.2); BILIRUBIN,TOTAL 0.9 MG/DL (0.2-1.0); CALCIUM LEVEL 8.4 MG/DL (8.8-10.2); CREATININE FOR GFR 1.87 MG/DL (0.70-1.30); GLOMERULAR FILTRATION RATE 46.4 (>49); MAGNESIUM LEVEL 2.3 MG/DL (1.8-2.4); POTASSIUM SERUM 4.8 MEQ/L (3.5-5.1); TOTAL PROTEIN 5.7 GM/DL (6.4-8.2)
[2020-04-14] MEDS: ADVAIR HFA 45/21MCG INHALER INH SCH ×2 (08:00→19:48)
[2020-04-14 08:01] VITALS: BP 127/78
[2020-04-14] MEDS: CEFEPIME HCL 1 GM in D5W MINI-BAG PLUS 50 ML IV SCH ×2 (08:04→21:39)
[2020-04-14] MEDS: NEORAL 25 MG CAP (J7515) PO SCH ×2 (08:08→21:36)
[2020-04-14] MEDS: ASPIRIN 81 MG ENTERIC TAB PO SCH (08:08)
[2020-04-14] MEDS: FINASTERIDE 5 MG TAB PO SCH (08:08)
[2020-04-14] MEDS: MONTELUKAST 10 MG TAB PO SCH (08:09)
[2020-04-14] MEDS: TAMSULOSIN 0.4 MG CAP PO SCH (08:09)
[2020-04-14] MEDS: MULTIVITAMINS/MINERALS THERAP 1 TAB PO SCH (08:09)
[2020-04-14] MEDS: LABETALOL 200 MG TAB PO SCH ×3 (08:10→21:39)
[2020-04-14] MEDS: ENOXAPARIN 100MG/1ML SYRINGE (J1650 PER 10MG) SC SCH ×2 (08:10→21:35)
[2020-04-14] MEDS: amLODIPine 10 MG TAB PO SCH (08:10)
[2020-04-14] MEDS: DOCUSATE SODIUM 100MG CAPSULE PO SCH ×2 (08:11→21:00)
[2020-04-14] MEDS: DOXYCYCLINE HYCLATE 100 MG in D5W MINI-BAG PLUS 100 ML IV SCH ×2 (08:35→22:27)
--- NOTE | 2020-04-14 11:02 | IPNPDOC ---
Text Note Date of Service The patient was seen on 04/14/20. NOTE Subjective: Patient is a 70-year-old male with a PMHx of ESRD s/p renal transplant (on cyclosporine and mycophenolate), HTN, IDDM2, Asthma, Prostate CA, who initially tested positive for COVID-19 on 04/03 upon admission but left AMA. Re-admitted on 04/06 with acute hypoxic respiratory failure, and sepsis 2/2 COVID-19. Patient was admitted to the hospital service for further evaluation and treatment Patient was seen and examined at the bedside. Patient was sitting up in bed. Denies any CP, palpitations. Reports that he feels relatively fine and hopes that I will be sending him home today. He denies any N/V, abdominal pain, constipation. Objective: Vitals (See below) General: Sitting up in bed, CPAP device in place, oriented to person, place and time. Does not appear to be in any acute distress HEENT: NC, AT CVS: +S1S2 Lungs: Air entry appears to be fair bilaterally without any appreciated, rhonchi, crackles or wheezing Abdomen: Again, abdomen is soft, no appreciable tenderness or distention Extremities: Lower extremities do not reveal any edema, - Calf tenderness Imaging: CXR (04/08/20) Findings suggest mildly progressive bilateral airspace disease. Assessment and plan: Acute hypoxic respiratory failure - likely 2/2 COVID-19 Infection - Patient reports that he clinically feels better - Remains on CPAP; will continue to slowly titrate down FiO2 - Based on progress note from [facility]; tested positive on 03/29/2020 - Inflammatory markers have had some improvement this morning - c/w Dexamethasone (Day#8); s/p Remdesivir (5 day course) - s/p Tocilizumab (04/11) - c/w Incentive spirometry / acapella - Pulmonology on consultation; appreciate their input s/p Diarrhea s/p Sepsis - Hemodynamically stable; Febrile episode yesterday (04/10) - Procalcitonin had trended up - Hx of R knee osteo - c/w Doxycycline and Cefepime ESRD s/p Renal transplant - Cr baseline of 1.9-2.0 - Cr remains within his baseline range - c/w Cyclosporine - s/p IV fluid hydration - Nephrology on consultation; Advised to hold Mycophenolate Microscopic hematuria - Urine cytology 04/05: Scattered clusters of urothelial cells noted. - Will have outpatient follow up with Urology HTN - BP well controlled - s/p Hypertensive urgency - c/w Amlodipine / Labetalol R knee effusion - Hx of Osteomyelitis - c/w Doxycycline (reported for 2 months); s/p IV antibiotics for 6 weeks - Followed by ID at [facility] (ID clinic tel: [phone]) IDDM2 - c/w ISS Normocytic anemia - Hg appears to be at baseline - Will continue to monitor s/p Thrombocytopenia - Noted to be present since 2016 - No evidence of bleeding KALANI - c/w home CPAP DVT prophylaxis - c/w Lovenox Disposition: - Awaiting clinical improvement - Sangita Clem: [phone] VS,Ju, I+O VS, Ju, I+O Laboratory Tests 04/14/20 06:00 Vital Signs Date Time Temp Pulse Resp B/P (MAP) Pulse Ox O2 Delivery O2 Flow Rate FiO2 04/14/20 08:10 67 127/78 04/14/20 04:00 55 04/14/20 03:01 98.0 32 93 NIPPV (BIPAP/CPAP) 04/12/20 01:00 40.0 I&O- Last 24 Hours up to 6 AM 04/14/20 06:00 Intake Total 1200 ml Output Total 1470 ml Balance -270 ml BRENDAN BRANCH MD Apr 14, 2020 11:02
[2020-04-14] MEDS: dexameTHASONE 20MG/5ML VIAL (J1100 PER 1MG) IV SCH (12:16)
[2020-04-14] MEDS: ALBUTEROL 90 MCG/ACT 8GM HFA INHALER INH SCH ×3 (12:21→19:49)
[2020-04-14 12:26] VITALS: BP 140/72
[2020-04-14 16:15] VITALS: BP 133/79
[2020-04-14] MEDS: guaiFENesin SYRUP 200 MG/10 ML UDC PO PRN (16:19)
--- NOTE | 2020-04-14 16:24 | CCN ---
CRITICAL CARE NOTE DATE: 04/14/2020 Patient was seen and examined this morning during bedside rounds. Patient has remained on continuous positive airway pressure (CPAP) for his hypoxemic respiratory failure. He was attempted to be placed on VapoTherm; however, he desaturated into the 70s and was quickly placed back on CPAP. The patient was willing to attempt awake pronation, and his oxygen saturations did improve with pronation, and his FiO2 was initially able to be weaned down to 40%. Patient otherwise continues to report shortness of breath and dyspnea with exertion. He does have some tachypnea, and he is only able to speak in short sentences. PHYSICAL EXAMINATION: VITALS: T 98.0 P67 R28-32 BP 125/78 O2 sat 95% on CPAP I: 1.2 O: 2.1L Net negative 440mls GENERAL: Awake and alert. Patient does not appear to be using any accessory muscles while prone, although he is tachypneic. HEENT: Limited, as patient is prone. His pupils are reactive. Mucous membranes appear moist. CARDIAC: Unable to appreciate, as patient is proning. RESPIRATORY: There are no wheezes noted and no rhonchi. There are diminished breath sounds with mild crackles at the bases. ABDOMEN: Unable to examine, as patient is prone. EXTREMITIES: No significant lower extremity edema noted bilaterally. No clubbing or cyanosis. LABORATORY DATA: WBC 14.3, hemoglobin 12.2, platelets 183. Chemistry: Sodium is 141, potassium 4.8, chloride 113, bicarbonate 19, BUN 52, creatinine 1.87, glucose 178, magnesium 2.3, calcium 8.4. Ferritin is 1025. AST and Alt within normal limits. CRP trending down to 3.41. BNP was 638. Albumin is 2.4. Procalcitonin trended down to 0.26. D-dimer is 3090. ASSESSMENT AND PLAN: Mr. Nj is a 70-year-old male with a past medical history of end-stage renal disease (ESRD) status post renal transplant, asthma, history of prostate cancer, diabetes, hypertension, who was admitted for acute hypoxemic respiratory failure in the setting of COVID-19 pneumonia. Patient completed a 5-day course of remdesivir, and he is continued on dexamethasone. He also received a dose of tocilizumab on April 11 given his severe hypoxemic respiratory failure. Patient has continued on CPAP for oxygenation and ventilatory support, and his FiO2 has been able to be weaned down. 1. Acute hypoxemic respiratory failure in the setting of COVID-19 pneumonia. Patient appears to be improving slowly while on CPAP in terms of his oxygenation. With awake pronation, he was able to be weaned down on his FiO2, although he has difficulty tolerating pronation. - Will continue to encourage awake pronation as much as tolerated during the day. His CPAP settings were weaned down from 10 cm to 8 cm water, which is his home setting, as his tidal volumes initially on the 10 were significantly elevated in the 700s, almost up to a liter at times. - Will continue to wean down his FiO2 as tolerated to maintain an oxygen saturation above 88%. - Continue patient on dexamethasone 6 mg intravenous (IV) daily. - Continue with broad-spectrum antibiotics with cefepime as well as doxycycline. He is chronically immunosuppressed and so is at risk for secondary infection, particularly with the steroids as well as with the tocilizumab. - Patient's procalcitonin did increase slightly, and he did have a fever a few days ago. It is trending down currently. If he continues to have a fever, would consider changing doxycycline to vancomycin. He reportedly has a history of right knee osteomyelitis in the past. - Continue with his home cyclosporin. His mycophenolate is currently on hold. - If patient is able to be weaned down on FiO2, would consider trialing him again on VapoTherm with awake proning during the day in the morning tomorrow. 2. Deep venous thrombosis (DVT) prophylaxis, on full-dose Lovenox for anticoagulation given increasing D-dimer. 3. Code status. Full code. Patient has previously been a DO NOT RESUSCITATE/DO NOT INTUBATE, which was rescinded. Patient is, however, considering potentially changing his code status again but will discuss with his regarding further goals of care. TOTAL CRITICAL CARE TIME SPENT, NOT INCLUDING PROCEDURES: Approximately 50 minutes. TAINAD
[2020-04-14 20:00] VITALS: BP 155/88
[2020-04-15] VITALS (7 sets, daily range): BP systolic 127–147; BP diastolic 71–98; O2SAT 95
[2020-04-15] MEDS: HumaLOG INSULIN (NovoLOG) PER UNIT SC SCH ×3 (05:59→18:01)
[2020-04-15] MEDS: ALBUTEROL 90 MCG/ACT 8GM HFA INHALER INH SCH ×4 (08:00→19:47)
[2020-04-15] MEDS: CEFEPIME HCL 1 GM in D5W MINI-BAG PLUS 50 ML IV SCH ×2 (08:31→20:18)
[2020-04-15] MEDS: FINASTERIDE 5 MG TAB PO SCH (08:38)
[2020-04-15] MEDS: NEORAL 25 MG CAP (J7515) PO SCH ×2 (08:38→20:24)
[2020-04-15] MEDS: ENOXAPARIN 100MG/1ML SYRINGE (J1650 PER 10MG) SC SCH ×2 (08:39→20:19)
[2020-04-15] MEDS: LABETALOL 200 MG TAB PO SCH ×3 (08:39→20:23)
[2020-04-15] MEDS: ASPIRIN 81 MG ENTERIC TAB PO SCH (08:39)
[2020-04-15] MEDS: amLODIPine 10 MG TAB PO SCH (08:40)
[2020-04-15] MEDS: BENZONATATE 100 MG CAP PO PRN ×2 (08:40→20:22)
[2020-04-15] MEDS: TAMSULOSIN 0.4 MG CAP PO SCH (08:40)
[2020-04-15] MEDS: MONTELUKAST 10 MG TAB PO SCH (08:40)
[2020-04-15] MEDS: DOCUSATE SODIUM 100MG CAPSULE PO SCH ×3 (08:40→20:24)
[2020-04-15] MEDS: MULTIVITAMINS/MINERALS THERAP 1 TAB PO SCH (08:40)
[2020-04-15] MEDS: DOXYCYCLINE HYCLATE 100 MG in D5W MINI-BAG PLUS 100 ML IV SCH ×2 (08:41→20:18)
[2020-04-15 09:09] LABS: BASO % 0.1 % (0.0-1.0); EOS % 0.2 % (0.0-3.0); HEMATOCRIT 39.1 % (42.0-52.0); HEMOGLOBIN 12.4 g/dl (13.5-17.5); LYMPH # 0.2 10^3/uL (1.5-5.0); LYMPH % 1.4 % (24.0-44.0); MEAN CORPUSCULAR HEMOGLOBIN 25.8 pg (27.0-33.0); MEAN CORPUSCULAR HGB CONC 31.7 g/dl (32.0-36.5); MEAN CORPUSCULAR VOLUME 81.3 fl (80.0-96.0); MONO # 0.3 10^3/uL (0.0-0.8); NEUTROPHILS % 95.1 % (36.0-66.0); PLATELET COUNT, AUTOMATED 173 10^3/uL (150-450); RED BLOOD COUNT 4.81 10^6/uL (4.30-6.10); WHITE BLOOD COUNT 13.6 10^3/uL (4.0-10.0)
[2020-04-15 09:30] LABS: INR 1.29; PROTHROMBIN TIME 16.4 SECONDS (12.5-14.3)
[2020-04-15 09:31] LABS: ALBUMIN 2.4 GM/DL (3.2-5.2); BILIRUBIN,DIRECT 0.4 MG/DL (0.0-0.2); BILIRUBIN,TOTAL 0.9 MG/DL (0.2-1.0); C REACTIVE PROTEIN QUANTITATIV 2.49 MG/DL (0.00-0.30); CALCIUM LEVEL 8.7 MG/DL (8.8-10.2); CREATININE FOR GFR 2.01 MG/DL (0.70-1.30); FIBRINOGEN 421 MG/DL (221-452); GLOMERULAR FILTRATION RATE 42.7 (>49); MAGNESIUM LEVEL 2.4 MG/DL (1.8-2.4); PARTIAL THROMBOPLASTIN TIME 33.4 SECONDS (24.2-38.5); POTASSIUM SERUM 4.7 MEQ/L (3.5-5.1); TOTAL PROTEIN 5.9 GM/DL (6.4-8.2)
[2020-04-15 10:37] LABS: D-DIMER QUANT > 4000 ng/ml (<500)
[2020-04-15] MEDS: ADVAIR HFA 45/21MCG INHALER INH SCH ×2 (11:25→19:47)
[2020-04-15] MEDS ORDERED: SODIUM CHLORIDE NASAL 0.65% SPRAY BTL (OCEAN) PRN (11:45)
--- NOTE | 2020-04-15 11:56 | IPNPDOC ---
Text Note Date of Service The patient was seen on 04/15/20. NOTE Subjective: Patient is a 70-year-old male with a PMHx of ESRD s/p renal transplant (on cyclosporine and mycophenolate), HTN, IDDM2, Asthma, Prostate CA, who initially tested positive for COVID-19 on 04/03 upon admission but left AMA. Re-admitted on 04/06 with acute hypoxic respiratory failure, and sepsis 2/2 COVID-19. Patient was admitted to the hospital service for further evaluation and treatment Patient was seen and examined at the bedside. Currently patient denies any chest pain or palpitations. Patient has CPAP device in place. Has been coughing signif icantly. Denies any nausea, vomiting, abdominal pain or diarrhea. Objective: Vitals (See below) General: Patient is seen sitting up in bed with CPAP device in place. Patient is coughing, does not appear to be in any significant distress, is awake, alert and oriented 3 HEENT: NC, AT CVS: +S1S2 Lungs: Air entry is poor bilaterally. No significant wheezing, rhonchi or rales Abdomen: Abdomen is soft without any distention or tenderness Extremities: No evidence of edema, - Calf tenderness Imaging: CXR (04/08/20) Findings suggest mildly progressive bilateral airspace disease. Assessment and plan: Acute hypoxic respiratory failure - likely 2/2 COVID-19 Infection - Patient has been coughing significantly this morning - Remains on CPAP - FiO2 requirement has increased - Based on progress note from [facility]; tested positive on 03/29/2020 - Inflammatory markers continue to have some improvement today - c/w Dexamethasone (Day#9); s/p Remdesivir (5 day course) - s/p Tocilizumab (04/11) - c/w Incentive spirometry / acapella - Pulmonology on consultation; appreciate their input s/p Diarrhea s/p Sepsis - Hemodynamically stable; Febrile episode yesterday (04/10) - Procalcitonin elevated - Hx of R knee osteo - c/w Doxycycline and Cefepime ESRD s/p Renal transplant - Cr baseline of 1.9-2.0 - Cr remains within his baseline range - c/w Cyclosporine - s/p IV fluid hydration - Nephrology on consultation; Advised to hold Mycophenolate Microscopic hematuria - Urine cytology 04/05: Scattered clusters of urothelial cells noted. - Will have outpatient follow up with Urology HTN - BP well controlled - s/p Hypertensive urgency - c/w Amlodipine / Labetalol R knee effusion - Hx of Osteomyelitis - c/w Doxycycline (reported for 2 months); s/p IV antibiotics for 6 weeks - currently IV - Followed by ID at [facility] (ID clinic tel: [phone]) IDDM2 - c/w ISS Normocytic anemia - Hg appears to be at baseline - Will continue to monitor s/p Thrombocytopenia - Noted to be present since 2016 - No evidence of bleeding KALANI - c/w home CPAP DVT prophylaxis - c/w Lovenox Disposition: - Awaiting clinical improvement - Sangita Clem: [phone] VS,Ju, I+O VSJu I+O Laboratory Tests 04/15/20 08:55 Vital Signs Date Time Temp Pulse Resp B/P (MAP) Pulse Ox O2 Delivery O2 Flow Rate FiO2 04/15/20 11:15 94 Nasal Cannula 40.0 100 04/15/20 08:39 67 130/71 04/15/20 08:00 98.1 26 I&O- Last 24 Hours up to 6 AM 04/15/20 06:00 Intake Total 970 ml Output Total 1460 ml Balance -490 ml BRENDAN BRANCH MD Apr 15, 2020 11:56
[2020-04-15] MEDS: guaiFENesin SYRUP 200 MG/10 ML UDC PO PRN (12:00)
[2020-04-15] MEDS: dexameTHASONE 20MG/5ML VIAL (J1100 PER 1MG) IV SCH (12:01)
--- NOTE | 2020-04-15 12:44 | CCN ---
CRITICAL CARE NOTE DATE: 04/15/2020 SUBJECTIVE: The patient was seen and examined this morning during bedside rounds. The patient has remained on CPAP for his hypoxemia respiratory failure. He has been doing periods of awake pronation, as well as lying on his side as well. The patient this morning reports his shortness of breath has improved somewhat. He is complaining of some nasal congestion, however, as well as a dry mouth. He has not had any fevers overnight. OBJECTIVE: VITAL SIGNS: Temperature 97.2, pulse 68, respirations 20, blood pressure 125/77, O2 saturation 88% to 94% on CPAP at 55% FiO2. INTAKE AND OUTPUT: In 1.1, out 1.3 liters, negative 120 mL. GENERAL: The patient is awake and alert. He is lying in bed in the lateral decubitus position and does not appear to be in any acute respiratory distress. He is mildly tachypneic, but does not appear to be using significant accessory muscles for respiration. HEENT: Normocephalic, atraumatic. Patient's pupils are reactive to light bilaterally. Mucous membranes are dry while on CPAP. NECK: Supple. Trachea is midline. No palpable cervical adenopathy. CARDIAC: Regular rate and rhythm. Normal S1, S2. Unable to clearly appreciate any murmurs. PULMONARY: Diminished breath sounds bilaterally with more significant diminished breath sounds at the left base compared to the right. There are no wheezes or rhonchi noted. ABDOMEN: Soft, nondistended, and nontender. There is no appreciable organomegaly. EXTREMITIES: There is no significant lower extremity edema noted bilaterally. No clubbing or cyanosis. LABORATORY DATA: WBC 13.6, hemoglobin 12.4, platelets 173,000. Chemistries: sodium 141, potassium 4.7, chloride 113, bicarb 22, BUN 54, creatinine 2.01, glucose 100. Ferritin is 1038. CRP is 2.49. BNP increased to 959. Procalcitonin 0.33. D-dimer greater than 4000. INR is 1.29. Fibrinogen 421. ASSESSMENT AND PLAN: Mr. Nj is a 70-year-old male with a past medical history of end-stage renal disease (ESRD) status post renal transplant, asthma, prior history of prostate cancer, diabetes, and hypertension who presented with acute hypoxemic respiratory failure in the setting of COVID-19 pneumonia. The patient had completed a five day course of remdesivir, as well as continuing with dexamethasone. The patient has also received one dose of tocilizumab for his severe hypoxemic respiratory failure. He has been continued on CPAP for oxygenation and ventilatory support and with pronation and positioning, he has been able to be weaned down on his FiO2. Acute hypoxemic respiratory failure in the setting of COVID-19 pneumonia. - The patient has been requiring less FiO2 on his CPAP. Will attempt to place the patient on Vapotherm to give him a break off of the CPAP for as long as tolerated during the day. He can continue otherwise with CPAP at 8 cm of water if needed and continue weaning down FiO2 as tolerated. - Will continue to encourage awake pronation as much as tolerated during the day or lateral positioning. - Will also encourage the patient to use incentive spirometer while on the Vapotherm, as well as giving nasal saline spray for his nasal congestion. - Continue dexamethasone 6 mg IV daily for now. - Continue with broad-spectrum antibiotics with Cefepime and doxycycline. He has a history of chronic immunosuppression, as well as a prior history of osteomyelitis. He does continue to have elevated procalcitonin. if increasing WBC or fever consider changing doxycycline to vancomycin - The patient is continued on cyclosporin as per renal, but his mycophenolate is on hold. - Continue the patient on full dose Lovenox for anticoagulation given his increasing D-dimer and severe hypoxemic respiratory failure. Deep vein thrombosis (DVT) prophylaxis on full dose Lovenox. Code status: FULL CODE. CRITICAL CARE TIME: Total time spent not including procedures approximately 40 minutes. MTDD
[2020-04-16] VITALS (11 sets, daily range): BP systolic 122–141; BP diastolic 68–84; O2SAT 89–95
[2020-04-16] MEDS: HumaLOG INSULIN (NovoLOG) PER UNIT SC SCH ×4 (00:29→17:28)
[2020-04-16] MEDS: BENZONATATE 100 MG CAP PO PRN ×2 (06:19→20:23)
[2020-04-16] MEDS: CEFEPIME HCL 1 GM in D5W MINI-BAG PLUS 50 ML IV SCH ×2 (08:21→20:17)
[2020-04-16] MEDS: LABETALOL 200 MG TAB PO SCH ×3 (08:23→20:26)
[2020-04-16] MEDS: ASPIRIN 81 MG ENTERIC TAB PO SCH (08:23)
[2020-04-16] MEDS: NEORAL 25 MG CAP (J7515) PO SCH ×2 (08:23→20:26)
[2020-04-16] MEDS: amLODIPine 10 MG TAB PO SCH (08:24)
[2020-04-16] MEDS: MONTELUKAST 10 MG TAB PO SCH (08:24)
[2020-04-16] MEDS: DOXYCYCLINE HYCLATE 100 MG in D5W MINI-BAG PLUS 100 ML IV SCH ×2 (08:24→20:28)
[2020-04-16] MEDS: MULTIVITAMINS/MINERALS THERAP 1 TAB PO SCH (08:24)
[2020-04-16] MEDS: TAMSULOSIN 0.4 MG CAP PO SCH (08:24)
[2020-04-16] MEDS: FINASTERIDE 5 MG TAB PO SCH (08:24)
[2020-04-16] MEDS: DOCUSATE SODIUM 100MG CAPSULE PO SCH ×2 (08:25→20:30)
[2020-04-16] MEDS: guaiFENesin SYRUP 200 MG/10 ML UDC PO PRN (08:25)
[2020-04-16] MEDS: ENOXAPARIN 100MG/1ML SYRINGE (J1650 PER 10MG) SC SCH ×2 (08:25→20:27)
[2020-04-16 09:33] LABS: BASO % 0.1 % (0.0-1.0); EOS % 0.2 % (0.0-3.0); HEMATOCRIT 38.8 % (42.0-52.0); HEMOGLOBIN 12.4 g/dl (13.5-17.5); LYMPH # 0.2 10^3/uL (1.5-5.0); LYMPH % 1.1 % (24.0-44.0); MEAN CORPUSCULAR HEMOGLOBIN 25.6 pg (27.0-33.0); MONO # 0.3 10^3/uL (0.0-0.8); MONO % 1.9 % (0.0-5.0); NEUTROPHILS % 95.5 % (36.0-66.0); PLATELET COUNT, AUTOMATED 165 10^3/uL (150-450); RED BLOOD COUNT 4.85 10^6/uL (4.30-6.10); WHITE BLOOD COUNT 17.7 10^3/uL (4.0-10.0)
[2020-04-16] MEDS: ADVAIR HFA 45/21MCG INHALER INH SCH ×2 (09:44→20:29)
[2020-04-16] MEDS: ALBUTEROL 90 MCG/ACT 8GM HFA INHALER INH SCH ×4 (09:44→20:29)
[2020-04-16 09:46] LABS: FIBRINOGEN 390 MG/DL (221-452); INR 1.39; PARTIAL THROMBOPLASTIN TIME 35.8 SECONDS (24.2-38.5); PROTHROMBIN TIME 17.4 SECONDS (12.5-14.3)
[2020-04-16 09:59] LABS: ALBUMIN 2.4 GM/DL (3.2-5.2); BILIRUBIN,DIRECT 0.4 MG/DL (0.0-0.2); BILIRUBIN,TOTAL 0.9 MG/DL (0.2-1.0); C REACTIVE PROTEIN QUANTITATIV 1.87 MG/DL (0.00-0.30); CALCIUM LEVEL 8.6 MG/DL (8.8-10.2); CREATININE FOR GFR 1.97 MG/DL (0.70-1.30); GLOMERULAR FILTRATION RATE 43.7 (>49); MAGNESIUM LEVEL 2.5 MG/DL (1.8-2.4); POTASSIUM SERUM 4.8 MEQ/L (3.5-5.1); TOTAL PROTEIN 5.7 GM/DL (6.4-8.2)
--- NOTE | 2020-04-16 10:18 | IPNPDOC ---
Text Note Date of Service The patient was seen on 04/16/20. NOTE Subjective: Patient is a 70-year-old male with a PMHx of ESRD s/p renal transplant (on cyclosporine and mycophenolate), HTN, IDDM2, Asthma, Prostate CA, who initially tested positive for COVID-19 on 04/03 upon admission but left AMA. Re-admitted on 04/06 with acute hypoxic respiratory failure, and sepsis 2/2 COVID-19. Patient was admitted to the hospital service for further evaluation and treatment Patient was seen and examined at the bedside. Patient is seen with CPAP device in place remains at 55% FiO2. He reports that his coughing has subsided some over the last 24 hours still reports shortness of breath. Patient reports that yesterday he was on the Vapotherm for 1 hour before being returned back to CPAP. He denies any nausea, vomiting, abdominal pain. Patient has been able to pass gas and has a Cast catheter in place. Objective: Vitals (See below) General: Patient is sitting up in bed, has a CPAP device in place, appears to be comfortable, is awake, alert and oriented 3 HEENT: NC, AT CVS: +S1S2 Lungs: Air entry remains fair bilaterally. There are faint crackles that can be auscultated at the bases but no wheezing or rhonchi Abdomen: Abdomen remains soft, no distention or tenderness on palpation Extremities: Lower extremities do not reveal any evidence of pitting edema, - Calf tenderness Imaging: CXR (04/08/20) Findings suggest mildly progressive bilateral airspace disease. Assessment and plan: Acute hypoxic respiratory failure - likely 2/2 COVID-19 Infection - Patient has reported improvement of his cough; has been able to tolerate one hour of Vapotherm therapy; will be reattempted today - Remains on CPAP; his FiO2 requirement has remained essentially unchanged from yesterday - Based on progress note from [facility]; tested positive on 03/29/2020 - Inflammatory markers has continued to downtrend - c/w Dexamethasone (Day#10); s/p Remdesivir (5 day course) - s/p Tocilizumab (04/11) - c/w Incentive spirometry / acapella - Pulmonology on consultation; appreciate their input s/p Diarrhea s/p Sepsis - Hemodynamically stable; Febrile episode yesterday (04/10) - Procalcitonin elevated - Hx of R knee osteo - c/w Doxycycline and Cefepime ESRD s/p Renal transplant - Cr baseline of 1.9-2.0 - Cr remains within his baseline range - Chronic Cast catheter - c/w Cyclosporine - s/p IV fluid hydration - Nephrology on consultation; Advised to hold Mycophenolate Microscopic hematuria - Urine cytology 04/05: Scattered clusters of urothelial cells noted. - Will have outpatient follow up with Urology HTN - BP well controlled - s/p Hypertensive urgency - c/w Amlodipine / Labetalol R knee effusion - Hx of Osteomyelitis - c/w Doxycycline (reported for 2 months); s/p IV antibiotics for 6 weeks - currently IV - Followed by ID at [facility] (ID clinic tel: [phone]) IDDM2 - c/w ISS Normocytic anemia - Hg appears to be at baseline - Will continue to monitor s/p Thrombocytopenia - Noted to be present since 2016 - No evidence of bleeding KALANI - c/w home CPAP DVT prophylaxis - c/w Lovenox therapeutic dosing Disposition: - Awaiting clinical improvement - Sangita Clem: [phone] VS,Fishbone, I+O VS, Fishbone, I+O Laboratory Tests 04/16/20 09:13 Vital Signs Date Time Temp Pulse Resp B/P (MAP) Pulse Ox O2 Delivery O2 Flow Rate FiO2 04/16/20 08:23 66 123/74 04/16/20 08:00 55 04/16/20 04:00 97.3 27 94 NIPPV (BIPAP/CPAP) 04/15/20 11:15 40.0 I&O- Last 24 Hours up to 6 AM 04/16/20 06:00 Intake Total 1380 ml Output Total 1245 ml Balance 135 ml BRENDAN BRANCH MD Apr 16, 2020 10:18
[2020-04-16] MEDS: dexameTHASONE 20MG/5ML VIAL (J1100 PER 1MG) IV SCH (12:29)
[2020-04-16 12:38] LABS: D-DIMER QUANT > 4000 ng/ml (<500)
[2020-04-16] MEDS ORDERED: CEPACOL LOZENGE PO PRN (16:45)
[2020-04-17] VITALS (19 sets, daily range): BP systolic 109–144; BP diastolic 69–94
[2020-04-17] MEDS: HumaLOG INSULIN (NovoLOG) PER UNIT SC SCH ×4 (00:26→18:00)
[2020-04-17] MEDS: guaiFENesin SYRUP 200 MG/10 ML UDC PO PRN ×2 (02:39→21:14)
[2020-04-17 05:24] LABS: BASO % 0.2 % (0.0-1.0); EOS % 0.1 % (0.0-3.0); HEMATOCRIT 40.3 % (42.0-52.0); HEMOGLOBIN 12.3 g/dl (13.5-17.5); LYMPH # 0.1 10^3/uL (1.5-5.0); LYMPH % 0.7 % (24.0-44.0); MEAN CORPUSCULAR HEMOGLOBIN 24.8 pg (27.0-33.0); MEAN CORPUSCULAR HGB CONC 30.5 g/dl (32.0-36.5); MEAN CORPUSCULAR VOLUME 81.4 fl (80.0-96.0); MONO # 0.4 10^3/uL (0.0-0.8); MONO % 2.1 % (0.0-5.0); NEUTROPHILS # 18.5 10^3/uL (1.5-8.5); NEUTROPHILS % 95.6 % (36.0-66.0); PLATELET COUNT, AUTOMATED 124 10^3/uL (150-450); RED BLOOD COUNT 4.95 10^6/uL (4.30-6.10); WHITE BLOOD COUNT 19.4 10^3/uL (4.0-10.0)
[2020-04-17 05:46] LABS: FIBRINOGEN 341 MG/DL (221-452); INR 1.41; PROTHROMBIN TIME 17.6 SECONDS (12.5-14.3)
[2020-04-17 06:00] LABS: ALBUMIN 2.5 GM/DL (3.2-5.2); ALT/SGPT 17 U/L (12-78); BILIRUBIN,DIRECT 0.5 MG/DL (0.0-0.2); BLOOD UREA NITROGEN 55 MG/DL (7-18); CALCIUM LEVEL 8.9 MG/DL (8.8-10.2); CARBON DIOXIDE LEVEL 20 MEQ/L (21-32); CHLORIDE LEVEL 110 MEQ/L (98-107); CREATININE FOR GFR 2.08 MG/DL (0.70-1.30); FERRITIN 958 NG/ML (26-388); GLOMERULAR FILTRATION RATE 41.1 (>49); GLUCOSE, FASTING 118 MG/DL (70-100); MAGNESIUM LEVEL 2.7 MG/DL (1.8-2.4); NT-PRO BNP 1013 PG/ML (<125); POTASSIUM SERUM 4.7 MEQ/L (3.5-5.1); SODIUM LEVEL 138 MEQ/L (136-145); TROPONIN I < 0.02 NG/ML (< 0.10)
[2020-04-17 06:42] LABS: D-DIMER QUANT > 4000 ng/ml (<500)
[2020-04-17] MEDS: ALBUTEROL 90 MCG/ACT 8GM HFA INHALER INH SCH ×3 (07:10→15:43)
[2020-04-17] MEDS: ADVAIR HFA 45/21MCG INHALER INH SCH (07:11)
[2020-04-17] MEDS: CEFEPIME HCL 1 GM in D5W MINI-BAG PLUS 50 ML IV SCH ×2 (08:13→19:53)
[2020-04-17] MEDS: DOXYCYCLINE HYCLATE 100 MG in D5W MINI-BAG PLUS 100 ML IV SCH ×2 (11:00→21:31)
[2020-04-17] MEDS: ENOXAPARIN 100MG/1ML SYRINGE (J1650 PER 10MG) SC SCH ×2 (11:01→21:11)
[2020-04-17] MEDS: NEORAL 25 MG CAP (J7515) PO SCH ×2 (11:02→21:11)
[2020-04-17] MEDS: amLODIPine 10 MG TAB PO SCH (11:02)
[2020-04-17] MEDS: FINASTERIDE 5 MG TAB PO SCH (11:03)
[2020-04-17] MEDS: LABETALOL 200 MG TAB PO SCH ×3 (11:03→21:13)
[2020-04-17] MEDS: DOCUSATE SODIUM 100MG CAPSULE PO SCH ×2 (11:03→21:00)
[2020-04-17] MEDS: MULTIVITAMINS/MINERALS THERAP 1 TAB PO SCH (11:03)
[2020-04-17] MEDS: MONTELUKAST 10 MG TAB PO SCH (11:03)
[2020-04-17] MEDS: TAMSULOSIN 0.4 MG CAP PO SCH (11:04)
[2020-04-17] MEDS: ASPIRIN 81 MG ENTERIC TAB PO SCH (11:04)
--- NOTE | 2020-04-17 12:15 | IPNPDOC ---
Text Note Date of Service The patient was seen on 04/17/20. NOTE Subjective: Patient is a 70-year-old male with a PMHx of ESRD s/p renal transplant (on cyclosporine and mycophenolate), HTN, IDDM2, Asthma, Prostate CA, who initially tested positive for COVID-19 on 04/03 upon admission but left AMA. Re-admitted on 04/06 with acute hypoxic respiratory failure, and sepsis 2/2 COVID-19. Patient was admitted to the hospital service for further evaluation and treatment Patient was seen and examined at the bedside. Patient was able to tolerate being off CPAP for the majority of the yesterday. Denies any chest pain or palpitation s. Reports some shortness of breath and a mild cough. Denies any nausea, vomiting, abdominal pain. Does not experience any diarrhea. Objective: Vitals (See below) General: Patient was sitting up in bed, does not appear to be in any distress CPAP device is in place. He is awake, alert and oriented 3 HEENT: NC, AT CVS: +S1S2 Lungs: Air entry appears to be fair bilaterally without any auscultated rhonchi, crackles or wheezing Abdomen: Again, his abdomen is soft without any appreciable tenderness or distention Extremities: No edema of lower extremities, - Calf tenderness Imaging: CXR (04/08/20) Findings suggest mildly progressive bilateral airspace disease. Assessment and plan: Acute hypoxic respiratory failure - likely 2/2 COVID-19 Infection - Has been able to tolerate a large amount of time off of CPAP yesterday afternoon Will reattempt the same today - FIO2 requirement while on CPAP, has remained the same at 50% - Based on progress note from [facility]; tested positive on 03/29/2020 - Inflammatory markers has continued to downtrend - c/w Dexamethasone (Day#11); s/p Remdesivir (5 day course) - s/p Tocilizumab (04/11) - c/w Incentive spirometry / acapella - Pulmonology on consultation; appreciate their input - Will c/w Vapotherm therapy today as tolerated s/p Diarrhea s/p Sepsis - Hemodynamically stable; Febrile episode yesterday (04/10) - Procalcitonin elevated - Hx of R knee osteo - c/w Doxycycline and Cefepime ESRD s/p Renal transplant - Cr baseline of 1.9-2.0 - Cr remains within his baseline range - Chronic Cast catheter - c/w Cyclosporine - s/p IV fluid hydration - Nephrology on consultation; Advised to hold Mycophenolate Microscopic hematuria - Urine cytology 04/05: Scattered clusters of urothelial cells noted. - Will have outpatient follow up with Urology HTN - BP well controlled - s/p Hypertensive urgency - c/w Amlodipine / Labetalol R knee effusion - Hx of Osteomyelitis - c/w Doxycycline (reported for 2 months); s/p IV antibiotics for 6 weeks - curr ently IV - Followed by ID at [facility] (ID clinic tel: [phone]) IDDM2 - c/w ISS Normocytic anemia - Hg appears to be at baseline - Will continue to monitor s/p Thrombocytopenia - Noted to be present since 2016 - No evidence of bleeding KALANI - c/w home CPAP DVT prophylaxis - c/w Lovenox therapeutic dosing Disposition: - Awaiting clinical improvement - Discussed Sangita Nj yesterday afternoon at [phone] VS,Fishbone, I+O VS, Fishbone, I+O Laboratory Tests 04/17/20 04:50 Vital Signs Date Time Temp Pulse Resp B/P (MAP) Pulse Ox O2 Delivery O2 Flow Rate FiO2 04/17/20 11:02 78 139/87 04/17/20 07:12 94 HVNI-Vapotherm 40.0 100 04/17/20 06:00 26 04/17/20 04:00 97.4 I&O- Last 24 Hours up to 6 AM 04/17/20 06:00 Intake Total 885 ml Output Total 1285 ml Balance -400 ml BRENDAN BRANCH MD Apr 17, 2020 12:15
[2020-04-17] MEDS: dexameTHASONE 20MG/5ML VIAL (J1100 PER 1MG) IV SCH (12:48)
[2020-04-17] MEDS ORDERED: HumaLOG INSULIN (NovoLOG) PER UNIT SC SCH (21:00)
[2020-04-17] MEDS: RAMELTEON 8 MG TAB (ROZEREM) PO PRN (21:11)
--- NOTE | 2020-04-17 23:35 | ECGEPIP ---
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
[2020-04-18] VITALS (21 sets, daily range): BP systolic 116–153; BP diastolic 67–92; O2SAT 94
[2020-04-18] MEDS: BENZONATATE 100 MG CAP PO PRN ×2 (02:06→21:25)
[2020-04-18 04:49] LABS: BASO % 0.1 % (0.0-1.0); HEMATOCRIT 40.4 % (42.0-52.0); HEMOGLOBIN 12.4 g/dl (13.5-17.5); LYMPH # 0.2 10^3/uL (1.5-5.0); MEAN CORPUSCULAR HEMOGLOBIN 25.2 pg (27.0-33.0); MEAN CORPUSCULAR HGB CONC 30.7 g/dl (32.0-36.5); MEAN CORPUSCULAR VOLUME 81.9 fl (80.0-96.0); MONO # 0.4 10^3/uL (0.0-0.8); MONO % 1.8 % (0.0-5.0); NEUTROPHILS # 19.6 10^3/uL (1.5-8.5); NEUTROPHILS % 95.5 % (36.0-66.0); PLATELET COUNT, AUTOMATED 142 10^3/uL (150-450); RED BLOOD COUNT 4.93 10^6/uL (4.30-6.10); WHITE BLOOD COUNT 20.5 10^3/uL (4.0-10.0)
[2020-04-18 05:09] LABS: INR 1.34; PROTHROMBIN TIME 16.9 SECONDS (12.5-14.3)
[2020-04-18 05:10] LABS: FIBRINOGEN 375 MG/DL (221-452); PARTIAL THROMBOPLASTIN TIME 34.1 SECONDS (24.2-38.5)
[2020-04-18 05:19] LABS: ALBUMIN 2.5 GM/DL (3.2-5.2); BILIRUBIN,DIRECT 0.5 MG/DL (0.0-0.2); BILIRUBIN,TOTAL 1.1 MG/DL (0.2-1.0); C REACTIVE PROTEIN QUANTITATIV 1.06 MG/DL (0.00-0.30); CALCIUM LEVEL 8.5 MG/DL (8.8-10.2); CREATININE FOR GFR 2.3 MG/DL (0.70-1.30); GLOMERULAR FILTRATION RATE 36.6 (>49); MAGNESIUM LEVEL 2.6 MG/DL (1.8-2.4); POTASSIUM SERUM 5.8 MEQ/L (3.5-5.1); TOTAL PROTEIN 5.9 GM/DL (6.4-8.2)
[2020-04-18 05:31] LABS: D-DIMER QUANT > 4000 ng/ml (<500)
[2020-04-18] MEDS ORDERED: SOD POLYSTYRENE SULFONATE SUSP 15 GM/60 ML UD PO ONE (05:45)
[2020-04-18] MEDS ORDERED: DEXTROSE 50% 50 ML SYRINGE IV STA (06:14)
[2020-04-18] MEDS ORDERED: HumuLIN R (REGULAR) INSULIN (NovoLIN R) **100U/ML** PER UNIT IV STA (06:14)
[2020-04-18] MEDS ORDERED: PATIROMER SORBITEX CALCIUM 8.4 GM POWDER PACKET (VELTASSA) PO ONE (06:15)
[2020-04-18] MEDS ORDERED: HumaLOG INSULIN (NovoLOG) PER UNIT SC SCH (07:30)
[2020-04-18] MEDS: CEFEPIME HCL 1 GM in D5W MINI-BAG PLUS 50 ML IV SCH ×2 (08:12→19:44)
[2020-04-18] MEDS: ALBUTEROL 90 MCG/ACT 8GM HFA INHALER INH SCH ×5 (08:23→20:00)
[2020-04-18] MEDS: ADVAIR HFA 45/21MCG INHALER INH SCH ×3 (08:23→20:39)
[2020-04-18 08:57] LABS: ABG BASE EXCESS -8.1 (-2.0-2.0); ABG HCO3 16.2 MEQ/L (22.0-26.0); ABG O2 SATURATION 92.6 % (95.0-99.0); ABG PARTIAL PRESSURE CO2 29.8 mmHg (35.0-45.0); ABG PARTIAL PRESSURE O2 64.8 mmHg (75.0-100.0); ABG STANDARD HCO3 17.9 MEQ/L (22.0-26.0); ABG TOTAL CO2 17.1 MEQ/L (23.0-31.0); ABG pH (ARTERIAL) 7.352 UNITS (7.350-7.450)
[2020-04-18] MEDS: DOCUSATE SODIUM 100MG CAPSULE PO SCH ×2 (09:00→21:00)
[2020-04-18] MEDS: DOXYCYCLINE HYCLATE 100 MG in D5W MINI-BAG PLUS 100 ML IV SCH ×2 (09:20→21:23)
[2020-04-18] MEDS: ENOXAPARIN 100MG/1ML SYRINGE (J1650 PER 10MG) SC SCH ×2 (09:21→21:23)
[2020-04-18] MEDS: NEORAL 25 MG CAP (J7515) PO SCH ×2 (09:22→21:24)
[2020-04-18] MEDS: ASPIRIN 81 MG ENTERIC TAB PO SCH (09:22)
[2020-04-18] MEDS: LABETALOL 200 MG TAB PO SCH ×3 (09:23→21:26)
[2020-04-18] MEDS: MONTELUKAST 10 MG TAB PO SCH (09:23)
[2020-04-18] MEDS: MULTIVITAMINS/MINERALS THERAP 1 TAB PO SCH (09:24)
[2020-04-18] MEDS: FINASTERIDE 5 MG TAB PO SCH (09:24)
[2020-04-18] MEDS: TAMSULOSIN 0.4 MG CAP PO SCH (09:24)
[2020-04-18] MEDS: amLODIPine 10 MG TAB PO SCH (09:24)
[2020-04-18 10:20] LABS: ACETONE/KETONE 21.1 MG/DL (<2.81)
[2020-04-18] MEDS: guaiFENesin SYRUP 200 MG/10 ML UDC PO PRN (11:03)
[2020-04-18] MEDS ORDERED: NS 1,000 ML IV ONE (11:30)
[2020-04-18] MEDS: dexameTHASONE 20MG/5ML VIAL (J1100 PER 1MG) IV SCH (12:41)
[2020-04-18] MEDS: HumaLOG INSULIN (NovoLOG) PER UNIT SC SCH ×3 (14:00→21:33)
--- NOTE | 2020-04-18 14:36 | CCN ---
CRITICAL CARE NOTE DATE: 04/18/2020 Patient was seen and examined this morning during bedside rounds. Overnight, patient had an episode of coughing, which does cause him to have desaturating. Patient also frequently desaturates with exertion or movement. He was on VapoTherm initially during the day and then back on his continuous positive airway pressure (CPAP) for the majority of the day, which he has been tolerating well. He does have cough productive of a thick, white mucus, which he is able to suction even with the CPAP on. Patient was attempted to prone yesterday evening, although he had coughing and desaturation. He is able to be on more of the lateral decubitus side, which he is tolerating better today. Patient reports continued dyspnea, particularly with activity. He is saying that he is feeling a bit tired now more, and he was asking about his possible options and with his goals of care. Patient did have a discussion with his , and they elected for full code, including intubation, although he states that he would not want prolonged mechanical ventilation if possible. When asked about the possibility of the tracheostomy, patient was deferring to his 's decision. VITAL SIGNS: Temperature 96.7, pulse 69, respirations 26, blood pressure 120/67, oxygen saturation 95% on 80% FiO2. Input 960, output 1.2 liters. GENERAL: Patient is an obese male. Is sitting in bed. He is tachypneic and is using some accessory muscles for respiration. He is able to speak in short sentences. He does have intermittent coughing during examination. HEENT: Normocephalic, atraumatic. Pupils are reactive to light bilaterally. Mucous membranes appear dry on CPAP. NECK: Supple. Trachea is midline. No palpable cervical lymphadenopathy. No jugular venous distention (JVD) appreciated. CARDIAC: Regular rate and rhythm. Normal S1, S2. Unable to clearly appreciate murmurs. PULMONARY: Decreased breath sounds bilaterally with more significant breath sounds on the left base compared to the right with few crackles. There is no wheezing noted. ABDOMEN: Obese, soft, nontender, nondistended. There is no appreciable organomegaly. EXTREMITIES: There is no significant lower extremity edema noted bilaterally. Patient does have some scattered areas of ecchymosis. LABORATORY DATA: WBC 20.5, hemoglobin 12.4, platelets 142. Chemistry: Sodium 136, potassium 5.8, chloride 108, bicarbonate 17, BUN 72, creatinine 2.30, glucose 307, calcium 8.5, magnesium 2.6. Ferritin is 808. Alkaline phosphatase 155. CRP is 1.06. BNP 1051. Albumin is 2.5. Procalcitonin 0.33. INR 1.34. ASSESSMENT AND PLAN: Mr. Nj is a 70-year-old male with a past medical history of end-stage renal disease (ESRD), status post renal transplant, asthma, prior history of prostate cancer, diabetes, and hypertension, who presented with acute hypoxemic respiratory failure in the setting of COVID-19 pneumonia. Patient had completed a course of remdesivir as well as being continued on dexamethasone. He also received one dose of tocilizumab for his severe hypoxemic respiratory failure. Patient had been having difficulty with proning, but he is intermittently compliant. He did have some more difficulty yesterday evening with desaturation and coughing when attempting to prone. He has been complaining of some more dyspnea as well as fatigue this morning. His arterial blood gas (ABG), which was ordered this morning, did show evidence of a metabolic acidosis as well as with a mild respiratory acidosis, although he is currently compensating. 1. Acute hypoxemic respiratory failure in the setting of COVID-19 pneumonia. Patient has been more tachypneic and required increased FiO2 on his CPAP. There was concern with evidence of worsening metabolic acidosis on his chemistry that patient may be having difficulty compensating from a respiratory standpoint. His ABG today does show that he is having a bit more difficulty with the compensatory respiratory alkalosis needed, although he is still borderline compensated at this point. - Will continue patient on CPAP at 8 cm of water and continue weaning down his FiO2 as tolerated. The patient was doing well with pronation in terms of coming down on his FiO2 requirements and had been down to 55% at one point. Will continue to encourage awake proning as tolerated, although he may be able to do more of a lateral positioning if that is more tolerable. - Will continue with mucus clearance with guaifenesin. - Patient will have completed dexamethasone 6 mg IV daily for a total 10-day course, and his steroids will be discontinued. - Continue with broad-spectrum antibiotics with cefepime and doxycycline. Patient does have increasing leukocytosis but has been afebrile. He does have chronic immunosuppression, however, and a previous history of osteomyelitis. Would consider broadening him to vancomycin and continuing with the cefepime. - Continue patient on Lovenox for anticoagulation. 2. History of ESRD status post renal transplant. History of diabetes. - Patient has been hyperglycemic. He is on sliding-scale coverage with meals, although he has not been having as much oral intake on the CPAP. The patient does have more metabolic acidosis as well as hyperkalemia today. Therefore, I ordered a beta hydroxybutyrate, which was elevated. Will start patient on long-acting insulin as well as change his fingersticks to every 4 hours with sliding-scale coverage. - Patient clinically appears more volume depleted, although his BNP is elevated. Some of this may be due to his hypoxemia and elevated pulmonary artery pressures. - Would give patient 1 liter normal saline bolus. He had lost intravenous (IV) access and has been unable to have peripheral IV access due to what appears to be more volume depletion. He there had a femoral line place for venous access. Deep venous thrombosis (DVT) prophylaxis. Full-dose Lovenox Code status. Discussed with the patient as well as his . He is full code at this time, and he would like a trial of intubation. TOTAL CRITICAL CARE TIME SPENT, NOT INCLUDING PROCEDURES: Approximately 45 minutes. MTDD
[2020-04-18 16:04] LABS: CALCIUM LEVEL 9.2 MG/DL (8.8-10.2); CREATININE FOR GFR 2.02 MG/DL (0.70-1.30); GLOMERULAR FILTRATION RATE 42.5 (>49); POTASSIUM SERUM 4.9 MEQ/L (3.5-5.1)
--- NOTE | 2020-04-18 19:25 | IPNPDOC ---
Text Note Date of Service The patient was seen on 04/18/20. NOTE Subjective: Denies any chest pain or palpitations. -Persistent cough and mostly on PAP at this point -Denies any nausea, vomiting, abdominal pain, diarrhea. Objective: Vitals: See below General: Sitting up in bed, no distress, CPAP in place, AO3 HEENT: NC, AT, MMM, anicteric, EOMI CVS: RRR, +S1S2, no mrg Lungs: Diminished breath sounds throughout, L has better movement, no noted rhonchi or wheezing Abdomen: Normoactive sounds, soft, NTND Extremities: No edema of lower extremities, WWP Labs: reviewed WBC 20.5 Hgb 12.4 platelets 142 D dimer remains >4K fibrinogen 375 Ferritin 808 proBNP 1057 Na 136 K 5.8 Cr 2.3 Imaging: CXR (04/08/20) Findings suggest mildly progressive bilateral airspace disease. Assessment: 70-year-old M with a PMHx of ESRD s/p renal transplant (on cyclosporine and mycophenolate), HTN, IDDM2, Asthma, Prostate CA, who initially tested positive for COVID-19 on 04/03 upon admission but left AMA, and was re-admitted on 04/06 with acute hypoxic respiratory failure, and sepsis 2/2 COVID-19 PNA who remains in the ICU with significant hypoxemia. plan: Acute hypoxic respiratory failure 2/2 COVID-19 PNA - Based on progress note from [facility]; tested positive on 03/29/2020 - Remains on CPAP at this time - Inflammatory markers per covid-19 labs per protocol - completes Dexamethasone (Day#10) today; s/p Remdesivir (5 day course) - s/p Tocilizumab (04/11) - c/w Incentive spirometry / acapella - Pulmonology on consultation; appreciate management - on empiric cefepime, doxy, CPAP and proning Sepsis: Resolved - Hemodynamically stable, afebrile - Hx of R knee osteo, s/p 6 weeks of doxy - day 10 of Doxycycline while inpatient, and day 6 of Cefepime. with rising leukocytosis i/s/o steroids with recent poor sputum sample. but given poor pulm reserve and recent osteo, continuing abx at this time per pulm ESRD s/p Renal transplant - Cr baseline of 1.9-2.0 - Cr remains within his baseline range - Chronic Acst catheter - c/w Cyclosporine - s/p IV fluid hydration - Nephrology on consultation; Advised to hold Mycophenolate Microscopic hematuria - Urine cytology 04/05: Scattered clusters of urothelial cells noted. - Will have outpatient follow up with Urology HTN - BP well controlled - s/p Hypertensive urgency - c/w Amlodipine / Labetalol R knee effusion - Hx of Osteomyelitis - Doxycycline (reportedly has been taking for 2 months); s/p IV antibiotics for 6 weeks - currently IV - Followed by ID at [facility] (ID clinic tel: [phone]) IDDM2 - c/w ISS Normocytic anemia - Hg appears to be at baseline - Will continue to monitor s/p Thrombocytopenia - Noted to be present since 2015 - No evidence of bleeding KALANI - c/w home CPAP DVT prophylaxis - c/w Lovenox therapeutic dosing Disposition: - Awaiting clinical improvement - Sangita Clem: [phone] VS,Ju, I+O VS, uJ, I+O Laboratory Tests 04/18/20 04:32 Vital Signs Date Time Temp Pulse Resp B/P (MAP) Pulse Ox O2 Delivery O2 Flow Rate FiO2 04/18/20 09:23 86 136/76 04/18/20 08:15 80 04/18/20 06:00 96.7 26 95 NIPPV (BIPAP/CPAP) 04/17/20 20:18 40.0 I&O- Last 24 Hours up to 6 AM 04/18/20 05:59 Intake Total 1000 ml Output Total 1120 ml Balance -120 ml TOMER HUGHES MD Apr 18, 2020 09:49
[2020-04-18] MEDS ORDERED: LEVEMIR (INSULIN DETEMIR) 1 UNITS/0.01ML SC SCH (21:00)
[2020-04-18] MEDS: RAMELTEON 8 MG TAB (ROZEREM) PO PRN (21:24)
[2020-04-19] VITALS (61 sets, daily range): BP systolic 77–134; BP diastolic 55–88; O2SAT 89–93
[2020-04-19] MEDS: HumaLOG INSULIN (NovoLOG) PER UNIT SC SCH ×6 (02:34→21:51)
[2020-04-19 05:50] LABS: INR 1.37; PROTHROMBIN TIME 17.2 SECONDS (12.5-14.3)
[2020-04-19 05:51] LABS: FIBRINOGEN 289 MG/DL (221-452); PARTIAL THROMBOPLASTIN TIME 32.6 SECONDS (24.2-38.5)
[2020-04-19 05:54] LABS: BASO % 0.2 % (0.0-1.0); HEMATOCRIT 39.8 % (42.0-52.0); HEMOGLOBIN 12.5 g/dl (13.5-17.5); LYMPH # 0.3 10^3/uL (1.5-5.0); LYMPH % 1.2 % (24.0-44.0); MEAN CORPUSCULAR HEMOGLOBIN 25.2 pg (27.0-33.0); MEAN CORPUSCULAR HGB CONC 31.4 g/dl (32.0-36.5); MEAN CORPUSCULAR VOLUME 80.1 fl (80.0-96.0); MONO # 0.5 10^3/uL (0.0-0.8); MONO % 2.3 % (0.0-5.0); NEUTROPHILS # 21.7 10^3/uL (1.5-8.5); NEUTROPHILS % 94.6 % (36.0-66.0); PLATELET COUNT, AUTOMATED 128 10^3/uL (150-450); RED BLOOD COUNT 4.97 10^6/uL (4.30-6.10); WHITE BLOOD COUNT 22.9 10^3/uL (4.0-10.0)
[2020-04-19 06:11] LABS: D-DIMER QUANT > 4000 ng/ml (<500)
[2020-04-19 06:32] LABS: ALBUMIN 2.5 GM/DL (3.2-5.2); BILIRUBIN,DIRECT 0.5 MG/DL (0.0-0.2); C REACTIVE PROTEIN QUANTITATIV 0.78 MG/DL (0.00-0.30); CALCIUM LEVEL 8.9 MG/DL (8.8-10.2); CREATININE FOR GFR 1.97 MG/DL (0.70-1.30); GLOMERULAR FILTRATION RATE 43.7 (>49); POTASSIUM SERUM 5.1 MEQ/L (3.5-5.1); TOTAL PROTEIN 5.9 GM/DL (6.4-8.2); TROPONIN I 0.04 NG/ML (< 0.10)
[2020-04-19] MEDS ORDERED: MIDAZOLAM INJ 2MG/2ML VIAL (J2250 PER 1MG) As Ordered ONE ×2 (07:24→08:00)
[2020-04-19] MEDS ORDERED: PROPOFOL 1,000 MG/100 ML VIAL As Ordered ONE (07:46)
[2020-04-19] MEDS: ADVAIR HFA 45/21MCG INHALER INH SCH ×2 (08:00→20:35)
[2020-04-19] MEDS: propofoL 1,000 MG in IV 1 EA IV SCH ×4 (08:00→18:23)
[2020-04-19] MEDS: ALBUTEROL 90 MCG/ACT 8GM HFA INHALER INH SCH ×4 (08:00→20:35)
--- NOTE | 2020-04-19 08:24 | RO ---
OPERATIVE NOTE DATE OF OPERATION: 04/18/2020 INDICATION: Venous access. PREPROCEDURE DIAGNOSIS: Acute respiratory failure. POSTPROCEDURE DIAGNOSIS: Acute respiratory failure. PROCEDURE: Central line. SURGEON: Sharon Li MD CONSENT: Obtained from the patient prior to the procedure. INDICATIONS: Risks and benefits were explained at length. DESCRIPTION OF PROCEDURE: A central line insertion practice form was completed by independent observer. A timeout was performed prior to the procedure. Full sterile technique was maintained throughout the procedure, including surgical cap, mask with protective eyewear, full gown and sterile gloves. The patient was placed in supine position. The right femoral region was prepped using chlorhexidine scrub and draped in sterile fashion using a full drape and sterile probe cover employed. The right femoral vein was identified using ultrasound. Anesthesia was achieved over the vein using 1% lidocaine. Using real real-time [id number] guidance, the introducer needle was inserted into the femoral vein under direct ultrasound visualization. Venous blood was withdrawn. The syringe was removed and a guidewire was advanced into the introducer needle. The introducer needle was removed over the guidewire. The guidewire was visualized in the femoral vein by ultrasound. A small incision was made at the skin surface with a scalpel and the dilator was exchanged over the guidewire. After appropriate dilation was obtained, the dilator was exchanged over the wire for a triple-lumen central venous catheter. The wire was removed and the catheter was sutured in place. A sterile chlorhexidine-impregnated dressing was placed over the catheter at the insertion site. The patient tolerated the procedure without any hemodynamic compromise. At the time of procedure completion, all ports were able to be flushed properly but only one port had good blood flow return. ESTIMATED BLOOD LOSS: Less than 2 mL.
--- NOTE | 2020-04-19 08:39 | REP ---
INDICATION: s/p intubation COMPARISON: 04/08/2020 TECHNIQUE: Portable AP view of the chest FINDINGS: A moderate amount of subcutaneous emphysema is noted primarily at the neck and bilateral thoracic inlet. Endotracheal tube 3.3 cm above the jameel. Nasogastric tube extends just beyond the left hemidiaphragm and may warrant advancement. Mediastinum and cardiac silhouette are within normal limits and stable. Diffuse bilateral airspace disease appears increased from prior examination. No effusion. No pneumothorax. IMPRESSION: 1. Moderate subcutaneous emphysema. 2. Nasogastric tube warrants advancement. 3. Endotracheal tube in satisfactory position. 4. Diffuse bilateral airspace disease increased from prior examination. <Electronically signed by Demario Bernal > 04/19/20 [id number]
[2020-04-19] MEDS ORDERED: ASPIRIN 81 MG CHEW TABLET PEG SCH (09:00)
[2020-04-19] MEDS: NEORAL 25 MG CAP (J7515) PO SCH (09:00)
[2020-04-19] MEDS: TAMSULOSIN 0.4 MG CAP PO SCH (09:00)
[2020-04-19] MEDS: MULTIVITAMINS/MINERALS THERAP 1 TAB PO SCH (09:00)
[2020-04-19] MEDS: FINASTERIDE 5 MG TAB PO SCH (09:00)
[2020-04-19] MEDS ORDERED: MIDAZOLAM INJ 2MG/2ML VIAL (J2250 PER 1MG) IV PRN (09:15)
[2020-04-19] MEDS ORDERED: MIDAZOLAM INJ 2MG/2ML VIAL (J2250 PER 1MG) IV ONE (09:15)
[2020-04-19] MEDS: CEFEPIME HCL 1 GM in D5W MINI-BAG PLUS 50 ML IV SCH ×2 (09:36→20:31)
[2020-04-19] MEDS: fentaNYL 100 MCG/2 ML INJECTION (J3010) IV PRN ×2 (09:47→12:08)
[2020-04-19] MEDS ORDERED: VANCOMYCIN HCL 1,000 MG, VIAL MATE ADAPTER 1 EACH in D5W 250 ML IV SCH (11:00)
[2020-04-19] MEDS: ENOXAPARIN 100MG/1ML SYRINGE (J1650 PER 10MG) SC SCH ×2 (11:50→20:31)
[2020-04-19] MEDS: CISATRACURIUM 200 MG in NS 480 ML IV SCH ×2 (11:51→20:06)
[2020-04-19] MEDS ORDERED: VANCOMYCIN HCL 750 MG, VIAL MATE ADAPTER 1 EACH in D5W 250 ML IV ONE (12:00)
--- NOTE | 2020-04-19 14:14 | REP ---
INDICATION: S/P CVC Placement COMPARISON: 04/19/2020 at 8:05 a.m. TECHNIQUE: Portable AP view of the chest FINDINGS: Endotracheal tube 3.3 cm above the jameel. Left IJ line with tip in the SVC. Nasogastric tube courses below left hemidiaphragm. Mediastinum and cardiac silhouette are stable. Diffuse bilateral infiltrates compatible with multifocal pneumonia and COVID-19 pulmonary disease unchanged. No obvious effusion. No pneumothorax. IMPRESSION: 1. Lines and tubes as above in seemingly satisfactory position. 2. Diffuse bilateral airspace disease unchanged. <Electronically signed by Demario Bernal > 04/19/20 [id number]
--- NOTE | 2020-04-19 14:30 | ROOPDOC ---
[facility] Report Of Operation Report of Operation DATE OF OPERATION: 04/19/2020 INDICATION: Venous access PREPROCEDURE DIAGNOSIS: Acute respiratory failure 2/2 to COVID PNA POSTPROCEDURE DIAGNOSIS: Acute respiratory failure 2/2 to COVID PNA PROCEDURE: Internal Jugular central line placement. PROCEDURE BUTCHER SUPERVISOR: Dr. Chantelle Webster, Resident Physician ATTENDING PHYSICIAN: Dr. Sharon iL pulmonary critical care medicine, in attendance and assisted with atkinson portions of the procedure CONSENT: Emergent procedure and due to the emergent nature the consent was implied PROCEDURE SUMMARY: My hands were washed immediately prior to the procedure. Full sterile technique was maintained throughout the procedure, including surgical cap, mask, protective eyewear, full gown, and sterile gloves, and N95 mask. A time-out was performed. The patient was placed in Trendelenburg position. The left neck region was prepped using chlorhexidine scrub and draped in sterile fashion using a fenestrated drape and a sterile probe cover employed. The left internal jugular vein was identified using ultrasound. Anesthesia was achieved over the vein using 1% Lidocaine. Using real-time [id number]-[id number] guidance, the introducer needle was inserted into the internal jugular vein under direct ultrasound visualization. Venous blood was withdrawn. The syringe was removed and a guidewire was advanced into the introducer needle. The introducer needle was removed over the guidewire. A small incision was made at the skin surface with a scalpel, and a dilator was exchanged over the guidewire. After appropriate dilation was obtained, the dilator was exchanged over the wire for a triple lumen central venous catheter. The wire was removed and a catheter was sutured in place at 19 cm. A sterile chlorhexidine-impregnated dressing was placed over the catheter at the insertion site. The patient tolerated the procedure without any hemodynamic compromise. At the time of procedure completion, all ports were aspirated and flushed properly. Postprocedure chest x-ray is pending. Estimated blood loss was less than 3 mL. GME ATTESTATION GME ATTESTATION My faculty preceptor for this patient encounter was physically present during the encounter and was fully available. All aspects of the patient interview, examination, medical decision making process, and medical care plan development were reviewed and approved by the faculty preceptor. The faculty preceptor is aware and concurs with the plan as stated in the body of this note and will attest to such by his/her cosignature. ATTENDING NOTE I, Sharon Li, was present and supervised the entirety of the procedure. Chantelle Webster DO Apr 19, 2020 14:11 SHARON LI MD Apr 21, 2020 16:56
[2020-04-19 15:55] LABS: ABG BASE EXCESS -14.2 (-2.0-2.0); ABG HCO3 13.9 MEQ/L (22.0-26.0); ABG O2 SATURATION 87.6 % (95.0-99.0); ABG PARTIAL PRESSURE CO2 40.2 mmHg (35.0-45.0); ABG PARTIAL PRESSURE O2 65.1 mmHg (75.0-100.0); ABG STANDARD HCO3 13.4 MEQ/L (22.0-26.0); ABG TOTAL CO2 15.1 MEQ/L (23.0-31.0); ABG pH (ARTERIAL) 7.156 UNITS (7.350-7.450)
[2020-04-19] MEDS ORDERED: NS 1,000 ML IV ONE (16:30)
[2020-04-19] MEDS ORDERED: NOREPINEPHRINE BITARTRATE 16 MG in D5W 484 ML IV SCH (17:00)
[2020-04-19] MEDS ORDERED: NOREPINEPHRINE 4 MG/4 ML AMP As Ordered ONE (17:04)
[2020-04-19 17:27] LABS: CREATININE FOR GFR 2.44 MG/DL (0.70-1.30); GLOMERULAR FILTRATION RATE 34.1 (>49); POTASSIUM SERUM 6.3 MEQ/L (3.5-5.1)
[2020-04-19] MEDS ORDERED: DEXTROSE 50% 50 ML SYRINGE IV STA (17:47)
[2020-04-19] MEDS ORDERED: HumuLIN R (REGULAR) INSULIN (NovoLIN R) **100U/ML** PER UNIT SC ONE ×2 (18:00→18:15)
[2020-04-19] MEDS ORDERED: CALCIUM GLUCONATE 1,000 MG in NS MINI-BAG PLUS 100 ML IV SCH (18:00)
[2020-04-19 18:32] LABS: ABG BASE EXCESS -12.7 (-2.0-2.0); ABG HCO3 15.1 MEQ/L (22.0-26.0); ABG O2 SATURATION 89.7 % (95.0-99.0); ABG PARTIAL PRESSURE CO2 41.5 mmHg (35.0-45.0); ABG PARTIAL PRESSURE O2 69.2 mmHg (75.0-100.0); ABG STANDARD HCO3 14.5 MEQ/L (22.0-26.0); ABG TOTAL CO2 16.3 MEQ/L (23.0-31.0); ABG pH (ARTERIAL) 7.178 UNITS (7.350-7.450)
--- NOTE | 2020-04-19 18:46 | CCN ---
CRITICAL CARE PROGRESS NOTE DATE: 04/19/2020 SUBJECTIVE: The patient was seen and examined this morning during bedside rounds. Early this morning the patient was reporting worsening shortness of breath and dyspnea. He was becoming more tachypneic and complaining of respiratory fatigue. Yesterday based on the discussion with the patient, and with his , the patient is trial intubation, although he would not want prolonged mechanical ventilation. The patient's was updated that given his worsening respiratory status, that he would need intubation. The patient was therefore given Versed 2 mg for pre-sedation. He was intubated with Anesthesia at the bedside with me and he was given Etomidate 20 mg IV push with Succinyl Choline 100 mg for rapid sequence intubation. The patient was also given one liter normal saline bolus during intubation. He was started on Propofol for sedation with Versed p.r.n. for agitation. The patient continued to be hypoxic post intubation and was desynchronous with the ventilator and he was started on Nimbex for paralytic. OBJECTIVE: PHYSICAL EXAMINATION: VITAL SIGNS: Temperature 97.4, pulse 69, respirations 26, blood pressure 134/83, O2 sat 94% on 80-90% FiO2 on BIPAP. INTAKE AND OUTPUT: In 1.7, out 1.5. GENERAL APPEARANCE: The patient is an overweight male, is sitting in bed, tachypneic and using accessory muscles for respiration. He is only able to speak in short phrases, and he does appear to be in respiratory distress. HEENT: Normocephalic and atraumatic. Pupils are reactive to light bilaterally. There are dry mucous membranes, on CPAP. NECK: Supple. Trachea is midline. There is no palpable cervical adenopathy and no appreciable crepitus. CARDIAC: Regular rate and rhythm, normal S1, S2, unable to clearly appreciate any murmurs. PULMONARY: There are diminished breath sounds bilaterally with few rhonchi and there is no wheezing noted. ABDOMEN: Obese, soft, nontender, nondistended. There is no appreciable organomegaly. EXTREMITIES: There is no significant lower extremity edema noted bilaterally. The patient does have some scattered areas of ecchymosis. LABORATORY STUDIES: WBC 22.9, hemoglobin 12.5, platelets are 128. Chemistries: Sodium is 142, potassium 5.1, chloride is 115, bicarbonate is 20, BUN 62, creatinine is 1.97, glucose 99, calcium is 8.9, ferratin was 823, T-bili is 1.0, alkaline phosphatase 146, LDH 1006, AST and ALT within normal limits. CRP is 0.78. Procalcitonin was 0.28. IMAGING: Chest x-ray post intubation showed increased lower lobe opacities bilaterally with some air bronchograms noted, particularly on the right base. The endotracheal tube is in good position. The OG tube is just below the diaphragm. ASSESSMENT AND PLAN: The patient is a 70-year-old male with a past medical history of end-stage renal disease, status post renal transplant, asthma, prostate cancer, diabetes and hypertension, who presented acute respiratory failure in the setting of COVID-19 pneumonia. The patient had a completed a course of Remdesivir as well as Dexamethasone and also received dose of Tocilizumab for his severe hypoxemic respiratory failure. The patient has not been compliant with awake pronation and was having difficulty tolerating it. He has been on CPAP and initially was having improvement in his oxygenation. However, in the past day or two has had worsening desaturation on CPAP requiring increasing amounts of FiO2. The patient also has cough which is productive of sputum. This morning given his worsening tachypnea and respiratory distress, he was intubated and placed on mechanical ventilation. Neuro - The patient is intubated and sedated. He was started on a neuromuscular blockade with a Nimbex strip given his severe hypoxemic respiratory failure with the vent synchrony. -We will continue with Propofol for sedation with p.r.n. Versed and Fentanyl for analgesia. -We will continue Nimbex and monitor a [id number] with a goal of 2/4. Cardiac - patient with a history of hypertension. He was noted to be hypotensive post intubation some of which is in the setting of his sedation medications as well as the potential of volume depletion. He was given IV fluid bolus with improvement in his blood pressure. The patient had a femoral line placed yesterday for IV access. Femoral access was used as patient was coughing and unable to tolerate trendelenburg. Now that he is intubated and sedated we will place a IJ triple lumen as well. -We will discontinue his antihypertensive medications. -We will continue to monitor blood pressure and will give p.r.n. fluid boluses as needed. The patient may require pressors to maintain a MAP above 65 but will continue to monitor and will check a lactic acid. -Continue with Aspirin daily. 9Pulmonary - patient with acute hypoxic respiratory failure in the setting of COVID-19 pneumonia as well as possible worsened bacterial pneumonia. His oxygen requirements have been increasing and the patient's chest x-ray today does show worsening opacities, particularly in the lower lobes. He has had some increased cough as well and as he was requiring CPAP for oxygen, suspect he was having difficulty with mucous clearance and may have had aspiration. -The patient has been on Cefepime and Doxycycline. His white count is increasing. He does have a history of osteomyelitis in the past, and so will broaden his antibiotics to Vancomycin and continue with Cefepime. The patient does have chronic immunosuppression and if he does not have improvement in his leukocytosis, would consider starting antifungal agent as well. -Continue patient on mechanical ventilation. He is currently on settings of 450/25/75 and 10. We will need to monitor his ABGs and adjust his ventilation depending on his ABGs. He may have some permissive hypercapnia as we are attempting to maintain his plateau pressures less than 30 and limiting his tidal volumes for ARDS. -The patient will continue with daily ABGs while intubated and vent bundle care with head of bed elevation and Chlorhexidine mouthwash. -Continue Lovenox for anticoagulation given hypoxia and increased D-dimer. will monitor for bleedign -The patient completed a 10-day course of Dexamethasone as well as a course of Remdesivir. Renal - patient with a history of end-stage renal disease and is status post renal transplant. He also has a history of diabetes and mild chronic kidney disease. -The patient's renal function was worsening yesterday. He was given IV fluids and did have improvement in his creatinine. His acidosis also improved after increasing his insulin coverage, as there was a component of possible starvation ketoacidosis. -We will continue to monitor his renal function and electrolytes. He was mildly hyperkalemic today. We will follow up a repeat BMP. - We will continue with fingerstick glucose checks and sliding scale coverage q. 4 hours. He is n.p.o. currently post intubation, so we will discontinue his long acting insulin for now. - The patient is on Cyclosporin still for his renal transplant. His Mycophenolate has been on hold. His Cyclosporin level is still pending and likely does need to be decreased to 100 twice daily, however the pills are unable to be crushed through his OG tube. We will change to p.o. liquid, if available GI - The patient is n.p.o. currently while he is paralyzed. We will attempt to start trickle tube feeds and monitor residuals to see if he is tolerating while paralyzed. He may not tolerate well, however, and may need to start tube feeds once he is unparalyzed. -We will continue with GI prophylaxis. DVT PROPHYLAXIS: On full A.C. CODE STATUS: Discussed with the patient's today about his prognosis. She has stated that he is to be a DNR and with a trial intubation. She did state that she would not want a tracheostomy or long-term ventilation for the patient. Total critical care time spent not including any procedures approximately one hour and 50 minutes. MTDD
[2020-04-19] MEDS ORDERED: SOD POLYSTYRENE SULFONATE SUSP 15 GM/60 ML UD PO ONE (19:00)
[2020-04-19] MEDS ORDERED: CHLORHEXIDINE GLUCONATE 0.12 % 15ML UDC (PERIDEX ORAL RINSE) MT SCH (21:00)
[2020-04-19] MEDS ORDERED: CYCLOPHOSPHAMIDE NG SCH (21:00)
[2020-04-19] MEDS ORDERED: SandIMMUNE 100 MG CAP (J7502) PO SCH (21:00)
[2020-04-19 21:05] LABS: ABG BASE EXCESS -13.7 (-2.0-2.0); ABG O2 SATURATION 93.9 % (95.0-99.0); ABG PARTIAL PRESSURE CO2 39.1 mmHg (35.0-45.0); ABG PARTIAL PRESSURE O2 81.5 mmHg (75.0-100.0); ABG STANDARD HCO3 13.8 MEQ/L (22.0-26.0); ABG TOTAL CO2 15.2 MEQ/L (23.0-31.0)
[2020-04-19 21:06] LABS: ABG pH (ARTERIAL) 7.171 UNITS (7.350-7.450)
--- NOTE | 2020-04-19 23:33 | ECGEPIP ---
[facility] Test Date: 2020-04-18 Pat Name: JOHN HUFF Department: Room: [place] [address] Gender: Male Vocal Artist: MORIS : 1950 Requested By: Robin Rahman Order Number: [id number] Reading MD: Jose Scott Measurements Intervals [place] Rate: 74 P: 26 ME: 178 QRS: -34 QRSD: 99 T: 47 QT: 402 QTc: 446 Interpretive Statements SINUS RHYTHM MARKED LEFT AXIS DEVIATION POSSIBLE SEPTAL MYOCARDIAL INFARCTION, PROBABLY OLD ARTIFACT ON THE BASELINE. Compared to prior tracings in the system, no significant changes Electronically Signed on 04-19-2020 23:33:20 EST by Jose Scott
[2020-04-19] MEDS ORDERED: MORPHINE 2 MG/ML 1ML VIAL (J2270) As Ordered ONE (23:51)
[2020-04-20] MEDS ORDERED: ONDANSETRON 4MG/2ML VIAL IV PRN
[2020-04-20] MEDS ORDERED: MORPHINE 2 MG/ML 1ML VIAL (J2270) IV PRN
[2020-04-20] MEDS ORDERED: FLEET ENEMA PR PRN
[2020-04-20] MEDS ORDERED: SCOPOLAMINE 1MG TRANSDERMAL PATCH TOP PRN
[2020-04-20] MEDS ORDERED: LORazepam 2 MG/ML VIAL IV PRN
[2020-04-20] MEDS ORDERED: HYOSCYAMINE SULFATE 0.125 MG SUBL TABLET PO PRN
[2020-04-20] MEDS ORDERED: ATROPINE SULFATE 1% OP SOLN 2 ML BTL SL PRN
[2020-04-20] MEDS ORDERED: NOREPINEPHRINE BITARTRATE 16 MG in D5W 484 ML IV SCH ×2 (05:00)
[2020-04-20 12:22] LABS: INFLUENZA A AMPLIFICATION NEGATIVE (NEGATIVE); INFLUENZA B AMPLIFICATION NEGATIVE (NEGATIVE)
== END 2020-04-20 03:00 | disposition expired | DRG 871 ==
LOC: M ED 14:34 → EDBD 14:34 → M ED INP 18:28 → ENRESERV 20:21 → M 4MAIN 20:52 → M ICU 04-10 13:47
PROVIDERS: ADMIT Family Medicine; ATTEND Family Medicine
PROC: 5A1935Z Respiratory Ventilation, Less than 24 Consecutive Hours (ICD-10-PCS; principal; 2020-04-19)
PROC: 02HV33Z Insertion of Infusion Device into Superior Vena Cava, Percutaneous Approach (ICD-10-PCS; 2020-04-19)
DX: A41.9 Sepsis, unspecified organism (principal); U07.1 COVID-19; J12.89 Other viral pneumonia; J15.9 Unspecified bacterial pneumonia; J96.01 Acute respiratory failure with hypoxia; Z94.0 Kidney transplant status; N17.9 Acute kidney failure, unspecified; E87.2 Acidosis; D84.9 Immunodeficiency, unspecified; E11.65 Type 2 diabetes mellitus with hyperglycemia; I12.9 Hypertensive chronic kidney disease with stage 1 through stage 4 chronic kidney disease, or unspecified chronic kidney disease; N18.9 Chronic kidney disease, unspecified; E87.5 Hyperkalemia; J45.909 Unspecified asthma, uncomplicated; Z85.46 Personal history of malignant neoplasm of prostate; Z79.899 Other long term (current) drug therapy; Z79.82 Long term (current) use of aspirin; Z79.4 Long term (current) use of insulin; I16.0 Hypertensive urgency; R31.1 Benign essential microscopic hematuria; G47.33 Obstructive sleep apnea (adult) (pediatric); D69.6 Thrombocytopenia, unspecified; Z66 Do not resuscitate